=== PATIENT | male | born 1945 | race Caucasian/White ===

== ENCOUNTER 2017-11-16 15:20 | Emergency (ER) | payer MEDICARE, OTHER, SELFPAY ==
[2017-11-16 15:21] VITALS: BP 154/95; PULSE 59; RESP 12; TEMP 36.7; O2SAT 97; BMI 31.8
--- NOTE | 2017-11-16 15:30 | CT_ITS ---
STUDY: CT BRAIN WITHOUT CONTRAST REASON FOR EXAM: Male, 71 years old. Dizzy RADIATION DOSAGE (If Supplied By Facility): CTDIvol = ( 44.99 ) mGy, DLP = ( 796.11 ) mGycm TECHNIQUE: Transaxial CT imaging of the brain was performed without administration of intravenous contrast material. Individualized dose optimization techniques were used for this CT. COMPARISON: Previous study of November 11, 2014 FINDINGS: Normal soft tissue structures. Normal calvarium. There is mild cerebral atrophy with widening of the extra-axial spaces and ventricular dilatation. Normal white matter tracts of the cerebral hemispheres. Normal basal ganglia and thalami. Normal brainstem. Normal cerebellum. There is no intracranial hemorrhage. There are no findings of an acute ischemic infarction. There is mucosal thickening of the maxillary sinuses. CT/Brain/Head without Contrast IMPRESSION: Chronic involutional changes of the brain. Chronic maxillary sinusitis. Electronically Signed: Buster rGacia MD at 16:29 EST , Service support ,
--- NOTE | 2017-11-16 15:32 | ED.VISSUMM ---
- ER Visit Summary Date of Service: 11/16/17 Chief Complaint: Dizziness History of Present Illness: The patient is a 71 M who woke up with dizziness this morning. He describes as room spinning. He has a history of vertigo for years ago. He took to Antivert without any relief today. He has had a headache that radiates down into his neck. He does have a history of degenerative disc disease. He is currently being monitored by Dr. Chavez for a leukocytosis to rule out lymphoma. It is been stable and he is on no medications for this. Physical Examination: Vital signs reviewed. HEENT exam unremarkable, except for bilateral nystagmus. Moving his eyes either direction did not make his symptoms worse. Heart is regular rate and rhythm without murmurs. Lungs are clear to auscultation. Abdomen is soft and nontender. Extremities reveal no edema. Skin exam normal. Neurologic exam normal. Test Results: Laboratory studies unremarkable except for a white blood cell count of 13.1. CT scan of the head revealed chronic changes Emergency Department Course and Treatment: Patient was treated with oral Valium. He had no improvement with this was given IV Benadryl. He feels much better and was able to ambulate without any symptoms. I will send him home with Sudafed as well as Gregoria COUCH. He will continue meclizine at home. He will follow up with his primary care physician Treatment Plan: [] Disposition: Discharge Impression: Vertigo This note was generated with Dr [employer] dictation software. It may contain incorrect words, spelling, and punctuation that were not noted in review of the chart prior to signing ED Disposition - Plan for ED Patient: Chief Complaint: Dizziness Referrals: Ryan Desai MD [Primary Care Provider] -
[2017-11-16 15:43] LABS: Absolute Lymphocyte Count 10.23 X10^3/ul (0.83-4.51); Absolute Neutrophil Count 2.2 X10^3/uL (2.0-7.7); Basophil# 0.02 X10^3/uL; Basophil% 0.2 % (0-1); Differential Indicated SCAN CRITERIA MET; Eosinophil# 0.13 X10^3/uL; Hematocrit 43.5 % (40-54); Hemoglobin 14.4 g/dl (13.0-16.5); Lymphocyte # 10.23 X10^3/ul (4.0); Lymphocyte % 78.2 % (19-41); Mean Corp Hgb Conc 33.1 g/gl (32-36); Mean Corpuscular Hgb 30.4 pg (27.0-32.0); Mean Corpuscular Volume 91.8 fL (80-94); Mean Platelet Vol. 9.8 fl (6.2-12.0); Monocyte# 0.45 X10^3/uL; Monocyte% 3.4 % (0-10); Neutrophil # 2.23 X10^3/uL (2.7-7.7); POSITIVE COUNT NO; POSITIVE DIFFERENTIAL YES; POSITIVE MORPHOLOGY NO; Platelet Count 146 K/mm3 (150-450); RBC Distribution Width CV 12.7 % (11.6-14.6); Red Blood Count 4.74 M/mm3 (4.6-6.2); White Blood Count 13.1 K/mm3 (4.4-11.0)
[2017-11-16 15:52] LABS: Anion Gap 6 (5-15); BUN 18 mg/dL (7-18); BUN/Creat Ratio 26.8 RATIO (10-20); Calcium,Total 8.7 mg/dL (8.5-10.1); Chloride 110 mmol/L (98-107); Creatinine, Serum 0.67 mg/dL (0.70-1.30); EST Glomerular Filtration Rate 124 mL/min (>60); Est Glom Filt Rate - Afr Amer 150 mL/min (>60); Estimated Creatinine Clearance 70.97 ml/min; Glucose 88 mg/dL (74-106); Potassium 4.1 mmol/L (3.5-5.1); Sodium Level 143 mmol/L (136-145)
[2017-11-16] MEDS: diazePAM 5 MG Tablet PO (15:55)
[2017-11-16] MEDS: Ondansetron 4 MG/2 ML Vial IV (15:55)
[2017-11-16 15:58] VITALS: BP 138/85; PULSE 56; RESP 14; O2SAT 96
[2017-11-16 16:37] LABS: Anisocytosis RARE; Platelet Estimate ADEQUATE (ADEQ)
[2017-11-16 16:38] LABS: Macrocytosis RARE
[2017-11-16 16:41] VITALS: BP 126/81; PULSE 56; RESP 13; O2SAT 95
--- NOTE | 2017-11-16 17:27 | ED.RN ---
ATTEMPTED TO AMBULATE PT. PT SAT ON SIDE OF BED, AND DEVELOPED IMMEDIATE DIZZINESS. DID NOT TEST WALK AT THIS TIME.
[2017-11-16] MEDS: DiphenhydrAMINE 50 MG/ML Syringe 25 MG IV (17:29)
[2017-11-16 17:33] VITALS: BP 136/84; PULSE 60; RESP 16; O2SAT 99
[2017-11-16 18:06] VITALS: BP 124/76; PULSE 65; RESP 15; O2SAT 98
--- NOTE | 2017-11-16 18:26 | ED.DEP ---
ED Disposition - Plan for ED Patient: Disposition: Home or Assisted Living Chief Complaint: Dizziness Instructions: ED BPV Vertigo Prescriptions: Ondansetron [Zofran Odt] 4 mg PO Q8H PRN PRN #10 tab PRN Reason: Nausea Pseudoephedrine HCl [Sudafed] 30 mg PO TID #20 tab Referrals: Ryan Desai MD [Primary Care Provider] -
[2017-11-16 18:36] VITALS: BP 119/76; PULSE 61; RESP 16; O2SAT 96
[2017-11-17 13:25] LABS: Pathologist Review Reviewed
== END 2017-11-16 18:37 | disposition home or self-care (01) ==
PROVIDERS: Emergency Provider Emergency Medicine; Family Provider Family Medicine; PCP Family Medicine
DX: R42 Dizziness and giddiness (principal); R51 Headache; Z79.899 Other long term (current) drug therapy
CPT/HCPCS: 70450; 80048; 85025; 96374; 96375; 99285; A4216; J2405

== ENCOUNTER → 2019-08-07 11:48 | Outpatient (CLI) | payer MEDICARE, OTHER, SELFPAY ==
[2019-08-07 11:56] LABS: Bacteria 0 SEEN /hpf (None Seen); Mucous, Urine 0 SEEN /hpf (<or=2+); Squamous Epithelial Cells - UA 0 SEEN /hpf (0-5)
[2019-08-07 12:23] LABS: Absolute Lymphocyte Count 14.48 X10^3/uL (0.83-4.51); Basophil# 0.07 X10^3/uL; Basophil% 0.3 % (0-1); Eosinophil# 0.16 X10^3/uL; Eosinophils% 0.8 % (0-5); Hematocrit 45.7 % (40-54); Hemoglobin 14.9 g/dL (13.0-16.5); Lymphocyte # 14.48 X10^3/ul (4.0); Lymphocyte % 69.1 % (19-41); Mean Corp Hgb Conc 32.6 g/dL (32-36); Mean Corpuscular Volume 95.2 fL (80-94); Monocyte# 2.26 X10^3/uL; Monocyte% 10.8 % (0-10); NRBC Flagged by Analyzer 0.1 % (0-5); Neutrophil # 3.95 X10^3/uL (2.7-7.7); Neutrophil % 18.8 % (47-70); POSITIVE DIFFERENTIAL YES; POSITIVE MORPHOLOGY YES; Platelet Count 165 K/mm3 (150-450); RBC Distribution Width CV 12.2 % (11.6-14.6)
[2019-08-07 12:24] LABS: Differential Indicated SCAN CRITERIA MET
[2019-08-07 12:29] LABS: Color, Urine Yellow (Yellow); Glucose, Dipstick Normal (Normal); Ketone-Dipstick Negative (Negative); Leukocyte Esterase-Dipstick 500 /ul (Negative); Nitrite-Dipstick Negative (Negative); Occult Blood-Urine 250 /ul (Negative); Protein-Dipstick 30 mg/dl (Negative); Specific Gravity, Urine 1.005 (1.002-1.030); Urine Bilirubin Dipstick Negative (Negative); Urine Clarity Sl. Cloudy (Clear); Urine Urobilinogen Normal (Normal)
[2019-08-07 12:31] LABS: White Blood Cells 10-25 SEEN /hpf (0-5)
[2019-08-07 12:32] LABS: Red Blood Cells-Urine 25-50 SEEN /hpf (0-5)
[2019-08-07 12:45] LABS: ALB/GLOB Ratio 1.3 RATIO (0.9-2.4); AST(SGOT) 20 U/L (15-37); Alanine Aminotransfer ALT/SGPT 22 U/L (16-61); Albumin, Serum 3.9 g/dL (3.2-5.0); Alkaline Phosphatase 103 U/L (45-117); Anion Gap 4 (5-15); BUN 18 mg/dL (7-18); Calcium,Total 8.9 mg/dL (8.5-10.1); Chloride 109 mmol/L (98-107); Creatinine, Serum 0.82 mg/dL (0.70-1.30); EST Glomerular Filtration Rate 98 mL/min (>60); Est Glom Filt Rate - Afr Amer 119 mL/min (>60); Globulin 2.9 g/dL (2.2-4.2); Glucose 91 mg/dL (74-106); Potassium 4.4 mmol/L (3.5-5.1); Protein, Total 6.8 g/dL (6.4-8.2); Sodium Level 142 mmol/L (136-145)
[2019-08-07 12:46] LABS: Reactive Lymphocyte 2+
== END ==
PROVIDERS: Family Provider Family Medicine; PCP Family Medicine; Referring Provider Family Medicine; Visit Provider Family Medicine
DX: R31.0 Gross hematuria (principal)
CPT/HCPCS: 36415; 80053; 81001; 85025

== ENCOUNTER 2020-08-17 16:54 | Emergency (ER) | payer MEDICARE, OTHER, SELFPAY ==
[2020-08-17 16:55] VITALS: BP 149/88; PULSE 61; RESP 18; TEMP 36.6; O2SAT 98; BMI 29.5
--- NOTE | 2020-08-17 17:18 | ED.VIS.GEN ---
History of Present Illness Chief Complaint: Lower Extremity Injury Informant: Patient Narrative: 74-year-old male states that he has developed pain in the anterior aspect of the right knee. He states it is painful at rest and with movements. He has a history of bilateral knee replacements with Dr. Sierra in [place]. He has an appointment with them for this pain in September. He has a history of CLL and contacted Dr. Bray's office who asked him to come to emergency to get duplex ultrasound. Patient denies any swelling of the leg. He denies any redness or swelling of the knee. No chest pain shortness of breath. No known trauma. Past Medical History - Allergies and Home Meds Allergies/Adverse Reactions: Allergies No Known Allergies Allergy (Verified 08/17/20 16:57) Past Medical History: - - CLL Surgical History: - - Bilateral knee replacements Smoking Status: Never smoker Drugs: None Review of Systems General: Denies: Chills, Fever, Sweats Eyes: Denies: Visual changes - bilaterally, Diplopia ENT: Denies: Rhinorrhea, Sore throat Cardiovascular: Denies: Chest pain, Palpitations Respiratory: Denies: Dyspnea, Cough, Dyspnea on exertion Gastrointestinal: Denies: Abdominal pain, Nausea, Vomiting, Diarrhea, Melena, Hematochezia Genitourinary: Denies: Dysuria, Hematuria, Frequency Musculoskeletal: Reports: Extremity Pain. Denies: Back pain Skin: Denies: Rash, Wounds Neurological: Denies: Headache, Weakness, Numbness Physical Exam Vital Signs/Narrative: Vital Signs Temp Pulse Resp BP Pulse Ox 08/17/20 16:55 97.9 F 61 18 149/88 H 98 Inital Vital Signs reviewed: Yes General: Well nourished, Well developed, No Acute Distress Head: Normocephalic, Atraumatic Eyes: Perrl, EOMI ENT: Moist mucous membranes, No rhinorrhea Neck: Supple, Nontender Cardiovascular: Regular rate, Regular rhythm, No murmurs Respiratory: No distress, CTA bilaterally, Chest nontender Abdomen: Soft, Nontender, Nondistended, Normal bowel sounds Back: Nontender, Normal Inspection Extremities: Nontender, No edema, - - Specifically no warmth, redness, or swelling of the knee. Ligaments appear stable. Calf is nontender. Neurovascular intact. Normal skin color Skin: Normal color, No rash Neurological: Alert, Oriented x3, Cranial nerves II-XII grossly intact, Normal Strength, Normal Sensation Psychological: Normal affect, Normal Mood Diagnostic/Tx/Re-eval Clinical Impression(s) from Imaging Studies Venous Duplex 08/17/20 17:19 IMPRESSION: 1. No demonstrated deep venous thrombosis of the right lower extremity 2. Additional imaging of right anterior knee region where there is complaining of pain and swelling reveals subcutaneous edema and a small amount of layering subcutaneous fluid likely due to direct trauma or inflammation. Electronically Signed: Garett Liriano MD at 18:13 EST , Service support , Knee X-Ray 08/17/20 17:25 IMPRESSION: No acute or significant process Electronically Signed: Garett Liriano MD at 18:01 EST , Service support , - Medical Decision Making I think is most likely musculoskeletal and probably patellar in nature. My interpretation of the plain films of the knee show arthritic changes of the patella and some mild edema of the soft tissue. Orthopedic hardware appears intact. Patient will be discharged home. Instructions for anti-inflammatories and to keep his appointment with his orthopedic surgeon. ED Disposition - Plan for ED Patient: Disposition: Home or Assisted Living Diagnosis: Right knee pain Instructions: ED Knee Pain of Uncertain Cause Additional Instructions: Follow-up with Dr. Sierra as scheduled
--- NOTE | 2020-08-17 17:19 | US_ITS ---
STUDY: VENOUS DOPPLER ULTRASOUND - RIGHT LOWER EXTREMITY REASON FOR EXAM: Male, 74 years old. RT ANTERIOR KNEE PAIN AND SWELLING TECHNIQUE: Ultrasound evaluation of the deep vein system to include calderon-scale imaging and compression was performed. Calderon-scale imaging and Doppler sonographic evaluation, including duplex spectral analysis and qualitative color flow sonography, was performed. COMPARISON: None. FINDINGS: Common Femoral Vein: Normal compression, spontaneity and augmentation. Normal color Doppler. Common Femoral Vein/Greater Saphenous Junction: Normal compression, spontaneity and augmentation. Normal color Doppler. Deep Femoral Vein: Normal compression, spontaneity and augmentation. Normal color Doppler. Femoral Proximal: Normal compression, spontaneity and augmentation. Normal color Doppler. Femoral Middle: Normal compression, spontaneity and augmentation. Normal color Doppler. Femoral Distal: Normal compression, spontaneity and augmentation. Normal color Doppler. Popliteal Vein: Normal compression, spontaneity and augmentation. Normal color Doppler. Posterior Tibial Vein: Normal compression, spontaneity and augmentation. Normal color Doppler. Peroneal Vein: Normal compression, spontaneity and augmentation. Normal color Doppler. Imaging of the left common femoral vein reveals no abnormalities. Additional imaging of right anterior knee region where there is complaining of pain and swelling reveals subcutaneous edema and a small amount of layering subcutaneous fluid likely due to direct trauma or inflammation. US/Venous Duplex Imag/Limited/Uni IMPRESSION: 1. No demonstrated deep venous thrombosis of the right lower extremity 2. Additional imaging of right anterior knee region where there is complaining of pain and swelling reveals subcutaneous edema and a small amount of layering subcutaneous fluid likely due to direct trauma or inflammation. Electronically Signed: Garett Liriano MD at 18:13 EST , Service support ,
--- NOTE | 2020-08-17 17:25 | RAD_ITS ---
STUDY: X-RAY - RIGHT KNEE REASON FOR EXAM: Male, 74 years old. right knee pain, no injury TECHNIQUE: 4 view(s) of the knee. COMPARISON: None. FINDINGS: Unremarkable knee prosthetic components. No demonstrated hardware complications. Normal proximal tibiofibular articulation. There is no demonstrated fracture. No visualized joint effusion. The soft tissue structures are unremarkable. RAD/Knee 4 or More Views IMPRESSION: No acute or significant process Electronically Signed: Garett Liriano MD at 18:01 EST , Service support ,
[2020-08-17 18:55] VITALS: BP 154/97; PULSE 58; RESP 18; O2SAT 97
== END 2020-08-17 18:56 | disposition home or self-care (01) ==
PROVIDERS: Emergency Provider Emergency Medicine; PCP Family Medicine
DX: M25.561 Pain in right knee (principal); Z85.6 Personal history of leukemia; Z96.653 Presence of artificial knee joint, bilateral; M79.89 Other specified soft tissue disorders
CPT/HCPCS: 73564; 93971; 99282

== ENCOUNTER → 2022-02-15 | Outpatient (CLI) | payer MEDICARE, SELFPAY | END | disposition home or self-care (01) | LOC: LABSPEC 15:56 | PROVIDERS: PCP Family Medicine; Visit Provider Otolaryngology | DX: J32.9 Chronic sinusitis, unspecified (principal) | CPT/HCPCS: 87070; 87077; 87186; 87205 ==

== ENCOUNTER → 2022-03-01 | Outpatient (CLI) | payer MEDICARE, SELFPAY ==
--- NOTE | 2022-03-01 | MASS_PTH ---
PATIENT: DEDE CHAN LOC: [facility] U#:[id number] AGE/SX: 76/M ROOM: RE03/01/[address]: Dr. Laron Tovar MD : 1945 BED: DIS: 03/01/2022 SPEC #: [id number] RECD: 03/01/22 08:49 STATUS: JONATHON KEBEDE #: [id number] CURTIS: 03/01/22 00:[address]: Laron Tovar DEPT: SURGICAL PATHOLOGY RECD BY: Dionisio Bernardo ENTERED: 03/04/22 08:49 SP TYPE: Mass OTHR DR: Dr. Dede Desai MD Tissues: NASAL POLYP Procedures: Special Stain Group I Surgery Specimen Level IV GMS Stain (control) HEADER OPERATION: Not noted PRE-OP DIAGNOSIS: Left nasal mass TISSUE SUBMITTED: Left nasal mass MICROSCOPIC DIAGNOSIS Left nasal mass, biopsy: Fragments of respiratory mucosa with extensive ulceration, acute and chronic inflammation and granulation tissue reaction. Negative for malignancy. See comment. MARIA GUADALUPE:christiana 03/05/2022 COMMENT The specimen also show extensive area of hemorrhage. Special stain for fungi is negative for organisms; matched control is appropriate. If there is a residual lesion, re-biopsy is suggested if clinically indicated. Clinical correlation and appropriate follow up are necessary. Case has been reviewed in consultation with Dr. Campbell who concurs with the above diagnosis. IDC:AM MICROSCOPIC DESCRIPTION Slides are reviewed. GROSS DESCRIPTION Received in fixative is one container labeled with the patient's name and designated left nasal mass. The specimen consists of multiple pieces of brownish soft tissue that in aggregate measure 1.8 x 1.5 x 0.3 cm. The specimen is totally submitted in one cassette. / MARIA GUADALUPE:christiana 03/04/2022 TC:5 CPT: 17193, 13421
== END | disposition home or self-care (01) ==
LOC: LABSPEC 15:16
PROVIDERS: PCP Family Medicine; Referring Provider Otolaryngology; Visit Provider Otolaryngology
DX: C30.0 Malignant neoplasm of nasal cavity (principal)
CPT/HCPCS: 88304; 88305; 88312

== ENCOUNTER → 2022-03-08 | Outpatient (CLI) | payer MEDICARE, SELFPAY | END | disposition home or self-care (01) | LOC: LABSPEC 15:03 | PROVIDERS: PCP Family Medicine; Visit Provider Otolaryngology | DX: J32.9 Chronic sinusitis, unspecified (principal) | CPT/HCPCS: 87070; 87077; 87186; 87205 ==

== ENCOUNTER → 2022-03-20 | Outpatient (CLI) | payer MEDICARE, OTHER, SELFPAY ==
--- NOTE | 2022-03-20 07:57 | CT_ITS ---
STUDY: CT MAXILLOFACIAL SINUSES REASON FOR EXAM: Male, 76 years old. SINUSITIS. BALLOON PLASTY 2 WEEKS AGO RADIATION DOSAGE (If Supplied By Facility): CTDIvol = ( 33.06 ) mGy, DLP = ( 837.98 ) mGycm TECHNIQUE: The patient was scanned in a multi detector CT scanner. High resolution axial imaging was performed without the administration of intravenous contrast material. Sagittal and coronal images were reconstructed. Individualized dose optimization techniques were used for this CT. COMPARISON: None. FINDINGS: FRONTAL SINUSES: There is opacification of the left frontal sinus. Mucosal thickening of the right frontal sinus. ETHMOIDAL SINUSES: Partial opacification of the ethmoid sinuses. MAXILLARY SINUSES: There is complete opacification of the maxillary sinuses bilaterally worse on the right side. SPHENOIDAL SINUSES: Normal aeration, without mucosal inflammatory disease. The ostiomeatal complexes are obliterated bilaterally due to soft tissue proliferation. Normal bilateral middle turbinates. Normal bilateral inferior turbinates. Normal midline nasal septum. Soft tissue proliferation along the posterior aspect of the nasal airways more prominent on the right side. The visualized osseous structures are normal. The visualized bilateral orbital contents are normal. CT/Sinus/Facial Bone IMPRESSION: Opacification of the maxillary sinuses as well as the left frontal sinus and partial opacification of the ethmoid sinuses. Electronically Signed: Juan Rodas MD at 8:35 EDT ,
== END | disposition home or self-care (01) ==
LOC: CT 07:56
PROVIDERS: PCP Family Medicine; Referring Provider Otolaryngology; Visit Provider Otolaryngology
DX: J32.9 Chronic sinusitis, unspecified (principal); J33.0 Polyp of nasal cavity
CPT/HCPCS: 70486

== ENCOUNTER 2022-04-12 08:11 | Outpatient (CLI) | payer MEDICARE, OTHER, SELFPAY ==
--- NOTE | 2022-04-12 08:14 | EKG12_ITS ---
Test Reason : PRE OP Blood Pressure : / mmHG Vent. Rate : 069 BPM Atrial Rate : 069 BPM P-R Int : 176 ms QRS Dur : 088 ms QT Int : 386 ms P-R-T Axes : 062 070 057 degrees QTc Int : 413 ms Normal sinus rhythm Normal ECG Confirmed by TRACY ALVARADO, OVIDIO ([id number]), art editor MICHEAL TAFOYA ([id number]) on 04/15/2022 10:59:25 AM Referred By: Héctor Tovar Confirmed By:LETY MOLINA MD
[2022-04-12 09:24] LABS: Hematocrit 42.4 % (40-54); Mean Corpuscular Hgb 31.6 pg (27.0-32.0); Mean Corpuscular Volume 95.7 fL (80-94); POSITIVE COUNT YES; Platelet Count 151 K/mm3 (150-450); RBC Distribution Width CV 13.2 % (11.6-14.6); RBC Distribution Width SD 46.5 fl (35.1-43.9); Red Blood Count 4.43 M/mm3 (4.6-6.2); White Blood Count 37.8 K/mm3 (4.4-11.0)
[2022-04-12 09:46] LABS: Scan Indicated on CBC? Y/N YES- FLAGS NOTED
[2022-04-12 09:47] LABS: Anion Gap 3 (5-15); BUN 18 mg/dL (7-18); BUN/Creat Ratio 18.8 RATIO (10-20); Calcium,Total 9.3 mg/dL (8.5-10.1); Chloride 112 mmol/L (98-107); Creatinine, Serum 0.96 mg/dL (0.70-1.30); EST Glomerular Filtration Rate 82 mL/min (>60); Est Glom Filt Rate - Afr Amer 99 mL/min (>60); Glucose 97 mg/dL (74-106); Potassium 3.8 mmol/L (3.5-5.1); Sodium Level 143 mmol/L (136-145)
[2022-04-15 13:04] LABS: Pathologist Review Reviewed
== END 2022-04-12 23:59 | disposition home or self-care (01) ==
PROVIDERS: PCP Family Medicine; Referring Provider Otolaryngology; Visit Provider Otolaryngology
DX: Z01.810 Encounter for preprocedural cardiovascular examination (principal); Z01.812 Encounter for preprocedural laboratory examination
CPT/HCPCS: 36415; 80048; 85027; 93005

== ENCOUNTER → 2022-04-17 | Outpatient (CLI) | payer MEDICARE, OTHER, SELFPAY ==
--- NOTE | 2022-04-16 | IMM_PTH ---
PATIENT: DEDE CHAN LOC: [facility] U#:[id number] AGE/SX: 76/M ROOM: RE04/17/[address]: Dr. Laron Tovar MD : 1945 BED: DIS: 04/17/2022 SPEC #: [id number] RECD: 04/22/22 12:49 STATUS: JONATHON REQ #: [id number] CURTIS: 04/16/22 00:[address]: Laron Tovar DEPT: IMMUNOHISTOCHEMISTRY RECD BY: Krystal Marroquin ENTERED: 04/22/22 12:57 SP TYPE: IMMUNO OTHR DR: Dr. Dede Desai MD Tissues: A - Nasal cartilage, NOS B - Nasal cartilage, NOS Procedures: BCL-2 (add) BCL-6 (add) CD10 (add) CD138 (add) CD15 (add) CD20 (add) CD23 (add) CD30 (add) CD43 (add) CD45 (add) CD5 (add) CD79A (add) CYCLIN (add) KAPPA (add) KI-67 (add) LAMBDA (add) P53 (add) MUM1 (add) Pankeratin (add) CD3 (initial) PHYSICIAN & [place] [id number] SPECIMEN INFORMATION: Tissue Source: A ? Right sinus contents, B ? Left Right sinus contents Clinical Info: Chronic sinusitis, polyp of nasal cavity Specimen Number: [id number] A & B CPT code: 92119 x2, 17370 x28 METHODOLOGY: Deparaffinized sections of prefer/formalin-fixed tissue or PAP/DQ stained slides are incubated with monoclonal/polyclonal antibodies/oligonucleotide probes. Localization is made via biotin free immunoperoxidase method. Appropriate controls are performed and reacted as expected. Results on target cell population are indicated in the following table: RESULTS: ANTIBODY / CLONE RESULT Block A CD3 (PS1) negative CD5 (SP10) positive CD20 (L26) positive CD23 (1B12) negative CD30 (Lasha-H2) negative CD43 (L60) positive CD45 (RP2/18) positive CD79a (11E3) positive BCL-2 (bcl-2/100/D5) positive BCL-6 (GD521H/A8) negative Block B AE1-3 (AE1/AE3/PCK26) negative CD3 (PS1) negative CD5 (SP10) positive CD10 (56C6) negative CD15 (MMA) negative CD20 (L26) positive CD23 (1B12) positive CD30 (Lasha-H2) negative CD43 (L60) positive CD45 (RP2/18) positive CD79a (11E3) positive CD138 (B-A38) negative BCL-2 (bcl-2/100/D5) positive BCL-6 (WZ539C/A8) negative Cyclin D1/BCL-1 (SP4) negative MUM1 (MRQ-43) negative Stigler (polyclonal) negative Lambda (polyclonal) negative P53 (DO-7) negative Ki-67 (30-9) negative These tests were developed and their performance characteristics determined by [facility]. They may not have been cleared or approved by the U.S. Food and Drug Administration. The FDA has determined that such clearance or approval is not necessary. The above immunohistochemical/dualISH markers are ordered and reviewed by the Pathologist. INTERPRETATION: A. Right sinus contents: Consistent with involvement by SLL/CLL. B. Left Right sinus contents: Consistent with involvement by SLL/CLL. Case has been reviewed in consultation with Dr. Robin who concurs with the above diagnosis. IDC:MARIA GUADALUPE AM:christiana 04/23/2022
--- NOTE | 2022-04-16 | NASAL_PTH ---
PATIENT: DEDE CHAN LOC: [facility] U#:[id number] AGE/SX: 76/M ROOM: RE04/17/[address]: Dr. Laron Tovar MD : 1945 BED: DIS: 04/17/2022 SPEC #: [id number] RECD: 04/17/22 14:39 STATUS: JONATHON REJuan #: [id number] CURTIS: 04/16/22 00:[address]: Laron Tovar DEPT: SURGICAL PATHOLOGY RECD BY: Char Santizo ENTERED: 04/18/22 09:38 SP TYPE: NASAL SPEC OTHR DR: Dr. Dede Desai MD [facility] Tissues: A - Ethmoid sinus, NOS B - Ethmoid sinus, NOS Procedures: Decalcification bone/plaque Surgery Specimen Level IV HEADER OPERATION: Functional endoscopic sinus surgery PRE-OP DIAGNOSIS: Chronic sinusitis, polyp of nasal cavity TISSUE SUBMITTED: A ? Right sinus contents, B ? Left sinus contents MICROSCOPIC DIAGNOSIS A. Right sinus contents, curettings: Consistent with involvement by SLL/CLL Fragments of benign sinonasal polyp and respiratory mucosa. Consistent with chronic sinusitis. See Comment. B. Left sinus contents, curettings: Consistent with involvement by SLL/CLL Fragments of benign sinonasal polyp and respiratory mucosa. Consistent with chronic sinusitis. See Comment. AM:christiana 04/22/2022 COMMENT A&B. Immunohistochemistry ([id number]) supports the above diagnosis. 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 Clinical correlation is suggested. Case has been reviewed in consultation with Dr. Robin who concurs with the above diagnosis. IDC:SJ MICROSCOPIC DESCRIPTION Slides are reviewed. GROSS DESCRIPTION A - Received in fixative is one container labeled with the patient's name and designated right sinus contents. The specimen consists of multiple irregular fragments of valenzuela soft tissue mixed with fragments of bone that in aggregate measure 3 x 2.5 x 0.3 cm. A few polypoid pieces are also noted measuring 0.5 to 1.5 cm in greatest dimension. The entire specimen is submitted in one cassette after decalcification. B - Received in fixative is one container labeled with the patient's name and designated left sinus contents. The specimen consists of multiple irregular fragments of valenzuela soft tissue mixed with fragments of bone including turbinate that in aggregate measure 2.5 x 2.5 x 0.3 cm. The entire specimen is submitted in one cassette after decalcification. / SJ:rg 04/18/2022 TC:0 CPT: 20611 x2, 26978 x2
== END | disposition home or self-care (01) ==
LOC: LABSPEC 14:51
PROVIDERS: PCP Family Medicine; Referring Provider Otolaryngology; Visit Provider Otolaryngology
DX: J32.9 Chronic sinusitis, unspecified (principal); J33.9 Nasal polyp, unspecified
CPT/HCPCS: 88305; 88311; 88341; 88342

== ENCOUNTER → 2022-12-04 | Outpatient (CLI) | payer MEDICARE, OTHER, SELFPAY | END | disposition home or self-care (01) | LOC: LABSPEC 15:15 | PROVIDERS: PCP Family Medicine; Referring Provider Otolaryngology; Visit Provider Otolaryngology | DX: J32.9 Chronic sinusitis, unspecified (principal) | CPT/HCPCS: 87070; 87186; 87205 ==

== ENCOUNTER → 2023-12-31 | Outpatient (CLI) | payer MEDICARE, OTHER, SELFPAY ==
--- NOTE | 2023-12-31 07:12 | CT_ITS ---
STUDY: CT MAXILLOFACIAL SINUSES REASON FOR EXAM: Male, 78 years old. SINUSITIS, NASAL POLYP RADIATION DOSAGE (If Supplied By Facility): CTDIvol = ( 33.06 ) mGy, DLP = ( 846.25 ) mGycm TECHNIQUE: The patient was scanned in a multi detector CT scanner. High resolution axial imaging was performed without the administration of intravenous contrast material. Sagittal and coronal images were reconstructed. Individualized dose optimization techniques were used for this CT. COMPARISON: Comparison is made with prior study dated March 20, 2022. FINDINGS: Small benign appearing submental lymph nodes. FRONTAL SINUSES: Normal aeration, without mucosal inflammatory disease. ETHMOIDAL SINUSES: Opacification of the ethmoid sinuses with thinning of the bony septations. MAXILLARY SINUSES: There is opacification of the maxillary sinuses bilaterally. SPHENOIDAL SINUSES: Opacification of the sphenoid sinuses. Soft tissue proliferation in the ostiomeatal contrast bilaterally. Soft tissue density in the nasal fossa worse on the left side. Normal bilateral inferior turbinates. There is a right sided nasal septal deviation, but without a nasal septal spur. The visualized osseous structures are normal. The visualized bilateral orbital contents are normal. CT/Sinus/Facial Bone IMPRESSION: Pansinusitis. Findings suggestive of nasal polyposis worse in the left nasal fossa. Electronically Signed: Juan Rodas MD at 14:56 EDT ,
== END | disposition home or self-care (01) ==
LOC: CT 07:09
PROVIDERS: PCP Family Medicine; Referring Provider Otolaryngology; Visit Provider Otolaryngology
DX: J32.8 Other chronic sinusitis (principal); J33.0 Polyp of nasal cavity
CPT/HCPCS: 70486

== ENCOUNTER 2024-02-24 06:44 | Day surgery (SDC) | payer MEDICARE, OTHER, SELFPAY ==
--- NOTE | 2024-02-18 07:52 | EKG12_ITS ---
Test Reason : PREOP Blood Pressure : / mmHG Vent. Rate : 061 BPM Atrial Rate : 061 BPM P-R Int : 150 ms QRS Dur : 080 ms QT Int : 414 ms P-R-T Axes : 024 045 037 degrees QTc Int : 416 ms Normal sinus rhythm Normal ECG Confirmed by CORDELL ALVARADO, EVANS ([id number]), communications editor MICHEAL TAFOYA ([id number]) on 02/19/2024 6:06:33 AM Referred By: Kieran Tovar Confirmed By:EVANS LANDA MD
[2024-02-18 08:24] LABS: Hemoglobin 12.5 g/dL (13.0-16.5); Mean Corp Hgb Conc 31.3 g/dL (32-36); Mean Corpuscular Hgb 30.2 pg (27.0-32.0); Mean Corpuscular Volume 96.6 fL (80-94); Mean Platelet Vol. 9.8 fl (6.2-12.0); POSITIVE COUNT YES; Platelet Count 148 K/mm3 (150-450); RBC Distribution Width CV 13.2 % (11.6-14.6); RBC Distribution Width SD 46.5 fl (35.1-43.9); Red Blood Count 4.14 M/mm3 (4.6-6.2)
[2024-02-18 08:32] LABS: Scan Indicated on CBC? Y/N YES- FLAGS NOTED; White Blood Count 58.5 K/mm3 (4.4-11.0)
[2024-02-18 09:54] LABS: Anion Gap 5 (5-15); BUN 13 mg/dL (7-18); BUN/Creat Ratio 15.3 RATIO (10-20); Chloride 110 mmol/L (98-107); Creatinine, Serum 0.85 mg/dL (0.70-1.30); EST Glomerular Filtration Rate 93 mL/min (>60); Est Glom Filt Rate - Afr Amer 113 mL/min (>60); Glucose 89 mg/dL (74-106); Potassium 4.2 mmol/L (3.5-5.1); Sodium Level 141 mmol/L (136-145)
[2024-02-19 16:11] LABS: Pathologist Review Reviewed
--- NOTE | 2024-02-24 | ETH_PTH ---
PATIENT: DEDE CHAN LOC: [facility] – [place] U#:[id number] AGE/SX: 78/M ROOM: RE02/24/[address]: Dr. Laron Tovar MD : 1945 BED: DIS: 02/24/2024 SPEC #: [id number] RECD: 02/24/24 12:58 STATUS: JONATHON REJuan #: [id number] CURTIS: 02/24/24 00:[address]: Laron Tovar DEPT: SURGICAL PATHOLOGY RECD BY: Dionisio Bernardo ENTERED: 02/24/24 12:59 SP TYPE: ETH TISS OTHR DR: Dr. Dede Desai MD Tissues: A - Ethmoid sinus, NOS B - Ethmoid sinus, NOS Procedures: Decalcification bone/plaque Surgery Specimen Level IV HEADER OPERATION: Functional endoscopic sinus surgery, navigation PRE-OP DIAGNOSIS: Other chronic sinusitis, polyp of nasal cavity TISSUE SUBMITTED: A- Left nasal contents, B- Right nasal contents MICROSCOPIC DIAGNOSIS A. Left nasal contents, curettings: Consistent with involvement by SLL/CLL. Fragments of benign polypoid sinonasal respiratory mucosa with chronic inflammation. See comment. B. Right nasal contents, curettings: Consistent with involvement by SLL/CLL. Fragments of benign polypoid sinonasal respiratory mucosa with chronic inflammation. See comment. AM/mr 03/03/2024 COMMENT A&B. Immunohistochemistry ([id number]) supports the above diagnosis. Reference is make to patients right and left sinus contents curettings ([id number]) in which involvement by SLL/CLL was identified. Case has been reviewed in consultation with Dr. Robin who concurs with the above diagnosis. IDC:SJ MICROSCOPIC DESCRIPTION Slides are reviewed. GROSS DESCRIPTION A. Received in fixative is one container labeled with the patient's name and designated Left nasal contents. The specimen consists of multiple fragments of valenzuela soft tissue mixed with fragments of bone measuring in aggregate 3.0 x 2.5 x 0.3cm. The entire specimen is submitted in one cassette after decalcification. B. Received in fixative is one container labeled with the patient's name and designated Right nasal contents. The specimen consists of multiple fragments of pink congested soft tissue mixed with blood clot and minute fragments of bone measuring in aggregate 5.0 x 3.0 x 0.2cm. The entire specimen is submitted in two cassettes. MARIA GUADALUPE/ 02/24/2024 TC:0 CPT:71314v6,85662o9,45261u4
--- NOTE | 2024-02-24 | IMM_PTH ---
PATIENT: DDEE CHAN LOC: [facility] U#:[id number] AGE/SX: 78/M ROOM: RE02/24/[address]: Dr. Laron Tovar MD : 1945 BED: DIS: 02/24/2024 SPEC #: [id number] RECD: 02/27/24 11:22 STATUS: JONATHON REQ #: [id number] CURTIS: 02/24/24 00:[address]: Laron Tovar DEPT: IMMUNOHISTOCHEMISTRY RECD BY: Salinas Solis ENTERED: 02/27/24 11:24 SP TYPE: IMMUNO OTHR DR: Dr. Dede Desai MD Tissues: A - Ethmoid sinus, NOS B - Ethmoid sinus, NOS Procedures: BCL-2 (add) BCL-6 (add) CD10 (add) CD20 (add) CD23 (add) CD43 (add) CD45 (add) CD5 (add) CD79A (add) CYCLIN (add) KI-67 (add) CD3 (initial) PHYSICIAN & [address] [address] SPECIMEN INFORMATION: Tissue Source: A- Left sinus contents, B- Right sinus contents Clinical Info: Other chronic sinusitis, polyp of nasal cavity Specimen Number: [id number] A&B CPT code: 14873e1,75805e27 METHODOLOGY: Deparaffinized sections of prefer/formalin-fixed tissue or PAP/DQ stained slides are incubated with monoclonal/polyclonal antibodies/oligonucleotide probes. Localization is made via biotin free immunoperoxidase method. Appropriate controls are performed and reacted as expected. Results on target cell population are indicated in the following table: RESULTS: ANTIBODY / CLONE RESULT Block A1 CD3 (PS1) negative CD5 (SP10) negative CD20 (L26) positive CD43 (L60) negative CD79a (11E3) positive CD10 (56C6) negative CD23 (1B12) positive BCL-2 (bcl-2/100/D5) positive BCL-6 (KY933G/A8) negative Cyclin D1/BCL-1 (SP4) negative Ki-67 (30-9) positive, rare CD45 (RP2/18) positive Block B1 CD3 (PS1) negative CD5 (SP10) negative CD20 (L26) positive CD43 (L60) negative CD79a (11E3) positive CD10 (56C6) negative CD23 (1B12) positive BCL-2 (bcl-2/100/D5) positive BCL-6 (SI401F/A8) negative Cyclin D1/BCL-1 (SP4) negative Ki-67 (30-9) positive, rare CD45 (RP2/18) positive These tests were developed and their performance characteristics determined by [facility]. They may not have been cleared or approved by the U.S. Food and Drug Administration. The FDA has determined that such clearance or approval is not necessary. The above immunohistochemical/dualISH markers are ordered and reviewed by the Pathologist. INTERPRETATION: A. 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 B. 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 AM/mr 03/02/2024
[2024-02-24 07:06] VITALS: BP 136/83; PULSE 60; RESP 16; TEMP 36.6; O2SAT 96; BMI 28.5
[2024-02-24] MEDS: Lactated Ringers 1,000 ML 15 ML IV ×2 (07:09→09:22)
--- NOTE | 2024-02-24 07:29 | DCINST_ITS ---
Discharge Instructions Diet Discharge Diet: No restrictions Activity Discharge Activity: Return to Normal Activity Dressing / Incision Call your doctor if your incision/area has: Sudden Increased Bleeding Follow Up Care Please Follow Up With: Laron Tovar MD When: 1 week Test Results: Test results from this visit will be discussed in further detail at your follow- up appointment, if applicable. Discharge Plan Admission Attending Provider: Laron Tovar Primary Care Provider: Ryan Desai Instructions Print Language: Swedish Discharge Orders/Prescriptions Prescriptions: No Action nadolol 40 MG tablet 40 mg PO DAILY montelukast 10 MG tablet 10 mg PO QHS fluticasone propionate 50 mcg/actuation spray,suspension 2 spray intranasal DAILY Rx Instructions: administer into each nostril levocetirizine [Xyzal] 5 mg tablet 5 mg PO DAILY Referrals / Follow Up: Ryan Desai MD [Primary Care Provider] - Disposition Disposition (needs filled in before D/C Order can be placed): Home, Self Care
--- NOTE | 2024-02-24 07:29 | OP.PCM_ITS ---
Problems Associated Problem List Diagnoses (1) Chronic pansinusitis: (2) Sinusitis with nasal polyps: Report of Operation Date of Procedure: 02/24/24 Pre-Operative Diagnosis: 1. sinonasal polyposis 2. chronic pansinusitis Post-Operative Diagnosis: 1. sinonasal polyposis 2. chronic pansinusitis Surgery/Procedure Performed:: 1. endoscopic maxillary antrostomy with removal of contents, right and left 2. endoscopic total ethmoidecotmy, right and left 3. endoscopic sphenoidotomy with removal of contents, right and left 4. endoscopic frontal sinus exploration removal of contents, right and left 5. extensive removal sinonasal polyps 6. CT image guidance navigation Surgeon: Laron Tovar Type of Anesthesia: General Description of Procedure: On the day of the procedure, after appropriate informed consent was obtained, the patient was brought to the operating room and placed in a supine position on the operating room table. The patient was placed under general endotracheal anesthesia by the anesthesiologist. The endotracheal tube was secured.? image guidance navigation was set up on the face and accuracy was confirmed.? the nose was injected with lidocaine/epinephrine and decongested with oxymetazoline- soaked pledgets.? the zero degree endoscope was used to evaluate the nasal cavity.? the superior attachment of the right and left middle turbinate and uncinate processes were injected with lidocaine/epinephrine.? the left nasal cavity was evaluated.? the middle turbinate was medialized.? extensive polyps were removed from the middle meatus, sphenoethmoidal recess and frontal recess. a revision maxillary antrostomy and uncinectomy were performed with a shira elevator and a xavier cut.? the antrostomy was widened with a back-biter.? purulent material was evacuated.? a revision total ethmoidectomy was performed with a curette and an upgoing blakesley.? this was taken superiorly to the skull base and laterally to the lamina.? a stankewicz maneuver was performed and no laminar defect was noted.? the natural sphenoid os was revised and widened with the microdebrider and contents were evacuated.? fungus was removed from the sphenoethmoidal recess.? the frontal recess was explored and contents were evacuated.? hemostasis was achieved with suction cautery; talon was placed. the right nasal cavity was evaluated.? the middle turbinate was medialized.? extensive polyps were removed from the middle meatus, sphenoethmoidal recess and frontal recess. a revision maxillary antrostomy and uncinectomy were performed with a shira elevator and a xavier cut.? the antrostomy was widened with a back-biter.? purulent material was evacuated.? a revision total ethmoidectomy was performed with a curette and an upgoing blakesley.? this was taken superiorly to the skull base and laterally to the lamina.? a stankewicz maneuver was performed and no laminar defect was noted.? the natural sphenoid os was revised and widened with the microdebrider and contents were evacuated.? fungus was removed from the sphenoethmoidal recess.? the frontal recess was explored and contents were evacuated.? hemostasis was achieved with suction cautery; talon was placed. a nasogastric tube was inserted orally and contents were evacuated.? the table was rotated 90 degrees toward the anesthesiologist and? was subsequently extubated uneventfully.? he was transferred to the PACU in stable condition.
[2024-02-24] MEDS: Oxymetazoline 0.05% 1 SPRAY SPRAY.BTL 15 SPRAY ×2 (08:05→08:06)
[2024-02-24] MEDS: Clindamycin 900 MG/50 ML BAG 75 MG IV (08:21)
[2024-02-24] MEDS: Lidocaine 1% /Epi 1:100 (20ml) 20 ML Vial (09:00)
[2024-02-24 09:50] VITALS: BP 127/68; BP 136/83; PULSE 61; RESP 16; TEMP 36; O2SAT 96
[2024-02-24 09:55] VITALS: BP 121/73; BP 136/83; PULSE 60; RESP 18; O2SAT 94
[2024-02-24 10:00] VITALS: BP 121/76; BP 136/83; PULSE 59; RESP 16; O2SAT 98
[2024-02-24 10:04] VITALS: BP 116/74; BP 136/83; PULSE 60; RESP 16; TEMP 36.2; O2SAT 97
[2024-02-24 10:26] VITALS: BP 136/83
== END 2024-02-24 10:59 | disposition home or self-care (01) ==
LOC: SDC 06:45 → AC 06:46
PROVIDERS: PCP Family Medicine; Referring Provider Otolaryngology; Visit Provider Otolaryngology
PROC: (CPT 31267; principal; 2024-02-24 08:00)
DX: J32.4 Chronic pansinusitis (principal); J33.9 Nasal polyp, unspecified; J32.8 Other chronic sinusitis; I10 Essential (primary) hypertension; Z79.899 Other long term (current) drug therapy; Z87.891 Personal history of nicotine dependence
CPT/HCPCS: 31267; 31255; 30110; 00160; 36415; 80048; 85027; 88305; 88311; 88341; 88342; 93005; J7120; J2405

== ENCOUNTER → 2025-07-27 | Outpatient (CLI) | payer MEDICARE, OTHER, SELFPAY ==
--- NOTE | 2025-07-27 08:40 | EKG12_ITS ---
Test Reason : PREOP Blood Pressure : */* mmHG Vent. Rate : 62 BPM Atrial Rate : 62 BPM P-R Int : 182 ms QRS Dur : 94 ms QT Int : 412 ms P-R-T Axes : 69 64 56 degrees QTcB Int : 418 ms Normal sinus rhythm Normal ECG Confirmed by Calvin Orozco ([id number]), purchasing expeditor EDWINA OG ([id number]) on 07/27/2025 10:42:07 AM Referred By: Laron Tovar Confirmed By: Calivn Orozco
[2025-07-27 09:18] LABS: Hematocrit 27.8 % (40-54); Hemoglobin 8.9 g/dL (13.0-16.5); Mean Corp Hgb Conc 32.0 g/dL (32-36); Mean Corpuscular Volume 114.4 fL (80-94); Mean Platelet Vol. 9.6 fl (6.2-12.0); POSITIVE COUNT YES; POSITIVE MORPHOLOGY YES; Platelet Count 212 K/mm3 (150-450); RBC Distribution Width CV 17.0 % (11.6-14.6); RBC Distribution Width SD 71.8 fl (35.1-43.9); Red Blood Count 2.43 M/mm3 (4.6-6.2)
[2025-07-27 09:27] LABS: White Blood Count 59.1 K/mm3 (4.4-11.0)
[2025-07-27 09:38] LABS: Anion Gap 10 (5-15); BUN 23 mg/dL (4-19); BUN/Creat Ratio 26.6 RATIO (10-20); Calcium,Total 9.5 mg/dL (7.6-11.0); Carbon Dioxide 24.8 mmol/L (21.0-32.0); Chloride 107 mmol/L (98-108); Glucose 110 mg/dL (70-99); Potassium 4.4 mmol/L (3.3-5.1)
[2025-07-27 09:58] LABS: Scan Indicated on CBC? Y/N YES- FLAGS NOTED
== END | disposition home or self-care (01) ==
PROVIDERS: PCP Family Medicine; Referring Provider Otolaryngology; Visit Provider Otolaryngology
DX: Z01.812 Encounter for preprocedural laboratory examination (principal); Z01.810 Encounter for preprocedural cardiovascular examination
CPT/HCPCS: 36415; 80048; 85027; 93005

== ENCOUNTER → 2025-08-02 | Outpatient (CLI) | payer MEDICARE, OTHER, SELFPAY ==
--- OUTSIDE RECORDS SUMMARY | 2025-08-02 19:28 | XMS RPT_ITS | CCD ---
Author Organization [facility] CliniSyar Care Team Providers Care Feature Writer Name Role Phone SAURABH WAITE Unavailable Unavailable IMCA Unavailable Unavailable Dede Desai Unavailable Unavailable Dede Desai MD Primary Care Provider Dede Desai MD Primary Care Provider Dede Desai MD Primary Care Provider Jose Jiménez MD Unavailable Dede Desai MD Primary Care Provider DEDE DESAI Primary Care Unavailable JOSSE MARSHALL Attending Unavail able Tannhoyeison BUY BOAT OPERATOR.Oneil VOGELley Unavailable Kemal BUY BOAT OPERATOR.WEATHERIZATION TECHNICIAN Mir Unavailable Tannhof BUY BOAT OPERATOR.WEATHERIZATION TECHNICIAN Noelle Unavailable KEMAL, MIR Referring Unavailable DEDE DESAI Primary Care Unavailable BERTO SOMMERE Referring Unavailable DEDE DESAI Primary Care Unavailable DEDE DESAI Primary Care Unavailable BERTO SOMMERE Attending Unavailable DEDE DESAI Primary Care Unavailable JOSE JIMÉNEZ Attending Unavailable DEDE DESAI Primary Care Unavailable DEDE DESAI Primary Care Unavailable SPIKE MILLER Attending Unavailable GRUPO RUIZ Attending Unavailable GRUPO RUIZ Referring Unavailable EDDE DESAI Primary Care Unavailable DEDE DESAI Primary Care Unavailable NOELLE ZHU Attending Unavailabl e DEDE DESAI Primary Care Unavailable NOELLE ZHU Referring Unavailabl e DEDE DESAI Primary Care Unavailable SELF Referring Unavailable DEDE DESAI Primary Care Unavailable KEMAL, MIR Attending Unavailable KEMAL, MIR Referring Unavailable DEDE DESAI Primary Care Unavailable MIR SOMMER Referring Unavailable DEDE DESAI Primary Care Unavailable Spike Miller Primary Care Unavailable Laron Tovar Referring UnavailLaron Garvey Attending Unavaillidia camacho Allergies Allergy Classification Reported Allergen(s) Allergy Type Date of Onset Reaction(s) Facility (20 sources) Seasonal allergy; Translations: [SEASONAL ALLERGIES] Propensity to adverse reactions (disorder) 9 [facility] Repository Medications Current Medications Medication Drug Class(es) Dates Sig (Normalized) Sig (Original) amoxicillin 875 mg / clavulanate 125 mg oral tablet (5 sources) Penicillin-class Antibacterial Start: 11-04-2024 End: 11-14-2024 take 1 tablet by mouth twice daily amoxicillin-clav ulanate potassium (AUGMENTIN) 875-125 mg per tablet Indications: Bacterial sinusitis Take 1 tablet by mouth two times a day for 10 days. 20 tablet 11/04/2024 11/14/2024 Active Start: 08-03-2024 End: 08-13-2024 take 1 tablet by mouth twice daily amoxicillin-clavulanate potassium (AUGMENTIN) 875-125 mg per tablet Take 1 tablet by mouth two times a day for 10 days. 20 tablet 08/03/2024 08/13/2024 Active cholecalciferol 0.05 mg oral tablet (20 sources) Vitamin D take 1 tablet by mouth once daily cholecalciferol (VITAMIN D3) 50 mcg (2,000 unit) tablet Take 2,000 Units by mouth once daily. Active Comment on above: Take 2,000 Units by mouth once daily. doxycycline hyclate 100 mg oral tablet (9 sources) Tetracycline-cla ss Drug Start: 06-03-20 End: 06-13-20 take 1 tablet by mouth twice daily doxycycline (VIBRA-TABS) 100 mg tablet Indications: Bacterial sinusitis Take 1 tablet by mouth two times a day for 10 days. 20 tablet 06/03/2024 06/13/2024 Active Start: 01-29-2024 End: 02-08-2024 take 1 tablet by mouth twice daily doxycycline (VIBRA-TABS) 100 mg tablet Indications: Bacterial sinusitis Take 1 tablet by mouth two times a day for 10 days. 20 tablet 0 01/29/2024 02/08/2024 Active Start: 11-20-2023 End: 12-11-2023 take 1 tablet by mouth twice daily doxycycline (VIBRA-TABS) 100 mg tablet Indications: Bacterial sinusitis , Recurrent sinus infections Take 1 tablet by mouth two times a day for 21 days. 42 tablet 0 11/20/2023 12/11/2023 Active Start: 10-28-2023 End: 11-11-2023 take 1 tablet by mouth twice daily doxycycline (VIBRA-TABS) 100 mg tablet Indications: Bacterial sinusitis Take 1 tablet by mouth two times a day for 14 days. 28 tablet 0 10/28/2023 11/11/2023 Active Start: 08-11-2023 End: 08-25-2023 take 1 tablet by mouth twice daily doxycycline (VIBRA-TABS) 100 mg tablet Indications: Bacterial sinusitis Take 1 tablet by mouth two times a day for 14 days. 28 tablet 0 08/11/2023 08/25/2023 Active Start: 01-13-2023 End: 01-23-2023 take 1 tablet by mouth twice daily doxycycline (VIBRA-TABS) 100 mg tablet Indications: Acute recurrent sinusitis, unspecified location Take 1 tablet by mouth twice daily for 10 days. 20 tablet 0 01/13/2023 01/23/2023 Active Start: 11-04-2022 End: 11-14-2022 take 1 tablet by mouth twice daily doxycycline (VIBRA-TABS) 100 mg tablet Indications: Bacterial sinusitis Take 1 tablet by mouth twice daily for 10 days. 20 tablet 0 11/04/2022 11/14/2022 Active Start: 08-01-2022 End: 08-11-2022 take 1 tablet by mouth twice daily doxycycline (VIBRA-TABS) 100 mg tablet Indications: Bacterial sinusitis Take 1 tablet by mouth twice daily for 10 days. 20 tablet 0 08/01/2022 08/11/2022 Active Start: 02-05-2022 End: 02-15-2022 take 1 tablet by mouth twice daily doxycycline (VIBRA-TABS) 100 mg tablet Indications: Acute recurrent sinusitis, unspecified location Take 1 tablet by mouth twice daily for 10 days. 20 tablet 0 02/05/2022 02/15/2022 Active Comment on above: Take 1 tablet by richie th twice daily for 10 days. Take 1 tablet by richie two times a day for 14 days. Take 1 tablet by richie th two times a day for 21 days. 12 hr fexofenadine hydrochloride 60 mg / pseudoephedrine hydrochloride 120 mg extended release oral tablet (7 sources) alpha-Adrenergic Agonist, Histamine-1 Receptor Antagonist Start: 11-17-19 take 1 tablet by mouth once daily, then take 1 tablet by mouth every twelve hours Fexofenadine-Pseud oephedrine (Doris-D 12 Hour Tablet) 1 EACH tablet extended release 12 hr Active 1 TABLET PO DAILY November 16, 2017 1:00am fluticasone propionate 0.05 mg/actuat metered dose nasal spray (20 sources) Corticosteroid Start: 10-09-19 End: 11-20-19 24 take 2 spray(s) by mouth once daily fluticasone (FLONASE) 50 mcg/actuation nasal spray Indications: Acute recurrent sinusitis, unspecified location Use 2 Sprays in each nostril once daily. Rinse mouth after use. 4 Each 4 11/20/2023 Active Start: 08-13-2021 End: 02-05-2022 take 2 spray(s) by mouth once daily fluticasone (FLONASE) 50 mcg/actuation nasal spray Indications: Acute recurrent sinusitis, unspecified location Use 2 Sprays in each nostril once daily. Rinse mouth after use. 4 Each 4 02/05/2022 Active Comment on above: Use 2 Sprays in each nostril once daily. Rinse mouth after use. levocetirizine (20 sources) Histamine-1 Receptor Antagonist levocetirizine dihyd rochloride (XYZAL ORAL) Take by mouth. Active End: 04-09-2024 take 1 tablet by mouth once daily levocetirizine 5 mg tablet Take 5 mg by mouth once daily. 0 04/09/2024 Discontinued (Discontinued by Patient) Comment on above: Take 5 mg by mouth o nce daily. montelukast 10 mg oral tablet (20 sources) Leukotriene Receptor Antagonist Start: 8 End: take 1 tablet by mouth once daily at bedtime montelukast (SINGULAIR) 10 mg tablet Indications: Acute recurrent sinusitis, unspecified location Take 1 tablet by mouth daily at bedtime. 90 tablet 3 11/28/2024 11/23/2025 Active Comment on above: Take 1 tablet by richie th daily at bedtime. Take 1 tablet by richie th daily at bedtime for 14 days. nadolol 40 mg oral tablet (20 sources) beta-Adrenergic Owen Start: End: take 1 tablet by mouth once daily nadolol (CORGARD) 40 mg tablet Indications: Essential hypertension Take 1 tablet by mouth once daily. 90 tablet 3 11/28/2024 11/23/2025 Active Comment on above: Take 1 tablet by richie th once daily. Take 1 tablet by richie th once daily for 14 days. nirmatrelvir tablet 300 mg (150 mg x 2) and ritonavir tablet 100 mg in a dose pack (PAXLOVID) (3 sources) Start: End: nirmatrelvir tablet 300 mg (150 mg x 2) and ritonavir tablet 100 mg in a dose pack (PAXLOVID) Indications: COVID-19 virus infection Administer TWO pink nirmatrelvir 150 mg tablets and ONE white ritonavir 100 mg tablet for a total of three tablets twice daily. 30 tablet 08/04/2024 08/09/2024 Active Start: 07-20-2022 End: 07-25-2022 nirmatrelvir tablet 300 mg ( 150 mg x 2) and ritonavir tablet 100 mg in a dose pack (PAXLOVID) Indications: Suspected COVID-19 virus infection Administer TWO pink nirmatrelvir 150 mg tablets and ONE white ritonavir 100 mg tablet for a total of three tablets twice daily. 30 tablet 0 07/20/2022 07/25/2022 Active Comment on above: Administer TWO pink nirmatrelvir 150 mg tablets and ONE white ritonavir 100 mg tablet for a total of three tablets twice daily. ondansetron 4 mg disintegrating oral tablet (7 sources) Serotonin-3 Receptor Antagonist Start: 11-17-19 take 4 mg by mouth every eight hours as needed Ondansetron Active 4 MG PO EVERY 8 HOURS NEEDED November 16, 2017 1:00am predniSONE 10 mg oral tablet (3 sources) Start: 01-14-20 End: 01-26-20 predniSONE (DELTASONE) 10 mg tablet Indications: Acute recurrent sinusitis, unspecified location Take 6 tabs for 3 days, then 4 tabs for 3 days, then 2 tabs for 3 days then 1 tab for 3 days with food. 39 tablet 0 01/13/2023 01/25/2023 Active Start: 02-05-2022 End: 02-17-2022 predniSONE (DELTASONE) 10 mg tablet Indications: Acute recurrent sinusitis, unspecified location Take 6 tabs for 3 days, then 4 tabs for 3 days, then 2 tabs for 3 days then 1 tab for 3 days with food. 39 tablet 0 02/05/2022 02/17/2022 Active Start: 01-09-2022 End: 01-14-2022 take 2 tablets by mouth once daily predniSONE (DELTASONE) 20 mg tablet Take 2 tablets by mouth once daily for 5 days. 10 tablet 0 01/09/2022 01/14/2022 Active Comment on above: Take 2 tablets by mo ut once daily for 5 days. Take 6 tabs for 3 da ys, then 4 tabs for 3 days, then 2 tabs for 3 days then 1 tab for 3 days with food. propylene glycol 6 mg/ml ophthalmic solution (14 sources) End: propylene glycoL (SYSTANE BALANCE) 0.6 % drop Use 1 Drop in both eyes. Up to 4x a day per eye doctor. 07/23/2024 Discontinued pseudoephedrine hydrochloride 30 mg oral tablet (7 sources) alpha-Adrenerg ic Agonist Start: take 30 mg by mouth three times daily Pseudoephedrine Hcl Active 30 MG PO THREE TIMES A DAY November 16, 2017 1:00am 1000 ml sodium chloride 9 mg/ml injection (1 source) Start: End: inject 1 dose intravenously once 0.9 % sodium chloride (NACL 0.9%) infusion Indications: Gross hematuria Inject 150 mL/hr intravenously one time only for 1 dose. Administer at rate defined per CT contrast administration specifications. To be provided with radiology test. 1 Each 05/11/2024 05/11/2024 Active THERAPEUTIC MULTIVITAMIN TAB (20 sources) Start: take 1 tablet by mouth once daily THERAPEUTIC MULTIVITAMIN TAB Take 1 tablet by mouth once daily. 0 05/28/2006 Active Start: 05-28-2006 THERAPEUTIC MU LTIVITAMIN TAB Take one(1) tablet daily. 0 05/28/2006 Active Comment on above: Take one(1) tablet d aily. triamcinolone acetonide 0.055 mg/actuat metered dose nasal spray (7 sources) Corticosteroid Start: 11-16-2017 Triamcinolone Acetonide (Nasacort) 1 SPRAY aerosol,spray Active 1 SPRAY NS DAILY November 16, 2017 1:00am Completed/Discontinued Medications Medication Drug Class(es) Dates Sig (Normalized) Sig (Original) brompheniramine maleate 0.4 mg/ml / dextromethorphan hydrobromide 2 mg/ml / pseudoephedrine hydrochloride 6 mg/ml oral solution (2 sources) alpha-Adrenergic Agonist, Uncompetitive M-ygcudb-M-aspartat e Receptor Antagonist, Sigma-1 Agonist Start: 02-05-2022 take 10 mL by mouth four times daily as needed Brompheniramine-P seudoeph-DM (BROMFED DM) 2-30-10 mg/5 mL syrup Indications: Acute recurrent sinusitis, unspecified location Take 10 mL by mouth four times daily as needed. 118 mL 1 02/05/2022 Active Comment on above: Take 10 mL by mouth four times daily as needed. cefdinir 300 mg oral capsule (4 sources) Cephalosporin Antibacterial Start: 02-04-2022 End: 02-05-2022 take 1 capsule by mouth twice daily cefdinir (OMNICEF) 300 mg capsule Indications: Bacterial sinusitis , Recurrent sinusitis Take 1 capsule by mouth twice daily for 14 days. 28 capsule 0 02/04/2022 02/05/2022 Discontinued (Other) Start: 01-16-2022 End: 01-30-2022 take 1 capsule by mouth twice daily cefdinir (OMNICEF) 300 mg capsule Take 1 capsule by mouth twice daily for 14 days. 28 capsule 0 01/16/2022 01/30/2022 Active Comment on above: Take 1 capsule by [facility] twice daily for 14 days. iron carbonyl 25 mg oral tablet (20 sources) End: 04-09-2024 take 1 tablet by mouth once daily iron, carbonyl (PERFECT IRON) 25 mg iron tab Take 1 tablet by mouth once daily. 0 04/09/2024 Discontinued (Discontinued by Patient) Comment on above: Take 1 tablet by richie th once daily. iv contrast (will be provided with radiology test) (6 sources) Start: 05-11-2024 End: 06-14-2024 iv contrast (will be provided with radiology test) Indications: Gross hematuria CT Urogram WO/W Inject, intravenously, once for 1 dose.No IV access, insert saline lock prior to the beginning of sedation, infusion, injection of imaging exam. Discontinue saline lock post exam. If Pt. has a central line or IVAD, may access for administration according to line specific nursing protocol. Once exam is complete flush line and de-access according to line specific nursing protocol in the CT contrast administration guidelines link. 1 Each 05/11/2024 06/14/2024 Discontinued Start: 05-11-2024 iv contrast (w ill be provided with radiology test) Indications: Gross hematuria CT Urogram WO/W Inject, intravenously, once for 1 dose.No IV access, insert saline lock prior to the beginning of sedation, infusion, injection of imaging exam. Discontinue saline lock post exam. If Pt. has a central line or IVAD, may access for administration according to line specific nursing protocol. Once exam is complete flush line and de-access according to line specific nursing protocol in the CT contrast administration guidelines link. 1 Each 05/11/2024 Active lidocaine hydrochloride 0.02 mg/mg topical gel (2 sources) Antiarrhythmic, Amide Local Anesthetic Start: 06-14-2024 End: 06-14-2024 lidocaine urojet 2 % 6 mL topical gel (GLYDO) Start: 06-14-2024 End: 06-14-2024 6 mL, URETHRAL, ONCE (UP TO 30 DAYS AMB), 1 dose, On 06/14/24 at 1500 polymyxin b [id number] unt/ml / trimethoprim 1 mg/ml ophthalmic solution (20 sources) Dihydrofolate Reductase Inhibitor Antibacterial, Polymyxin-class Antibacterial Start: 01-09-2022 End: 04-09-2024 take 1 drop(s) into the eye(s) four times daily trimethoprim-polymyxin (POLYTRIM) 10,000 unit- 1 mg/mL ophthalmic solution Use 1 Drop in both eyes four times daily. 10 mL 0 01/09/2022 04/09/2024 Discontinued (Course of therapy completed) Comment on above: Use 1 Drop in both eyes four times daily . 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-2024 Chronic Diseases of white blood cells (20 sources) Monoclonal B-cell lymphocytosis; 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)] Onset: 12-05-2014 12-05-2014 Chronic Essential hypertension (20 sources) Essential hypertension; Translations: [Essential (primary) hypertension] Onset: 12-15-2017 12-15-2017 Chronic Fracture of upper limb (7 sources) Fracture of distal end of radius; Translations: [Unspecified fracture of the lower end of unspecified radius, initial encounter for closed fracture] 09-20-2013 Episodic Genitourinary symptoms and ill-defined conditions (8 sources) Gross hematuria; Translations: [Urine color abnormal] Onset: 08-04-2018 04-09-2024 Episodic Headache; including migraine (1 source) Sinus headache; Translations: [Sinus headache] 11-20-2023 Episodic Hyperplasia of prostate (4 sources) Weak urinary stream due to benign prostatic hypertrophy; Translations: [Benign prostatic hyperplasia with lower urinary tract symptoms] Onset: 06-14-2024 05-11-2024 Chronic Immunizations and screening for infectious disease (4 sources) Suspected disease caused by 2019-nCoV; Translations: [Suspected COVID-19 virus infection] Episodic Leukemias (20 sources) Chronic lymphoid leukemia, disease; Translations: [Chronic lymphocytic leukemia of B-cell type not having achieved remission] Onset: 05-26-2018 05-26-2018 Chronic Malaise and fatigue (1 source) Other fatigue; Translations: [Fatigue, unspecified type] Onset: 07-25-2025 Episodic Nonspecific chest pain (1 source) Other chest pain; Translations: [Sensation of chest pressure] Onset: 07-04-2025 Episodic Other connective tissue disease (20 sources) History of total knee arthroplasty; Translations: [Presence of artificial knee joint, bilateral] Onset: 12-15-2017 12-15-2017 Chronic Other connective tissue disease (3 sources) Pain in right foot; Translations: [Pain in right foot] 11-04-2024 Episodic Other connective tissue disease (2 sources) Pain in both feet; Translations: [Pain in right foot] 11-11-2024 Episodic Other lower respiratory disease (1 source) Shortness of breath; Translations: [SOB (shortness of breath)] Onset: 07-25-2025 Episodic Other lower respiratory disease (1 source) Other forms of dyspnea; Translations: [SALGADO (dyspnea on exertion)] Onset: 07-04-2025 Episodic Other male genital disorders (1 source) Disorder of prostate; Translations: [Disorder of prostate, unspecified] 06-14-2024 Episodic Other male genital disorders (1 source) Disorder of prostate, unspecified; Translations: [Disorder of prostate] Onset: 06-14-2024 Episodic Other non-epithelial cancer of skin (1 source) Squamous cell carcinoma of skin of face; Translations: [Squamous cell carcinoma of skin of unspecified parts of face] Episodic Other non-traumatic joint disorders (7 sources) Pain in right knee; Translations: [Right knee pain] 08-18-2020 Episodic Other screening for suspected conditions (not mental disorders or infectious disease) (5 sources) Patient encounter status; Translations: [Encounter for screening for other disorder] Onset: 07-04-2025 05-11-2024 Episodic Other upper respiratory disease (20 sources) Allergic rhinitis; Translations: [Allergic rhinitis, unspecified] Onset: 12-15-2017 12-15-2017 Chronic Other upper respiratory disease (1 source) Polyp of nasal cavity and/or nasal sinus; Translations: [Nasal polyp, unspecified] Episodic Other upper respiratory disease (1 source) Nasal polyp, unspecified; Translations: [Nasal polyps] Onset: 07-25-2025 Episodic Other upper respiratory infections (11 sources) Bacterial sinusitis; Translations: [Chronic sinusitis, unspecified] Chronic Other upper respiratory infections (7 sources) Recurrent acute sinusitis; Translations: [Acute recurrent sinusitis, unspecified] Onset: 07-25-2025 Episodic Phlebitis; thrombophlebitis and thromboembolism (1 source) Acute deep vein thrombosis of lower limb; Translations: [Acute embolism and thrombosis of unspecified deep veins of proximal lower extremity, bilateral] Episodic Residual codes; unclassified (20 sources) Obstructive sleep apnea syndrome; Translations: [Obstructive sleep apnea (adult) (pediatric)] Onset: 12-15-2017 12-15-2017 Chronic Screening and history of mental health and substance abuse codes (2 sources) Encounter for screening examination for other mental health and behavioral disorders; Translations: [Encounter for screening for depression] Onset: 07-25-2025 Episodic Spondylosis; intervertebral disc disorders; other back problems (20 sources) Cervical arthritis; Translations: [Spondylosis without myelopathy or radiculopathy, cervical region] Onset: 12-15-2017 Resolved: 12-15-2017 12-15-2017 Chronic Unclassified (1 source) Unknown / UNK(Unknown) Onset: 08-04-2018 Unclassified (1 source) OPENED IN ERROR 06-23-2024 Viral infection (2 sources) Severe acute respiratory syndrome; Translations: [SARS-associated coronavirus as the cause of diseases classified elsewhere] 08-03-2024 Episodic Past or Other Problems Problem Classification Problem Date Documented Da te Episodic/Chronic Conditions associated with dizziness or vertigo (20 sources) Dizziness; Translations: [Dizziness and giddiness] Onset: 12-04-2017 12-04-2017 Episodic Deficiency and other anemia (20 sources) Anemia; Translations: [Anemia, unspecified] Onset: 06-26-2022 06-26-2022 Episodic Deficiency and other anemia (1 source) Anemia, unspecified; Translations: [Anemia, unspecified type] Onset: 06-26-2022 Episodic Disorders of lipid metabolism (20 sources) Hyperlipidemia; Translations: [Hyperlipidemia, unspecified] Onset: 05-26-2015 Resolved: 12-15-2017 12-15-2017 Chronic Headache; including migraine (20 sources) Migraine variants; Translations: [Migraine with aura, not intractable, without status migrainosus] Onset: 02-14-2015 Resolved: 12-15-2017 12-15-2017 Chronic Joint disorders and dislocations; trauma-related (20 sources) Tear of medial meniscus of knee; Translations: [Tear of medial cartilage or meniscus of knee, current] Onset: 09-12-2004 Resolved: 12-15-2017 12-15-2017 Episodic Osteoarthritis (20 sources) Osteoarthritis; Translations: [Osteoarthrosis, unspecified whether generalized or localized] Onset: 05-04-2003 Resolved: 01-23-2005 01-23-2005 Chronic Other connective tissue disease (2 sources) Synovial cyst of knee; Translations: [Synovial cyst of popliteal space [Pryor], unspecified knee] Onset: 01-15-2008 Resolved: 12-15-2017 12-15-2017 Episodic Other connective tissue disease (20 sources) Synovial cyst of popliteal space [Pryor], unspecified knee; Translations: [Synovial cyst of popliteal space] Onset: 01-15-2008 Resolved: 12-15-2017 12-15-2017 Episodic Other connective tissue disease (1 source) Pain in right foot; Translations: [Foot pain, right] Onset: 11-04-2024 Episodic Other non-traumatic joint disorders (20 sources) Pain in lower limb; Translations: [Pain in unspecified knee] Onset: 01-23-2005 Resolved: 12-15-2017 02-06-2005 Episodic Other non-traumatic joint disorders (20 sources) Joint pain; Translations: [Pain in unspecified joint] Onset: 12-21-2014 Resolved: 12-15-2017 12-15-2017 Episodic Sprains and strains (20 sources) Injury of lower extremity; Translations: [Sprain and strain of unspecified site of knee and leg] Onset: 09-12-2004 Resolved: 12-15-2017 12-15-2017 Episodic Results Test Name Value Interpretation Reference Range Facility CBC-Complete Blood Cnt No Di ffon 07-28-2025 PATH REV Reviewed Normal [facility] Comment on above: Result Comment: ABSO LUTE LYMPHOCYTOSIS WITH MANY SMUDGE CELLS, 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 ADEQUATE PLATELETS. Namita Omer MD 07/28/2025 AMENDED REPORT 07/28/25 0850 PATH REV previously reported as: January Performed By: #### L 100.0500, L500.2500 #### [facility] [address] [place], [address] 12 Lead EKGon 07-27-2025 12 Lead EKG [facility] [address] [place] [address] 12 Lead EKG 07/27/25 0845 MR#: [id number] Acct: [id number] Name: DEDE CHOW Rep #: [id number] : 1945 79 From: Calvin Orozco MD Attending Dr: Dr. Laron Tovar MD Statu s: REG CLI Ordering Dr: Laron Tovar MD Date: 5 Location: [facility] Sex: M C Admitted: Test Reason : PREOP Blood Pressure : */* mmHG Vent. Rate : 62 BPM Atrial Rate : 62 BPM P-R Int : 182 ms QRS Dur : 94 ms QT Int : 412 ms P-R-T Axes : 69 64 56 degrees QTcB Int : 418 ms Normal sinus rhythm Normal ECG Confirmed by Calvin Orozco ([id number]), editor managing newspaper EDWINA OG ([id number]) on 07/27/2025 10:42:07 AM Referred By: Laron Tovar Confirmed By: Calvin Orozco 07/27/25 1042 Date Calvin Orozco MD CC: Dr. Laron Tovar MD; Dr. Spike Miller MD Signed Normal [facility] Basic Metabolic Profile (BMP )on 07-27-2025 BUN/CRE 26.6 RATIO High 10-20 [facility] Comment on above: Performed By: #### L 100.0500, L500.2500 #### [facility] [address] [place], [address] Calcium [Mass/Vol] 9.5 mg/dL Normal 7.6-11.0 [facility] Comment on above: Performed By: #### L 100.0500, L500.2500 #### [facility] [address] [place], [address] Chloride [Moles/Vol] 107 mmol/L Normal 98-108 [facility] Comment on above: Performed By: #### L 100.0500, L500.2500 #### [facility] [address] [place], [address] CO2 [Moles/Vol] 24.8 mmol/L Normal 21.0-32.0 [facility] Comment on above: Performed By: #### L 100.0500, L500.2500 #### [facility] [address] [place], [address] Creatinine [Mass/Vol] 0.88 mg/dL Normal 0.70-1.20 [facility] Comment on above: Performed By: #### L 100.0500, L500.2500 #### [facility] [address] [place], [address] GAP 10 Normal 5-15 [facility] Comment on above: Performed By: #### L 100.0500, L500.2500 #### [facility] [address] [place], [address] GFR/1.73 sq M.predicted among non-blacks MDRD (S/P/Bld) [Vol rate/Area] 88 mL/min/{1.73_m2} Normal >60 [facility] Comment on above: Result Comment: mL/m in/1.73m2 CKD-EPI Creatinine Equation (2020) Performed By: #### L 100.0500, L500.2500 #### [facility] [address] [place], [address] Glucose [Mass/Vol] 110 mg/dL High 70-99 [facility] Comment on above: Performed By: #### L 100.0500, L500.2500 #### [facility] [address] [place], [address] Potassium [Moles/Vol] 4.4 mmol/L Normal 3.3-5.1 [facility] Comment on above: Performed By: #### L 100.0500, L500.2500 #### [facility] [address] [place], [address] Sodium [Moles/Vol] 143 mmol/L Normal 133-145 [facility] Comment on above: Performed By: #### L 100.0500, L500.2500 #### [facility] [address] [place], [address] Urea nitrogen [Mass/Vol] 23 mg/dL High 4-19 [facility] Comment on above: Performed By: #### L 100.0500, L500.2500 #### [facility] [address] [place], [address] CBC W Auto Differential pane l (Bld)on 07-26-2025 Anisocytosis Ql (Bld) Present Normal [facility] Comment on above: Order Comment: Speci men Type: BLOOD SPECIMENOrdering Facility: [facility] Address: [address] [place] [address] Performed By: #### 5 7021-8 ####[facility]ANA PAULAWNCLIA [id number] [address] LABORATORYCLIA [id number] [place] [address] [place] Basophils (Bld) [#/Vol] 0.00 10*3/uL Normal <0.[address] [facility] Comment on above: Order Comment: Speci men Type: BLOOD SPECIMENOrdering Facility: [facility] Address: [address] [place] [address] Performed By: #### 5 7021-8 ####[facility] MILLTOWNCLIA [id number] [address] LABORATORYCLIA [id number] [place] [address] [place] Basophils/100 WBC (Bld) 0.0 % Normal [facility] Comment on above: Order Comment: Speci men Type: BLOOD SPECIMENOrdering Facility: [facility] Address: [address] [place] [address] Performed By: #### 5 7021-8 ####[facility] MILLTOWNCLIA [id number] [address] LABORATORYCLIA [id number] [place] [address] [facility] [place] Dacrocytes LM Ql (Bld) Few Normal Cl [facility] Comment on above: Order Comment: Speci men Type: BLOOD SPECIMENOrdering Facility: [facility] Address: [address] [place] [address] Performed By: #### 5 7021-8 ####[facility] MILLWNCLIA [id number] [address] LABORATORYCLIA [id number] [address] OF [facility] Differential cell count method Nom (Bld) Manual Normal [facility] Comment on above: Order Comment: Speci men Type: BLOOD SPECIMENOrdering Facility: [facility] Address: [address] [place] [address] Performed By: #### 5 7021-8 ####[facility] MILLTOWNCLIA [id number] [address] LABORATORYIA [id number] [place] [address] [place] Eosinophils (Bld) [#/Vol] 0.00 10*3/uL Normal <0.[address] [facility] Comment on above: Order Comment: Speci men Type: BLOOD SPECIMENOrdering Facility: [facility] Address: [address] [place] [address] Performed By: #### 5 7021-8 ####[facility] MILLTOWNCLIA [id number] [address] LABORATORYCLIA [id number] [place] [address] [place] Eosinophils/100 WBC (Bld) 0.0 % Normal [facility] Comment on above: Order Comment: Speci men Type: BLOOD SPECIMENOrdering Facility: [facility] Address: [address] [place] [address] Performed By: #### 5 7021-8 ####[facility] MILLTOWNCLIA [id number] [address] LABORATORYIA [id number] [place] [address] [place] Erythrocyte distribution width (RBC) [Ratio] 17.3 % High 11.5-15.[address] [facility] Comment on above: Order Comment: Speci men Type: BLOOD SPECIMENOrdering Facility: [facility] Address: [address] [place] [address] Performed By: #### 5 7021-8 ####[facility] MILLTOWNCLIA [id number] [address] LABORATORYCLIA [id number] [place] [address] [place] Hematocrit (Bld) [Volume fraction] 26.8 % Low 39.0-51.[address] [facility] Comment on above: Order Comment: Speci men Type: BLOOD SPECIMENOrdering Facility: [facility] Address: [address] [place] [address] Performed By: #### 5 7021-8 ####[facility] MILLTOWNCLIA [id number] [address] LABORATORYCLIA [id number] [place] [address] [place] Hemoglobin (Bld) [Mass/Vol] 8.4 g/dL Low 13.0-17.[address] [facility] Comment on above: Order Comment: Speci men Type: BLOOD SPECIMENOrdering Facility: [facility] Address: [address] [place] [address] Performed By: #### 5 7021-8 ####[facility] ERWNCLIA [id number] [address] LABORATORYCLIA [id number] [place] [address] [place] Lymphocytes (Bld) [#/Vol] 54.83 10*3/uL High 1.00-4.[address] [facility] Comment on above: Order Comment: Speci men Type: BLOOD SPECIMENOrdering Facility: [facility] Address: [address] [place] [address] Performed By: #### 5 7021-8 ####[facility] HOS[facility]ITALA [id number] [address] LABORATORYCLIA [id number] [place] [address] [place] Lymphocytes/100 WBC (Bld) 88.0 % Normal [facility] Comment on above: Order Comment: Speci men Type: BLOOD SPECIMENOrdering Facility: [facility] Address: [address] [place] [address] Performed By: #### 5 7021-8 ####[facility] MED[facility] CENTERLIA [id number] [address] LABORATORYCLIA [id number] [place] [address] [place] MCH (RBC) [Entitic mass] 36.5 pg High 26.0-34.[address] [facility] Comment on above: Order Comment: Speci men Type: BLOOD SPECIMENOrdering Facility: [facility] Address: [address] [place] [address] Performed By: #### 5 7021-8 ####[facility] MILLTOWNCLIA [id number] [address] LABORATORYCLIA [id number] [address] MCHC (RBC) [Mass/Vol] 31.3 g/dL Normal 30.5-36.0 [facility] Comment on above: Order Comment: Speci men Type: BLOOD SPECIMENOrdering Facility: [facility] Address: [address] [place] [address] Performed By: #### 5 7021-8 ####[facility]ENTERNCA [id number] [address] LABORATORYCLIA [id number] [address] MCV (RBC) [Entitic vol] 116.5 fL High 80.0-100.0 C [facility] Comment on above: Order Comment: Speci men Type: BLOOD SPECIMENOrdering Facility: [facility] Address: [address] [place] [address] Performed By: #### 5 7021-8 ####[facility] CENTERNCLIA [id number] [address] LABORATORYCLIA [id number] [place] [address] [place] Monocytes (Bld) [#/Vol] 0.62 10*3/uL Normal <0.[address] [facility] Comment on above: Order Comment: Speci men Type: BLOOD SPECIMENOrdering Facility: [facility] Address: [address] [place] [address] Performed By: #### 5 7021-8 ####[facility] ERWNCLIA [id number] [address] LABORATORYCLIA [id number] [place] [address] [place] Monocytes/100 WBC (Bld) 1.0 % Normal [facility] Comment on above: Order Comment: Speci men Type: BLOOD SPECIMENOrdering Facility: [facility] Address: [address] [place] [address] Performed By: #### 5 7021-8 ####[facility] ERWNCLIA [id number] [address] LABORATORYCLIA [id number] [place] [address] [place] Neutrophils (Bld) [#/Vol] 6.85 10*3/uL Normal 1.45-7.[address] [facility] Comment on above: Order Comment: Speci men Type: BLOOD SPECIMENOrdering Facility: [facility] Address: [address] [place] [address] Performed By: #### 5 7021-8 ####[facility] MED[facility] CENTERLIA [id number] [address] LABORATORYCLIA [id number] [place] [address] [place] [facility] Neutrophils/100 WBC (Bld) 11.0 % Normal [facility] Comment on above: Order Comment: Speci men Type: BLOOD SPECIMENOrdering Facility: [facility] Address: [address] [place] [address] Performed By: #### 5 7021-8 ####[facility]ENTERNCLIA [id number] [address] LABORATORYCLIA [id number] [place] [address] [place] Nucleated RBC (Bld) [#/Vol] 10*3/uL Normal <0.[address] [facility] Comment on above: Order Comment: Speci men Type: BLOOD SPECIMENOrdering Facility: [facility] Address: [address] [place] [address] Performed By: #### 5 7021-8 ####[facility] MILLANA PAULAWNCLIA [id number] [address] LABORATORYCLIA [id number] [place] [address] [place] Nucleated RBC/100 WBC (Bld) [Ratio] 0.0 /100 WBC Normal [facility] Comment on above: Order Comment: Speci men Type: BLOOD SPECIMENOrdering Facility: [facility] Address: [address] [place] [address] Performed By: #### 5 7021-8 ####[facility] CENTERJENNIFERLIA [id number] [address] LABORATORYCLIA [id number] [place] [address] [place] Ovalocytes LM Ql (Bld) Few Normal Cl [facility] Comment on above: Order Comment: Speci men Type: BLOOD SPECIMENOrdering Facility: [facility] Address: [address] [place] [address] Performed By: #### 5 7021-8 ####[facility] CENTERJENNIFERLIA [id number] [address] LABORATORYCLIA [id number] [place] [address] [place] Platelet mean volume (Bld) [Entitic vol] 9.7 fL Normal 9.0-12.[address] [facility] Comment on above: Order Comment: Speci men Type: BLOOD SPECIMENOrdering Facility: [facility] Address: [address] [place] [address] Performed By: #### 5 7021-8 ####[facility] ERWNCLIA [id number] [address] LABORATORYCLIA [id number] [place] [address] [place] Platelets (Bld) [#/Vol] 230 10*3/uL Normal 150-[address] [facility] Comment on above: Order Comment: Speci men Type: BLOOD SPECIMENOrdering Facility: [facility] Address: [address] [place] [address] Result Comment: No c lot detected. Performed By: #### 5 7021-8 ####[facility] MILLTOWNCLIA [id number] [address] LABORATORYCLIA [id number] [place] [address] [place] Platelets Estimate (Bld) [#/Vol] Adequate Normal [facility] Comment on above: Order Comment: Speci men Type: BLOOD SPECIMENOrdering Facility: [facility] Address: [address] [place] [address] Performed By: #### 5 7021-8 ####[facility] ERWNCLIA [id number] [address] LABORATORYCLIA [id number] [place] [address] [place] Polychromasia LM Ql (Bld) Slight Normal [facility] Comment on above: Order Comment: Speci men Type: BLOOD SPECIMENOrdering Facility: [facility] Address: [address] [place] [address] Performed By: #### 5 7021-8 ####[facility] MILLWNCLIA [id number] [address] LABORATORYCLIA [id number] [place] [address] [place] RBC (Bld) [#/Vol] 2.30 10*6/uL Low 4.20-6.00 [facility] Comment on above: Order Comment: Speci men Type: BLOOD SPECIMENOrdering Facility: [facility] Address: [address] [place] [address] Performed By: #### 5 7021-8 ####[facility] NANCLIFlavio [id number] [address] LABORATORYCLIA [id number] [address] RED CELL MORPH Reviewed: see result s of individual morphologies Normal [facility] Comment on above: Order Comment: Speci men Type: BLOOD SPECIMENOrdering Facility: [facility] Address: [address] [place] [address] Performed By: #### 5 7021-8 ####[facility] CENTERNCLIA [id number] [address] LABORATORYCLIA [id number] [place] [address] [place] [facility] WBC (Bld) [#/Vol] 62.31 10*3/uL High 3.70-11.[address] [facility] Comment on above: Order Comment: Speci men Type: BLOOD SPECIMENOrdering Facility: [facility] Address: [address] [place] [address] Performed By: #### 5 7021-8 ####[facility] CENTERNCLIA [id number] [address] LABORATORYCLIA [id number] [address] [place] CNOVSPon 07-26-2025 CNOVSP Visit (SP) Office (HEMAWS) DEDE CHOW ([id number]) 1945 M Date Time Provider Department 07/26/25 10:00 AM JOSE JIMÉNEZ During your visit today, we recorded the following information about you: Temperature Pulse Blood pressure Weight 96.8 degrees 65/minute 120/64 88.9 kg Height 1.753 m Jose Jiménez MD 07/26/2025 10:49 AM Signed Anne HISTORY OF PRESENT ILLNESS: Dede Chow is a 77 year old male history CLL dx in 2014. Here for follow up, doing well, c/o fatigue. Labs reviewed, we note significant worsening of anemia without much change in CLL parameters. Work up shows no deficiency or evidence of hemolysis or bleeding. MCV is increased. CLINICAL IMPRESSION: CLL slight increase in WBC Worsened anemia with macrocytic indices. ?dysplastic process. RECOMMENDATION/PLAN: 1. Bone marrow biopsy and aspirate, see back after this is done. 2. He has nasal polypectomy planned, will forward labs to his ENT Dr Tovar, might need a transfusion prior to procedure until we can figure out what the anemia is due to. Written and verbal health teaching given to patient, patient verbalizes understanding and agrees with treatment plan. PAST MEDICAL HISTORY Diagnosis Date 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 06/14/2024 CLL (chronic lymphocytic leukemia) (HCC) 05/26/2018 Degeneration of intervertebral disc, site unspecified Environmental allergies Essential hypertension 12/15/2017 Obstructive sleep apnea Osteoarthritis hands/ back/ neck PAST SURGICAL HISTORY Procedure Laterality Date ARTHROSCOPY KNEE DIAGNOSTIC W/WO SYNOVIAL BX SPX 1991 Arthroscopy, knee ARTHRP KNE CONDYLEANDPLATU MEDIALANDLAT COMPARTMENTS 04/14/2008 Knee replacement, total viv knees per dr raymundo COLONOSCOPY FLX DX W/COLLJ SPEC WHEN PFRMD 04-05-13 PAST SURGICAL HISTORY OF right thumb joint TONSILLECTOMY PRIMARY/SECONDARY Tonsillectomy XCAPSL CTRC RMVL INSJ IO LENS PROSTH W/O ECP 05/2009 , 06/2009 Cataract Removal, right and left FAMILY HISTORY Problem Relation Age of Onset Arthritis Sister Arthritis Brother Social History Tobacco Use Smoking status: Former Types: Pipe Smokeless tobacco: Never Tobacco comments: Quit smoking pipe in early . Vaping Use Vaping status: Never Used Substance Use Topics Alcohol use: Yes Alcohol/week: 3.0 standard drinks of alcohol Types: 3 Glasses of wine per week Comment: occ Drug use: Never ALLERGIES: ALLERGIES Allergen Reactions Seasonal Allergies CURRENT OUTPATIENT MEDICATIONS: DUPIXENT PEN 300 mg/2 mL pen injection Inject 300 mg subcutaneously every [address] Tovar fluticasone (FLONASE) 50 mcg/actuation nasal spray Use 2 sprays in each nostril once daily. Rinse mouth after use. montelukast (SINGULAIR) 10 mg tablet Take 1 tablet by mouth daily at bedtime. nadolol (CORGARD) 40 mg tablet Take 1 tablet by mouth once daily. levocetirizine dihydrochloride (XYZAL ORAL) Take by mouth. (Patient taking differently: Take 1 tablet by mouth once daily.) cholecalciferol (VITAMIN D3) 50 mcg (2,000 unit) tablet Take 2,000 Units by mouth once daily. THERAPEUTIC MULTIVITAMIN TAB Take 1 tablet by mouth once daily. amoxicillin-clavulana te potassium (AUGMENTIN) 875-125 mg per tablet Take 1 tablet by mouth every 12 hours. (Patient not taking: Reported on 07/25/2025) REVIEW OF SYSTEMS: GENERAL: No fever, night sweats, weight loss or malaise. All other reviewed and negative other than HPI. PHYSICAL EXAMINATION: VITAL SIGNS: BP 120/64 Pulse 65 Temp (Src) 96.8 (Temporal) Ht 5' 9 (1.75m) Wt 196 lb (88.9kg) SpO2 98% BMI 28.93 kg/(m2). GENERAL APPEARANCE: Well appearing, in no acute distress, alert and oriented x3, well-hydrated, well nourished. No adenopathy or splenomegaly I spent a total of 30 minutes on the date of the service which included preparing to see the patient, [id number] patient care, completing clinical documentation, obtaining and/or reviewing separately obtained history, performing a medically appropriate examination, counseling and educating the patient/family/caregi alyson, ordering medications, tests, or procedures, independently interpreting results (not separately reported), and communicating results to the patient/family/caregi alyson. Electronically Signed: Jose Jiménez MD June 26, 2023 8:50 AM Allergies As of Date: 07/26/2025 Noted Allergy Reaction SEASONAL ALLERGIES 04/07/2009 Date Reviewed: 07/26/2025 Reviewed by: Rosa Bustillo Ma, MA - Fully Assessed Reason for Visit: Established Patient [175] Primary Visit Diagnosis:CLL (chronic lymphocytic leukemia) ([facility]) [C91.10] Other Visit Diagnosis:Anemia, unspecified type [D64.9] Follow-up and Disposition History for Encounter Date Provider Department Center 07/26/2025 [id number] JIMÉNEZ [place] [facility] (more content not included)... Normal [facility] CNPNon 07-26-2025 CNPN Telephone (ANDREA) DEDE CHOW ([id number]) 1945 M Date Time Provider Department 07/26/25 JOSE JIMÉNEZ During your visit today, we recorded the following information about you: Ian Donis 07/26/2025 12:09 PM Signed AVS 07/26 Bone marrow biopsy first available with [facility]. Back to to see me 1 week after biopsy Ian Salguero 07/26/2025 1:36 PM Signed Spoke w pt and this is scheduled as directed. Ian Donis Allergies As of Date: 07/26/2025 Noted Allergy Reaction SEASONAL ALLERGIES 04/07/2009 Date Reviewed: 07/26/2025 Reviewed by: Rosa Bustillo Ma, MA - Fully Assessed Prescriptions as of 07/26/2025 - DUPIXENT PEN 300 mg/2 mL pen injection Inject 300 mg subcutaneously every [address] Tovar - fluticasone (FLONASE) 50 mcg/actuation nasal spray Use 2 sprays in each nostril once daily. Rinse mouth after use. - amoxicillin-clavulana te potassium (AUGMENTIN) 875-125 mg per tablet Take 1 tablet by mouth every 12 hours. - montelukast (SINGULAIR) 10 mg tablet Take 1 tablet by mouth daily at bedtime. - nadolol (CORGARD) 40 mg tablet Take 1 tablet by mouth once daily. - levocetirizine dihydrochloride (XYZAL ORAL) Take by mouth. - cholecalciferol (VITAMIN D3) 50 mcg (2,000 unit) tablet Take 2,000 Units by mouth once daily. - THERAPEUTIC MULTIVITAMIN TAB Take 1 tablet by mouth once daily. 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 Arthralgia [M25.50] 12/21/2014 12/15/2017 Migraine equivalent syndrome [G43.109] 02/14/2015 12/15/2017 HLD (hyperlipidemia) [E78.5] 05/26/2015 12/15/2017 Dizziness [R42] 12/04/2017 S/P TKR (total knee replacement), bilateral [Z9*12/15/2017 Cervical spine arthritis (HCC) [M47.812] 12/15/2017 Essential hypertension [I10] 12/15/2017 Allergic rhinitis [J30.9] 12/15/2017 RAJESH (obstructive sleep apnea) [G47.33] 12/15/2017 CLL (chronic lymphocytic leukemia) ([facility]) [C91.1*05/26/2018 Anemia [D64.9] 06/26/2022 Encounter Status:Closed by IAN DONIS on 07/26/25 [facility] CNOVon 07-25-2025 CNOV Office Visit (FAMPWS ) DEDE CHOW ([id number]) 1945 M Date Time Provider Department 07/25/25 12:40 PM [facility] During your visit today, we recorded the following information about you: Pulse Respiration Blood pressure Weight 62/minute 16/minute 126/70 88 kg Height 1.727 m Mir Sommer APRN.CNP 07/25/2025 1:32 PM Signed Dede Chow is a 79 year old male here for a Medicare Wellness visit. Medicare Health Risk Assessment General Health Fair Exercise: Minutes/Day 0 min Exercise: Days/Week 0 days Alcohol: Daily Use Monthly or less Alcohol: Drinks/Day 1 or 2 Alcohol: 6 or more drinks Never Feel off balance Yes Concerns: Teeth/Dentures No Concerns: Sexual function No Troubled by feelings None of the above Frequency: Eating healthy diet Nearly every day ADLs requiring help None of the above Safety precautions in home/vehicle Yes Smoke, vape, chews tobacco No Difficulty hearing No Difficulty seeing No Current Providers Specialists: I have reviewed specialist-related care of the patient in the medical record. Current care team: Patient Care Team: Dede Desai MD as PCP - General (Family Medicine) Jose Jiménez MD (Hematology/Oncology) Mir Sommer APRN.CNP as Cardiovascular Sonographer (Family Medicine) Outside specialists seen: Dr. Tovar-ENT, [place] [facility] Lindquist, [facility], [facility] Medical/Family history review Reviewed and updated problem list, medical/surgical/fami ly/social history, medications, and allergies. Opioid use review Prescribed: No opioid use on file in the last 90 days Patient-reported: No opioid use on file in the last 90 days Depression screening PHQ-2 Score: 0 Based on score and interview, patient is: Not at risk for depression Screening tool discussed with patient, and I recommend: No further intervention at this time Anxiety screening MICHELLE-2 Score: 0 MICHELLE-7 Score: 1 Based on score and interview, patient is: Not at risk for anxiety Screening tool discussed with patient, and I recommend: No further intervention at this time Cognitive screening Mini Cog Score: 4 Cognitive screening reviewed and No further action needed (score 3-5). Functional Observation Was the patient's Timed Up AND Go test unsteady or >= 12 seconds? No Advance Directives Surrogate decision maker and/or advance care plan documented Measurements BP 126/70 Pulse 62 Resp 16 Ht 172.7 cm (5' 8) Wt 88 kg (194 lb) BMI 29.50 kg/m? Vision Screening: Follows with optometry/ophthalmolo gy Assessment/Plan Medicare annual wellness visit, initial (Z00.00) - Counseled on healthy diet and regular exercise - Fall avoidance information provided - Personalized prevention plan provided - Discussed need for and benefit of weight loss. BMI 29.50 kg/(m2) Additional Concerns The following concerns were also discussed with the patient: Dede Chow is a 79-year-old male with CLL and chronic nasal polyposis presenting for follow-up of anemia and persistent nasal congestion. Dede reports persistent nasal congestion, headaches, and mouth breathing due to nasal polyps, which have significantly impaired his sleep. He often sleeps upright in a chair to alleviate symptoms. He was previously treated with Dupixent as an alternative to surgery, but it has not been effective in controlling his symptoms. He is scheduled for polypectomy at the surgery center on the , which will be his third such procedure. His ENT plans to continue Dupixent postoperatively in hopes of preventing polyp recurrence. He also reports exertional fatigue, particularly when climbing stairs. He is uncertain whether this is due to anemia or his chronic nasal obstruction and poor sleep. He has a history of CLL and has been followed for chronic borderline anemia with hemoglobin levels in the 11-12 g/dL range for several years. Over the past 6 months, his hemoglobin dropped to 8.4 g/dL, with a corresponding decrease in RBC count from 3.5-4.0 to 2.2. He reports a recent infection with a change in discharge, which resolved with antibiotics, but his congestion and headaches persisted. He is currently followed by Dr. Jiménez for hematology. He is also seeking to establish care with a new PCP, Dr. Fox, after his previous PCP, Dr. Mancia, left the practice. PHYSICAL EXAM BP 126/70 Pulse 62 Resp 16 Ht 172.7 cm (5' 8) Wt 88 kg (194 lb) BMI 29.50 kg/m? GENERAL: well appearing, alert, in no acute distress CARDIOVASCULAR: regular rate and rhythm. No murmur, rubs or gallops. PULMONARY: clear to auscultation, no wheezing, rhonchi, or crackles ABDOMEN: soft, non-tender, non-distended, no masses or organomegaly EXTREMITY: no lower extremity edema. No skin discoloration. Latest Ref Rng 07/04/2025 07/05/2025 07/07/2025 WBC 3.70 - 11.00 k/uL 53. (more content not included)... Normal [facility] CNPRocio 07-07-2025 [facility] ([employer]) DEDE CHOW ([id number]) 1945 M Date Time Provider Department 07/07/25 MIR SOMMER [facility] During your visit today, we recorded the following information about you: Mir Sommer APRN.CNP 07/07/2025 2:12 PM Signed Please let the patient know that I have heard back from oncology. They are recommending some additional labs. I have placed the order. Can we see if we can get the labs added onto the patient's most recent labs? If not, then patient will need to return. SHERLEY Barron Kathryn, MA 07/07/2025 2:34 PM Signed Unable to add these labs on. Pt notified of below. Will try to come in tomorrow and get completed. Tricia Chaudhary MA Allergies As of Date: 07/07/2025 Noted Allergy Reaction SEASONAL ALLERGIES 04/07/2009 Date Reviewed: 07/04/2025 Reviewed by: Cooper Metzger LPN - Fully Assessed Reason for Visit: Orders [681] Primary Visit Diagnosis:Anemia, unspecified type [D64.9] Order(s):HAPTOGLOBIN [SQHAPTO] Order #: [id number] FUTURE RETICULOCYTE COUNT [SQRETIC] Order #: [id number] FUTURE HEPATIC FUNCTION PNL [SQHFP] Order #: [id number] FUTURE ZONIA DIRECT [SQDAGT] Order #: [id number] FUTURE Prescriptions as of 07/07/2025 - amoxicillin-clavulana te potassium (AUGMENTIN) 875-125 mg per tablet Take 1 tablet by mouth every 12 hours. - montelukast (SINGULAIR) 10 mg tablet Take 1 tablet by mouth daily at bedtime. - nadolol (CORGARD) 40 mg tablet Take 1 tablet by mouth once daily. - levocetirizine dihydrochloride (XYZAL ORAL) Take by mouth. - fluticasone (FLONASE) 50 mcg/actuation nasal spray Use 2 Sprays in each nostril once daily. Rinse mouth after use. - cholecalciferol (VITAMIN D3) 50 mcg (2,000 unit) tablet Take 2,000 Units by mouth once daily. - THERAPEUTIC MULTIVITAMIN TAB Take 1 tablet by mouth once daily. 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 ZONIA DIRECTon 07-07-2025 DAGT, POLYSPECIFIC AHG Negative Normal [facility] Comment on above: Order Comment: Speci men Type: BLOOD SPECIMENOrdering Facility: [facility] Address: [address] [place] [address] Performed By: #### D AGT ####[facility] LABCLIA [id number] [place] [address] [place] Haptoglob SerPl-mCncon 07-07 Haptoglobin [Mass/Vol] 70 mg/dL Normal 31-238 [facility] Comment on above: Order Comment: Speci men Type: BLOOD SPECIMENOrdering Facility: [facility] Address: [address] [place] [address] Performed By: #### 4 542-7, 45551-9 ####[facility] LABCLIA [id number] [place] [address] [place] Hepatic function 2000 panelo n 07-07-2025 Albumin [Mass/Vol] 4.4 g/dL Normal 3.9-4.9 [facility] Comment on above: Order Comment: Speci men Type: BLOOD SPECIMENOrdering Facility: [facility] Address: [address] [place] [address] Performed By: #### 4 542-7, 34413-9 ####[facility] LABCLIA [id number] [place] [address] [place] ALP [Catalytic activity/Vol] 111 U/L Normal 38-[address] [facility] Comment on above: Order Comment: Speci men Type: BLOOD SPECIMENOrdering Facility: [facility] Address: [address] [place] [address] Performed By: #### 4 542-7, 87775-0 ####[facility] LABCLIA [id number] [place] [address] [place] ALT [Catalytic activity/Vol] 15 U/L Normal 10-[address] [facility] Comment on above: Order Comment: Speci men Type: BLOOD SPECIMENOrdering Facility: [facility] Address: [address] [place] [address] Performed By: #### 4 542-7, 41431-6 ####[facility] LABCLIA [id number] [place] [address] [place] AST [Catalytic activity/Vol] 23 U/L Normal 14-[address] [facility] Comment on above: Order Comment: Speci men Type: BLOOD SPECIMENOrdering Facility: [facility] Address: [address] [place] [address] Performed By: #### 4 542-7, ####[facility] LABCLIA [id number] [place] [address] [place] Bilirubin [Mass/Vol] 0.4 mg/dL Normal 0.2-1.[address] [facility] Comment on above: Order Comment: Speci men Type: BLOOD SPECIMENOrdering Facility: [facility] Address: [address] [place] [address] Performed By: #### 4 542-7, 35697-3 ####[facility] LABCLIA [id number] [place] [address] [place] Bilirubin.conjugated [Mass/Vol] 0.1 mg/dL Normal <0.[address] [facility] Comment on above: Order Comment: Speci men Type: BLOOD SPECIMENOrdering Facility: [facility] Address: [address] [place] [address] Performed By: #### 4 542-7, 21522-5 ####[facility] LABCLIA [id number] [place] [address] [place] Protein [Mass/Vol] 6.1 g/dL Low 6.3-8.0 [facility] Comment on above: Order Comment: Speci men Type: BLOOD SPECIMENOrdering Facility: [facility] Address: [address] [place] [address] Performed By: #### 4 542-7, 69796-0 ####[facility] LABIA [id number] [place] [address] [place] Retics #on 07-07-2025 Reticulocytes (Bld) [#/Vol] 0.71444 10*3/uL Normal 0.018-0.[address] [facility] Comment on above: Order Comment: Speci men Type: BLOOD SPECIMENOrdering Facility: [facility] Address: [address] [place] [address] Performed By: #### 1 4196-0 ####[facility] LABIA [id number] [place] [address] [place] Reticulocytes (Bld) [#/Vol]o n 07-07-2025 Reticulocytes/100 RBC (Bld) 0.8 % Normal 0.4-2.[address] [facility] Comment on above: Order Comment: Speci men Type: BLOOD SPECIMENOrdering Facility: [facility] Address: [address] [place] [address] Performed By: #### 1 4196-0 ####[facility] LABCLIA [id number] [place] [address] [place] Folate SerPl-mCncon 07-05-20 25 Folate [Mass/Vol] ng/mL Normal >4.7 [facility] Comment on above: Order Comment: Speci men Type: BLOOD SPECIMENOrdering Facility: [facility] Address: [address] [place] [address] Result Comment: A re sult of > 20 ng/mL is not necessarily indicative of a pathologic or treatable condition: it reflects a limitation of the test methodology. Assay reference range: 4.8 to 24.2 ng/mL. Suitable for detection of folate deficiency. Reference: Folate III (Folate III) [package insert V 1.0 Estonian]. [employer] [facility], [place], [place]: July 2015. Performed By: #### 2 132-9, 2284-8 ####[facility] LABCLIA [id number] [place] [address] [place] Vit B12 [facility] 025 Cobalamin (Vitamin B12) [Mass/Vol] 1621 pg/mL High 232-[address] [facility] Comment on above: Order Comment: Speci men Type: BLOOD SPECIMENOrdering Facility: [facility] Address: [address] [place] [address] Performed By: #### 2 132-9, 2284-8 ####[facility] LABCLIA [id number] [place] [address] [place] CBC W Auto Differential pane l (Bld)on 07-04-2025 Basophils (Bld) [#/Vol] 0.00 10*3/uL Normal <0.[address] [facility] Comment on above: Order Comment: Speci men Type: BLOOD SPECIMENOrdering Facility: [facility] Address: [address] [place] [address] Performed By: #### 5 7021-8 ####[facility] LABCLIA [id number] [place] [address] [place] Basophils/100 WBC (Bld) 0.0 % Normal [facility] Comment on above: Order Comment: Speci men Type: BLOOD SPECIMENOrdering Facility: [facility] Address: [address] [place] [address] Performed By: #### 5 7021-8 ####[facility] LABCLIA [id number] [place] Differential cell count method Nom (Bld) Manual Normal [facility] Comment on above: Order Comment: Speci men Type: BLOOD SPECIMENOrdering Facility: [facility] Address: [address] [place] [address] Performed By: #### 5 7021-8 ####[facility] LABCLIA [id number] [place] [address] [place] Eosinophils (Bld) [#/Vol] 0.54 10*3/uL High <0.[address] [facility] Comment on above: Order Comment: Speci men Type: BLOOD SPECIMENOrdering Facility: [facility] Address: [address] [place] [address] Performed By: #### 5 7021-8 ####[facility] LABCLIA [id number] [address] [place] Eosinophils/100 WBC (Bld) 1.0 % Normal [facility] Comment on above: Order Comment: Speci men Type: BLOOD SPECIMENOrdering Facility: [facility] Address: [address] [place] [address] Performed By: #### 5 7021-8 ####[facility] LABCLIA [id number] [place] [address] [place] Erythrocyte distribution width (RBC) [Ratio] 16.2 % High 11.5-15.[address] [facility] Comment on above: Order Comment: Speci men Type: BLOOD SPECIMENOrdering Facility: [facility] Address: [address] [place] [address] Performed By: #### 5 7021-8 ####[facility] LABCLIA [id number] [address] [place] Hematocrit (Bld) [Volume fraction] 25.4 % Low 39.0-51.[address] [facility] Comment on above: Order Comment: Speci men Type: BLOOD SPECIMENOrdering Facility: [facility] Address: [address] [place] [address] Performed By: #### 5 7021-8 ####[facility] LABCLIA [id number] [place] [address] [place] Hemoglobin (Bld) [Mass/Vol] 8.4 g/dL Low 13.0-17.[address] [facility] Comment on above: Order Comment: Speci men Type: BLOOD SPECIMENOrdering Facility: [facility] Address: [address] [place] [address] Performed By: #### 5 7021-8 ####[facility] LABCLIA [id number] [place] [address] [place] Lymphocytes (Bld) [#/Vol] 51.82 10*3/uL High 1.00-4.[address] [facility] Comment on above: Order Comment: Speci men Type: BLOOD SPECIMENOrdering Facility: [facility] Address: [address] [place] [address] Performed By: #### 5 7021-8 ####[facility] LABCLIA [id number] [place] [address] [place] Lymphocytes/100 WBC (Bld) 96.0 % Normal [facility] Comment on above: Order Comment: Speci men Type: BLOOD SPECIMENOrdering Facility: [facility] Address: [address] [place] [address] Performed By: #### 5 7021-8 ####[facility] LABCLIA [id number] [place] [address] [place] MCH (RBC) [Entitic mass] 37.7 pg High 26.0-34.[address] [facility] Comment on above: Order Comment: Speci men Type: BLOOD SPECIMENOrdering Facility: [facility] Address: [address] [place] [address] Performed By: #### 5 7021-8 ####[facility] LABCLIA [id number] [place] [address] [place] MCHC (RBC) [Mass/Vol] 33.1 g/dL Normal 30.5-36.0 [facility] Comment on above: Order Comment: Speci men Type: BLOOD SPECIMENOrdering Facility: [facility] Address: [address] [place] [address] Performed By: #### 5 7021-8 ####[facility] LABCLIA [id number] [place] [address] [place] MCV (RBC) [Entitic vol] 113.9 fL High 80.0-100.0 [facility] Comment on above: Order Comment: Speci men Type: BLOOD SPECIMENOrdering Facility: [facility] Address: [address] [place] [address] Performed By: #### 5 7021-8 ####[facility] LABCLIA [id number] [place] [address] [place] Monocytes (Bld) [#/Vol] 1.08 10*3/uL High <0.[address] [facility] Comment on above: Order Comment: Speci men Type: BLOOD SPECIMENOrdering Facility: [facility] Address: [address] [place] [address] Performed By: #### 5 7021-8 ####[facility] LABCLIA [id number] [place] [address] [place] Monocytes/100 WBC (Bld) 2.0 % Normal [facility] Comment on above: Order Comment: Speci men Type: BLOOD SPECIMENOrdering Facility: [facility] Address: [address] [place] [address] Performed By: #### 5 7021-8 ####[facility] LABCLIA [id number] [place] [address] [place] Neutrophils (Bld) [#/Vol] 0.54 10*3/uL Low 1.45-7.[address] [facility] Comment on above: Order Comment: Speci men Type: BLOOD SPECIMENOrdering Facility: [facility] Address: [address] [place] [address] Performed By: #### 5 7021-8 ####[facility] LABCLIA [id number] [address] [place] Neutrophils/100 WBC (Bld) 1.0 % Normal [facility] Comment on above: Order Comment: Speci men Type: BLOOD SPECIMENOrdering Facility: [facility] Address: [address] [place] [address] Performed By: #### 5 7021-8 ####[facility] LABCLIA [id number] [place] [address] [place] Nucleated RBC (Bld) [#/Vol] 10*3/uL Normal <0.[address] [facility] Comment on above: Order Comment: Speci men Type: BLOOD SPECIMENOrdering Facility: [facility] Address: [address] [place] [address] Performed By: #### 5 7021-8 ####[facility] LABCLIA [id number] [place] [address] [place] Nucleated RBC/100 WBC (Bld) [Ratio] 0.0 /100 WBC Normal [facility] Comment on above: Order Comment: Speci men Type: BLOOD SPECIMENOrdering Facility: [facility] Address: [address] [place] [address] Performed By: #### 5 7021-8 ####[facility] LABCLIA [id number] [place] [address] [place] Ovalocytes LM Ql (Bld) Few Normal Cl [facility] Comment on above: Order Comment: Speci men Type: BLOOD SPECIMENOrdering Facility: [facility] Address: [address] [place] [address] Performed By: #### 5 7021-8 ####[facility] LABCLIA [id number] [place] [address] [place] Platelet mean volume (Bld) [Entitic vol] 10.2 fL Normal 9.0-12.[address] [facility] Comment on above: Order Comment: Speci men Type: BLOOD SPECIMENOrdering Facility: [facility] Address: [address] [place] [address] Performed By: #### 5 7021-8 ####[facility] LABCLIA [id number] [place] [address] [place] Platelets (Bld) [#/Vol] 209 10*3/uL Normal 150-[address] [facility] Comment on above: Order Comment: Speci men Type: BLOOD SPECIMENOrdering Facility: [facility] Address: [address] [place] [address] Performed By: #### 5 7021-8 ####[facility] LABCLIA [id number] [place] [address] [place] Platelets Estimate (Bld) [#/Vol] Adequate Normal [facility] Comment on above: Order Comment: Speci men Type: BLOOD SPECIMENOrdering Facility: [facility] Address: [address] [place] [address] Performed By: #### 5 7021-8 ####[facility] LABCLIA [id number] [place] [address] [place] Polychromasia LM Ql (Bld) Slight Normal [facility] Comment on above: Order Comment: Speci men Type: BLOOD SPECIMENOrdering Facility: [facility] Address: [address] [place] [address] Performed By: #### 5 7021-8 ####[facility] LABCLIA [id number] [place] [address] [place] RBC (Bld) [#/Vol] 2.23 10*6/uL Low 4.20-6.00 [facility] Comment on above: Order Comment: Speci men Type: BLOOD SPECIMENOrdering Facility: [facility] Address: [address] [place] [address] Performed By: #### 5 7021-8 ####[facility] LABCLIA [id number] [place] [address] [place] RED CELL MORPH Reviewed: see result s of individual morphologies Normal [facility] Comment on above: Order Comment: Speci men Type: BLOOD SPECIMENOrdering Facility: [facility] Address: [address] [place] [address] Performed By: #### 5 7021-8 ####[facility] LABCLIA [id number] [place] [id number] [place] WBC (Bld) [#/Vol] 53.98 10*3/uL High 3.70-11.[address] [facility] Comment on above: Order Comment: Speci men Type: BLOOD SPECIMENOrdering Facility: [facility] Address: [address] [place] [address] Result Comment: Resu lts checked and verified.No clot detected. Performed By: #### 5 7021-8 ####[facility] LABCLIA [id number] [place] [id number] [place] CNOVon 07-04-2025 CNOV Office Visit (FAMWS ) CHOWDEDE MEANS Jhon ([id number]) 1945 M Date Time Provider Department 07/04/25 11:40 AM [facility] your visit today, we recorded the following information about you: Temperature Pulse Respiration Blood pressure 97.4 degrees 60/minute 18/minute 118/71 Weight 88 kg Mir Sommer APRN.CNP 07/04/2025 12:05 PM Signed Chief Complaint Patient presents with: Shortness of Breath: With exertion x 2 weeks. Possible sinus infection x 5 days HPI Dede Jhon Chow is a 79 year old male who presents here today for above reason. Dede is a 79-year-old male with a history of CLL, presenting with sudden onset dyspnea on exertion and fatigue. Dede reports a sudden onset of dyspnea on exertion and fatigue that began within the last two weeks. Previously able to walk 2 miles daily without difficulty, he now experiences significant shortness of breath when climbing stairs or carrying a laundry basket. He notes that walking down a hallway causes fatigue but not dyspnea. The symptoms appeared abruptly, contrasting with his usual gradual changes, and have significantly impacted his daily activities, making it difficult for him to get out of bed. He denies any specific events triggering the onset. He also reports a recent sinus infection starting five days ago, characterized by a feeling of fullness behind the eyes and a sore throat due to postnasal drip. He denies cough or chest discomfort, although he occasionally feels a sensation of weight on his chest at night. He denies any urinary symptoms but mentions ongoing hematuria, for which he has a follow-up appointment early next year. He has a scheduled appointment with his oncologist next month and initially attributed his symptoms to his CLL but became concerned due to the sudden and severe onset. He denies a history of smoking, asthma, or COPD, having quit pipe smoking in the early 1980s. Past medical history, appointments, medications, allergies reviewed. EXAM: BP 118/71 (BP Site: Right Arm, BP Position: Sitting, BP Cuff Size: Regular Adult) Pulse 60 Temp 36.3 ?C (97.4 ?F) Resp 18 Wt 88 kg (194 lb) BMI 28.65 kg/m? General Appearance: Well appearing, alert, in no acute distress, well-hydrated, well nourished.. Head: Normocephalic, no masses, lesions, tenderness or abnormalities. Eyes: Anicteric sclera. Pupils are equally round and reactive to light. Extraocular movements are intact. . Ears: External ears normal, canals clear. Nose/Sinuses: Positive findings: mucosa erythematous and swollen; mild to moderate tenderness of the maxillary sinus bilaterally Oropharynx: Lips, mucosa, and tongue normal, teeth and gums normal, oropharynx has very mild erythema in the posterior aspect Neck: Supple, no adenopathy; thyroid symmetric, normal size Lungs: Lungs clear to auscultation. No wheezing, rhonchi, rales.. Heart: RRR without murmur, gallop, or rubs. No ectopy. Assessment and Plan 1. SOB (shortness of breath) (R06.02) 2. SALGADO (dyspnea on exertion) (R06.09) 3. Fatigue, unspecified type (R53.83) 4. Sensation of chest pressure (R07.89) 5. Abnormal electrocardiogram (R94.31) 6. Sinus bradycardia (R00.1) Acute onset dyspnea on exertion, fatigue, and intermittent chest pressure with a normal EKG except for sinus bradycardia (ventricular rate 52 bpm). Lungs clear on exam. Differential includes cardiac, hematologic, and less likely pulmonary etiologies. - Ordered lab work, chest X-ray, and nuclear medicine stress test. - Advised patient to go to the emergency room if he develops shortness of breath that does not resolve or any chest discomfort or chest pressure that does not resolve. - Follow-up in about a month to review results. 7. CLL (chronic lymphocytic leukemia) (HCC) (C91.10) Patient has a history of CLL with follow-up scheduled with hematology next month. - Ordered lab work to assess for possible hematologic causes of symptoms. 8. Acute recurrent sinusitis, unspecified location (J01.91) Acute sinus infection with significant postnasal drainage and sore throat. - Start Augmentin. Mir Sommer APRN.LELA This note was partly generated using [employer] voice recognition dictation and may contain some misspelled or inaccurate words missed on review. Recording using [employer] software for draft documentation of the visit was discussed with the patient/authorized signs sales representative; all questions welcomed and answered. Patient/authorized signs sales representative agreed to proceed Mir Sommer APRN.CNP 07/04/2025 12:01 PM Signed We discussed your recent shortness of breath and fatigue: - You reported a sudden onset of shortness of breath with exertion, such as climbing stairs, and significant fatigue over the past few weeks. You also mentioned a sinus infection that started about five days ago. - I listened to your lungs, (more content not included)... Normal [facility] Comprehensive metabolic 2000 panelon 07-04-2025 Albumin [Mass/Vol] 4.4 g/dL Normal 3.9-4.9 [facility] Comment on above: Order Comment: Speci men Type: BLOOD SPECIMENOrdering Facility: [facility] Address: [address] [place] [address] Performed By: #### 5 0190-8, 35438-0, 2276-4, 3016-3 ####[facility] LABCLIA [id number] [place] [address] [place] ALP [Catalytic activity/Vol] 108 U/L Normal 38-[address] [facility] Comment on above: Order Comment: Speci men Type: BLOOD SPECIMENOrdering Facility: [facility] Address: [address] [place] [address] Performed By: #### 5 0190-8, 03354-8, 6-4, 3016-3 ####[facility] LABCLIA [id number] [place] [address] [place] ALT [Catalytic activity/Vol] 14 U/L Normal 10-[address] [facility] Comment on above: Order Comment: Speci men Type: BLOOD SPECIMENOrdering Facility: [facility] Address: [address] [place] [address] Performed By: #### 5 0190-8, 19390-2, 6-4, 6-3 ####[facility] LABCLIA [id number] [place] [address] [place] Anion gap [Moles/Vol] 10 mmol/L Normal 8-15 [facility] Comment on above: Order Comment: Speci men Type: BLOOD SPECIMENOrdering Facility: [facility] Address: [address] [place] [address] Performed By: #### 5 0190-8, 84275-8, 2275-4, 6-3 ####[facility] LABCLIA [id number] [place] [address] [place] AST [Catalytic activity/Vol] 23 U/L Normal 14-[address] [facility] Comment on above: Order Comment: Speci men Type: BLOOD SPECIMENOrdering Facility: [facility] Address: [address] [place] [address] Performed By: #### 5 0190-8, 19479-0, 6-4, 3016-3 ####[facility] LABCLIA [id number] [place] [id number] [place] Bilirubin [Mass/Vol] 0.5 mg/dL Normal 0.2-1.[address] [facility] Comment on above: Order Comment: Speci men Type: BLOOD SPECIMENOrdering Facility: [facility] Address: [address] [place] [address] Performed By: #### 5 0190-8, 43425-1, 6-4, 3016-3 ####[facility] LABCLIA [id number] [place] [address] [place] Calcium [Mass/Vol] 9.5 mg/dL Normal 8.5-10.2 [facility] Comment on above: Order Comment: Speci men Type: BLOOD SPECIMENOrdering Facility: [facility] Address: [address] [place] [address] Performed By: #### 5 0190-8, 33788-3, 6-4, 6-3 ####[facility] LABCLIA [id number] [place] [address] [place] Chloride [Moles/Vol] 106 mmol/L Normal 98-[address] [facility] Comment on above: Order Comment: Speci men Type: BLOOD SPECIMENOrdering Facility: [facility] Address: [address] [place] [address] Performed By: #### 5 0190-8, 11684-9, 6-4, 6-3 ####[facility] LABCLIA [id number] [place] [address] [place] CO2 [Moles/Vol] 25 mmol/L Normal 22-[address] [facility] Comment on above: Order Comment: Speci men Type: BLOOD SPECIMENOrdering Facility: [facility] Address: [address] [place], [place] [address] Performed By: #### 5 0190-8, 21432-5, 6-4, 3016-3 ####[facility] LABCLIA [id number] [place] [id number] [place] Creatinine [Mass/Vol] 0.98 mg/dL Normal 0.73-1.22 [facility] Comment on above: Order Comment: Speci men Type: BLOOD SPECIMENOrdering Facility: [facility] Address: [address] [place] [address] Performed By: #### 5 0190-8, 15039-0, 2276-4, 3016-3 ####[facility] LABCLIA [id number] [place] [address] [place] eGFRcr SerPlBld CKD-EPI 2020 79 mL/min/1.73m??? Normal >=[address] [facility] Comment on above: Order Comment: Wild whitney Type: BLOOD SPECIMENOrdering Facility: [facility] Address: [address] [place] [address] Result Comment: Nichole mated Glomerular Filtration Rate (eGFR) is calculated using the 2020 CKD-EPI creatinine equation. This equation utilizes serum creatinine, sex, and age as parameters. The creatinine assay has traceable calibration to isotope dilution-mass spectrometry. Refer to KDIGO guidelines for clinical interpretation. In patients with unstable renal function, e.g. those with acute kidney injury, the eGFR may not accurately reflect actual GFR. Performed By: #### 5 0190-8, 98880-5, 2276-4, 3016-3 ####[facility] LABCLIA [id number] [place] [address] [place] Glucose [Mass/Vol] 81 mg/dL Normal 74-99 [facility] Comment on above: Order Comment: Wild whitney Type: BLOOD SPECIMENOrdering Facility: [facility] Address: [address] [place] [address] Result Comment: The [place] Diabetes Association (ADA) provides guidance for cutoff values for fasting glucose and random glucose. The ADA defines fasting as no caloric intake for at least 8 hours. Fasting plasma glucose results between 100 to 125 mg/dL indicate increased risk for diabetes (prediabetes). Fasting plasma glucose results greater than or equal to 126 mg/dL meet the criteria for diagnosis of diabetes. In the absence of unequivocal hyperglycemia, results should be confirmed by repeat testing. In a patient with classic symptoms of hyperglycemia or hyperglycemic crisis, random plasma glucose results greater than or equal to 200 mg/dL meet the criteria for diagnosis of diabetes. Reference: Standards of Medical Care in Diabetes 2016, [place] [employer]. Diabetes Care. 2016.39(Suppl 1). Performed By: #### 5 0190-8, 28079-1, 2276-4, 3016-3 ####[facility] LABCLIA [id number] [place] [address] [place] Potassium [Moles/Vol] 4.8 mmol/L Normal 3.7-5.1 [facility] Comment on above: Order Comment: Speci men Type: BLOOD SPECIMENOrdering Facility: [facility] Address: [address] [place] [address] Performed By: #### 5 0190-8, 43045-6, 2276-4, 3016-3 ####[facility] LABCLIA [id number] [place] [address] [place] Protein [Mass/Vol] 6.2 g/dL Low 6.3-8.0 [facility] Comment on above: Order Comment: Speci men Type: BLOOD SPECIMENOrdering Facility: [facility] Address: [address] [place] [address] Performed By: #### 5 0190-8, 33250-9, 6-4, 3016-3 ####[facility] LABCLIA [id number] [place] [address] [place] Sodium [Moles/Vol] 141 mmol/L Normal 136-144 [facility] Comment on above: Order Comment: Speci men Type: BLOOD SPECIMENOrdering Facility: [facility] Address: [address] [place] [address] Performed By: #### 5 0190-8, 65147-2, 2276-4, 3016-3 ####[facility] LABCLIA [id number] [place] [address] [place] Urea nitrogen [Mass/Vol] 19 mg/dL Normal 9-[address] [facility] Comment on above: Order Comment: Speci men Type: BLOOD SPECIMENOrdering Facility: [facility] Address: [address] [place] [address] Performed By: #### 5 0190-8, 28822-0, 2276-4, 3016-3 ####[facility] LABCLIA [id number] [place] [id number] [place] [id number] 07-04-2025 ECG01 Ventricular Rate : 5 2 BPM Atrial Rate : 52 BPM P-R Interval : 150 ms QRS Duration : 86 ms Q-T Interval : 438 ms QTC Calculation(Bazett) : 407 ms Calculated P [place] : 44 degrees Calculated R [place] : 50 degrees Calculated T [place] : 32 degrees SINUS BRADYCARDIA OTHERWISE NORMAL ECG Confirmed by MD ARENAS QARAB ([id number]) on 07/08/2025 11:27:09 AM NAME : DEDE CHOW PID : [id number] : 1945 Gender : Male Race : ORD : Procedure Date : Jul 04 2025 11:56:04 Edit Date : Jul 08 2025 11:27:16 Diagnosis: SINUS BRADYCARDIA OTHERWISE NORMAL ECG Confirmed by MD ARENAS QARAB ([id number]) on 07/08/2025 11:27:09 AM Test Reason : Location : 136 : CAR Overread By : MD ARENAS QARAB Edited By : MD ARENAS QARAB Referred By : MIR SOMMER Acquired by : Shakira Pierre [facility] Ferritin SerPl-mCncon 2024 Ferritin [Mass/Vol] 220.0 ng/mL Normal 30.3-565.[address] [facility] Comment on above: Order Comment: Speci men Type: BLOOD SPECIMENOrdering Facility: [facility] Address: [address] [place] [address] Performed By: #### 5 0190-8, 22843-5, 6-4, 6-3 ####[facility] LABIA [id number] [place] [id number] [place] Iron and Iron binding capaci ty panelon 07-04-2025 Iron [Mass/Vol] 221 ug/dL High 41-[address] [facility] Comment on above: Order Comment: Speci men Type: BLOOD SPECIMENOrdering Facility: [facility] Address: [address] [place] [address] Performed By: #### 5 0190-8, 26847-0, 2276-4, 3016-3 ####[facility] LABCLIA [id number] [place] [id number] [place] Iron binding capacity [Mass/Vol] 277 ug/dL Normal 232-[address] [facility] Comment on above: Order Comment: Speci men Type: BLOOD SPECIMENOrdering Facility: [facility] Address: [address] [place] [address] Performed By: #### 5 0190-8, 00293-6, 2276-4, 3016-3 ####[facility] LABCLIA [id number] [place] [id number] [place] Iron/TIBC [Molar ratio] 79.8 % High 15.0-57.0 C [facility] Comment on above: Order Comment: Speci men Type: BLOOD SPECIMENOrdering Facility: [facility] Address: [address] [place] [address] Performed By: #### 5 0190-8, 75471-1, 2276-4, 3016-3 ####[facility] LABCLIA [id number] [place] [id number] [place] TSH SerPl-aCncon 07-04-2025 TSH Qn 3.150 m[IU]/L Normal 0.270-4.[address] [facility] Comment on above: Order Comment: Speci men Type: BLOOD SPECIMENOrdering Facility: [facility] Address: [address] [place] [address] Performed By: #### 5 0190-8, 92766-2, 2276-4, 3016-3 ####[facility] LABCLIA [id number] [place] [id number] [place] XR CHEST 2V FRONTAL/LATon XR CHEST 2V FRONTAL/LAT * * *Final Repor t* * * DATE OF EXAM: Jul 04 2025 12:26PM WOX [id number] - XR CHEST 2V FRONTAL/LAT / PROCEDURE REASON: SOB (shortness of breath) * * * * Physician Interpretation * * * * EXAMINATION: CHEST RADIOGRAPH (2 VIEW FRONTAL and LATERAL) CLINICAL HISTORY: SOB (shortness of breath) MQ: XC2_6 EXAM DATE/TIME: 07/04/2025 12:26 PM COMPARISON: No relevant prior studies available. RESULT: Lines, tubes, and devices: None. Lungs and pleura: There appears be a 1 cm calcified nodule overlying the right lower lung. No consolidation. No lung mass. No pleural effusion. No pneumothorax. Cardiomediastinal silhouette: Normal cardiomediastinal silhouette. Bones and soft tissues: Unremarkable. IMPRESSION: No acute radiographic abnormality. Boat Designer: PSCB Transcribe Date/Time: Jul 04 2025 12:34P Dictated by : MOISES SUBRAMANIAN MD This examination was interpreted and the report reviewed and electronically signed by: MOISES SUBRAMANIAN MD on Jul 04 2025 12:35PM EST [id number] Normal [facility] EDDE CHOW ([id number]) 1945 M Date Time Provider Department 03/25/25 [place] During your visit today, we recorded the following information about you: Ina Mark LPN 03/25/2025 5:00 PM Signed Called patient. Verified name and date of . Patient states he called into schedule annual appointment- not due until September 2025. Denies any blood in urine or problems. Rescheduled appointment. Ina Mark LPN Allergies As of Date: 03/25/2025 Noted Allergy Reaction SEASONAL ALLERGIES 04/07/2009 Date Reviewed: 11/04/2024 Reviewed by: Marissa Cheney LPN - Fully Assessed Reason for Visit: Appointment [186] Prescriptions as of 03/25/2025 - montelukast (SINGULAIR) 10 mg tablet Take 1 tablet by mouth daily at bedtime. - nadolol (CORGARD) 40 mg tablet Take 1 tablet by mouth once daily. - levocetirizine dihydrochloride (XYZAL ORAL) Take by mouth. - fluticasone (FLONASE) 50 mcg/actuation nasal spray Use 2 Sprays in each nostril once daily. Rinse mouth after use. - cholecalciferol (VITAMIN D3) 50 mcg (2,000 unit) tablet Take 2,000 Units by mouth once daily. - THERAPEUTIC MULTIVITAMIN TAB Take 1 tablet by mouth once daily. 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 CBC W Auto Differential pane l (Bld)on 01-19-2025 Basophils (Bld) [#/Vol] 0.00 10*3/uL Normal <0.[address] [facility] Comment on above: Order Comment: Speci men Type: BLOOD SPECIMENOrdering Facility: [facility] Address: [address] [place] [address] Performed By: #### 5 7021-8 ####[facility]ITALTOWNCLIA [id number] [address] LABORATORYCLIA [id number] [address] Basophils/100 WBC (Bld) 0.0 % Normal [facility] Comment on above: Order Comment: Speci men Type: BLOOD SPECIMENOrdering Facility: [facility] Address: [address] [place] [address] Performed By: #### 5 7021-8 ####[facility] ERWMSLIA [id number] [address] LABORATORYCLIA [id number] [address] Dacrocytes LM Ql (Bld) Few Normal Cl [facility] Comment on above: Order Comment: Speci men Type: BLOOD SPECIMENOrdering Facility: [facility] Address: [address] [place] [address] Performed By: #### 5 7021-8 ####[facility] CENTERLIA [id number] [address] LABORATORYCLIA [id number] [address] Differential cell count method Nom (Bld) Manual Normal [facility] Comment on above: Order Comment: Speci men Type: BLOOD SPECIMENOrdering Facility: [facility] Address: [address] [place] [address] Performed By: #### 5 7021-8 ####[facility] MILLTOWNCLIA [id number] [address] LABORATORYCLIA [id number] [place] [address] [place] Eosinophils (Bld) [#/Vol] 0.00 10*3/uL Normal <0.[address] [facility] Comment on above: Order Comment: Speci men Type: BLOOD SPECIMENOrdering Facility: [facility] Address: [address] [place] [address] Performed By: #### 5 7021-8 ####[facility]ENTERJENNIFERLIA [id number] [address] LABORATORYCLIA [id number] [place] [address] [place] Eosinophils/100 WBC (Bld) 0.0 % Normal [facility] Comment on above: Order Comment: Speci men Type: BLOOD SPECIMENOrdering Facility: [facility] Address: [address] [place] [address] Performed By: #### 5 7021-8 ####[facility] ERWNCLIA [id number] [address] LABORATORYCLIA [id number] [place] [address] [place] Erythrocyte distribution width (RBC) [Ratio] 13.4 % Normal 11.5-15.[address] [facility] Comment on above: Order Comment: Speci men Type: BLOOD SPECIMENOrdering Facility: [facility] Address: [address] [place] [address] Performed By: #### 5 7021-8 ####[facility] ERWNCLIA [id number] [place] [address] LABORATORYCLIA [id number] [place] [address] [place] Hematocrit (Bld) [Volume fraction] 36.7 % Low 39.0-51.[address] [facility] Comment on above: Order Comment: Speci men Type: BLOOD SPECIMENOrdering Facility: [facility] Address: [address] [place] [address] Performed By: #### 5 7021-8 ####[facility] ERWNCLIA [id number] [address] LABORATORYCLIA [id number] [place] [address] [place] Hemoglobin (Bld) [Mass/Vol] 11.9 g/dL Low 13.0-17.[address] [facility] Comment on above: Order Comment: Speci men Type: BLOOD SPECIMENOrdering Facility: [facility] Address: [address] [place] [address] Performed By: #### 5 7021-8 ####[facility] ERWNCLIA [id number] [address] LABORATORYCLIA [id number] [place] [address] [place] Lymphocytes (Bld) [#/Vol] 43.33 10*3/uL High 1.00-4.[address] [facility] Comment on above: Order Comment: Speci men Type: BLOOD SPECIMENOrdering Facility: [facility] Address: [address] [place] [address] Performed By: #### 5 7021-8 ####[facility]ENTERNCLIA [id number] [address] LABORATORYCLIA [id number] [place] [address] [place] Lymphocytes/100 WBC (Bld) 97.0 % Normal [facility] Comment on above: Order Comment: Speci men Type: BLOOD SPECIMENOrdering Facility: [facility] Address: [address] [place] [address] Performed By: #### 5 7021-8 ####[facility] EWELINAWNCLIA [id number] [address] LABORATORYCLIA [id number] [address] MCH (RBC) [Entitic mass] 32.6 pg Normal 26.0-34.[address] [facility] Comment on above: Order Comment: Speci men Type: BLOOD SPECIMENOrdering Facility: [facility] Address: [address] [place] [address] Performed By: #### 5 7021-8 ####[facility] CENTERNCA [id number] [address] LABORATORYCLIA [id number] [address] [place] MCHC (RBC) [Mass/Vol] 32.4 g/dL Normal 30.5-36.0 [facility] Comment on above: Order Comment: Speci men Type: BLOOD SPECIMENOrdering Facility: [facility] Address: [address] [place] [address] Performed By: #### 5 7021-8 ####[facility] CENTERNCA [id number] [address] LABORATORYCLIA [id number] [address] STATES [facility] MCV (RBC) [Entitic vol] 100.5 fL High 80.0-100.0 C [facility] Comment on above: Order Comment: Speci men Type: BLOOD SPECIMENOrdering Facility: [facility] Address: [address] [place] [address] Performed By: #### 5 7021-8 ####[facility] MILLTOWNCLIA [id number] [address] LABORATORYCLIA [id number] [place] [address] [place] Monocytes (Bld) [#/Vol] 0.00 10*3/uL Normal <0.[address] [facility] Comment on above: Order Comment: Speci men Type: BLOOD SPECIMENOrdering Facility: [facility] Address: [address] [place] [address] Performed By: #### 5 7021-8 ####[facility] ERWNCLIA [id number] [address] LABORATORYCLIA [id number] [place] [address] [place] Monocytes/100 WBC (Bld) 0.0 % Normal [facility] Comment on above: Order Comment: Speci men Type: BLOOD SPECIMENOrdering Facility: [facility] Address: [address] [place] [address] Performed By: #### 5 7021-8 ####[facility] ERWNCLIA [id number] [address] LABORATORYCLIA [id number] [place] [address] [place] Neutrophils (Bld) [#/Vol] 1.34 10*3/uL Low 1.45-7.[address] [facility] Comment on above: Order Comment: Speci men Type: BLOOD SPECIMENOrdering Facility: [facility] Address: [address] [place] [address] Performed By: #### 5 7021-8 ####[facility] MILLTOWNCLIA [id number] [address] LABORATORYCLIA [id number] [address] [place] Neutrophils/100 WBC (Bld) 3.0 % Normal [facility] Comment on above: Order Comment: Speci men Type: BLOOD SPECIMENOrdering Facility: [facility] Address: [address] [place] [address] Performed By: #### 5 7021-8 ####[facility] MILLTOWNCLIA [id number] [address] LABORATORYCLIA [id number] [place] [address] [place] Nucleated RBC (Bld) [#/Vol] 10*3/uL Normal <0.[address] [facility] Comment on above: Order Comment: Speci men Type: BLOOD SPECIMENOrdering Facility: [facility] Address: [address] [place] [address] Performed By: #### 5 7021-8 ####[facility] HOS[facility]ITALA [id number] [address] LABORATORYCLIA [id number] [address] [place] Nucleated RBC/100 WBC (Bld) [Ratio] 0.0 /100 WBC Normal [facility] Comment on above: Order Comment: Speci men Type: BLOOD SPECIMENOrdering Facility: [facility] Address: [address] [place] [address] Performed By: #### 5 7021-8 ####[facility]ENTER[facility] [id number] [address] LABORATORYCLIA [id number] [place] [address] [place] Ovalocytes LM Ql (Bld) Few Normal [facility] Comment on above: Order Comment: Speci men Type: BLOOD SPECIMENOrdering Facility: [facility] Address: [address] [place] [address] Performed By: #### 5 7021-8 ####[facility] MILLTOWNCLIA [id number] [address] LABORATORYCLIA [id number] [place] [address] [place] Platelet mean volume (Bld) [Entitic vol] 9.6 fL Normal 9.0-12.[address] [facility] Comment on above: Order Comment: Speci men Type: BLOOD SPECIMENOrdering Facility: [facility] Address: [address] [place] [address] Performed By: #### 5 7021-8 ####[facility]ENTERLIA [id number] [address] LABORATORYCLIA [id number] [place] [address] [place] Platelets (Bld) [#/Vol] 171 10*3/uL Normal 150-[address] [facility] Comment on above: Order Comment: Speci men Type: BLOOD SPECIMENOrdering Facility: [facility] Address: [address] [place] [address] Result Comment: No c lot detected. Performed By: #### 5 7021-8 ####[facility] [id number] [address] LABORATORYCLIA [id number] [place] [address] [place] Platelets Estimate (Bld) [#/Vol] Adequate Normal [facility] Comment on above: Order Comment: Speci men Type: BLOOD SPECIMENOrdering Facility: [facility] Address: [address] [place] [address] Performed By: #### 5 7021-8 ####[facility] MILLTOWNCLIA [id number] [address] LABORATORYCLIA [id number] [place] [address] [place] RBC (Bld) [#/Vol] 3.65 10*6/uL Low 4.20-6.00 [facility] Comment on above: Order Comment: Speci men Type: BLOOD SPECIMENOrdering Facility: [facility] Address: [address] [place] [address] Performed By: #### 5 7021-8 ####[facility]CLIA [id number] [address] LABORATORYIA [id number] [address] [place] Reviewed: see result s of individual morphologies Normal [facility] Comment on above: Order Comment: Speci men Type: BLOOD SPECIMENOrdering Facility: [facility] Address: [address] [place] [address] Performed By: #### 5 7021-8 ####[facility]ENTERLIA [id number] [address] LABORATORYCLIA [id number] [place] [address] [place] WBC (Bld) [#/Vol] 44.67 10*3/uL High 3.70-11.[address] [facility] Comment on above: Order Comment: Speci men Type: BLOOD SPECIMENOrdering Facility: [facility] Address: [address] [place] [address] Performed By: #### 5 7021-8 ####[facility]CLIA [id number] [address] LABORATORYCLIA [id number] [address] OF [facility] CNOVon 11-04-2024 [facility] D[facility]E CHOW ([id number]) 1945 M Date Time Provider Department 11/04/24 1:40 PM NOELLE ZHU During your visit today, we recorded the following information about you: Pulse Respiration Blood pressure Weight 61/minute 16/minute 118/70 88 kg Noelle Zhu APRN.WEATHERIZATION TECHNICIAN 11/04/2024 4:49 PM Signed This is a 78 year old male who presents today with: Patient presents with: Acute Visit: Rt foot pain HISTORY OF PRESENT ILLNESS: Dede Chow is a 78 year old male. Patient presents with: Acute Visit: Rt foot pain Here in the office for right foot pain. Started about 11 days ago. No injury to the area. Pain is intermittent dull pain but sharp with certain activities, causing a limp. Stopped walking for exercise due to pain. Trying to rest the joint. Applied Voltaran which is helpful. Taking aleve. Applying ice. Sinus congestion that started 6 days ago. Seems to vary from runny nose to congestion. Using Flonase, xyzal, and singulair. No fever or chills. No cough. Mild sneezing. Follows with ENT. PAST MEDICAL HISTORY: PAST MEDICAL HISTORY Diagnosis Date 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 06/14/2024 CLL (chronic lymphocytic leukemia) ([facility]) 05/26/2018 Degeneration of intervertebral disc, site unspecified Environmental allergies Essential hypertension 12/15/2017 Obstructive sleep apnea Osteoarthritis hands/ back/ neck PAST SURGICAL HISTORY Procedure Laterality Date ARTHROSCOPY KNEE DIAGNOSTIC W/WO SYNOVIAL BX SPX 1991 Arthroscopy, knee ARTHRP KNE CONDYLEANDPLATU MEDIALANDLAT COMPARTMENTS 04/14/2008 Knee replacement, total viv knees per dr raymundo COLONOSCOPY FLX DX W/COLLJ SPEC WHEN PFRMD 04-05-13 PAST SURGICAL HISTORY OF right thumb joint TONSILLECTOMY PRIMARY/SECONDARY Tonsillectomy XCAPSL CTRC RMVL INSJ IO LENS PROSTH W/O ECP 05/2009 , 06/2009 Cataract Removal, right and left ALLERGIES Seasonal Allergies MEDICATIONS Current Outpatient Medications Medication Sig levocetirizine dihydrochloride (XYZAL ORAL) Take by mouth. fluticasone (FLONASE) 50 mcg/actuation nasal spray Use 2 Sprays in each nostril once daily. Rinse mouth after use. nadolol (CORGARD) 40 mg tablet Take 1 tablet by mouth once daily. montelukast (SINGULAIR) 10 mg tablet Take 1 tablet by mouth daily at bedtime. cholecalciferol (VITAMIN D3) 50 mcg (2,000 unit) tablet Take 2,000 Units by mouth once daily. THERAPEUTIC MULTIVITAMIN TAB Take 1 tablet by mouth once daily. No current facility-administered medications for this visit. FAMILY HISTORY Problem Relation Age of Onset Arthritis Sister Arthritis Brother Social History Tobacco Use Smoking status: Former Types: Pipe Smokeless tobacco: Never Tobacco comments: Quit smoking pipe in early . Vaping Use Vaping status: Never Used Substance Use Topics Alcohol use: Yes Alcohol/week: 3.0 standard drinks of alcohol Types: 3 Glasses of wine per week Comment: occ Drug use: Never REVIEW OF SYSTEMS GENERAL: No weight loss, malaise or fevers/chills HEENT: + Sinus Congestion NECK: Negative for lumps, goiter, pain and significant neck swelling RESPIRATORY: Negative for cough, hemoptysis, wheezing, dyspnea or shortness of breath CARDIOVASCULAR: Negative for chest pain, leg swelling, orthopnea, or palpitations GI: No nausea, vomiting, or diarrhea/constipation . No hematochezia/melena. No heartburn or reflux symptoms. : No history of dysuria, frequency or incontinence MUSCULOSKELETAL: + Right Foot Pain SKIN: Negative for lesions, rash, and itching ENDOCRINE: Negative for cold or heat intolerance, polyuria, polydipsia and goiter NEURO: No history of headaches, syncope, paralysis, seizures or tremors MOOD: Negative for depression, anxiety, or suicidal ideation. EXAM: BP 118/70 Pulse 61 Resp 16 Wt 88 kg (194 lb 0.1 oz) SpO2 96% BMI 28.65 kg/m? PHYSICAL EXAM: General Appearance: Well appearing, alert, in no acute distress, well-hydrated, well nourished. Skin: Skin color, texture, turgor normal, no suspicious rashes or lesions. Head: Normocephalic, no masses, lesions, tenderness or abnormalities. Eyes: Anicteric sclera. Extraocular movements are intact. Ears: External ears normal, canals clear. TMs pearly ortiz Nose/Sinuses: Positive findings: mucosa erythematous and swollen, purulent rhinorrhea. Oropharynx: Lips, mucosa, and tongue normal, teeth and gums normal, oropharynx normal. Neck: Supple, no adenopathy; thyroid symmetric, normal size, no bruits. Lungs: Lungs clear to auscultation. No wheezing, rhonchi, rales. Heart: RRR without murmur, gallop, or rubs. No ectopy. Extremities: No deformities, edema, skin discoloration, clubbing or cyanosis. Good capillary refill. Musculoskeletal: Full ROM of right foot, tenderness on the top of the foot with palpation. No edema, (more content not included)... Normal [facility] XR FOOT 3V AP/LAT/OBL RTon 0 11-04-2024 XR FOOT 3V AP/LAT/OBL RT * * *Final Report* * * DATE OF EXAM: Nov 04 2024 2:13PM WOX [id number] - XR FOOT 3V AP/LAT/OBL RT / PROCEDURE REASON: Foot pain, right * * * * Physician Interpretation * * * * 3 VIEWS OF THE RIGHT FOOT TECHNIQUE: AP, lateral and oblique views. CLINICAL INDICATION: Right foot pain. COMPARISON:02/25/2011 . RESULT: No radiographic evidence of acute fracture or dislocation. No concerning destructive/erosive osseous pathology. Bones of the midfoot are well aligned. Mild arthritis/degenerativ e changes of the first MTP joint and interphalangeal joints. - IMPRESSION: No radiographic evidence of acute osseous pathology. Boat Designer: PSCB Transcribe Date/Time: Nov 09 2024 5:53A Dictated by : JUAN PABLO AZAR MD This examination was interpreted and the report reviewed and electronically signed by: JUAN PABLO AZAR MD on Nov 09 2024 5:54AM EST [id number] Normal [facility] CNOVon 09-21-2024 CNOV Office Visit ([facility] ) DEDE CHOW ([id number]) 1945 M Date Time Provider Department 09/21/24 11:30 AM GRUPO RUIZ During your visit today, we recorded the following information about you: Pulse Respiration Blood pressure Weight 64/minute 16/minute 117/73 88.3 kg Grupo Ruiz PA-C 09/21/2024 7:32 PM Signed [facility] EST PATIENT CLINIC NOTE SERVICE DATE: September 21, 2024 NAME: Dede Chow CHIEF COMPLAINT: Follow up after hematuria work-up HISTORY OF PRESENT ILLNESS: Dede Chow is a 78 year old male an established patient following up for Follow up after hematuria work-up The patient reports found to have bilobar bph on cystoscopy and no longer having hematuria His most recent PSA was 0.65, and discussed PSA remains low and given age of 78 he would rather not keep following with PSA LUTS: None currenlty LABS: PSA (ng/mL) Date Value 06/16/2024 0.65 07/14/2018 0.76 PSA Screening (ng/mL) Date Value 11/28/2015 0.98 08/13/2013 0.82 Testosterone (ng/dL) Date Value 07/14/2018 390 Hematocrit (%) Date Value 07/27/2024 38.6 06/16/2024 37.7 04/09/2024 40.9 05/22/2021 43.5 08/17/2020 42.9 05/29/2020 44.2 PSA (ng/mL) Date Value 06/16/2024 0.65 07/14/2018 0.76 PSA Screening (ng/mL) Date Value 11/28/2015 0.98 08/13/2013 0.82 Creatinine Date Value Ref Range Status 05/25/2024 0.93 0.73 - 1.22 mg/dL Final 04/09/2024 0.86 0.73 - 1.22 mg/dL Final 06/19/2023 0.94 0.73 - 1.22 mg/dL Final MEDICATIONS: levocetirizine dihydrochloride (XYZAL ORAL) Take by mouth. fluticasone (FLONASE) 50 mcg/actuation nasal spray Use 2 Sprays in each nostril once daily. Rinse mouth after use. nadolol (CORGARD) 40 mg tablet Take 1 tablet by mouth once daily. montelukast (SINGULAIR) 10 mg tablet Take 1 tablet by mouth daily at bedtime. cholecalciferol (VITAMIN D3) 50 mcg (2,000 unit) tablet Take 2,000 Units by mouth once daily. THERAPEUTIC MULTIVITAMIN TAB Take 1 tablet by mouth once daily. PAST MEDICAL HISTORY: PAST MEDICAL HISTORY Diagnosis Date 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 06/14/2024 CLL (chronic lymphocytic leukemia) ([facility]) 05/26/2018 Degeneration of intervertebral disc, site unspecified Environmental allergies Essential hypertension 12/15/2017 Obstructive sleep apnea Osteoarthritis hands/ back/ neck REVIEW OF SYSTEMS: GENERAL: No fever, chills, weight loss, or fatigue. PHYSICAL EXAMINATION: Blood pressure 117/73, pulse 64, resp. rate 16, weight 88.3 kg (194 lb 9.6 oz). GENERAL: WNL nutrition, no deformities, healthy appearing PROBLEM LIST REVIEW: Yes LABS: Not able to give a urine sample today ASSESSMENT/PLAN: 1. 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 - ICD9: 600.01, 788.62, ICD10: N40.1, R39.12 (primary diagnosis) 2. Screening for genitourinary condition - ICD9: V81.6, ICD10: Z13.89 Chronic stable, well controlled > 1 year Appt w/ RICHARD Garrett MT, PA-C for annual follow-up RICHARD Aguilar MT, PA-C Mooney, Brandon, PA-C 09/21/2024 11:52 AM Signed > 1 year Appt wRICHARD Nails MT, PA-C for annual follow-up for BPH. Referring Provider: GRUPO RUIZ [[id number]] Allergies As of Date: 09/21/2024 Noted Allergy Reaction SEASONAL ALLERGIES 04/07/2009 Date Reviewed: 09/21/2024 Reviewed by: Halle Anglin MA - Fully Assessed Reason for Visit: Follow Up [171] Primary Visit Diagnosis: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 [N40.1, R39.12] Other Visit Diagnosis:Screening for genitourinary condition [Z13.89] Prescriptions as of 09/21/2024 - levocetirizine dihydrochloride (XYZAL ORAL) Take by mouth. - fluticasone (FLONASE) 50 mcg/actuation nasal spray Use 2 Sprays in each nostril once daily. Rinse mouth after use. - nadolol (CORGARD) 40 mg tablet Take 1 tablet by mouth once daily. - montelukast (SINGULAIR) 10 mg tablet Take 1 tablet by mouth daily at bedtime. - cholecalciferol (VITAMIN D3) 50 mcg (2,000 unit) tablet Take 2,000 Units by mouth once daily. - THERAPEUTIC MULTIVITAMIN TAB Take 1 tablet by mouth once daily. 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 Normal [facility] Sebastien 08-04-2024 NICOLE Telephone (FAMPWS) DEDE CHOW ([id number]) 1945 M Date Time Provider Department 08/04/24 SPIKE MILLER During your visit today, we recorded the following information about you: Spike Miller MD 08/04/2024 9:49 AM Signed Let patient know his COVID test is positive. I have sent in script for Paxlovid to [facility]. Advise him to self quarantine for 5 days. If on day 6 his symptoms have been improving and no fevers without the use of any fever reducing meds for the prior 24 hrs he can come out of quarantine but should wear a mask around others for 5 more days., Patricia Finch RN 08/04/2024 10:02 AM Signed Pt called and is notified of providers results and instructions. Pt voices understanding. Pt was asking if he should still take the Augmentin since he thinks he has a sinus infection. Then he wanted to know if he should still take his Corgard since his BP in office was 92/60. Pt denies feeling dizzy, blurred vision, shallow breath. He does not have a BP cuff at home to take on his own. He states mentally he feels ADD like he will start doing something then wander and his appetite is off. Please call and advise. [place] Jeffrey A, MD 08/04/2024 12:10 PM Signed Advise patient to complete the Augmentin and continue his coreg as long as he is not feeling overtly dizzy or like he may pass out. He should be pushing fluids to help stay well hydrated and keep his BP up. He should also consider getting a BP cuff for home. Aimee ePna MA 08/04/2024 12:30 PM Signed Patient notified and voiced understanding. Aimee Pena MA Allergies As of Date: 08/04/2024 Noted Allergy Reaction SEASONAL ALLERGIES 04/07/2009 Date Reviewed: 08/03/2024 Reviewed by: Spike Miller MD - Fully Assessed Reason for Visit: Results [95] Prescriptions as of 08/04/2024 - nirmatrelvir tablet 300 mg (150 mg x 2) and ritonavir tablet 100 mg in a dose pack (PAXLOVID) Administer TWO pink nirmatrelvir 150 mg tablets and ONE white ritonavir 100 mg tablet for a total of three tablets twice daily. - amoxicillin-clavulana te potassium (AUGMENTIN) 875-125 mg per tablet Take 1 tablet by mouth two times a day for 10 days. - fluticasone (FLONASE) 50 mcg/actuation nasal spray Use 2 Sprays in each nostril once daily. Rinse mouth after use. - nadolol (CORGARD) 40 mg tablet Take 1 tablet by mouth once daily. - montelukast (SINGULAIR) 10 mg tablet Take 1 tablet by mouth daily at bedtime. - cholecalciferol (VITAMIN D3) 50 mcg (2,000 unit) tablet Take 2,000 Units by mouth once daily. - THERAPEUTIC MULTIVITAMIN TAB Take 1 tablet by mouth once daily. 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] 12/05/2014 Arthralgia [M25.50] 12/21/2014 12/15/2017 Migraine equivalent syndrome [G43.109] 02/14/2015 12/15/2017 HLD (hyperlipidemia) [E78.5] 05/26/2015 12/15/2017 Dizziness [R42] 12/04/2017 S/P TKR (total knee replacement), bilateral [Z9*12/15/2017 Cervical spine arthritis (HCC) [M47.812] 12/15/2017 Essential hypertension [I10] 12/15/2017 Allergic rhinitis [J30.9] 12/15/2017 RAJESH (obstructive sleep apnea) [G47.33] 12/15/2017 CLL (chronic lymphocytic leukemia) ([facility]) [C91.1*05/26/2018 Anemia [D64.9] 06/26/2022 Encounter Status:Closed by AIMEE PENA on 08/04/24 [facility] CNOVon 08-03-2024 CNOV Office Visit ([facility] ) DEDE CHOW ([id number]) 1945 M Date Time Provider Department 08/03/24 2:20 PM [facility] During your visit today, we recorded the following information about you: Temperature Pulse Respiration Blood pressure 97.4 degrees 60/minute 18/minute 92/60 Weight 87.5 kg Spike Miller MD 08/04/2024 9:46 AM Signed Chief Complaint Patient presents with: Sinus Infection HPI Dede Chow is a 78 year old male who presents here today for sinus infection; sore throat (from drainage) loss of appetite (because of drainage) and headache; sinus pressure in face. Symptoms started around 07/23/2024 like a cold and seemed to go away. In the past few days developed yellow nasal discharge and headaches. Has maxillary pressure. No Fever; No N/V/D . No cough. No shortness of breath, wheezing or body aches Slightly lightheaded at times. Patient does have allergies this time of year due to the leaves. Takes Allergy shots weekly. Past medical history, appointments, medications, allergies reviewed. Previous Medical History PAST MEDICAL HISTORY Diagnosis Date - CLL (chronic lymphocytic leukemia) ([facility]) 05/26/2018 - Degeneration of intervertebral disc, site unspecified - Environmental allergies - Essential hypertension 12/15/2017 - Obstructive sleep apnea - Osteoarthritis hands/ back/ neck Previous Surgical History PAST SURGICAL HISTORY Procedure Laterality Date - ARTHROSCOPY KNEE DIAGNOSTIC W/WO SYNOVIAL BX SPX 1991 Arthroscopy, knee - ARTHRP KNE CONDYLEANDPLATU MEDIALANDLAT COMPARTMENTS 04/14/2008 Knee replacement, total viv knees per dr raymundo - COLONOSCOPY FLX DX W/COLLJ SPEC WHEN PFRMD 04-05-13 - PAST SURGICAL HISTORY OF right thumb joint - TONSILLECTOMY PRIMARY/SECONDARY Tonsillectomy - XCAPSL CTRC RMVL INSJ IO LENS PROSTH W/O ECP 05/2009 , 06/2009 Cataract Removal, right and left Family History FAMILY HISTORY Problem Relation Age of Onset - Arthritis Sister - Arthritis Brother Patient Allergies ALLERGIES Allergen Reactions - Seasonal Allergies Current Medications Current Outpatient Medications on File Prior to Visit Medication Sig - fluticasone (FLONASE) 50 mcg/actuation nasal spray Use 2 Sprays in each nostril once daily. Rinse mouth after use. - nadolol (CORGARD) 40 mg tablet Take 1 tablet by mouth once daily. - montelukast (SINGULAIR) 10 mg tablet Take 1 tablet by mouth daily at bedtime. - cholecalciferol (VITAMIN D3) 50 mcg (2,000 unit) tablet Take 2,000 Units by mouth once daily. - THERAPEUTIC MULTIVITAMIN TAB Take 1 tablet by mouth once daily. No current facility-administered medications on file prior to visit. Social History Social History Tobacco Use - Smoking status: Former Types: Pipe - Smokeless tobacco: Never - Tobacco comments: Quit smoking pipe in early . Vaping Use - Vaping status: Never Used Substance Use Topics - Alcohol use: Yes Alcohol/week: 3.0 standard drinks of alcohol Types: 3 Glasses of wine per week Comment: occ - Drug use: Never Review of Symptoms REVIEW OF SYSTEMS See HPI EXAM: BP 92/60 Pulse 60 Temp 36.3 ?C (97.4 ?F) Resp 18 Wt 87.5 kg (193 lb) SpO2 95% BMI 28.50 kg/m? General Appearance: Well appearing, alert, in no acute distress, well-hydrated, well nourished.. Eyes: Anicteric sclera. Pupils are equally round. Extraocular movements are intact. . Ears: External ears, TM's normal, canals clear. Nose/Sinuses: Nares normal, septum midline, mucosa normal, no drainage. Some maxillary sinus tenderness. Oropharynx: Lips, mucosa, and tongue normal, teeth and gums normal, oropharynx normal. Slightly dry mucous membranes. Neck: Supple, no adenopathy; thyroid symmetric, normal size, no bruits. Lungs: Lungs clear to auscultation. No wheezing, rhonchi, rales.. Heart: RRR without murmur, gallop, or rubs. No ectopy. Abdomen: Normal abdominal exam, Abdomen soft, non-tender. Bowel sounds normal. No masses, organomegaly. Health Maintenance List Covid-19 Vaccine( season) due on 09/17/2024 Annual PCP Team Chronic Disease Visit due on 07/23/2025 Depression Screening due on 07/23/2025 Anxiety Screening due on 07/23/2025 BP Controlled (<130/80) due on 07/27/2025 DTaP,Tdap,Td Vaccine(2 - Td or Tdap) due on 03/24/2027 Diabetes Screening due on 04/09/2027 Influenza Vaccine Completed Advance Directive Discussion Completed RSV Vaccine Completed Hepatitis C Screening Completed Shingrix Vaccine Completed Pneumococcal Vaccine: 65+ Completed HPV Vaccine Aged Out Colorectal Cancer Screening Discontinued Data reviewed A/P ASSESSMENT/PLAN: 1. Suspected COVID-19 virus infection - ICD9: V01.79, ICD10: Z20.822 (primary diagnosis) Check - COVID AND INFLUENZA A/B AND RSV PCR, ROUTINE 2. Bacterial sinusitis - ICD9: 473.9, 041.9, ICD10: J32.9, (more content not included)... Normal [facility] COVID AND INFLUENZA A/B AND RSV PCR, ROUTINEon 08-03-2024 SARS-CoV-2 (COVID-19) RNA MARTINEZ+probe Ql (Unsp spec) SARS-COV-2 (AGENT OF COVID-19) RNA: Detected INFLUENZA A RNA: Not detected INFLUENZA B RNA: Not detected RESPIRATORY SYNCYTIAL VIRUS (RSV) RNA: Not detected Abnormal [facility] Comment on above: Performed By: #### C VFLRS ####[facility] LABCLIA [id number] [place] [address] [place] COVID & INFLUENZA A/B & RSV PCR, ROUTINEOrdered By: Arielle Art on 08-03-2024 FLUAV RNA MARTINEZ+probe Ql (Unsp spec) Not detected Not Detected [facility] FLUBV RNA MARTINEZ+probe Ql (Unsp spec) Not detected Not Detected [facility] Interpretation and review of laboratory results Abnormal [facility] RSV A RNA MARTINEZ+probe Ql (Unsp spec) Not detected Not Detected [facility] SARS-CoV-2 (COVID-19) RNA MARTINEZ+probe Ql (Unsp spec) Detected Abnormal See comment [facility] Reference Range (the expected result in uninfected individuals): Not detected [facility] CBC W Auto Differential pane l (Bld)on 07-27-2024 Basophils (Bld) [#/Vol] 0.00 10*3/uL [facility] Basophils/100 WBC (Bld) 0.0 % C [facility] Differential cell count method Nom (Bld) Manual [facility] Eosinophils (Bld) [#/Vol] 0.35 10*3/uL [facility] Eosinophils/100 WBC (Bld) 1.0 % [facility] Erythrocyte distribution width (RBC) [Ratio] 13.5 % 11.5 - 15.0 % [facility] Hematocrit (Bld) [Volume fraction] 38.6 % Low 39.0 - 51.0 % [facility] Hemoglobin (Bld) [Mass/Vol] 12.3 g/dL Low 13.0 - 17.0 g/dL [facility] Interpretation and review of laboratory results Abnormal [facility] Lymphocytes (Bld) [#/Vol] 31.63 10*3/uL High [facility] Lymphocytes/100 WBC (Bld) 90.0 % [facility] MCH (RBC) [Entitic mass] 31.0 pg 26.0 - 34.0 pg [facility] MCHC (RBC) [Mass/Vol] 31.9 g/dL 30.5 - 36.0 g/dL [facility] MCV (RBC) [Entitic vol] 97.2 fL 80.0 - 100.0 fL [facility] Monocytes (Bld) [#/Vol] 1.05 10*3/uL High [facility] Monocytes/100 WBC (Bld) 3.0 % C [facility] Neutrophils (Bld) [#/Vol] 2.11 10*3/uL [facility] Neutrophils/100 WBC (Bld) 6.0 % [facility] Comment on above: Differential done wi th albumin Nucleated RBC (Bld) [#/Vol] NINF [facility] Nucleated RBC/100 WBC (Bld) [Ratio] 0.0 % /100 WBC [facility] Ovalocytes LM Ql (Bld) Few [facility] Platelet mean volume (Bld) [Entitic vol] 9.6 fL 9.0 - 12.7 fL [facility] Platelets (Bld) [#/Vol] 125 10*3/uL Low [facility] Comment on above: No clot detected. Platelets Estimate (Bld) [#/Vol] Decreased [facility] RBC (Bld) [#/Vol] 3.97 10*6/uL Low 4.20 - 6.0 0 m/uL [facility] Red Cell Morph Reviewed: see result s of individual morphologies [facility] WBC (Bld) [#/Vol] 35.14 10*3/uL High [facility] This is an appended report. These results have been appended to a previously verified report. [facility] FERRITINon 07-27-2024 Ferritin [Mass/Vol] 107.0 ng/mL 30.3 - 5 65.7 ng/mL [facility] Ferritin [Mass/Vol]on 2023 Interpretation and review of laboratory results Normal [facility] Iron and Iron binding capaci ty panelon 07-27-2024 Interpretation and review of laboratory results Normal [facility] Iron [Mass/Vol] 117 ug/dL 41 - 186 ug/dL [facility] Iron binding capacity [Mass/Vol] 286 ug/dL 232 - 386 ug/dL [facility] Iron/TIBC [Molar ratio] 40.9 % 15.0 - 57.0 % [facility] CNOVon 06-14-2024 CNOV Office Visit (AKURFL ) DEDE CHOW ([id number]) 1945 [place] Date Time Provider Department 06/14/24 1:15 PM JOSSE MARSHALL During your visit today, we recorded the following information about you: Pulse Blood pressure Height 61/minute 132/77 1.778 m Brandyn Estrada MA 06/14/2024 1:22 PM Signed Per Diem Registered Nurse present: CINDY Robledo Dennis Franklin, MD 06/14/2024 1:55 PM Signed ESTABLISHED PATIENT VISIT HPI Dede Chow is a 78 year old male who presents with BPH and gross hematuria Cysto TRUS today 48 cc Current sxs: TIMES IN THE PAST MONTH YOU HAD A FEELING OF NOT EMPTYING BLADDER? 2 TIMES IN PAST MONTH NEED TO URINATE AGAIN WITHIN 2 HRS OF LAST EMPTY? 1 TIMES IN PAST MONTH YOU HAVE STOPPED AND STARTED URINE FLOW? 0 TIMES IN THE PAST MONTH YOU FOUND IT DIFFICULT TO POSTPONE URINATING? 3 TIMES IN THE PAST MONTH YOU HAVE HAD A WEAK URINARY STREAM? 3 TIMES IN PAST MONTH YOU HAVE HAD TO PUSH OR STRAIN TO URINATE? 1 TIMES IN PAST MONTH YOU GET UP TO URINATE FROM SLEEP UNTIL AWAKE? 3 HOW WOULD YOU FEEL IF YOU HAD TO LIVE WITH YOUR URINARY CONDITION IT IS NOW? 2 - Mostly Satisfied WHAT IT THE TOTAL AUA SCORE? 15 06/14/24 Cysto TRUS 05/24/24: CT Urogram No hydronephrosis or renal calculi. No enhancing renal or bladder mass. 04/21/24 cytology negative 08/04/18 Cysto (Luis, hematuria ) Gross hematuria after lawn work CT Urogram negative except for 4 mm nonobstructing renal stone Urine cytology negative Cystoscopy today negative BPH, minimal LUTS F/U with PCP for annual UA RTC PRN Creatinine Date Value Ref Range Status 05/25/2024 0.93 0.73 - 1.22 mg/dL Final PSA (ng/mL) Date Value 07/14/2018 0.76 PSA Screening (ng/mL) Date Value 11/28/2015 0.98 08/13/2013 0.82 Color (no units) Date Value 08/20/2019 Yellow Clarity (no units) Date Value 08/20/2019 Clear Glucose, Urine (mg/dL) Date Value 08/20/2019 Negative Bilirubin, Urine (no units) Date Value 08/20/2019 Negative Ketones, Urine (no units) Date Value 08/20/2019 Negative Specific [place], Ur (no units) Date Value 08/20/2019 1.010 Hemoglobin/Blood,Ur ( ) Date Value 08/20/2019 Negative pH, Urine (no units) Date Value 08/20/2019 6.0 Protein, Urine (mg/dL) Date Value 08/20/2019 Negative Urobilinogen (no units) Date Value 08/20/2019 Normal Nitrites (no units) Date Value 08/20/2019 Negative Leukest (no units) Date Value 08/20/2019 Negative 24HR Urine Studies: No results for input(s): LUPH, LUCAL, LUCIT, LUOXA, LUURIC, LUVOL, LSCAO, LSCAP, LSURIC, LUCL, MANPREET, CLAUDIO, LUUREA, LUAM, LUMAG, LUPHOS, LUPCR, LUCREA, LUCRKBW, LUCAKBW, LUCACREA, LUCREACL, LWK, LUSUL in the last [id number] hours. REVIEW OF SYSTEMS Review of Systems Review of system, history including past medical history, surgical history, family history and social history reviewed and confirmed by me. HISTORIES PAST MEDICAL HISTORY Diagnosis Date CLL (chronic lymphocytic leukemia) (HCC) 05/26/2018 Degeneration of intervertebral disc, site unspecified Environmental allergies Essential hypertension 12/15/2017 Obstructive sleep apnea Osteoarthritis hands/ back/ neck PAST SURGICAL HISTORY Procedure Laterality Date ARTHROSCOPY KNEE DIAGNOSTIC W/WO SYNOVIAL BX SPX 1991 Arthroscopy, knee ARTHRP KNE CONDYLEANDPLATU MEDIALANDLAT COMPARTMENTS 04/14/2008 Knee replacement, total viv knees per dr raymundo COLONOSCOPY FLX DX W/COLLJ SPEC WHEN PFRMD 04-05-13 PAST SURGICAL HISTORY OF right thumb joint TONSILLECTOMY PRIMARY/SECONDARY Tonsillectomy XCAPSL CTRC RMVL INSJ IO LENS PROSTH W/O ECP 05/2009 , 06/2009 Cataract Removal, right and left FAMILY HISTORY Problem Relation Age of Onset Arthritis Sister Arthritis Brother SOCIAL HISTORY Social History Tobacco Use Smoking status: Former Types: Pipe Smokeless tobacco: Never Tobacco comments: Quit smoking pipe in early . Vaping Use Vaping status: Never Used Substance Use Topics Alcohol use: Yes Alcohol/week: 3.0 standard drinks of alcohol Types: 3 Glasses of wine per week Drug use: Never MEDICATIONS: propylene glycoL (SYSTANE BALANCE) 0.6 % drop Use 1 Drop in both eyes. Up to 4x a day per eye doctor. fluticasone (FLONASE) 50 mcg/actuation nasal spray Use 2 Sprays in each nostril once daily. Rinse mouth after use. nadolol (CORGARD) 40 mg tablet Take 1 tablet by mouth once daily. montelukast (SINGULAIR) 10 mg tablet Take 1 tablet by mouth daily at bedtime. cholecalciferol (VITAMIN D3) 50 mcg (2,000 unit) tablet Take 2,000 Units by mouth once daily. THERAPEUTIC MULTIVITAMIN TAB Take one(1) tablet daily. PHYSICAL EXAMINATION General appearance: Well appearing, alert, in no acute distress, and well-hydrated, well nourished MALE EXAM: Rectal Exam: Prostate: size (40 (more content not included)... Normal [facility] 05-12-2024 [facility] Telephone (AKURFL) DEDE CHOW ([id number]) 1945 M Date Time Provider Department 05/12/24 GRUPO RUIZ During your visit today, we recorded the following information about you: Edilberto Patricia Fontaine 05/12/2024 9:54 AM Signed Left pt vm re: needs scheduled for cysto after his CT 05/21 with any provider. Ref by Jennifer Ruiz. Genaro Diane 05/25/2024 9:56 AM Signed Scheduled w/ darian Allergies As of Date: 05/12/2024 Noted Allergy Reaction SEASONAL ALLERGIES 04/07/2009 Date Reviewed: 05/11/2024 Reviewed by: Ina Mark LPN - Fully Assessed Reason for Visit: Appointment [[id number]] Prescriptions as of 05/25/2024 - iv contrast (will be provided with radiology test) CT Urogram WO/W Inject, intravenously, once for 1 dose.No IV access, insert saline lock prior to the beginning of sedation, infusion, injection of imaging exam. Discontinue saline lock post exam. If Pt. has a central line or IVAD, may access for administration according to line specific nursing protocol. Once exam is complete flush line and de-access according to line specific nursing protocol in the CT contrast administration guidelines link. - propylene glycoL (SYSTANE BALANCE) 0.6 % drop Use 1 Drop in both eyes. Up to 4x a day per eye doctor. - fluticasone (FLONASE) 50 mcg/actuation nasal spray Use 2 Sprays in each nostril once daily. Rinse mouth after use. - nadolol (CORGARD) 40 mg tablet Take 1 tablet by mouth once daily. - montelukast (SINGULAIR) 10 mg tablet Take 1 tablet by mouth daily at bedtime. - cholecalciferol (VITAMIN D3) 50 mcg (2,000 unit) tablet Take 2,000 Units by mouth once daily. - THERAPEUTIC MULTIVITAMIN TAB Take one(1) tablet daily. 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 Arthralgia [M25.50] 12/21/2014 12/15/2017 Migraine equivalent syndrome [G43.109] 02/14/2015 12/15/2017 HLD (hyperlipidemia) [E78.5] 05/26/2015 12/15/2017 Dizziness [R42] 12/04/2017 S/P TKR (total knee replacement), bilateral [Z9*12/15/2017 Cervical spine arthritis (HCC) [M47.812] 12/15/2017 Essential hypertension [I10] 12/15/2017 Allergic rhinitis [J30.9] 12/15/2017 RAJESH (obstructive sleep apnea) [G47.33] 12/15/2017 CLL (chronic lymphocytic leukemia) (HCC) [C91.1*05/26/2018 Anemia [D64.9] 06/26/2022 Encounter Status:Closed by PATRICIA FARR on 05/12/24 Normal [facility] UA DIP, URINE (POC)on 2023 BILIRUBIN UA (POCT) Negative Negative [facility] CLARITY UA (POCT) Slightly Cloudy [facility] COLOR UA (POCT) Dark yellow [facility] d [facility] GLUCOSE UA (POCT) Negative Negative mg/dL [facility] Hemoglobin Ql (U) Large Abnormal Negative [facility] Interpretation and review of laboratory results Abnormal [facility] KETONE UA (POCT) Negative Negative mg/dL [facility] LEUKOCYTES UA (POCT) Negative Negative [facility] NITRITE UA (POCT) Negative Negative [facility] PH UA (POCT) 5.5 4.5 - 8.0 [facility] Protein Ql (U) Negative Negative mg/dL [facility] SPECIFIC GRAVITY UA (POCT) 1.010 1.005 - 1.030 [facility] UROBILINOGEN UA (POCT) 0.2 Cierra l E.U./dL [facility] Location:[facility], [address] [place] [address], [place], [place], [id number] [place] [address] POINT OF CARE [facility] RETIC COUNTon 06-26-2023 Reticulocytes (Bld) [#/Vol] 0.24363 10*3/uL 0.018 - 0.100 M/uL [facility] Reticulocytes (Bld) [#/Vol]o n 06-26-2023 Reticulocytes/100 RBC (Bld) 1.4 % 0.4 - 2.0 % [facility] No Panel InformationOrdered By: Dr. Tovar on 12-07-2022 Nasopharyngeal Culture Serratia marcescens [facility] Nasopharyngeal Culture Serratia fonticola [facility] Nasopharyngeal Culture Pseudomonas aeruginosa [facility] Gram stain for investigation of transfusion reactionOrdered By: Dr. Tovar on 12-05-2022 Microscopic observation Gram stain Nom (Unsp spec) [facility] Basophil percentageon 2021 Chloride [Moles/Vol] 112 mmol/L 98-107 [facility] Work Phone: Glucose [Mass/Vol] 97 mg/dL 74-106 [facility] Work Phone: Potassium [Moles/Vol] 3.8 mmol/L 3.5-5.1 [facility] Work Phone: Sodium [Moles/Vol] 143 mmol/L 136-145 [facility] Work Phone: WBC (Bld) [#/Vol] 37.8 10*3/uL 4.4-11.0 [facility] Work Phone: Blood erythrocytes count (nu mber/volume)on 04-12-2022 RBC (Bld) [#/Vol] 4.43 10*6/uL 4.6-6.2 [facility] Work Phone: Blood hemoglobin measurement (mass/volume)on 04-12-2022 Hemoglobin (Bld) [Mass/Vol] 14.0 g/dL 13.0-16.5 [facility] Work Phone: Blood manual differential co mment interpretation (narrative result)on 04-12-2022 Manual differential comment Diogo (Bld) [Interp] See comment [facility] Work Phone: Comment on above: LYMPHOCYTOSIS SMUDGE CELLS Blood platelet mean volumeon 04-12-2022 Platelet mean volume (Bld) [Entitic vol] 10.0 fL 6.2-12.0 [facility] Work Phone: Determination of erythrocyte mean corpuscular volume (MCV)on 04-12-2022 MCV (RBC) [Entitic vol] 95.7 fL 80-94 [facility] Work Phone: Hematocrit Auto (Bld) [Volum e fraction]on 04-12-2022 Hematocrit (Bld) [Volume fraction] 42.4 % 40-54 [facility] Work Phone: Laboratory - Chemistry and C hemistry - challengeon 04-12-2022 CO2 [Moles/Vol] 28.0 mmol/L 21.0-32.0 [facility] Work Phone: Urea nitrogen/Creatinine [Mass ratio] 18.8 mg/mg 10-20 [facility] Work Phone: Laboratory - Hematology and Cell countson 04-12-2022 Erythrocyte distribution width (RBC) [Entitic vol] 46.5 fL 35.1-43.9 [facility] Work Phone: Erythrocyte distribution width (RBC) [Ratio] 13.2 % 11.6-14.6 [facility] Work Phone: MCH (RBC) [Entitic mass] 31.6 pg 27.0-32.0 [facility] Work Phone: MCHC Auto (RBC) [Mass/Vol]on 04-12-2022 MCHC (RBC) [Mass/Vol] 33.0 g/dL 32-36 [facility] Work Phone: No Panel Informationon 04-12 Estimated GFR (MDRD) Amer 99 mL/min >60 [facility] Work Phone: Comment on above: GFR Calc Estimated GFR (MDRD) Non-Af Amer 82 mL/min >60 [facility] Work Phone: Comment on above: Non- GFR Calc Platelets bldon 04-12-2022 Platelets (Bld) [#/Vol] 151 10*3/uL 150-450 [facility] Work Phone: Review by pathologiston 03-16 Pathologist review Diogo (Unsp spec) [Interp] Natalia jeffrey [facility] Work Phone: Pathologist review Diogo (Unsp spec) [Interp] Reviewed [facility] Work Phone: Comment on above: Previous reported re sult: Natalia jeffrey Edited by: RGOOD on 04/15/22:1304Absolute lymphocytosis suggestive of low grade lympho-proliferative disorder.Macrocytosis.Clinical correlation is necessary. Frankie Robin M.D. 04/15/22 AMENDED REPORT 04/15/22 1304 PATH REV previously reported as: Natalia jeffrey Serum or plasma calcium bobby urement (mass/volume)on 04-12-2022 Calcium [Mass/Vol] 9.3 mg/dL 8.5-10.1 [facility] Work Phone: Serum or plasma creatinine m easurement (mass/volume)on 04-12-2022 Creatinine [Mass/Vol] 0.96 mg/dL 0.70-1.30 [facility] Work Phone: Comment on above: The validity of the calculated GFR & GFRAA in patients over 70 years has not been determined. Clinical correlation is essential. Serum or plasma urea nitroge n measurement (mass/volume)on 04-12-2022 Urea nitrogen [Mass/Vol] 18 mg/dL 7-18 [facility] Work Phone: Thin prep Papanicolaou smear with manual screeningon 04-12-2022 Thin prep Papanicolaou smear with manual screening 3 5-15 [facility] Work Phone: Gram stain for investigation of transfusion reactionon 02-15-2022 Microscopic observation Gram stain Nom (Unsp spec) [facility] Work Phone: No Panel Informationon 02-15 Nasopharyngeal Culture Serratia odorifera [facility] Work Phone: Nasopharyngeal Culture Haemophilus influenzae [facility] Work Phone: PROGRESSon 09-21-2020 PROGRESS HNO ID: [id number] Author: Rachel JosephCtWILI Mcqueen Service: ? Author Type: Clinical Animal Care Assistant Type: Progress Notes Filed: 09/21/2020 2:06 PM Note Text: Radiology Service Progress Note PATIENT NAME: Dede Chow DATE OF SERVICE: September 21, 2020 TIME: 2:06 PM PATIENT IDENTITY VERIFICATION COMPLETED USING TWO (2) IDENTIFIERS: Name and Date of confirmed by patient verbally. FALL SCREENING: Has the patient had 2 falls in the last year or 1 fall with injury or currently using an Ambulatory Assistive Device (Walker, Cane, Wheelchair, Crutches, etc.)? No PATIENT GENDER DATA: Male PATIENT RELEVANT IMPLANT DATA REVIEWED: Not Applicable RADIOLOGY DEPARTMENT: General X-ray: Exam(s) Completed: Lower Extremity X-Ray(s): Knee, AP / Lat / Merchant Right and Wt. Bearing: PERIPHERAL IV DATA: Not applicable SIGNED BY: WILI CALDERON September 21, 2020 2:06 PM [facility] XR KNEE 3V AP/LAT/MERCHANT R Ton 09-21-2020 XR KNEE 3V AP/LAT/MERCHANT RT * * *Final Report* * * DATE OF EXAM: Sep 21 2020 2:05PM VIC 5209 - XR KNEE 3V AP/LAT/MERCHANT RT / PROCEDURE REASON: M25.561-Acute pain of right knee * * * * Physician Interpretation * * * * PROCEDURE: Right knee INDICATION: Acute pain of right knee .CHECK UP TKR TECHNIQUE: XR KNEE 3V AP/LAT/MERCHANT RT COMPARISON: 08/17/2020 FINDINGS: The total knee arthroplasty remains in satisfactory position without evidence for loosening. No fracture or joint effusion. Left TKA is noted. IMPRESSION: Stable TKA Boat Designer: PAOLO Transcribe Date/Time: Sep 21 2020 2:11P Dictated by : BECKY MACHADO MD This examination was interpreted and the report reviewed and electronically signed by: BECKY MACHADO MD on Sep 21 2020 2:12PM EST [id number] N [facility] Gram stain for investigation of transfusion reaction Microscopic observation Gram stain Nom (Unsp spec) [facility] Work Phone: No Panel Information Nasopharyngeal Culture Serratia odorifera [facility] Work Phone: Nasopharyngeal Culture Haemophilus influenzae [facility] Work Phone: Nasopharyngeal Culture Serratia marcescens [facility] Work Phone: Vital Signs Date Time Vital Sign Value Performing Clinician Faci lity 11-04-2024 13:35-0500 Body mass index (BMI) [Ratio] 28.65 kg/m2 Noelle Tannhof BUY BOAT OPERATOR.WEATHERIZATION TECHNICIAN Work Phone: [facility] 11-04-2024 13:35-0500 Body weight 88 kg Noelle Tannhof BUY BOAT OPERATOR.WEATHERIZATION TECHNICIAN Work Phone: [facility] 11-04-2024 13:35-0500 Diastolic blood pressure 70 mm[Hg] Noelle Tannhof BUY BOAT OPERATOR.WEATHERIZATION TECHNICIAN Work Phone: [facility] 11-04-2024 13:35-0500 Heart rate 61 /min Noelle Tannhof BUY BOAT OPERATOR.WEATHERIZATION TECHNICIAN Work Phone: [facility] 11-04-2024 13:35-0500 Respiratory rate 16 /min Noelle Tannhof BUY BOAT OPERATOR.WEATHERIZATION TECHNICIAN Work Phone: [facility] 11-04-2024 13:35-0500 SaO2% (BldA) [Mass fraction] 96 % Noelle Tannhof BUY BOAT OPERATOR.WEATHERIZATION TECHNICIAN Work Phone: [facility] 11-04-2024 13:35-0500 Systolic blood pressure 118 mm[Hg] Noelle Tannhof BUY BOAT OPERATOR.WEATHERIZATION TECHNICIAN Work Phone: [facility] 09-21-2024 11:24-0500 Body mass index (BMI) [Ratio] 28.74 kg/m2 Grupo Ruiz PA-C Work Phone: [facility] 09-21-2024 11:24-0500 Body weight 88.27 kg Grupo Ruiz PA-C Work Phone: [facility] 09-21-2024 11:24-0500 Diastolic blood pressure 73 mm[Hg] Grupo Ruiz PA-C Work Phone: [facility] 09-21-2024 11:24-0500 Heart rate 64 /min Grupo Ruiz PA-C Work Phone: [facility] 09-21-2024 11:24-0500 Respiratory rate 16 /min Grupo Ruiz PA-C Work Phone: [facility] 09-21-2024 11:24-0500 Systolic blood pressure 117 mm[Hg] Grupo Ruiz PA-C Work Phone: [facility] 08-03-2024 14:16-0500 Body mass index (BMI) [Ratio] 28.5 kg/m2 Spike Miller MD Work Phone: [facility] 08-03-2024 14:16-0500 Body temperature 97.39 [degF] Spike Miller MD Work Phone: [facility] 08-03-2024 14:16-0500 Body weight 87.54 kg Spike Miller MD Work Phone: [facility] 08-03-2024 14:16-0500 Diastolic blood pressure 60 mm[Hg] Spike Miller MD Work Phone: [facility] 08-03-2024 14:16-0500 Heart rate 60 /min Spike Miller MD Work Phone: [facility] 08-03-2024 14:16-0500 Respiratory rate 18 /min Spike Miller MD Work Phone: [facility] 08-03-2024 14:16-0500 SaO2% (BldA) [Mass fraction] 95 % Spike Miller MD Work Phone: [facility] 08-03-2024 14:16-0500 Systolic blood pressure 92 mm[Hg] Spike Miller MD Work Phone: [facility] 07-27-2024 08:48-0500 Body mass index (BMI) [Ratio] 28.87 kg/m2 Goldie Arguello Work Phone: [facility] 07-27-2024 08:48-0500 Body temperature 96.8 [degF] Goldie Arguello Work Phone: [facility] 07-27-2024 08:48-0500 Body weight 88.68 kg Goldie Arguello Work Phone: [facility] 07-27-2024 08:48-0500 Diastolic blood pressure 62 mm[Hg] Goldie Arguello Work Phone: [facility] 07-27-2024 08:48-0500 Heart rate 65 /min Goldie Arguello Work Phone: [facility] 07-27-2024 08:48-0500 SaO2% (BldA) [Mass fraction] 98 % Goldie Arguello Work Phone: [facility] 07-27-2024 08:48-0500 Systolic blood pressure 108 mm[Hg] Goldie Arguello Work Phone: [facility] 07-23-2024 09:16-0500 Body mass index (BMI) [Ratio] 28.75 kg/m2 Dede Desai MD Work Phone: [facility] 07-23-2024 09:16-0500 Body temperature 97.3 [degF] Dede Desai MD Work Phone: [facility] 07-23-2024 09:16-0500 Body weight 88.3 kg Dede Desai MD Work Phone: [facility] 07-23-2024 09:16-0500 Diastolic blood pressure 70 mm[Hg] Dede Desai MD Work Phone: [facility] 07-23-2024 09:16-0500 Heart rate 60 /min Dede Desai MD Work Phone: [facility] 07-23-2024 09:16-0500 Respiratory rate 18 /min Dede Desai MD Work Phone: [facility] 07-23-2024 09:16-0500 Systolic blood pressure 122 mm[Hg] Dede Desai MD Work Phone: [facility] 06-23-2024 09:00-0400 Body height 175.3 cm Goldiethai Arguello Work Phone: [facility] 06-23-2024 09:00-0400 Body mass index (BMI) [Ratio] 29.24 kg/m2 Goldie Arguello Work Phone: [facility] 06-23-2024 09:00-0400 Body temperature 97.59 [degF] Goldie Arguello Work Phone: [facility] 06-23-2024 09:00-0400 Body weight 89.81 kg Goldie Arguello Work Phone: [facility] 06-23-2024 09:00-0400 Diastolic blood pressure 75 mm[Hg] Goldie Arguello Work Phone: [facility] 06-23-2024 09:00-0400 Heart rate 59 /min Goldie Arguello Work Phone: [facility] 06-23-2024 09:00-0400 SaO2% (BldA) [Mass fraction] 96 % Goldie Arguello Work Phone: [facility] 06-23-2024 09:00-0400 Systolic blood pressure 119 mm[Hg] Goldie Arguello Work Phone: [facility] 06-14-2024 13:19-0400 Body height 177.8 cm Josse Marshall MD Work Phone: [facility] 06-14-2024 13:19-0400 Diastolic blood pressure 77 mm[Hg] Josse Marshall MD Work Phone: [facility] 06-14-2024 13:19-0400 Heart rate 61 /min Josse Marshall MD Work Phone: [facility] 06-14-2024 13:19-0400 SaO2% (BldA) [Mass fraction] 95 % Josse Marshall MD Work Phone: [facility] 06-14-2024 13:19-0400 Systolic blood pressure 132 mm[Hg] Josse Marshall MD Work Phone: [facility] 05-11-2024 09:44-0400 Body height 177.8 cm Grupo Ruiz PA-C Work Phone: [facility] 05-11-2024 09:44-0400 Body mass index (BMI) [Ratio] 28.84 kg/m2 Grupo Ruiz PA-C Work Phone: [facility] 05-11-2024 09:44-0400 Body temperature 97.3 [degF] Grupo Ruiz PA-C Work Phone: [facility] 05-11-2024 09:44-0400 Body weight 91.17 kg Grupo Ruiz PA-C Work Phone: [facility] 05-11-2024 09:44-0400 Diastolic blood pressure 80 mm[Hg] Grupo Ruiz PA-C Work Phone: [facility] 05-11-2024 09:44-0400 Heart rate 72 /min Grupo Ruiz PA-C Work Phone: [facility] 05-11-2024 09:44-0400 Respiratory rate 16 /min Grupo Ruiz PA-C Work Phone: [facility] 05-11-2024 09:44-0400 SaO2% (BldA) [Mass fraction] 97 % Grupo Ruiz PA-C Work Phone: [facility] 05-11-2024 09:44-0400 Systolic blood pressure 134 mm[Hg] Grupo Ruiz PA-C Work Phone: [facility] 04-09-2024 15:53-0400 Body mass index (BMI) [Ratio] 29.62 kg/m2 Aviva Suppan BUY BOAT OPERATOR.WEATHERIZATION TECHNICIAN Work Phone: [facility] 04-09-2024 15:53-0400 Body temperature 96.69 [degF] Aviva Suppan BUY BOAT OPERATOR.WEATHERIZATION TECHNICIAN Work Phone: [facility] 04-09-2024 15:53-0400 Body weight 90.72 kg Aviva Suppan BUY BOAT OPERATOR.WEATHERIZATION TECHNICIAN Work Phone: [facility] 04-09-2024 15:53-0400 Diastolic blood pressure 70 mm[Hg] Aviva Suppan BUY BOAT OPERATOR.WEATHERIZATION TECHNICIAN Work Phone: [facility] 04-09-2024 15:53-0400 Heart rate 65 /min Aviva Suppan BUY BOAT OPERATOR.WEATHERIZATION TECHNICIAN Work Phone: [facility] 04-09-2024 15:53-0400 SaO2% (BldA) [Mass fraction] 96 % Aviva Cochran BUY BOAT OPERATOR.WEATHERIZATION TECHNICIAN Work Phone: [facility] 04-09-2024 15:53-0400 Systolic blood pressure 120 mm[Hg] Aviva Cochran BUY BOAT OPERATOR.WEATHERIZATION TECHNICIAN Work Phone: [facility] 01-29-2024 13:32-0400 Body mass index (BMI) [Ratio] 29.98 kg/m2 Noelle Zhu BUY BOAT OPERATOR.WEATHERIZATION TECHNICIAN Work Phone: [facility] 01-29-2024 13:32-0400 Body weight 91.81 kg Noelle Zhu BUY BOAT OPERATOR.WEATHERIZATION TECHNICIAN Work Phone: [facility] 01-29-2024 13:32-0400 Diastolic blood pressure 83 mm[Hg] Noelle Zhu BUY BOAT OPERATOR.WEATHERIZATION TECHNICIAN Work Phone: [facility] 01-29-2024 13:32-0400 Heart rate 65 /min Noelle Zhu BUY BOAT OPERATOR.WEATHERIZATION TECHNICIAN Work Phone: [facility] 01-29-2024 13:32-0400 SaO2% (BldA) [Mass fraction] 98 % Noelle Zhu BUY BOAT OPERATOR.WEATHERIZATION TECHNICIAN Work Phone: [facility] 01-29-2024 13:32-0400 Systolic blood pressure 126 mm[Hg] Noelle Zhu BUY BOAT OPERATOR.WEATHERIZATION TECHNICIAN Work Phone: [facility] 11-20-2023 10:22-0500 Body weight 91.08 kg Dede Desai MD Work Phone: [facility] 11-20-2023 10:22-0500 Diastolic blood pressure 78 mm[Hg] Dede Desai MD Work Phone: [facility] 11-20-2023 10:22-0500 Heart rate 68 /min Dede Desai MD Work Phone: [facility] 11-20-2023 10:22-0500 Respiratory rate 18 /min Dede Desai MD Work Phone: [facility] 11-20-2023 10:22-0500 Systolic blood pressure 116 mm[Hg] Dede Desai MD Work Phone: [facility] 06-26-2023 08:33-0400 Body height 175 cm Jose Jiménez MD Work Phone: [facility] 06-26-2023 08:33-0400 Body temperature 96.69 [degF] Jose Jiménez MD Work Phone: [facility] 06-26-2023 08:33-0400 Body weight 92.31 kg Jose Jiménez MD Work Phone: [facility] 06-26-2023 08:33-0400 Diastolic blood pressure 73 mm[Hg] Jose Jiménez MD Work Phone: [facility] 06-26-2023 08:33-0400 Heart rate 63 /min Jose Jiménez MD Work Phone: [facility] 06-26-2023 08:33-0400 SaO2% (BldA) [Mass fraction] 95 % Jose Jiménez MD Work Phone: [facility] 06-26-2023 08:33-0400 Systolic blood pressure 120 mm[Hg] Jose Jiménez MD Work Phone: [facility] 10-09-2022 16:12-0500 Body weight 92.99 kg Noelle Zhu BUY BOAT OPERATOR.WEATHERIZATION TECHNICIAN Work Phone: [facility] 10-09-2022 16:12-0500 Diastolic blood pressure 70 mm[Hg] Noelle Tannhof BUY BOAT OPERATOR.WEATHERIZATION TECHNICIAN Work Phone: [facility] 10-09-2022 16:12-0500 Heart rate 64 /min Noelle Tannhof BUY BOAT OPERATOR.WEATHERIZATION TECHNICIAN Work Phone: [facility] 10-09-2022 16:12-0500 Respiratory rate 16 /min Noelle Tannhof BUY BOAT OPERATOR.WEATHERIZATION TECHNICIAN Work Phone: [facility] 10-09-2022 16:12-0500 SaO2% (BldA) [Mass fraction] 97 % Noelle Tannhof BUY BOAT OPERATOR.WEATHERIZATION TECHNICIAN Work Phone: [facility] 10-09-2022 16:12-0500 Systolic blood pressure 132 mm[Hg] Noelle Tannhof BUY BOAT OPERATOR.WEATHERIZATION TECHNICIAN Work Phone: [facility] 08-01-2022 12:53-0500 Body weight 91.63 kg Noelle Tannhof BUY BOAT OPERATOR.WEATHERIZATION TECHNICIAN Work Phone: [facility] 08-01-2022 12:53-0500 Diastolic blood pressure 88 mm[Hg] Noelle Tannhof BUY BOAT OPERATOR.WEATHERIZATION TECHNICIAN Work Phone: [facility] 08-01-2022 12:53-0500 Heart rate 64 /min Noelle Tannhof BUY BOAT OPERATOR.WEATHERIZATION TECHNICIAN Work Phone: [facility] 08-01-2022 12:53-0500 Respiratory rate 16 /min Noelle Tannhof BUY BOAT OPERATOR.WEATHERIZATION TECHNICIAN Work Phone: [facility] 08-01-2022 12:53-0500 SaO2% (BldA) [Mass fraction] 96 % Noelle Tannhof BUY BOAT OPERATOR.WEATHERIZATION TECHNICIAN Work Phone: [facility] 08-01-2022 12:53-0500 Systolic blood pressure 140 mm[Hg] Noelle Tannhof BUY BOAT OPERATOR.WEATHERIZATION TECHNICIAN Work Phone: [facility] 07-20-2022 14:01-0400 Body temperature 98.01 [degF] Rola Athy PA-C Work Phone: [facility] 07-20-2022 14:01-0400 Body weight 92.53 kg Rola Athy PA-C Work Phone: [facility] 07-20-2022 14:01-0400 Diastolic blood pressure 78 mm[Hg] Rola Athy PA-C Work Phone: [facility] 07-20-2022 14:01-0400 Heart rate 65 /min Rola Athy PA-C Work Phone: [facility] 07-20-2022 14:01-0400 Respiratory rate 16 /min Rola Athy PA-C Work Phone: [facility] 07-20-2022 14:01-0400 SaO2% (BldA) [Mass fraction] 97 % Rola Athy PA-C Work Phone: [facility] 07-20-2022 14:01-0400 Systolic blood pressure 130 mm[Hg] Rola Athy PA-C Work Phone: [facility] 02-05-2022 09:01-0400 Diastolic blood pressure 84 mm[Hg] Bonnie Haagen BUY BOAT OPERATOR.WEATHERIZATION TECHNICIAN Work Phone: [facility] 02-05-2022 09:01-0400 Heart rate 80 /min Bonnie Haagen BUY BOAT OPERATOR.WEATHERIZATION TECHNICIAN Work Phone: [facility] 02-05-2022 09:01-0400 Respiratory rate 18 /min Bonnie Haagen BUY BOAT OPERATOR.WEATHERIZATION TECHNICIAN Work Phone: [facility] 02-05-2022 09:01-0400 SaO2% (BldA) [Mass fraction] 94 % Bonnie Haagen BUY BOAT OPERATOR.WEATHERIZATION TECHNICIAN Work Phone: [facility] 02-05-2022 09:01-0400 Systolic blood pressure 152 mm[Hg] Bonnie Haagen BUY BOAT OPERATOR.WEATHERIZATION TECHNICIAN Work Phone: [facility] Encounters Encounter Date Encounter Type Care Provider Facility Start: 07-27-2025 Encounter for preprocedural cardiovascular examination Laron Tovar [facility] Start: 07-27-2025 ambulatory Spike Miller Facility :[facility] Start: 07-26-2025 End: 07-26-2025 ambulatory DEDE Ady [facility] Facility:[facility] Start: 07-25-2025 End: 07-25-2025 ambulatory ROBERTSDALE Ady [facility] Facility:[facility] Start: 07-25-2025 Patient encounter procedure MIR SOMMER [facility] Start: 07-07-2025 End: 07-07-2025 ambulatory MIR SOMMER Facility:[facility] Start: 07-05-2025 End: 07-05-2025 ambulatory MIR SOMMER Facility:[facility] Start: 07-04-2025 End: 07-04-2025 ambulatory MIR SOMMER Facility:[facility] Start: 03-25-2025 End: 03-25-2025 Telephone encounter Grupo Ruiz PA-C Work Phone: Urology Comment on above: Appointment Start: 01-19-2025 End: 01-24-2025 ambulatory Dede Desai MD Work Phone: [facility] [place] Comment on above: Advanced directive d iscussion Implications of test results Start: 11-28-2024 End: 11-28-2024 ambulatory Noelle Zhu APRN.CNP Work Phone: [facility] [place] Comment on above: medications Start: 11-11-2024 End: 11-11-2024 Follow-up encounter Noelle Zhu APRN.CNP Work Phone: [facility] [place] Comment on above: Foot pain, bilateral (Primary Dx) Start: 11-04-2024 End: 11-04-2024 Subsequent hospital visit by physician Xr [facility] [place] Work Phone: Radiology Comment on above: Foot pain, right [M7 9.671] Start: 11-04-2024 End: 11-04-2024 ambulatory DEDE DESAI Facility:[facility] Start: 11-04-2024 End: 11-04-2024 Office outpatient visit 25 minutes Noelle Zhu APRN.WEATHERIZATION TECHNICIAN Work Phone: [facility] [place] Comment on above: Bacterial sinusitis (Primary Dx); Foot pain, right Start: 11-02-2024 End: 11-03-2024 ambulatory Dede Desai MD Work Phone: [facility] [place] Comment on above: foot pain Start: 09-21-2024 End: 09-21-2024 ambulatory GRUPO RUIZ Facility:[facility] Start: 09-21-2024 End: 09-21-2024 Patient encounter procedure Grupo Ruiz PA-C Work Phone: Urology Comment on above: Benign prostatic hyp erplasia with weak urinary stream (Primary Dx); Screening for genitourinary condition Start: 08-04-2024 End: 08-04-2024 Telephone encounter Spike Miller MD Work Phone: [facility] Comment on above: Results Start: 08-03-2024 End: 08-03-2024 ambulatory DEDE DESAI Facility:[facility] Start: 08-03-2024 End: 08-03-2024 Patient encounter procedure Spike Miller MD Work Phone: [facility] Comment on above: Suspected COVID-19 v irus infection (Primary Dx); Bacterial sinusitis; Sars-associated coronavirus as the cause of diseases classified elsewhere; COVID-19 virus infection Start: 08-02-2024 End: 08-03-2024 ambulatory Noelle Zhu APRN.CNP Work Phone: [facility] Comment on above: sinus infection Start: 07-27-2024 End: 07-27-2024 ambulatory Goldie Arguello Work Phone: Hematology/Oncology Comment on above: CLL (chronic lymphoc ytic leukemia) (HCC) (Primary Dx); Anemia, unspecified type Start: 07-27-2024 End: 07-27-2024 Patient encounter procedure Goldie Arguello Work Phone: Hematology/Oncology Start: 07-23-2024 End: 07-23-2024 Patient encounter procedure Dede Desai MD Work Phone: [facility] Comment on above: Essential hypertensi on (Primary Dx); Screening for depression; Encounter for screening examination for other mental health and behavioral disorders; RAJESH (obstructive sleep apnea); Monoclonal B-cell lymphocytosis; CLL (chronic lymphocytic leukemia) (HCC); Anemia, unspecified type; Need for influenza vaccination; Need for vaccination Start: 06-23-2024 End: 07-12-2024 Telephone encounter Karmen MAURICE Hematology/Oncology Comment on above: Social Work Services Patient Update Start: 06-23-2024 End: 06-23-2024 ambulatory Goldie Arguello Work Phone: Hematology/Oncology Comment on above: OPENED IN ERROR (Marcela janell Dx) Start: 06-23-2024 End: 06-23-2024 Patient encounter procedure Goldie Arguello Work Phone: Hematology/Oncology Start: 06-14-2024 End: 06-14-2024 Patient encounter procedure Josse Marshall MD Work Phone: [facility] Comment on above: Gross hematuria (Marcela janell Dx); 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; Disorder of prostate Start: 06-14-2024 End: 06-14-2024 ambulatory DEDE DESAI Facility:[facility] Start: 06-03-2024 End: 06-03-2024 Telemedicine consultation with patient Niya Jones WEATHERIZATION TECHNICIAN Work Phone: [facility] [place] Start: 06-03-2024 End: 06-03-2024 ambulatory Noelle Zhu APRN.WEATHERIZATION TECHNICIAN Work Phone: [facility] [place] Comment on above: sinus infection Bacterial sinusitis (Primary Dx) Start: 05-21-2024 End: 05-21-2024 Subsequent hospital visit by physician Wili [facility] (I-Stat) Work Phone: Cat Scan Comment on above: Gross hematuria [R31 .0] Start: 05-12-2024 End: 05-12-2024 Telephone encounter Grupo Ruiz PA-C Work Phone: [facility] Comment on above: Appointment Start: 05-11-2024 End: 05-11-2024 Patient encounter procedure Grupo Ruiz PA-C Work Phone: Urology Comment on above: Gross hematuria (Marcela janell Dx); Screening for genitourinary condition; 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 Start: 04-12-2024 ambulatory Dede ryan MD Work Phone: [facility] [place] Comment on above: test results Start: 04-09-2024 End: 04-09-2024 Office outpatient visit 15 minutes Aviva Cochran APRN.WEATHERIZATION TECHNICIAN Work Phone: [facility] [place] Comment on above: Abnormal urine color (Primary Dx); Hypothermia following anesthesia, sequela; 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[facility]) Start: 04-09-2024 Telephone encounter Aviva Cochran ROBEL.WEATHERIZATION TECHNICIAN Work Phone: [facility] [place] Comment on above: Patient Update Start: 01-29-2024 ambulatory Dede ryan MD Work Phone: [facility] [place] Comment on above: sinus infection Start: 01-29-2024 End: 01-29-2024 Patient encounter procedure Noelle Zhu BUY BOAT OPERATOR.WEATHERIZATION TECHNICIAN Work Phone: [facility] [place] Comment on above: Bacterial sinusitis (Primary Dx) Start: 12-31-2023 End: 12-31-2023 ambulatory [facility] Work Phone: Start: 12-31-2023 End: 12-31-2023 Patient encounter procedure [facility]-Cat Scan, [facility] Work Phone: Start: 11-20-2023 End: 11-20-2023 Patient encounter procedure Dede Desai MD Work Phone: [facility] Comment on above: Bacterial sinusitis (Primary Dx); Recurrent sinus infections; Sinus headache Start: 11-19-2023 ambulatory Dede ryan MD Work Phone: [facility] [place] Comment on above: sinus problems Start: 10-28-2023 End: 10-28-2023 ambulatory Dede Desai MD Work Phone: [facility] [place] Comment on above: Bacterial sinusitis; CLL (chronic lymphocytic leukemia) ([facility]) Start: 10-28-2023 End: 10-28-2023 Telemedicine consultation with patient Dede Desai MD Work Phone: [facility] [place] Start: 08-11-2023 End: 08-11-2023 ambulatory Dede Desai MD Work Phone: [facility] [place] Comment on above: Bacterial sinusitis (Primary Dx) Start: 08-11-2023 End: 08-11-2023 Telemedicine consultation with patient Dede Desai MD Work Phone: [facility] [place] Start: 08-10-2023 ambulatory Dede ryan MD Work Phone: [facility] [place] Comment on above: another sinus infect ion Start: 06-26-2023 End: 06-26-2023 ambulatory Jose Jiménez MD Work Phone: Hematology/Oncology Comment on above: Anemia, unspecified type (Primary Dx) Start: 06-26-2023 End: 06-26-2023 Patient encounter procedure Joes Jiménez MD Work Phone: [place] [facility] Start: 01-13-2023 End: 01-13-2023 ambulatory Mir Sommer APRN.WEATHERIZATION TECHNICIAN Work Phone: [facility] [place] Comment on above: Acute recurrent sinu sitis, unspecified location; Acute deep vein thrombosis (DVT) of proximal vein of both lower extremities (HCC); Platelets decreased ([facility]) Start: 01-13-2023 End: 01-13-2023 Telemedicine consultation with patient Mir Sommer APRN.WEATHERIZATION TECHNICIAN Work Phone: [facility] [place] Start: 01-12-2023 ambulatory Dede ryan MD Work Phone: [facility] Comment on above: sinus infection Start: 01-10-2023 ambulatory Noelle Zhu APRN.WEATHERIZATION TECHNICIAN Work Phone: [facility] [place] Comment on above: problems with Expres s Scripts Start: 12-04-2022 End: 12-04-2022 Patient encounter procedure [facility]-Laboratory, Specimen Start: 12-04-2022 End: 12-04-2022 ambulatory Dede Desai MD Work Phone: [facility] Comment on above: 2 questions Start: 11-04-2022 End: 11-04-2022 Telemedicine consultation with patient Dede Desai MD Work Phone: [facility] [place] Start: 11-04-2022 End: 11-04-2022 ambulatory Noelle Zhu APRN.WEATHERIZATION TECHNICIAN Work Phone: [facility] Comment on above: sinus infection Bacterial sinusitis (Primary Dx) Start: 10-09-2022 End: 10-09-2022 Get Medical Advice Dede Desai MD Work Phone: [facility] Comment on above: appointment and refi lls Essential hypertensi on (Primary Dx); Acute recurrent sinusitis, unspecified location; CLL (chronic lymphocytic leukemia) (HCC); Squamous cell carcinoma, face Start: 10-08-2022 Refill Mir HERMOSILLO RN.WEATHERIZATION TECHNICIAN Work Phone: [facility] Comment on above: Refill Request Start: 08-01-2022 End: 08-01-2022 Patient encounter procedure Noelle Zhu APRN.WEATHERIZATION TECHNICIAN Work Phone: [facility] Comment on above: Bacterial sinusitis (Primary Dx) Start: 07-26-2022 ambulatory Dede ryan MD Work Phone: [facility] Comment on above: more sinua problems Start: 07-20-2022 End: 07-20-2022 Patient encounter procedure Rola Craig PA-C Work Phone: [place] [facility] Comment on above: Suspected COVID-19 v irus infection (Primary Dx) Start: 04-17-2022 End: 04-17-2022 Patient encounter procedure [facility]Labor[facility], Specimen Start: 04-12-2022 Chart abstracting Dede yap MD Work Phone: [facility] Comment on above: External Labs Start: 04-12-2022 End: 04-12-2022 Patient encounter procedure [facility]-Pulmonary Services/Neurology Start: 03-20-2022 End: 03-20-2022 Patient encounter procedure [facility]-Cat Scan, [facility] Start: 03-08-2022 End: 03-08-2022 Patient encounter procedure [facility]Laboratory, Specimen Start: 03-01-2022 End: 03-01-2022 Patient encounter procedure [facility], Specimen Start: 02-15-2022 End: 02-15-2022 Patient encounter procedure [facility]Labor[facility], Specimen Start: 02-05-2022 ambulatory Noah Powell MD Work Phone: Virtual Medicine Comment on above: Virtualist Numbness Start: 02-05-2022 End: 02-05-2022 Office outpatient visit 25 minutes Bonnie Gibbs BUY BOAT OPERATOR.WEATHERIZATION TECHNICIAN Work Phone: [facility] [place] Comment on above: Acute recurrent sinu sitis, unspecified location Start: 01-16-2022 ambulatory Dede ryan MD Work Phone: [facility] [place] Comment on above: sinusitis Start: 01-11-2022 Telephone encounter Dede mcekon MD Work Phone: [facility] [place] Comment on above: Prior Authorization approval for fluticasone Start: 08-04-2018 End: 08-04-2018 Patient encounter procedure SAURABH WAITE Facility:[facility] Procedures Date Procedure Procedure Detail Performing Clinician Start: 08-03-2024 COVID & INFLUENZA A/ B & RSV PCR, ROUTINE Spike Miller MD Work Phone: Start: 07-23-2024 [employer] COVI D-19 VACCINE AGE 12+ YR (COMIRNATY) Dede Desai MD Work Phone: Start: 07-23-2024 Adult depression scr eening assessment Dede Desai MD Work Phone: Start: 04-09-2024 Urnls dip stick/tabl et rgnt auto w/o microscopy Aviva Cochran BUY BOAT OPERATOR.WEATHERIZATION TECHNICIAN Work Phone: Start: 12-31-2023 CT of face Start: 03-20-2022 CT of face Start: 02-15-2022 Investigation of transfusion reaction Start: 02-15-2022 Nasopharyngeal Culture Start: 05-28-2021 Adult depression scr eening assessment Dede Desai MD Work Phone: Start: 04-05-2013 Colonoscopy Dede yap MD Work Phone: Investigation of transfusion reaction Investigation of transfusion reaction Nasopharyngeal Culture Nasopharyngeal Culture Plan of Treatment Date Care Activity Detail Author Start: 04-09-2027 Diabetes Screening Diabetes Screenin g [facility] Start: 03-24-2027 Urine microalbumin profile [facility] Start: 06-19-2026 Diabetes Screening Diabetes Screenin amber [facility] Start: 11-04-2025 Annual PCP Team Clinical Services Manager kassy Disease Visit Annual PCP Team Chronic Disease Visit [facility] Start: 11-04-2025 BP Controlled (<130/80) BP Con trolled (<130/80) [facility] Start: 09-21-2025 BP Controlled (<130/80) BP Con trolled (<130/80) [facility] Start: 09-20-2025 End: 09-20-2025 Patient encounter procedure 09/20/2025 8:00 AM EST Office Visit Urology [address] [place], [place] [id number] Grupo Ruiz PA-C [address] [place] [address] hematuria f/u Urology Comment on above: hematuria f/u Start: 08-03-2025 Annual PCP Team Clinical Services Manager kassy Disease Visit Annual PCP Team Chronic Disease Visit [facility] Start: 08-03-2025 BP Controlled (<130/80) BP Con trolled (<130/80) [facility] Start: 07-27-2025 BP Controlled (<130/80) BP Con trolled (<130/80) [facility] Start: 07-26-2025 End: 07-26-2025 ambulatory [place] [facility] Laboratory Comment on above: LABS* 1YR OV Start: 07-25-2025 End: 07-25-2025 Patient encounter procedure [facility] [place] Comment on above: medicare wellness Start: 07-23-2025 Annual PCP Team Clinical Services Manager kassy Disease Visit Annual PCP Team Chronic Disease Visit [facility] Start: 07-23-2025 Anxiety Screening Anxiety Screening [facility] Start: 07-23-2025 BP Controlled (<130/80) BP Con trolled (<130/80) [facility] Start: 07-23-2025 Depression Screening Depression Scre ening [facility] Start: 06-23-2025 BP Controlled (<130/80) BP Con trolled (<130/80) [facility] Start: 06-20-2025 DIABETES SCREEN DIABETES SCREEN [facility] Start: 06-03-2025 Annual PCP Team Clinical Services Manager kassy Disease Visit Annual PCP Team Chronic Disease Visit [facility] Start: 05-16-2025 Influenza vaccination Influenza Vacc ine (#1) [facility] Start: 04-09-2025 BP Controlled (<130/80) BP Con trolled (<130/80) [facility] Start: 01-28-2025 Annual PCP Team Clinical Services Manager kassy Disease Visit Annual PCP Team Chronic Disease Visit [facility] Start: 01-20-2025 Covid-19 Vaccine (8 - Pfizer risk ) Covid-19 Vaccine (8 - Pfizer risk ) [facility] Start: 01-19-2025 End: 01-19-2025 ambulatory 01/19/2025 8:00 AM EDT Results Only [place] [facility] Laboratory [address] [place] [address] CBC+DIFF* [place] [facility] Comment on above: CBC+DIFF* Start: 11-19-2024 Annual PCP Team Clinical Services Manager kassy Disease Visit Annual PCP Team Chronic Disease Visit [facility] Start: 11-19-2024 BP Controlled (<130/80) BP Con trolled (<130/80) [facility] Start: 11-04-2024 End: 11-04-2024 Patient encounter procedure 11/04/2024 1:40 PM EST Office Visit Family Lisbet [place] [address] [place] [address] Noelle Zhu, BUY BOAT OPERATOR.WEATHERIZATION TECHNICIAN [address] [place] [address] Rt foot pain x 11 days [facility] Comment on above: Rt foot pain x 11 da ys Start: 10-28-2024 Annual PCP Team Clinical Services Manager kassy Disease Visit Annual PCP Team Chronic Disease Visit [facility] Start: 09-17-2024 Covid-19 Vaccine ( season) Covid-19 Vaccine () [facility] Start: 09-15-2024 Advance Directive Discussion Advance Directive Discussion [facility] Start: 08-11-2024 Annual PCP Team Clinical Services Manager kassy Disease Visit Annual PCP Team Chronic Disease Visit [facility] Start: 08-10-2024 End: 08-10-2024 Patient encounter procedure 08/10/2024 2:00 PM EST Office Visit Urology [address] [place] [address] Grupo Ruiz PA-C [address] [place] [address] 3 mo follow up Urology Comment on above: 3 mo follow up Start: 07-23-2024 End: 07-23-2024 Patient encounter procedure 07/23/2024 9:20 AM EST Office Visit [facility] [place] [address] [place] [address] Dede Desai MD [address] [place] [address] 6 month routine f/u [facility] [place] Comment on above: 6 month routine f/u Start: 06-26-2024 BP Controlled (<130/80) BP Con trolled (<130/80) [facility] Start: 06-23-2024 End: 06-23-2024 ambulatory 06/23/2024 8:40 AM EDT Visit (SP) Office Hematology/Oncology [address] [place] [address] [place] [address] [place] [address] 1 YR OV/LABS 06/16* Hematology/Oncology Comment on above: 1 YR OV/LABS 06/16* Start: 06-16-2024 End: 06-16-2024 ambulatory 06/16/2024 9:00 AM EDT Results Only [facility] [address] [place] [address] LABS* [facility] Comment on above: LABS* Start: 06-14-2024 End: 06-14-2025 Prostate specific Ag [Mass/volume] in Serum or Plasma PROSTATE-SPECIFIC ANTIGEN DIAGNOSTIC Lab Routine Disorder of prostate Expected: 06/14/2024, Expires: 06/14/2025 [facility] Work Phone: Comment on above: Expected: 06/14/2024 , Expires: 06/14/2025 Start: 06-14-2024 End: 06-14-2024 Patient encounter procedure 06/14/2024 1:15 PM EDT Office Visit [facility] [address] [place] [address] Josse Marshall MD [address] [place] [address] cysto per will [facility] Comment on above: cysto mindi ruiz Start: 06-11-2024 Annual PCP Team Clinical Services Manager kassy Disease Visit Annual PCP Team Chronic Disease Visit [facility] Start: 05-25-2024 Cystourethroscopy CYSTO.PANEND O Procedures Routine Gross hematuria Expected: 05/25/2024 (Approximate) [facility] Comment on above: Expected: 05/25/2024 (Approximate) Start: 05-22-2024 DIABETES SCREEN DIABETES SCREEN [facility] Start: 05-21-2024 End: 05-21-2024 Patient encounter procedure 05/21/2024 8:40 AM EDT Appointment Cat Scan [address] [facility] [place], [place] [id number] gross Hematuria Cat Scan Comment on above: gross Hematuria Start: 05-18-2024 End: 08-17-2024 CREATININE BLD CREATININE BLD Lab Routine Gross hematuria Expected: 05/18/2024 (Approximate), Expires: 08/17/2024 [facility] Comment on above: Expected: 05/18/2024 (Approximate), Expires: 08/17/2024 Start: 05-16-2024 Covid-19 Vaccine ( season) Covid-19 Vaccine () [facility] Start: 05-16-2024 Covid-19 Vaccine () Covid-19 Vaccine () [facility] Start: 05-16-2024 Influenza vaccination Influenza Vacc ine (#1) [facility] Start: 05-11-2024 End: 05-11-2024 Patient encounter procedure 05/11/2024 10:00 AM EDT Office Visit Urology [address] [place] [address] Grupo Ruiz PA-C [address] [place] [address] Microscopic hematuria [R31.29] Urology Comment on above: Microscopic hematuri a [R31.29] Start: 04-09-2024 End: 07-09-2024 CBC W Auto Differential panel - Blood [facility] Work Phone: Comment on above: Expected: 04/09/2024 , Expires: 07/09/2024 Start: 04-09-2024 End: 07-09-2024 Comprehensive metabolic 2000 panel - Serum or Plasma [facility] Comment on above: Expected: 04/09/2024 , Expires: 07/09/2024 Start: 04-09-2024 End: 07-09-2024 Lactate dehydrogenase [Enzymatic activity/volume] in Serum or Plasma [facility] Comment on above: Expected: 04/09/2024 , Expires: 07/09/2024 Start: 04-09-2024 End: 07-09-2024 Magnesium [Mass/volume] in Serum or Plasma [facility] Comment on above: Expected: 04/09/2024 , Expires: 07/09/2024 Start: 04-09-2024 End: 07-09-2024 Thyrotropin [Units/volume] in Serum or Plasma [facility] Comment on above: Expected: 04/09/2024 , Expires: 07/09/2024 Start: 01-14-2024 ANNUAL PCP TEAM BUSINESS MGR KASSY DISEASE VISIT ANNUAL PCP TEAM CHRONIC DISEASE VISIT [facility] Start: 11-04-2023 ANNUAL PCP TEAM BUSINESS MGR KASSY DISEASE VISIT ANNUAL PCP TEAM CHRONIC DISEASE VISIT [facility] Start: 10-09-2023 ANNUAL PCP TEAM BUSINESS MGR KASSY DISEASE VISIT ANNUAL PCP TEAM CHRONIC DISEASE VISIT [facility] Start: 09-15-2023 Advance Directive Discussion Advance Directive Discussion [facility] Start: 09-15-2023 Behavioral Health Screening Be havioral Health Screening [facility] Start: 09-15-2023 Depression Assessment Depression Ass essment [facility] Start: 09-05-2023 Covid-19 Vaccine () Covid-19 Vaccine () [facility] Start: 08-01-2023 ANNUAL PCP TEAM BUSINESS MGR KASSY DISEASE VISIT ANNUAL PCP TEAM CHRONIC DISEASE VISIT [facility] Start: 06-26-2023 End: 06-26-2024 Cobalamin (Vitamin B12) [Mass/volume] in Serum or Plasma [facility] Work Phone: Comment on above: Expected: 06/26/2023 , Expires: 06/26/2024 Start: 06-26-2023 End: 06-26-2024 Ferritin [Mass/volume] in Serum or Plasma [facility] Work Phone: Comment on above: Expected: 06/26/2023 , Expires: 06/26/2024 Start: 06-26-2023 End: 08-26-2023 Folate [Mass/volume] in Serum or Plasma [facility] Work Phone: Comment on above: Expected: 06/26/2023 , Expires: 08/26/2023 Start: 06-26-2023 End: 08-26-2023 Haptoglobin [Mass/volume] in Serum or Plasma [facility] Work Phone: Comment on above: Expected: 06/26/2023 , Expires: 08/26/2023 Start: 06-26-2023 End: 06-26-2024 Iron and Iron binding capacity panel - Serum or Plasma [facility] Work Phone: Comment on above: Expected: 06/26/2023 (Approximate), Expires: 06/26/2024 Start: 05-16-2023 Covid-19 Vaccine () Covid-19 Vaccine () [facility] Start: 04-05-2023 Colonoscopy COLONOSCOPY [facility] Start: 04-05-2023 COLORECTAL CANCER SCREENING CO LORECTAL CANCER SCREENING [facility] Start: 02-05-2023 ANNUAL PCP TEAM BUSINESS MGR KASSY DISEASE VISIT ANNUAL PCP TEAM CHRONIC DISEASE VISIT [facility] Start: 01-09-2023 BP CONTROLLED (<130/80) BP CON TROLLED (<130/80) [facility] Start: 12-09-2022 LIPID SCREEN LIPID SCREEN [facility] Start: 12-05-2022 End: 02-04-2023 Lipid 1996 panel - Serum or Plasma LIPID PANEL BASIC Lab Routine Essential hypertension Expected: 12/05/2022, Expires: 02/04/2023 [facility] Work Phone: Comment on above: Expected: 12/05/2022 , Expires: 02/04/2023 Start: 09-15-2022 ADVANCE DIRECTIVE DISCUSSION ADVANCE DIRECTIVE DISCUSSION [facility] Start: 09-15-2022 [facility]PRESSION [facility]MENT [facility] Start: 08-13-2022 ANNUAL PCP TEAM BUSINESS MGR KASSY DISEASE VISIT ANNUAL PCP TEAM CHRONIC DISEASE VISIT [facility] Start: 07-20-2022 End: 08-03-2022 Influenza virus A and B RNA and SARS-CoV-2 (COVID-19) N gene panel - Respiratory specimen by MARTINEZ with probe detection COVID WITH FLUA+B, ROUTINE Microbiology Routine Suspected COVID-19 virus infection Expected: 07/20/2022, Expires: 08/03/2022 [facility] Work Phone: Comment on above: Expected: 07/20/2022 , Expires: 08/03/2022 Start: 05-28-2022 Adult depression scr eening assessment DEPRESSION SCREENING [facility] Start: 05-16-2022 Influenza vaccination INFLUENZA (#1) [facility] Start: 04-18-2022 COVID-19 VACCINE (5 - Booster for Pfizer series) COVID-19 VACCINE (5 - Booster for Pfizer series) [facility] Start: 09-15-2021 ADVANCE DIRECTIVE DISCUSSION ADVANCE DIRECTIVE DISCUSSION [facility] Start: 09-15-2021 DEPRESSION ASSESSMENT DEPRESSION ASS ESSMENT [facility] Start: 03-25-2018 PNEUMOCOCCAL: 65+ (3 - PPSV23 or PCV20) PNEUMOCOCCAL: 65+ (3 - PPSV23 or PCV20) [facility] Start: 05-16-2016 Medicare Annual Well ness Visit Medicare Annual Wellness Visit [facility] Start: 2006 RSV Vaccine (1 - 1-d ose 60+ series) RSV Vaccine (1 - 1-dose 60+ series) [facility] Start: 12-02-1991 COLOGUARD (FIT-DNA) COLOGUARD (FIT-D NA) [facility] Start: 12-02-[address] COLONOGRAPHY [facility] Start: 12-02-1991 FECAL OCCULT BLOOD FECAL OCCULT BLOO D [facility] Start: 12-02-1991 SIGMOIDOSCOPY SIGMOIDOSCOPY [facility] Start: 1964 Anxiety Screening Anxiety Screening [facility] Start: 1964 BP CONTROLLED (<130/80) BP CON TROLLED (<130/80) [facility] Start: 1964 Depression Screening Depression Scre ening [facility] Bacteria identified in Urine by Culture URINE CULTURE Microbiology Routine Abnormal urine color 04/09/2024 4:38 PM EDT [facility] Bacteria identified in Urine by Culture URINE CULTURE Microbiology Routine Gross hematuria Ordered: 05/11/2024 [facility] Comment on above: Ordered: 05/11/2024 End: 06-11-2025 CT Kidney WO and W contrast IV CT UROGRAM WO/W IVCON Radiology Routine Gross hematuria 1 Occurrences starting 05/11/2024 until 06/11/2025 [facility] Comment on above: 1 Occurrences starti ng 05/11/2024 until 06/11/2025 CT Kidney WO and W c ontrast IV CT UROGRAM WO/W IVCON Radiology Routine Gross hematuria 05/21/2024 9:36 AM EDT [facility] Work Phone: CYTOLOGY NON-DIMENSION STONE QUARRY SUPERVISOR CYTOLOGY NON-GY N Lab Routine Gross hematuria Ordered: 05/11/2024 [facility] Comment on above: Ordered: 05/11/2024 POST VOID RESIDUAL POST VOID RES IDUAL Procedures Routine Gross hematuria Screening for genitourinary condition 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 Ordered: 05/11/2024 [facility] Work Phone: Comment on above: Ordered: 05/11/2024 US CYSTO/TRUS (POC) GUKI USE ONLY US CYSTO/TRUS (POC) GUKI USE ONLY Imaging Diagnostic Routine Gross hematuria Ordered: 06/14/2024 [facility] Comment on above: Ordered: 06/14/2024 End: 12-04-2025 XR Foot - right AP and Lateral and oblique XR FOOT GENERAL 3V AP/LAT/OBL RIGHT Radiology Routine Foot pain, right 1 Occurrences starting 11/04/2024 until 12/04/2025 [facility] Work Phone: Comment on above: 1 Occurrences starti ng 11/04/2024 until 12/04/2025 XR Foot - right AP a nd Lateral and oblique XR FOOT GENERAL 3V AP/LAT/OBL RIGHT Radiology Routine Foot pain, right 11/04/2024 2:13 PM EST [facility] Immunizations Immunization Date Immunization Notes Care Provider Ced dunn 07-23-2024 COVID-19 vaccine, ag e 12+ yr (PFIZER-BIONTECH COMIRNATY) Dede Desai MD Work Phone: [facility] 07-23-2024 influenza, high dose seasonal, preservative-free Dede Desai MD Work Phone: [facility] 07-23-2024 influenza virus vacc ine, unspecified formulation Grupo Ruiz PA-C Work Phone: [facility] 09-05-2023 respiratory syncytia l virus (RSV) vaccine, bivalent (ABRYSVO) Dede Desai MD Work Phone: [facility] 07-11-2023 COVID-19 vaccine, ag e 12+ yr, 2022- season (PFIZER-BIONTECH) Dede Desai MD Work Phone: [facility] 05-30-2023 influenza (aIIV4) vaccine, age 65+ yr, quadrivalent, PF (FLUAD QUAD) Dede Desai MD Work Phone: [facility] 05-30-2023 influenza virus vacc ine, unspecified formulation Aviva Cochran BUY BOAT OPERATOR.WEATHERIZATION TECHNICIAN Work Phone: [facility] 06-18-2022 COVID-19 booster vaccine, age 12+ yr, bivalent (PFIZER-BIONTECH) Rola Craig PA-C Work Phone: [facility] 06-06-2022 influenza (aIIV4) vaccine, age 65+ yr, quadrivalent, PF (FLUAD QUAD) Dede Desai MD Work Phone: [facility] 06-06-2022 influenza, high dose seasonal, preservative-free Rola Craig PA-C Work Phone: [facility] 12-17-2021 COVID-19 vaccine, ag e 12+ yr (PFIZER-BIONTECH - LEE TOP) Dede Desai MD Work Phone: [facility] 07-03-2021 COVID-19 vaccine, ag e 12+ yr (PFIZER-BIONTECH - PURPLE TOP) Dede Desai MD Work Phone: [facility] 06-26-2021 influenza, high dose seasonal, preservative-free Dede Desai MD Work Phone: [facility] 01-19-2021 zoster vaccine recombinant Dede Desai MD Work Phone: [facility] Work Phone: 06-06-2020 influenza, high dose seasonal, preservative-free Dede Desai MD Work Phone: [facility] 06-06-2020 influenza, injectabl e, quadrivalent, preservative free Dede Desai MD Work Phone: [facility] Work Phone: 06-06-2020 zoster vaccine recombinant Dede Desai MD Work Phone: [facility] 05-31-2019 influenza, high dose seasonal, preservative-free Dede Desai MD Work Phone: [facility] 06-19-2017 influenza, seasonal, injectable Dede Desai MD Work Phone: [facility] 03-24-2017 tetanus toxoid, redu shane diphtheria toxoid, and acellular pertussis vaccine, adsorbed Dede Desai MD Work Phone: [facility] Work Phone: 05-27-2016 influenza, high dose seasonal, preservative-free Dede Desai MD Work Phone: [facility] Work Phone: 12-15-2014 pneumococcal conjuga te vaccine, 13 valent Dede Desai MD Work Phone: [facility] 06-30-2013 influenza virus vacc ine, unspecified formulation Dede Desai MD Work Phone: [facility] 03-25-2013 pneumococcal polysaccharide vaccine, 23 valent Dede Desai MD Work Phone: [facility] 12-16-2007 poliovirus vaccine, inactivated Dede Desai MD Work Phone: [facility] Work Phone: 11-27-2007 hepatitis A vaccine, pediatric/adolescent dosage, 2 dose schedule Dede Desai MD Work Phone: [facility] Work Phone: 03-24-2007 tetanus and diphther ia toxoids, adsorbed, preservative free, for adult use (2 Lf of tetanus toxoid and 2 Lf of diphtheria toxoid) Dede Desai MD Work Phone: [facility] Work Phone: Payers Date Payer Category Payer Self-pay [id number] 2021 Miscellaneous or Other HOSPITAL/ MEDICAL GENERIC [id number] 2021 Unknown HOSPITAL/MEDICAL GENERIC MEDICAL GENERIC [id number] 2021-Present [phone] [address] [place] [address] Indemnity [id number] 2021 Unknown HOSPITAL/MEDICAL GENERIC MEDICAL GENERIC [id number] 2021-Present [phone] [address] [place] [address] Indemnity [id number] 2021 Private Health Insurance [id number] 2016 Medicare MEDICARE MEDICAR E A AND B [id number] 2016-Present [phone] [address] [address] [place] [address] Medicare [id number] 2016 Medicare [id number] 2016 Medicare [id number] 1945 Unknown [id number] Medicare [id number] Private Health Insurance [id number] Unknown [id number] Social History Date Type Detail Facility Start: 05-27-2016 End: 06-03-2023 Tobacco smoking status NHIS Ex-smoker [facility] History of tobacco use Pipe Smoker [facility] Start: 01-09-2022 End: 11-04-2024 Alcohol intake Current drinker of alcohol (finding) [facility] Start: 08-07-2021 End: 10-09-2022 History SDOH Alcohol Frequency 4 [facility] Start: 08-07-2021 End: 01-25-2023 History SDOH Alcohol Std Drinks 1 [facility] Start: 08-07-2021 End: 10-09-2022 History SDOH Social Connections Phone 5 [facility] Start: 08-07-2021 End: 10-09-2022 History SDOH Social Connections Get Together 2 [facility] Start: 08-07-2021 End: 10-09-2022 History SDOH Social Connections Meetings 3 [facility] Start: 08-07-2021 End: 10-09-2022 History SDOH Physical Activity DPW 7 [facility] Start: 08-07-2021 End: 10-09-2022 History SDOH Physical Activity MPS 6 [facility] Start: 08-07-2019 Education 20 [facility] Start: 05-27-2016 End: 08-01-2022 Tobacco Comment Quit smoking pipe in early . [facility] Start: 1945 Sex Assigned At Male [facility] Start: 12-30-2021 End: 08-01-2022 Exposure to SARS-CoV-2 (event) Not sure [facility] Work Phone: Start: 08-17-2020 Tobacco smoking status INIS Unknown if ever smoked [facility] Start: 08-17-2020 None [facility] History of tobacco use Current smoker [facility] Start: 05-27-2016 End: 06-03-2023 Tobacco use and exposure Smokeless tobacco non-user [facility] Start: 10-09-2022 End: 06-26-2023 History of Social function [facility] Start: 10-09-2022 End: 06-26-2023 Social connection and isolation panel [facility] Do you belong to any clubs or organizations such as sabianism groups, unions, fraternal or athletic groups, or school groups? Yes [facility] Are you now , , , , never or living with a partner? [facility] How often to you hav e a drink containing alcohol? 2-3 time sa week [facility] How many standard dr inks containing alcohol do you have on a typical day? 1 or 2 [facility] How often do you hav e 6 or more drinks on 1 occasion? Never [facility] How hard is it for y ou to pay for the very basics like food, housing, medical care, and heating Not very hard [facility] Adult Depression Screening Assessment 0 [facility] Do you feel stress - tense, restless, nervous, or anxious, or unable to sleep at night because your mind is troubled all the time - these days [OSQ] Only a little [facility] (I/We) worried anna er (my/our) food would run out before (I/we) got money to buy more. Never true [facility] In the past 12 month s, was there a time when you were not able to pay the mortgage or rent on time? No [facility] Start: 05-18-2019 Gender identity Identifies as male gender (finding) [facility] Start: 05-18-2019 Sexual orientation Heterosexual (finding) [facility] Do you feel stress - tense, restless, nervous, or anxious, or unable to sleep at night because your mind is troubled all the time - these days [OSQ] Not at all [facility] Start: 06-23-2024 Alcohol Comment occ [facility] Are you now , , , , never or living with a partner? [facility] Do you feel stress - tense, restless, nervous, or anxious, or unable to sleep at night because your mind is troubled all the time - these days [OSQ] To some extent [facility] Functional Status Date Assessment Result Facility 02-14-2015 Are you deaf, or do you have serious difficulty hearing No 02/14/2015 2:44 PM Urmila Sidhu RN No [facility] 02-14-2015 Are you blind, or do you have serious difficulty seeing, even when wearing glasses No 02/14/2015 2:44 PM Urmila Sidhu, CHELSY No [facility] 02-14-2015 Do you have serious difficulty walking or climbing stairs No 02/14/2015 2:44 PM Urmila Sidhu RN No [facility] 02-14-2015 Do you have difficul ty dressing or bathing No 02/14/2015 2:44 PM Urmila Sidhu, RN No [facility] 02-14-2015 Because of a physica l, mental, or emotional condition, do you have difficulty doing errands alone such as visiting a physician's office or shopping No 02/14/2015 2:44 PM Urmila Sidhu, RN No [facility] Mental Status Date Assessment Result Facility 02-14-2015 Because of a physica l, mental, or emotional condition, do you have serious difficulty concentrating, remembering, or making decisions No 02/14/2015 2:44 PM EDT Urmila Escalera RN No [facility] Clinical Notes 05-26-2015 to 07-26-2025 Telephone Encounter - Ina Mark LPN - 03/25/2025 4:47 PM EDTTelephone Encounter - Ina Mark LPN - 03/25/2025 4:47 PM EDTTelephone Encounter - Tricia Chaudhary MA - 11/28/2024 2:56 PM EDT Note Date & Type Note Facility 07-26-2025 Note HNO ID: [id number] Author: JOSE JIMÉNEZ MD Service: ? Author Type: Physician Type: Progress Notes Filed: 07/26/2025 10:49 Note Text: Anne HISTORY OF PRESENT ILLNESS: Dede Chow is a 77 year old male history CLL dx in 2014. Here for follow up, doing well, c/o fatigue. Labs reviewed, we note significant worsening of anemia without much change in CLL parameters. Work up shows no deficiency or evidence of hemolysis or bleeding. MCV is increased. CLINICAL IMPRESSION: CLL slight increase in WBC Worsened anemia with macrocytic indices. ?dysplastic process. RECOMMENDATION/PLAN: 1. Bone marrow biopsy and aspirate, see back after this is done. 2. He has nasal polypectomy planned, will forward labs to his ENT Dr Tovar, might need a transfusion prior to procedure until we can figure out what the anemia is due to. Written and verbal health teaching given to patient, patient verbalizes understanding and agrees with treatment plan. PAST MEDICAL HISTORY Diagnosis Date 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 06/14/2024 CLL (chronic lymphocytic leukemia) (HCC) 05/26/2018 Degeneration of intervertebral disc, site unspecified Environmental allergies Essential hypertension 12/15/2017 Obstructive sleep apnea Osteoarthritis hands/ back/ neck PAST SURGICAL HISTORY Procedure Laterality Date ARTHROSCOPY KNEE DIAGNOSTIC W/WO SYNOVIAL BX SPX 1991 Arthroscopy, knee ARTHRP KNE CONDYLEANDPLATU MEDIALANDLAT COMPARTMENTS 04/14/2008 Knee replacement, total viv knees per dr raymundo COLONOSCOPY FLX DX W/COLLJ SPEC WHEN PFRMD 04-05-13 PAST SURGICAL HISTORY OF right thumb joint TONSILLECTOMY PRIMARY/SECONDARY Tonsillectomy XCAPSL CTRC RMVL INSJ IO LENS PROSTH W/O ECP 05/2009 , 06/2009 Cataract Removal, right and left FAMILY HISTORY Problem Relation Age of Onset Arthritis Sister Arthritis Brother Social History Tobacco Use Smoking status: Former Types: Pipe Smokeless tobacco: Never Tobacco comments: Quit smoking pipe in early . Vaping Use Vaping status: Never Used Substance Use Topics Alcohol use: Yes Alcohol/week: 3.0 standard drinks of alcohol Types: 3 Glasses of wine per week Comment: occ Drug use: Never ALLERGIES: ALLERGIES Allergen Reactions Seasonal Allergies CURRENT OUTPATIENT MEDICATIONS: DUPIXENT PEN 300 mg/2 mL pen injection Inject 300 mg subcutaneously every [address] Tovar fluticasone (FLONASE) 50 mcg/actuation nasal spray Use 2 sprays in each nostril once daily. Rinse mouth after use. montelukast (SINGULAIR) 10 mg tablet Take 1 tablet by mouth daily at bedtime. nadolol (CORGARD) 40 mg tablet Take 1 tablet by mouth once daily. levocetirizine dihydrochloride (XYZAL ORAL) Take by mouth. (Patient taking differently: Take 1 tablet by mouth once daily.) cholecalciferol (VITAMIN D3) 50 mcg (2,000 unit) tablet Take 2,000 Units by mouth once daily. THERAPEUTIC MULTIVITAMIN TAB Take 1 tablet by mouth once daily. amoxicillin-clavulanate potassium (AUGMENTIN) 875-125 mg per tablet Take 1 tablet by mouth every 12 hours. (Patient not taking: Reported on 07/25/2025) REVIEW OF SYSTEMS: GENERAL: No fever, night sweats, weight loss or malaise. All other reviewed and negative other than HPI. PHYSICAL EXAMINATION: VITAL SIGNS: BP 120/64 Pulse 65 Temp (Src) 96.8 (Temporal) Ht 5' 9 (1.75m) Wt 196 lb (88.9kg) SpO2 98% BMI 28.93 kg/(m2). GENERAL APPEARANCE: Well appearing, in no acute distress, alert and oriented x3, well-hydrated, well nourished. No adenopathy or splenomegaly I spent a total of 30 minutes on the date of the service which included preparing to see the patient, [id number] patient care, completing clinical documentation, obtaining and/or reviewing separately obtained history, performing a medically appropriate examination, counseling and educating the patient/family/caregiver, ordering medications, tests, or procedures, independently interpreting results (not separately reported), and communicating results to the patient/family/caregiver. Electronically Signed: Jose Jiménez MD June 26, 2023 8:[address] [facility] 07-25-2025 Note HNO ID: [id number] Author: MIR SOMMER APRN.LELA Service: ? Author Type: Nurse Practitioner Type: Progress Notes Filed: 07/25/2025 13:32 Note Text: Dede Chow is a 79 year old male here for a Medicare Wellness visit. Medicare Health Risk Assessment General Health Fair Exercise: Minutes/Day 0 min Exercise: Days/Week 0 days Alcohol: Daily Use Monthly or less Alcohol: Drinks/Day 1 or 2 Alcohol: 6 or more drinks Never Feel off balance Yes Concerns: Teeth/Dentures No Concerns: Sexual function No Troubled by feelings None of the above Frequency: Eating healthy diet Nearly every day ADLs requiring help None of the above Safety precautions in home/vehicle Yes Smoke, vape, chews tobacco No Difficulty hearing No Difficulty seeing No Current Providers Specialists: I have reviewed specialist-related care of the patient in the medical record. Current care team: Patient Care Team: Dede Desai MD as PCP - General (Family Medicine) Jose Jiménez MD (Hematology/Oncology) Mir Sommer APRN.LELA as Cardiovascular Sonographer (Family Medicine) Outside specialists seen: Dr. Tovar-ENT, [facility] Dr. Lindquist, [facility], [facility] Medical/Family history review Reviewed and updated problem list, medical/surgical/family/social history, medications, and allergies. Opioid use review Prescribed: No opioid use on file in the last 90 days Patient-reported: No opioid use on file in the last 90 days Depression screening PHQ-2 Score: 0 Based on score and interview, patient is: Not at risk for depression Screening tool discussed with patient, and I recommend: No further intervention at this time Anxiety screening MICHELLE-2 Score: 0 MICHELLE-7 Score: 1 Based on score and interview, patient is: Not at risk for anxiety Screening tool discussed with patient, and I recommend: No further intervention at this time Cognitive screening Mini Cog Score: 4 Cognitive screening reviewed and No further action needed (score 3-5). Functional Observation Was the patient's Timed Up AND Go test unsteady or >= 12 seconds? No Advance Directives Surrogate decision maker and/or advance care plan documented Measurements BP 126/70 Pulse 62 Resp 16 Ht 172.7 cm (5' 8) Wt 88 kg (194 lb) BMI 29.50 kg/m? Vision Screening: Follows with optometry/ophthalmology Assessment/Plan Medicare annual wellness visit, initial (Z00.00) - Counseled on healthy diet and regular exercise - Fall avoidance information provided - Personalized prevention plan provided - Discussed need for and benefit of weight loss. BMI 29.50 kg/(m2) Additional Concerns The following concerns were also discussed with the patient: Dede Chow is a 79-year-old male with CLL and chronic nasal polyposis presenting for follow-up of anemia and persistent nasal congestion. Dede reports persistent nasal congestion, headaches, and mouth breathing due to nasal polyps, which have significantly impaired his sleep. He often sleeps upright in a chair to alleviate symptoms. He was previously treated with Dupixent as an alternative to surgery, but it has not been effective in controlling his symptoms. He is scheduled for polypectomy at the surgery center on the , which will be his third such procedure. His ENT plans to continue Dupixent postoperatively in hopes of preventing polyp recurrence. He also reports exertional fatigue, particularly when climbing stairs. He is uncertain whether this is due to anemia or his chronic nasal obstruction and poor sleep. He has a history of CLL and has been followed for chronic borderline anemia with hemoglobin levels in the 11-12 g/dL range for several years. Over the past 6 months, his hemoglobin dropped to 8.4 g/dL, with a corresponding decrease in RBC count from 3.5-4.0 to 2.2. He reports a recent infection with a change in discharge, which resolved with antibiotics, but his congestion and headaches persisted. He is currently followed by Dr. Jiménez for hematology. He is also seeking to establish care with a new PCP, Dr. Fox, after his previous PCP, Dr. Mancia, left the practice. PHYSICAL EXAM BP 126/70 Pulse 62 Resp 16 Ht 172.7 cm (5' 8) Wt 88 kg (194 lb) BMI 29.50 kg/m? GENERAL: well appearing, alert, in no acute distress CARDIOVASCULAR: regular rate and rhythm. No murmur, rubs or gallops. PULMONARY: clear to auscultation, no wheezing, rhonchi, or crackles ABDOMEN: soft, non-tender, non-distended, no masses or organomegaly EXTREMITY: no lower extremity edema. No skin discoloration. Latest Ref Rng 07/04/2025 07/05/2025 07/07/2025 WBC 3.70 - 11.00 k/uL 53.98 (H) RBC 4.20 - 6.00 m/uL 2.23 (L) Hemoglobin 13.0 - 17.0 g/dL 8.4 (L) Hematocrit 39.0 - 51.0 % 25.4 (L) MCV 80.0 - 100.0 fL 113.9 (H) MCH 26.0 - 34.0 pg 37.7 (H) MCHC 30.5 - 36.0 g/dL 33.1 RDW-CV 11.5 - 15.0 % 16.2 (H) Platelet Count 150 - 400 k/uL 209 MPV (more content not included)... [facility] 07-04-2025 Note HNO ID: [id number] Author: SEBASTIEN SHANNON RT(R) Service: ? Author Type: Animal Care Assistant Type: Progress Notes Filed: 07/04/2025 12:25 Note Text: Radiology Service Progress Note PATIENT NAME: Dede Chow DATE OF SERVICE: July 04, 2025 TIME: 12:16 PM PATIENT IDENTITY VERIFICATION COMPLETED USING TWO (2) IDENTIFIERS: Name and Date of confirmed by patient verbally. FALL SCREENING: Has the patient had 2 falls in the last year or 1 fall with injury or currently using an Ambulatory Assistive Device (Walker, Cane, Wheelchair, Crutches, etc.)? No PATIENT GENDER DATA: Assigned male at PATIENT RELEVANT IMPLANT DATA REVIEWED: Yes PATIENT PRESENTS WITH AN IMPLANTABLE OR ATTACHED STOCK REPAIRER: No RADIOLOGY DEPARTMENT: General X-ray: Exam(s) Completed: Chest X-Ray PERIPHERAL IV DATA: Not applicable SIGNED BY: RT Oscar(R) July 04, 2025 12:[address] [facility] 07-04-2025 Note HNO ID: [id number] Author: MIR SOMMER APRN.WEATHERIZATION TECHNICIAN Service: ? Author Type: Nurse Practitioner Type: Progress Notes Filed: 07/04/2025 12:05 Note Text: Chief Complaint Patient presents with: Shortness of Breath: With exertion x 2 weeks. Possible sinus infection x 5 days HPI Dede Chow is a 79 year old male who presents here today for above reason. Dede is a 79-year-old male with a history of CLL, presenting with sudden onset dyspnea on exertion and fatigue. Dede reports a sudden onset of dyspnea on exertion and fatigue that began within the last two weeks. Previously able to walk 2 miles daily without difficulty, he now experiences significant shortness of breath when climbing stairs or carrying a laundry basket. He notes that walking down a hallway causes fatigue but not dyspnea. The symptoms appeared abruptly, contrasting with his usual gradual changes, and have significantly impacted his daily activities, making it difficult for him to get out of bed. He denies any specific events triggering the onset. He also reports a recent sinus infection starting five days ago, characterized by a feeling of fullness behind the eyes and a sore throat due to postnasal drip. He denies cough or chest discomfort, although he occasionally feels a sensation of weight on his chest at night. He denies any urinary symptoms but mentions ongoing hematuria, for which he has a follow-up appointment early next year. He has a scheduled appointment with his oncologist next month and initially attributed his symptoms to his CLL but became concerned due to the sudden and severe onset. He denies a history of smoking, asthma, or COPD, having quit pipe smoking in the early 1980s. Past medical history, appointments, medications, allergies reviewed. EXAM: BP 118/71 (BP Site: Right Arm, BP Position: Sitting, BP Cuff Size: Regular Adult) Pulse 60 Temp 36.3 ?C (97.4 ?F) Resp 18 Wt 88 kg (194 lb) BMI 28.65 kg/m? General Appearance: Well appearing, alert, in no acute distress, well-hydrated, well nourished.. Head: Normocephalic, no masses, lesions, tenderness or abnormalities. Eyes: Anicteric sclera. Pupils are equally round and reactive to light. Extraocular movements are intact. . Ears: External ears normal, canals clear. Nose/Sinuses: Positive findings: mucosa erythematous and swollen; mild to moderate tenderness of the maxillary sinus bilaterally Oropharynx: Lips, mucosa, and tongue normal, teeth and gums normal, oropharynx has very mild erythema in the posterior aspect Neck: Supple, no adenopathy; thyroid symmetric, normal size Lungs: Lungs clear to auscultation. No wheezing, rhonchi, rales.. Heart: RRR without murmur, gallop, or rubs. No ectopy. Assessment and Plan 1. SOB (shortness of breath) (R06.02) 2. SALGADO (dyspnea on exertion) (R06.09) 3. Fatigue, unspecified type (R53.83) 4. Sensation of chest pressure (R07.89) 5. Abnormal electrocardiogram (R94.31) 6. Sinus bradycardia (R00.1) Acute onset dyspnea on exertion, fatigue, and intermittent chest pressure with a normal EKG except for sinus bradycardia (ventricular rate 52 bpm). Lungs clear on exam. Differential includes cardiac, hematologic, and less likely pulmonary etiologies. - Ordered lab work, chest X-ray, and nuclear medicine stress test. - Advised patient to go to the emergency room if he develops shortness of breath that does not resolve or any chest discomfort or chest pressure that does not resolve. - Follow-up in about a month to review results. 7. CLL (chronic lymphocytic leukemia) (HCC) (C91.10) Patient has a history of CLL with follow-up scheduled with hematology next month. - Ordered lab work to assess for possible hematologic causes of symptoms. 8. Acute recurrent sinusitis, unspecified location (J01.91) Acute sinus infection with significant postnasal drainage and sore throat. - Start Augmentin. Mir Sommer APRN.WEATHERIZATION TECHNICIAN This note was partly generated using [employer] voice recognition dictation and may contain some misspelled or inaccurate words missed on review. Recording using [employer] software for draft documentation of the visit was discussed with the patient/authorized signs sales representative; all questions welcomed and answered. Patient/authorized signs sales representative agreed to proceed [facility] 03-25-2025 Telephone encounter Note Called patient. Verified name and date of . Patient states he called into schedule annual appointment- not due until September 2025. Denies any blood in urine or problems. Rescheduled appointment. Ina Mark LPN [facility] 03-25-2025 Miscellaneous Notes Called patient. Verified name and date of . Patient states he called into schedule annual appointment- not due until September 2025. Denies any blood in urine or problems. Rescheduled appointment. Ina Mark LPN documented in this encounter [facility] 11-28-2024 Telephone encounter Note The following approved medication requests have been transmitted electronically. Requested Prescriptions Signed Prescriptions Disp Refills montelukast (SINGULAIR) 10 mg tablet 90 tablet 3 Sig: Take 1 tablet by mouth daily at bedtime. nadolol (CORGARD) 40 mg tablet 90 tablet 3 Sig: Take 1 tablet by mouth once daily. Noelle Zhu APRN.CNP [facility] 11-28-2024 Miscellaneous Notes The following approved medication requests have been transmitted electronically. Requested Prescriptions Signed Prescriptions Disp Refills montelukast (SINGULAIR) 10 mg tablet 90 tablet 3 Sig: Take 1 tablet by mouth daily at bedtime. nadolol (CORGARD) 40 mg tablet 90 tablet 3 Sig: Take 1 tablet by mouth once daily. Noelle Zhu APRN.CNP Prescription Refill Information The patient has been identified by name and date of : Yes Caregiver verified no other encounters exist for this prescription request: Yes Caregiver confirmed with patient/requestor that no other refills are due, in the near future, with this provider at this time: No The last office visit in the department: 11/04/24 Does the patient have a future office visit with this provider/department: Yes Requested Prescriptions Pending Prescriptions Disp Refills montelukast (SINGULAIR) 10 mg tablet 90 tablet 3 Sig: Take 1 tablet by mouth daily at bedtime. nadolol (CORGARD) 40 mg tablet 90 tablet 3 Sig: Take 1 tablet by mouth once daily. Tricia Chaudhary MA November 28, 2024 2:57 PM documented in this encounter [facility] 11-28-2024 Telephone encounter Note Prescription Refill Information The patient has been identified by name and date of : Yes Caregiver verified no other encounters exist for this prescription request: Yes Caregiver confirmed with patient/requestor that no other refills are due, in the near future, with this provider at this time: No The last office visit in the department: 11/04/24 Does the patient have a future office visit with this provider/department: Yes Requested Prescriptions Pending Prescriptions Disp Refills montelukast (SINGULAIR) 10 mg tablet 90 tablet 3 Sig: Take 1 tablet by mouth daily at bedtime. nadolol (CORGARD) 40 mg tablet 90 tablet 3 Sig: Take 1 tablet by mouth once daily. Tricia Chaudhary MA November 28, 2024 2:57 PM [facility] 11-11-2024 Telephone encounter Note Consult has been placed, thank you Noelle Zhu APRN.WEATHERIZATION TECHNICIAN [facility] 11-11-2024 Miscellaneous Notes Consult has been placed, thank you Noelle Zhu APRN.WEATHERIZATION TECHNICIAN Patient returned call and went over results, notes from Noelle Zhu CORPORATE DEVELOPMENT INTERN with understanding. Patient is having pain in his other foot now asking for the referral. Pending consult, needs diagnosis. TC to pt. LM to call office, ask for triage nurse to get results. Marissa Cheney LPN Can you please call the patient and let him know that I reviewed his x-ray results. X-ray of the foot showed no fracture. There is mild arthritis noted in the first MTP which is the big toe. If pain is not improving I would recommend consult with podiatry. Please let me know what he prefers. Thank you. Noelle Zhu APRN.LELA documented in this encounter [facility] 11-11-2024 Telephone encounter Note Patient returned call and went over results, notes from Noelle Zhu CORPORATE DEVELOPMENT INTERN with understanding. Patient is having pain in his other foot now asking for the referral. Pending consult, needs diagnosis. [facility] 11-11-2024 Telephone encounter Note TC to pt. LM to call office, ask for triage nurse to get results. Marissa Cheney LPN [facility] 11-11-2024 Telephone encounter Note Can you please call the patient and let him know that I reviewed his x-ray results. X-ray of the foot showed no fracture. There is mild arthritis noted in the first MTP which is the big toe. If pain is not improving I would recommend consult with podiatry. Please let me know what he prefers. Thank you. Noelle Zhu APRN.LELA [place] [id number] History of Present illness Narrative Radiology Service Progress Note PATIENT NAME: Dede Chow DATE OF SERVICE: November 04, 2024 TIME: 2:01 PM PATIENT IDENTITY VERIFICATION COMPLETED USING TWO (2) IDENTIFIERS: Name and Date of confirmed by patient verbally. FALL SCREENING: Has the patient had 2 falls in the last year or 1 fall with injury or currently using an Ambulatory Assistive Device (Walker, Cane, Wheelchair, Crutches, etc.)? No PATIENT GENDER DATA: Assigned male at PATIENT RELEVANT IMPLANT DATA REVIEWED: Not Applicable PATIENT PRESENTS WITH AN IMPLANTABLE OR ATTACHED STOCK REPAIRER: No RADIOLOGY DEPARTMENT: General X-ray: Exam(s) Completed: Lower Extremity X-Ray(s): Foot, Right and Wt. Bearing PERIPHERAL IV DATA: Not applicable SIGNED BY: RT Mamadou(R) November 04, 2024 2:01 PM documented in this encounter [facility] 11-04-2024 Note HNO ID: [id number] Author: NIKA SANTIAGO RT(R) Service: Radiology Author Type: Technologist Type: Progress Notes Filed: 11/04/2024 14:13 Note Text: Radiology Service Progress Note PATIENT NAME: Dede Chow DATE OF SERVICE: November 04, 2024 TIME: 2:01 PM PATIENT IDENTITY VERIFICATION COMPLETED USING TWO (2) IDENTIFIERS: Name and Date of confirmed by patient verbally. FALL SCREENING: Has the patient had 2 falls in the last year or 1 fall with injury or currently using an Ambulatory Assistive Device (Walker, Cane, Wheelchair, Crutches, etc.)? No PATIENT GENDER DATA: Assigned male at PATIENT RELEVANT IMPLANT DATA REVIEWED: Not Applicable PATIENT PRESENTS WITH AN IMPLANTABLE OR ATTACHED STOCK REPAIRER: No RADIOLOGY DEPARTMENT: General X-ray: Exam(s) Completed: Lower Extremity X-Ray(s): Foot, Right and Wt. Bearing PERIPHERAL IV DATA: Not applicable SIGNED BY: JELLY Cedillo) November 04, 2024 2:[address] [facility] 11-04-2024 Instructions Noelle Zhu APRN.LELA - 11/04/2024 1:49 PM EST Start Augmentin, take with food. Continue supportive care at home Get xray completed today May continue to elevate and apply ice as needed. Follow up pending test results or sooner as needed. documented in this encounter [facility] 11-04-2024 History of Present illness Narrative This is a 78 year old male who presents today with: Patient presents with: Acute Visit: Rt foot pain HISTORY OF PRESENT ILLNESS: Dede Chow is a 78 year old male. Patient presents with: Acute Visit: Rt foot pain Here in the office for right foot pain. Started about 11 days ago. No injury to the area. Pain is intermittent dull pain but sharp with certain activities, causing a limp. Stopped walking for exercise due to pain. Trying to rest the joint. Applied Voltaran which is helpful. Taking aleve. Applying ice. Sinus congestion that started 6 days ago. Seems to vary from runny nose to congestion. Using Flonase, xyzal, and singulair. No fever or chills. No cough. Mild sneezing. Follows with ENT. PAST MEDICAL HISTORY: PAST MEDICAL HISTORY Diagnosis Date 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 06/14/2024 CLL (chronic lymphocytic leukemia) (HCC) 05/26/2018 Degeneration of intervertebral disc, site unspecified Environmental allergies Essential hypertension 12/15/2017 Obstructive sleep apnea Osteoarthritis hands/ back/ neck PAST SURGICAL HISTORY Procedure Laterality Date ARTHROSCOPY KNEE DIAGNOSTIC W/WO SYNOVIAL BX SPX 1991 Arthroscopy, knee ARTHRP KNE CONDYLE&PLATU MEDIAL&LAT COMPARTMENTS 04/14/2008 Knee replacement, total viv knees per dr raymundo COLONOSCOPY FLX DX W/COLLJ SPEC WHEN PFRMD 04-05-13 PAST SURGICAL HISTORY OF right thumb joint TONSILLECTOMY PRIMARY/SECONDARY <AGE 13 Tonsillectomy XCAPSL CTRC RMVL INSJ IO LENS PROSTH W/O ECP 05/2009 , 06/2009 Cataract Removal, right and left ALLERGIES Seasonal Allergies MEDICATIONS Current Outpatient Medications Medication Sig levocetirizine dihydrochloride (XYZAL ORAL) Take by mouth. fluticasone (FLONASE) 50 mcg/actuation nasal spray Use 2 Sprays in each nostril once daily. Rinse mouth after use. nadolol (CORGARD) 40 mg tablet Take 1 tablet by mouth once daily. montelukast (SINGULAIR) 10 mg tablet Take 1 tablet by mouth daily at bedtime. cholecalciferol (VITAMIN D3) 50 mcg (2,000 unit) tablet Take 2,000 Units by mouth once daily. THERAPEUTIC MULTIVITAMIN TAB Take 1 tablet by mouth once daily. No current facility-administered medications for this visit. FAMILY HISTORY Problem Relation Age of Onset Arthritis Sister Arthritis Brother Social History Tobacco Use Smoking status: Former Types: Pipe Smokeless tobacco: Never Tobacco comments: Quit smoking pipe in early . Vaping Use Vaping status: Never Used Substance Use Topics Alcohol use: Yes Alcohol/week: 3.0 standard drinks of alcohol Types: 3 Glasses of wine per week Comment: occ Drug use: Never REVIEW OF SYSTEMS GENERAL: No weight loss, malaise or fevers/chills HEENT: + Sinus Congestion NECK: Negative for lumps, goiter, pain and significant neck swelling RESPIRATORY: Negative for cough, hemoptysis, wheezing, dyspnea or shortness of breath CARDIOVASCULAR: Negative for chest pain, leg swelling, orthopnea, or palpitations GI: No nausea, vomiting, or diarrhea/constipation. No hematochezia/melena. No heartburn or reflux symptoms. : No history of dysuria, frequency or incontinence MUSCULOSKELETAL: + Right Foot Pain SKIN: Negative for lesions, rash, and itching ENDOCRINE: Negative for cold or heat intolerance, polyuria, polydipsia and goiter NEURO: No history of headaches, syncope, paralysis, seizures or tremors MOOD: Negative for depression, anxiety, or suicidal ideation. EXAM: BP 118/70 Pulse 61 Resp 16 Wt 88 kg (194 lb 0.1 oz) SpO2 96% BMI 28.65 kg/m PHYSICAL EXAM: General Appearance: Well appearing, alert, in no acute distress, well-hydrated, well nourished. Skin: Skin color, texture, turgor normal, no suspicious rashes or lesions. Head: Normocephalic, no masses, lesions, tenderness or abnormalities. Eyes: Anicteric sclera. Extraocular movements are intact. Ears: External ears normal, canals clear. TMs pearly ortiz Nose/Sinuses: Positive findings: mucosa erythematous and swollen, purulent rhinorrhea. Oropharynx: Lips, mucosa, and tongue normal, teeth and gums normal, oropharynx normal. Neck: Supple, no adenopathy; thyroid symmetric, normal size, no bruits. Lungs: Lungs clear to auscultation. No wheezing, rhonchi, rales. Heart: RRR without murmur, gallop, or rubs. No ectopy. Extremities: No deformities, edema, skin discoloration, clubbing or cyanosis. Good capillary refill. Musculoskeletal: Full ROM of right foot, tenderness on the top of the foot with palpation. No edema, warm to touch however toes are cool. No erythema. Good muscle strength. Peripheral Pulses: Normal, Capillary refill <2secs, strong peripheral pulses, Pulses palpable. Neurologic: Gait normal. Sensation grossly intact. ASSESSMENT/PLAN: 1. Bacterial sinusitis - ICD9: 473.9, 041.9, ICD10: J32.9, B96.89 (primary diagnosis) - Will begin treatment with Augmentin 875 mg PO BID for 10 days - Supportive care with plenty of fluids, rest, and analgesia prn. - AMOXICILLIN 875 MG-POTASSIUM CLAVULANATE 125 MG TABLET 2. Foot pain, right - ICD9: 729.5, ICD10: M79.671 - Get xray for further evaluation - Continue supportive care at home - RICE Therapy. - XR FOOT GENERAL 3V AP/LAT/OBL RIGHT Follow-up pending test results or sooner as needed. Discussed treatment plan and patient voices understanding. Patient's questions answered appropriately. Medications and potential side effects were discussed and patient voices understanding. Noelle Zhu APRN.WEATHERIZATION TECHNICIAN This note was partially generated using [employer] recognition system. Note was reviewed for accuracy. There may be minor misspellings or grammar miscues with [employer] voice recognition. documented in this encounter [facility] 11-04-2024 Note HNO ID: [id number] Author: NOELLE ZHU APRN.LELA Service: ? Author Type: Nurse Practitioner Type: Progress Notes Filed: 11/04/2024 16:49 Note Text: This is a 78 year old male who presents today with: Patient presents with: Acute Visit: Rt foot pain HISTORY OF PRESENT ILLNESS: Dede Chow is a 78 year old male. Patient presents with: Acute Visit: Rt foot pain Here in the office for right foot pain. Started about 11 days ago. No injury to the area. Pain is intermittent dull pain but sharp with certain activities, causing a limp. Stopped walking for exercise due to pain. Trying to rest the joint. Applied Voltaran which is helpful. Taking aleve. Applying ice. Sinus congestion that started 6 days ago. Seems to vary from runny nose to congestion. Using Flonase, xyzal, and singulair. No fever or chills. No cough. Mild sneezing. Follows with ENT. PAST MEDICAL HISTORY: PAST MEDICAL HISTORY Diagnosis Date 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 06/14/2024 CLL (chronic lymphocytic leukemia) (HCC) 05/26/2018 Degeneration of intervertebral disc, site unspecified Environmental allergies Essential hypertension 12/15/2017 Obstructive sleep apnea Osteoarthritis hands/ back/ neck PAST SURGICAL HISTORY Procedure Laterality Date ARTHROSCOPY KNEE DIAGNOSTIC W/WO SYNOVIAL BX SPX 1991 Arthroscopy, knee ARTHRP KNE CONDYLEANDPLATU MEDIALANDLAT COMPARTMENTS 04/14/2008 Knee replacement, total viv knees per dr raymundo COLONOSCOPY FLX DX W/COLLJ SPEC WHEN PFRMD 04-05-13 PAST SURGICAL HISTORY OF right thumb joint TONSILLECTOMY PRIMARY/SECONDARY Tonsillectomy XCAPSL CTRC RMVL INSJ IO LENS PROSTH W/O ECP 05/2009 , 06/2009 Cataract Removal, right and left ALLERGIES Seasonal Allergies MEDICATIONS Current Outpatient Medications Medication Sig levocetirizine dihydrochloride (XYZAL ORAL) Take by mouth. fluticasone (FLONASE) 50 mcg/actuation nasal spray Use 2 Sprays in each nostril once daily. Rinse mouth after use. nadolol (CORGARD) 40 mg tablet Take 1 tablet by mouth once daily. montelukast (SINGULAIR) 10 mg tablet Take 1 tablet by mouth daily at bedtime. cholecalciferol (VITAMIN D3) 50 mcg (2,000 unit) tablet Take 2,000 Units by mouth once daily. THERAPEUTIC MULTIVITAMIN TAB Take 1 tablet by mouth once daily. No current facility-administered medications for this visit. FAMILY HISTORY Problem Relation Age of Onset Arthritis Sister Arthritis Brother Social History Tobacco Use Smoking status: Former Types: Pipe Smokeless tobacco: Never Tobacco comments: Quit smoking pipe in early . Vaping Use Vaping status: Never Used Substance Use Topics Alcohol use: Yes Alcohol/week: 3.0 standard drinks of alcohol Types: 3 Glasses of wine per week Comment: occ Drug use: Never REVIEW OF SYSTEMS GENERAL: No weight loss, malaise or fevers/chills HEENT: + Sinus Congestion NECK: Negative for lumps, goiter, pain and significant neck swelling RESPIRATORY: Negative for cough, hemoptysis, wheezing, dyspnea or shortness of breath CARDIOVASCULAR: Negative for chest pain, leg swelling, orthopnea, or palpitations GI: No nausea, vomiting, or diarrhea/constipation. No hematochezia/melena. No heartburn or reflux symptoms. : No history of dysuria, frequency or incontinence MUSCULOSKELETAL: + Right Foot Pain SKIN: Negative for lesions, rash, and itching ENDOCRINE: Negative for cold or heat intolerance, polyuria, polydipsia and goiter NEURO: No history of headaches, syncope, paralysis, seizures or tremors MOOD: Negative for depression, anxiety, or suicidal ideation. EXAM: BP 118/70 Pulse 61 Resp 16 Wt 88 kg (194 lb 0.1 oz) SpO2 96% BMI 28.65 kg/m? PHYSICAL EXAM: General Appearance: Well appearing, alert, in no acute distress, well-hydrated, well nourished. Skin: Skin color, texture, turgor normal, no suspicious rashes or lesions. Head: Normocephalic, no masses, lesions, tenderness or abnormalities. Eyes: Anicteric sclera. Extraocular movements are intact. Ears: External ears normal, canals clear. TMs pearly ortiz Nose/Sinuses: Positive findings: mucosa erythematous and swollen, purulent rhinorrhea. Oropharynx: Lips, mucosa, and tongue normal, teeth and gums normal, oropharynx normal. Neck: Supple, no adenopathy; thyroid symmetric, normal size, no bruits. Lungs: Lungs clear to auscultation. No wheezing, rhonchi, rales. Heart: RRR without murmur, gallop, or rubs. No ectopy. Extremities: No deformities, edema, skin discoloration, clubbing or cyanosis. Good capillary refill. Musculoskeletal: Full ROM of right foot, tenderness on the top of the foot with palpation. No edema, warm to touch however toes are cool. No erythema. Good muscle strength. Peripheral Pulses: Normal, Capillary refill <2secs, strong peripheral pulses, Pulses palpable. Neurologic: Gait normal. Sensation grossly intact. ASSESSMENT/PLAN: 1. Bacteria (more content not included)... [facility] 11-03-2024 Telephone encounter Note Patient called and scheduled Teresita Brown MA [facility] 11-03-2024 Miscellaneous Notes Patient called and scheduled Teresita Brown MA documented in this encounter [facility] 09-21-2024 Instructions Grupo Ruiz PA-C - 09/21/2024 11:52 AM EST > 1 year Appt w/ B. RICHARD Ruiz, OSCAR ENGLISH for annual follow-up for BPH. documented in this encounter [facility] 09-21-2024 Note HNO ID: [id number] Author: GRUPO RUIZ PA-C Service: ? Author Type: Physician Shell Trim Operator Type: Progress Notes Filed: 09/21/2024 19:32 Note Text: [facility] EST PATIENT CLINIC NOTE SERVICE DATE: September 21, 2024 NAME: Dede Chow CHIEF COMPLAINT: Follow up after hematuria work-up HISTORY OF PRESENT ILLNESS: Dede Chow is a 78 year old male an established patient following up for Follow up after hematuria work-up The patient reports found to have bilobar bph on cystoscopy and no longer having hematuria His most recent PSA was 0.65, and discussed PSA remains low and given age of 78 he would rather not keep following with PSA LUTS: None currenlty LABS: PSA (ng/mL) Date Value 06/16/2024 0.65 07/14/2018 0.76 PSA Screening (ng/mL) Date Value 11/28/2015 0.98 08/13/2013 0.82 Testosterone (ng/dL) Date Value 07/14/2018 390 Hematocrit (%) Date Value 07/27/2024 38.6 06/16/2024 37.7 04/09/2024 40.9 05/22/2021 43.5 08/17/2020 42.9 05/29/2020 44.2 PSA (ng/mL) Date Value 06/16/2024 0.65 07/14/2018 0.76 PSA Screening (ng/mL) Date Value 11/28/2015 0.98 08/13/2013 0.82 Creatinine Date Value Ref Range Status 05/25/2024 0.93 0.73 - 1.22 mg/dL Final 04/09/2024 0.86 0.73 - 1.22 mg/dL Final 06/19/2023 0.94 0.73 - 1.22 mg/dL Final MEDICATIONS: levocetirizine dihydrochloride (XYZAL ORAL) Take by mouth. fluticasone (FLONASE) 50 mcg/actuation nasal spray Use 2 Sprays in each nostril once daily. Rinse mouth after use. nadolol (CORGARD) 40 mg tablet Take 1 tablet by mouth once daily. montelukast (SINGULAIR) 10 mg tablet Take 1 tablet by mouth daily at bedtime. cholecalciferol (VITAMIN D3) 50 mcg (2,000 unit) tablet Take 2,000 Units by mouth once daily. THERAPEUTIC MULTIVITAMIN TAB Take 1 tablet by mouth once daily. PAST MEDICAL HISTORY: PAST MEDICAL HISTORY Diagnosis Date 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 06/14/2024 CLL (chronic lymphocytic leukemia) (HCC) 05/26/2018 Degeneration of intervertebral disc, site unspecified Environmental allergies Essential hypertension 12/15/2017 Obstructive sleep apnea Osteoarthritis hands/ back/ neck REVIEW OF SYSTEMS: GENERAL: No fever, chills, weight loss, or fatigue. PHYSICAL EXAMINATION: Blood pressure 117/73, pulse 64, resp. rate 16, weight 88.3 kg (194 lb 9.6 oz). GENERAL: WNL nutrition, no deformities, healthy appearing PROBLEM LIST REVIEW: Yes LABS: Not able to give a urine sample today ASSESSMENT/PLAN: 1. 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 - ICD9: 600.01, 788.62, ICD10: N40.1, R39.12 (primary diagnosis) 2. Screening for genitourinary condition - ICD9: V81.6, ICD10: Z13.89 Chronic stable, well controlled > 1 year Appt RICHARD Foy, TAMEKA, OSCAR for annual follow-up RICHARD Aguilar, TAMEKA, OSCAR [facility] 09-21-2024 History of Present illness Narrative Images from the original note were not included. [facility] EST PATIENT CLINIC NOTE SERVICE DATE: September 21, 2024 NAME: Dede Chow CHIEF COMPLAINT: Follow up after hematuria work-up HISTORY OF PRESENT ILLNESS: Dede Chow is a 78 year old male an established patient following up for Follow up after hematuria work-up The patient reports found to have bilobar bph on cystoscopy and no longer having hematuria His most recent PSA was 0.65, and discussed PSA remains low and given age of 78 he would rather not keep following with PSA LUTS: None currenlty LABS: PSA (ng/mL) Date Value 06/16/2024 0.65 07/14/2018 0.76 PSA Screening (ng/mL) Date Value 11/28/2015 0.98 08/13/2013 0.82 Testosterone (ng/dL) Date Value 07/14/2018 390 Hematocrit (%) Date Value 07/27/2024 38.6 06/16/2024 37.7 04/09/2024 40.9 05/22/2021 43.5 08/17/2020 42.9 05/29/2020 44.2 PSA (ng/mL) Date Value 06/16/2024 0.65 07/14/2018 0.76 PSA Screening (ng/mL) Date Value 11/28/2015 0.98 08/13/2013 0.82 Creatinine Date Value Ref Range Status 05/25/2024 0.93 0.73 - 1.22 mg/dL Final 04/09/2024 0.86 0.73 - 1.22 mg/dL Final 06/19/2023 0.94 0.73 - 1.22 mg/dL Final MEDICATIONS: levocetirizine dihydrochloride (XYZAL ORAL) Take by mouth. fluticasone (FLONASE) 50 mcg/actuation nasal spray Use 2 Sprays in each nostril once daily. Rinse mouth after use. nadolol (CORGARD) 40 mg tablet Take 1 tablet by mouth once daily. montelukast (SINGULAIR) 10 mg tablet Take 1 tablet by mouth daily at bedtime. cholecalciferol (VITAMIN D3) 50 mcg (2,000 unit) tablet Take 2,000 Units by mouth once daily. THERAPEUTIC MULTIVITAMIN TAB Take 1 tablet by mouth once daily. PAST MEDICAL HISTORY: PAST MEDICAL HISTORY Diagnosis Date 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 06/14/2024 CLL (chronic lymphocytic leukemia) ([facility]) 05/26/2018 Degeneration of intervertebral disc, site unspecified Environmental allergies Essential hypertension 12/15/2017 Obstructive sleep apnea Osteoarthritis hands/ back/ neck REVIEW OF SYSTEMS: GENERAL: No fever, chills, weight loss, or fatigue. PHYSICAL EXAMINATION: Blood pressure 117/73, pulse 64, resp. rate 16, weight 88.3 kg (194 lb 9.6 oz). GENERAL: WNL nutrition, no deformities, healthy appearing PROBLEM LIST REVIEW: Yes LABS: Not able to give a urine sample today ASSESSMENT/PLAN: 1. 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 - ICD9: 600.01, 788.62, ICD10: N40.1, R39.12 (primary diagnosis) 2. Screening for genitourinary condition - ICD9: V81.6, ICD10: Z13.89 Chronic stable, well controlled > 1 year Appt w/ BRICHARD Nieto MT, PA-C for annual follow-up RICHARD Aguilar MT, PA-C documented in this encounter [facility] 08-04-2024 Telephone encounter Note Patient notified and voiced understanding. Aimee Pena MA [facility] 08-04-2024 Miscellaneous Notes Patient notified and voiced understanding. Aimee Pena MA Advise patient to complete the Augmentin and continue his coreg as long as he is not feeling overtly dizzy or like he may pass out. He should be pushing fluids to help stay well hydrated and keep his BP up. He should also consider getting a BP cuff for home. Pt called and is notified of providers results and instructions. Pt voices understanding. Pt was asking if he should still take the Augmentin since he thinks he has a sinus infection. Then he wanted to know if he should still take his Corgard since his BP in office was 92/60. Pt denies feeling dizzy, blurred vision, shallow breath. He does not have a BP cuff at home to take on his own. He states mentally he feels ADD like he will start doing something then wander and his appetite is off. Please call and advise. Patricia Finch RN Let patient know his COVID test is positive. I have sent in script for Paxlovid to [facility]. Advise him to self quarantine for 5 days. If on day 6 his symptoms have been improving and no fevers without the use of any fever reducing meds for the prior 24 hrs he can come out of quarantine but should wear a mask around others for 5 more days., documented in this encounter [facility] 08-04-2024 Telephone encounter Note Advise patient to complete the Augmentin and continue his coreg as long as he is not feeling overtly dizzy or like he may pass out. He should be pushing fluids to help stay well hydrated and keep his BP up. He should also consider getting a BP cuff for home. [facility] 08-04-2024 Telephone encounter Note Pt called and is notified of providers results and instructions. Pt voices understanding. Pt was asking if he should still take the Augmentin since he thinks he has a sinus infection. Then he wanted to know if he should still take his Corgard since his BP in office was 92/60. Pt denies feeling dizzy, blurred vision, shallow breath. He does not have a BP cuff at home to take on his own. He states mentally he feels ADD like he will start doing something then wander and his appetite is off. Please call and advise. Patricia Finch RN [facility] 08-04-2024 Instructions Spike Miller MD - 08/04/2024 9:45 AM EST Images from the original note were not included. FACT SHEET FOR PATIENTS, PARENTS, AND CAREGIVERS EMERGENCY USE AUTHORIZATION (EUA) OF PAXLOVID FOR CORONAVIRUS DISEASE 2019 (COVID-19) You are being given this Fact Sheet because your healthcare provider believes it is necessary to provide you with PAXLOVID for the treatment of hglf-mx-vbgvqutq coronavirus disease (COVID-19) caused by the SARS-CoV-2 virus. This Fact Sheet contains information to help you understand the risks and benefits of taking the PAXLOVID you may receive. This Fact Sheet also contains information about how to take PAXLOVID and how to report side effects or problems with the appearance or packaging of PAXLOVID. The U.S. Food and Drug Administration (FDA) has issued an Emergency Use Authorization (EUA) to make PAXLOVID available for the treatment of ywzs-nl-qmtkagpk COVID-19 in adults and children 12 years of age and older weighing at least 88 pounds (40 kg) who are at high risk for progression to severe COVID-19, including hospitalization or (for more details about an EUA please see What is an Emergency Use Authorization? at the end of this document). Read this Fact Sheet for information about PAXLOVID. Talk to your healthcare provider about your options or if you have any questions. It is your choice to take PAXLOVID. What is COVID-19? COVID-19 is caused by a virus called a coronavirus. You can get COVID-19 through close contact with another person who has the virus. COVID-19 illnesses have ranged from very otrx-ij-oeqwbg, including illness resulting in . While information so far suggests that most COVID-19 illness is mild, serious illness can happen and may cause some of your other medical conditions to become worse. Older people and people of all ages with severe, long lasting (chronic) medical conditions like heart disease, lung disease, and diabetes, for example seem to be at higher risk of being hospitalized for COVID-19. What is PAXLOVID? PAXLOVID is a medicine that is available under EUA for the treatment of jkgj-go-kdrewsmc COVID-19 in adults and children 12 years of age and older weighing at least 88 pounds (40 kg) who are at high risk for progression to severe COVID-19, including hospitalization or . Although PAXLOVID is FDA-approved for the treatment of COVID-19 in certain adults (see section What other treatment choices are there?), PAXLOVID use in children remains investigational because it is still being studied. There is limited information about the safety and effectiveness of using PAXLOVID to treat children with ipex-zb-qndoztgk COVID-19. What is the most important information I should know about PAXLOVID? PAXLOVID can interact with other medicines causing severe or life-threatening side effects or . It is important to know the medicines that should not be taken with PAXLOVID. Do not take PAXLOVID if: you are taking any of the following medicines: o alfuzosin o amiodarone o apalutamide o carbamazepine o colchicine o dihydroergotamine o dronedarone o eletriptan o eplerenone o ergotamine o finerenone o flecainide o flibanserin o ivabradine o lomitapide o lovastatin o lumacaftor/ivacaftor o lurasidone o methylergonovine o midazolam (oral) o naloxegol o phenobarbital o phenytoin o pimozide o primidone o propafenone o quinidine o ranolazine o rifampin o rifapentine o Sutter s Wort (hypericum perforatum) o sildenafil (Revatio ) for pulmonary arterial hypertension o silodosin o simvastatin o tolvaptan o triazolam o ubrogepant o voclosporin These are not the only medicines that may cause serious or life-threatening side effects if taken with PAXLOVID. PAXLOVID may increase or decrease the levels of multiple other medicines. It is very important to tell your healthcare provider about all of the medicines you are taking because additional laboratory tests or changes in the dose of your other medicines may be necessary during treatment with PAXLOVID. Your healthcare provider may also tell you about specific symptoms to watch out for that may indicate that you need to stop or decrease the dose of some of your other medicines. you are allergic to nirmatrelvir, ritonavir, or any of the ingredients in PAXLOVID. See the end of this leaflet for a complete list of ingredients in PAXLOVID. See What are the important possible side effects of PAXLOVID? for signs and symptoms of allergic reactions. What should I tell my healthcare provider before I take PAXLOVID? Tell your healthcare provider if you: have kidney problems. You may need a different dose of PAXLOVID. have liver problems, including hepatitis. have Human Immunodeficiency Virus 1 (HIV-1) infection. PAXLOVID may lead to some HIV-1 medicines not working as well in the future. are or plan to become . It is not known if PAXLOVID can harm your unborn baby. Tell your healthcare provider right away if you are or if you become . are or plan to breastfeed. It is not known if PAXLOVID can pass into your breast milk. Talk to your healthcare provider about the best way to feed your baby during treatment with PAXLOVID. Some medicines may interact with PAXLOVID and may cause serious side effects. Tell your healthcare provider about all the medicines you take, including prescription and ehan-niu-disacfj medicines, vitamins, and herbal supplements. Your healthcare provider can tell you if it is safe to take PAXLOVID with other medicines. You can ask your healthcare provider or pharmacist for a list of medicines that interact with PAXLOVID. Do not start taking a new medicine without telling your healthcare provider. Tell your healthcare provider if you are taking combined control (hormonal contraceptive). PAXLOVID may affect how your hormonal contraceptives work. Females who are able to become should use another effective alternative form of contraception or an additional barrier method of contraception during treatment with PAXLOVID. Talk to your healthcare provider if you have any questions about contraceptive methods that might be right for you. How do I take PAXLOVID? Take PAXLOVID exactly as your healthcare provider tells you to take it. PAXLOVID consists of 2 medicines: nirmatrelvir tablets and ritonavir tablets. The 2 medicines are taken together 2 times each day for 5 days. Nirmatrelvir is an oval, pink tablet. Ritonavir is a white or off-white tablet. PAXLOVID is available in 2 Dose Packs (see Figures A and B below). Your healthcare provider will prescribe the PAXLOVID Dose Pack that is right for you. If you have kidney disease, your healthcare provider may prescribe a lower dose (see Figure B). Talk to your healthcare provider to make sure you receive the correct Dose Pack. Do not remove your PAXLOVID tablets from the blister card before you are ready to take your dose. Take your first dose of PAXLOVID in the morning or evening, depending on when you orange picking supervisor your prescription, or as your healthcare provider tells you to. Swallow the tablets whole. Do not chew, break, or crush the tablets. Take PAXLOVID with or without food. Do not stop taking PAXLOVID without talking to your healthcare provider, even if you feel better. If you miss a dose of PAXLOVID within 8 hours of the time it is usually taken, take it as soon as you remember. If you miss a dose by more than 8 hours, skip the missed dose and take the next dose at your regular time. Do not take 2 doses of PAXLOVID at the same time. If you take too much PAXLOVID, call your healthcare provider or go to the nearest hospital emergency room right away. If you are taking a ritonavir- or cobicistat-containing medicine to treat hepatitis C or HIV-1 infection, you should continue to take your medicine as prescribed by your healthcare provider. Talk to your healthcare provider if you do not feel better or if you feel worse after 5 days. What are the important possible side effects of PAXLOVID? PAXLOVID may cause serious side effects, including: Allergic reactions, including severe allergic reactions (anaphylaxis) have happened during treatment with PAXLOVID. Stop taking PAXLOVID and get medical help right away if you get any of the following symptoms of an allergic reaction: o skin rash, hives, blisters or peeling skin o painful sores or ulcers in the mouth, nose, throat or genital area o swelling of the mouth, lips, tongue or face o trouble swallowing or breathing o throat tightness o hoarseness Liver Problems. Tell your healthcare provider right away if you get any of the following signs and symptoms of liver problems during treatment with PAXLOVID: o loss of appetite o yellowing of your skin and the white of eyes o dark-colored urine o pale colored stools o itchy skin o stomach-area (abdominal) pain The most common side effects of PAXLOVID include: altered sense of taste and diarrhea. Other possible side effects include: headache vomiting abdominal pain nausea high blood pressure feeling generally unwell These are not all the possible side effects of PAXLOVID. For more information, ask your healthcare provider or pharmacist. What other treatment choices are there? PAXLOVID is FDA-approved for the treatment of fcbs-ej-pgkmwvev COVID-19 in certain adults; however, there are not sufficient quantities of the approved presentations (i.e., dose packs) of PAXLOVID at this time. This EUA continues to authorize the emergency use of PAXLOVID for the approved patient population to ensure continued access in order to meet the public health need. VEKLURY (remdesivir) is FDA-approved for the treatment of vhda-ri-trppuhow COVID-19 in certain adults and children. Talk with your healthcare provider to see if VEKLURY is appropriate for you. For information on the emergency use of other medicines that are authorized by FDA to treat people with COVID-19, please go to https://www.fda.gov/emergency-pre jwxnazhys-mys-nhevbnyf/[facility]-legal- kshstlhibj-msj-xrxwlv-framework/e phvjpwwr-knv-ctyzsltfamzry. Your healthcare provider may talk with you about clinical trials for which you may be eligible. It is your choice to be treated or not to be treated with PAXLOVID. Should you decide not to receive it or for your child not to receive it, it will not change your standard medical care. What if I am or ? There is limited experience treating women or mothers with PAXLOVID. For a mother and unborn baby, the benefit of taking PAXLOVID may be greater than the risk from the treatment. If you are , discuss your options and specific situation with your healthcare provider. If you are , discuss your options and specific situation with your healthcare provider. How do I report side effects or problems with the appearance or packaging of PAXLOVID? Contact your healthcare provider if you have any side effects that bother you or do not go away. Report side effects or problems with the appearance or packaging of PAXLOVID (see Figures A and B above for examples of PAXLOVID Dose Packs) to FDA [employer] at www.fda.gov/medwatch or call 1-634-HZD-4365 or you can report side effects to [employer]. at the contact information provided below. How should I store PAXLOVID? Store PAXLOVID tablets at room temperature, between 68?F to 77?F (20?C to 25?C). Keep PAXLOVID and all medicines out of the reach of children. What if I have questions about the expiration date for my PAXLOVID? The FDA has extended the expiration date (shelf-life) for some lots of PAXLOVID. To find the extended expiration date, enter the lot number found on the side of carton or bottom of blister pack at this website: [email or web address] or talk with your healthcare provider. Information on the authorized shelf-life extensions for PAXLOVID may also be found at https://www.fda.gov/emergency-pre pcepgchil-grl-tagkrofw/[facility]-legal- sgspzkpsck-enu-fwldau-framework/e rfgiiamog-xrugcv-jsbhnrrmr. How can I learn more about COVID-19? Ask your healthcare provider. Visit https://www.cdc.gov/COVID19. Contact your local or state public health department. What is an Emergency Use Authorization (EUA)? The [place] FDA has made PAXLOVID available under an emergency access mechanism called an Emergency Use Authorization (EUA). The EUA is supported by a Manager Continuous Improvement of Health and Human Services (HHS) declaration that circumstances exist to justify the emergency use of drugs and biological products during the COVID-19 pandemic. In issuing an EUA, the FDA has determined, among other things, that based on the total amount of scientific evidence available including data from adequate and well-controlled clinical trials, if available, it is reasonable to believe that the product may be effective for diagnosing, treating, or preventing COVID-19, or a serious or life-threatening disease or condition caused by COVID-19; that the known and potential benefits of the product, when used to diagnose, treat, or prevent such disease or condition, outweigh the known and potential risks of such product; and that there are no adequate, approved, and available alternatives. All of these criteria must be met to allow for the product to be available under an EUA. The EUA for PAXLOVID is in effect for the duration of the COVID-19 declaration justifying emergency use of this product, unless the relevant EUA declaration is terminated or the EUA revoked (after which the products may no longer be used under the EUA). What are the ingredients in PAXLOVID? Active ingredient: nirmatrelvir and ritonavir Nirmatrelvir inactive ingredients: colloidal silicon dioxide, croscarmellose sodium, lactose monohydrate, microcrystalline cellulose, and sodium stearyl fumarate. Film-coating contains: hydroxy propyl methylcellulose, iron oxide red, polyethylene glycol, and titanium dioxide. Ritonavir inactive ingredients: anhydrous dibasic calcium phosphate, colloidal silicon dioxide, copovidone, sodium stearyl fumarate, and sorbitan monolaurate. The film coating may contain: colloidal anhydrous silica, colloidal silicon dioxide, hydroxypropyl cellulose, hypromellose, polyethylene glycol, polysorbate 80, talc, and titanium dioxide. Additional Information For general questions, visit the website or call the telephone number provided below. Website: [email or web address] Telephone number: (1-877-c19-pack) Distributed by [employer] [place] [address] [id number] Revised: 01/2023 documented in this encounter [facility] 08-04-2024 Telephone encounter Note Let patient know his COVID test is positive. I have sent in script for Paxlovid to [facility]. Advise him to self quarantine for 5 days. If on day 6 his symptoms have been improving and no fevers without the use of any fever reducing meds for the prior 24 hrs he can come out of quarantine but should wear a mask around others for 5 more days., [facility] 08-03-2024 Note HNO ID: [id number] Author: SPIKE MILLER MD Service: ? Author Type: Physician Type: Progress Notes Filed: 08/04/2024 09:46 Note Text: Chief Complaint Patient presents with: Sinus Infection HPI Dede Chow is a 78 year old male who presents here today for sinus infection; sore throat (from drainage) loss of appetite (because of drainage) and headache; sinus pressure in face. Symptoms started around 07/23/2024 like a cold and seemed to go away. In the past few days developed yellow nasal discharge and headaches. Has maxillary pressure. No Fever; No N/V/D . No cough. No shortness of breath, wheezing or body aches Slightly lightheaded at times. Patient does have allergies this time of year due to the leaves. Takes Allergy shots weekly. Past medical history, appointments, medications, allergies reviewed. Previous Medical History PAST MEDICAL HISTORY Diagnosis Date - CLL (chronic lymphocytic leukemia) (HCC) 05/26/2018 - Degeneration of intervertebral disc, site unspecified - Environmental allergies - Essential hypertension 12/15/2017 - Obstructive sleep apnea - Osteoarthritis hands/ back/ neck Previous Surgical History PAST SURGICAL HISTORY Procedure Laterality Date - ARTHROSCOPY KNEE DIAGNOSTIC W/WO SYNOVIAL BX SPX 1991 Arthroscopy, knee - ARTHRP KNE CONDYLEANDPLATU MEDIALANDLAT COMPARTMENTS 04/14/2008 Knee replacement, total viv knees per dr raymundo - COLONOSCOPY FLX DX W/COLLJ SPEC WHEN PFRMD 04-05-13 - PAST SURGICAL HISTORY OF right thumb joint - TONSILLECTOMY PRIMARY/SECONDARY Tonsillectomy - XCAPSL CTRC RMVL INSJ IO LENS PROSTH W/O ECP 05/2009 , 06/2009 Cataract Removal, right and left Family History FAMILY HISTORY Problem Relation Age of Onset - Arthritis Sister - Arthritis Brother Patient Allergies ALLERGIES Allergen Reactions - Seasonal Allergies Current Medications Current Outpatient Medications on File Prior to Visit Medication Sig - fluticasone (FLONASE) 50 mcg/actuation nasal spray Use 2 Sprays in each nostril once daily. Rinse mouth after use. - nadolol (CORGARD) 40 mg tablet Take 1 tablet by mouth once daily. - montelukast (SINGULAIR) 10 mg tablet Take 1 tablet by mouth daily at bedtime. - cholecalciferol (VITAMIN D3) 50 mcg (2,000 unit) tablet Take 2,000 Units by mouth once daily. - THERAPEUTIC MULTIVITAMIN TAB Take 1 tablet by mouth once daily. No current facility-administered medications on file prior to visit. Social History Social History Tobacco Use - Smoking status: Former Types: Pipe - Smokeless tobacco: Never - Tobacco comments: Quit smoking pipe in early . Vaping Use - Vaping status: Never Used Substance Use Topics - Alcohol use: Yes Alcohol/week: 3.0 standard drinks of alcohol Types: 3 Glasses of wine per week Comment: occ - Drug use: Never Review of Symptoms REVIEW OF SYSTEMS See HPI EXAM: BP 92/60 Pulse 60 Temp 36.3 ?C (97.4 ?F) Resp 18 Wt 87.5 kg (193 lb) SpO2 95% BMI 28.50 kg/m? General Appearance: Well appearing, alert, in no acute distress, well-hydrated, well nourished.. Eyes: Anicteric sclera. Pupils are equally round. Extraocular movements are intact. . Ears: External ears, TM's normal, canals clear. Nose/Sinuses: Nares normal, septum midline, mucosa normal, no drainage. Some maxillary sinus tenderness. Oropharynx: Lips, mucosa, and tongue normal, teeth and gums normal, oropharynx normal. Slightly dry mucous membranes. Neck: Supple, no adenopathy; thyroid symmetric, normal size, no bruits. Lungs: Lungs clear to auscultation. No wheezing, rhonchi, rales.. Heart: RRR without murmur, gallop, or rubs. No ectopy. Abdomen: Normal abdominal exam, Abdomen soft, non-tender. Bowel sounds normal. No masses, organomegaly. Health Maintenance List Covid-19 Vaccine() due on 09/17/2024 Annual PCP Team Chronic Disease Visit due on 07/23/2025 Depression Screening due on 07/23/2025 Anxiety Screening due on 07/23/2025 BP Controlled (<130/80) due on 07/27/2025 DTaP,Tdap,Td Vaccine(2 - Td or Tdap) due on 03/24/2027 Diabetes Screening due on 04/09/2027 Influenza Vaccine Completed Advance Directive Discussion Completed RSV Vaccine Completed Hepatitis C Screening Completed Shingrix Vaccine Completed Pneumococcal Vaccine: 65+ Completed HPV Vaccine Aged Out Colorectal Cancer Screening Discontinued Data reviewed A/P ASSESSMENT/PLAN: 1. Suspected COVID-19 virus infection - ICD9: V01.79, ICD10: Z20.822 (primary diagnosis) Check - COVID AND INFLUENZA A/B AND RSV PCR, ROUTINE 2. Bacterial sinusitis - ICD9: 473.9, 041.9, ICD10: J32.9, B96.89 - Will begin treatment with Augmentin 875 mg PO BID for 10 days - COVID AND INFLUENZA A/B AND RSV PCR, ROUTINE 3. 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 [facility] 08-03-2024 History of Present illness Narrative Chief Complaint Patient presents with: Sinus Infection HPI Ddee Chow is a 78 year old male who presents here today for sinus infection; sore throat (from drainage) loss of appetite (because of drainage) and headache; sinus pressure in face. Symptoms started around 07/23/2024 like a cold and seemed to go away. In the past few days developed yellow nasal discharge and headaches. Has maxillary pressure. No Fever; No N/V/D . No cough. No shortness of breath, wheezing or body aches Slightly lightheaded at times. Patient does have allergies this time of year due to the leaves. Takes Allergy shots weekly. Past medical history, appointments, medications, allergies reviewed. Previous Medical History PAST MEDICAL HISTORY Diagnosis Date CLL (chronic lymphocytic leukemia) ([facility]) 05/26/2018 Degeneration of intervertebral disc, site unspecified Environmental allergies Essential hypertension 12/15/2017 Obstructive sleep apnea Osteoarthritis hands/ back/ neck Previous Surgical History PAST SURGICAL HISTORY Procedure Laterality Date ARTHROSCOPY KNEE DIAGNOSTIC W/WO SYNOVIAL BX SPX 1991 Arthroscopy, knee ARTHRP KNE CONDYLE&PLATU MEDIAL&LAT COMPARTMENTS 04/14/2008 Knee replacement, total viv knees per dr raymundo COLONOSCOPY FLX DX W/COLLJ SPEC WHEN PFRMD 04-05-13 PAST SURGICAL HISTORY OF right thumb joint TONSILLECTOMY PRIMARY/SECONDARY <AGE 13 Tonsillectomy XCAPSL CTRC RMVL INSJ IO LENS PROSTH W/O ECP 05/2009 , 06/2009 Cataract Removal, right and left Family History FAMILY HISTORY Problem Relation Age of Onset Arthritis Sister Arthritis Brother Patient Allergies ALLERGIES Allergen Reactions Seasonal Allergies Current Medications Current Outpatient Medications on File Prior to Visit Medication Sig fluticasone (FLONASE) 50 mcg/actuation nasal spray Use 2 Sprays in each nostril once daily. Rinse mouth after use. nadolol (CORGARD) 40 mg tablet Take 1 tablet by mouth once daily. montelukast (SINGULAIR) 10 mg tablet Take 1 tablet by mouth daily at bedtime. cholecalciferol (VITAMIN D3) 50 mcg (2,000 unit) tablet Take 2,000 Units by mouth once daily. THERAPEUTIC MULTIVITAMIN TAB Take 1 tablet by mouth once daily. No current facility-administered medications on file prior to visit. Social History Social History Tobacco Use Smoking status: Former Types: Pipe Smokeless tobacco: Never Tobacco comments: Quit smoking pipe in early . Vaping Use Vaping status: Never Used Substance Use Topics Alcohol use: Yes Alcohol/week: 3.0 standard drinks of alcohol Types: 3 Glasses of wine per week Comment: occ Drug use: Never Review of Symptoms REVIEW OF SYSTEMS See HPI EXAM: BP 92/60 Pulse 60 Temp 36.3 C (97.4 F) Resp 18 Wt 87.5 kg (193 lb) SpO2 95% BMI 28.50 kg/m General Appearance: Well appearing, alert, in no acute distress, well-hydrated, well nourished.. Eyes: Anicteric sclera. Pupils are equally round. Extraocular movements are intact. . Ears: External ears, TM's normal, canals clear. Nose/Sinuses: Nares normal, septum midline, mucosa normal, no drainage. Some maxillary sinus tenderness. Oropharynx: Lips, mucosa, and tongue normal, teeth and gums normal, oropharynx normal. Slightly dry mucous membranes. Neck: Supple, no adenopathy; thyroid symmetric, normal size, no bruits. Lungs: Lungs clear to auscultation. No wheezing, rhonchi, rales.. Heart: RRR without murmur, gallop, or rubs. No ectopy. Abdomen: Normal abdominal exam, Abdomen soft, non-tender. Bowel sounds normal. No masses, organomegaly. Health Maintenance List Covid-19 Vaccine() due on 09/17/2024 Annual PCP Team Chronic Disease Visit due on 07/23/2025 Depression Screening due on 07/23/2025 Anxiety Screening due on 07/23/2025 BP Controlled (<130/80) due on 07/27/2025 DTaP,Tdap,Td Vaccine(2 - Td or Tdap) due on 03/24/2027 Diabetes Screening due on 04/09/2027 Influenza Vaccine Completed Advance Directive Discussion Completed RSV Vaccine Completed Hepatitis C Screening Completed Shingrix Vaccine Completed Pneumococcal Vaccine: 65+ Completed HPV Vaccine Aged Out Colorectal Cancer Screening Discontinued Data reviewed A/P ASSESSMENT/PLAN: 1. Suspected COVID-19 virus infection - ICD9: V01.79, ICD10: Z20.822 (primary diagnosis) Check - COVID & INFLUENZA A/B & RSV PCR, ROUTINE 2. Bacterial sinusitis - ICD9: 473.9, 041.9, ICD10: J32.9, B96.89 - Will begin treatment with Augmentin 875 mg PO BID for 10 days - COVID & INFLUENZA A/B & RSV PCR, ROUTINE 3. Sars-associated coronavirus as the cause of diseases classified elsewhere - ICD9: 079.82, ICD10: B97.21 Check - COVID & INFLUENZA A/B & RSV PCR, ROUTINE - patient has been on paxlovid in the past and would be willing to take again if positive. COVID test did come back Positive and script for paxlovid was sent. Requested Prescriptions Signed Prescriptions Disp Refills amoxicillin-clavulanate potassium (AUGMENTIN) 875-125 mg per tablet 20 tablet 0 Sig: Take 1 tablet by mouth two times a day for 10 days. F/u prn or if not improving. Spike Miller MD Nirmatrelvir/Ritonavir (Paxlovid) Considerations Paxlovid is FDA-approved for treatment of mild to moderate COVID-19 in adults who are at high risk for progression to severe COVID-19. Consider use of Paxlovid in the following examples of high risk patients (list is not all inclusive): Age over 65 years Cardiovascular and cerebrovascular disease Chronic disease state (kidney, liver, lung) Diabetes (type 1 or type 2) Immunocompromised state (cancer, solid organ or blood stem cell transplant, HIV) Obesity Paxlovid warnings include serious drug interactions (co-administration with drugs highly dependent on CYP3A for clearance), hypersensitivity reactions, hepatotoxicity, and risk of HIV-1 resistance development. Spike Miller MD August 04, 2024 9:45 AM documented in this encounter [facility] 08-03-2024 Telephone encounter Note Patient was scheduled same day visit Teresita Brown MA [facility] 08-03-2024 Miscellaneous Notes Patient was scheduled same day visit Teresita Brown MA documented in this encounter [facility] 07-27-2024 History of Present illness Narrative Dede Ferreira Claudine 1945 07/27/2024 Primary Oncologist: Dr. Jiménez HISTORY OF PRESENT ILLNESS: Dede Chow is a 77 year old male history CLL dx in 2015. Here for follow up, doing well, c/o fatigue. Labs reviewed, we note mild anemia stable from last year. Hes been taking iron supp Interval Hx: Pt presents today for follow up and lab review. We reviewed labs and indications to treat today. Denies recent illness. No fevers, chills or NS. Denies new aches or pains. No SOB, CP, or palpitations. No BOSS, dizziness, or changes in vision. No changes in bowel or bladder habits. No rash or skin changes. Denies bruising. Hematuria, following with urology. Appetite and energy level has been off since the recent passing of his . Managing this recent transition. CLINICAL IMPRESSION: CLL slight increase in WBC - no b symptoms, reviewed these with him today as well as indications to treat. Labs reviewed today from 06/18, overall stable Mild anemia RECOMMENDATION/PLAN: 1. Recheck cbc, and iron studies today - has been iron def in the past 2. CBC in 6 months 3. OV with labs in 1 year. PAST MEDICAL HISTORY Diagnosis Date CLL (chronic lymphocytic leukemia) (HCC) 05/26/2018 Degeneration of intervertebral disc, site unspecified Environmental allergies Essential hypertension 12/15/2017 Obstructive sleep apnea Osteoarthritis hands/ back/ neck PAST SURGICAL HISTORY Procedure Laterality Date ARTHROSCOPY KNEE DIAGNOSTIC W/WO SYNOVIAL BX SPX 1991 Arthroscopy, knee ARTHRP KNE CONDYLE&PLATU MEDIAL&LAT COMPARTMENTS 04/14/2008 Knee replacement, total viv knees per dr raymundo COLONOSCOPY FLX DX W/COLLJ SPEC WHEN PFRMD 04-05-13 PAST SURGICAL HISTORY OF right thumb joint TONSILLECTOMY PRIMARY/SECONDARY <AGE 13 Tonsillectomy XCAPSL CTRC RMVL INSJ IO LENS PROSTH W/O ECP 05/2009 , 06/2009 Cataract Removal, right and left FAMILY HISTORY Problem Relation Age of Onset Arthritis Sister Arthritis Brother Social History Tobacco Use Smoking status: Former Types: Pipe Smokeless tobacco: Never Tobacco comments: Quit smoking pipe in early . Vaping Use Vaping status: Never Used Substance Use Topics Alcohol use: Yes Alcohol/week: 3.0 standard drinks of alcohol Types: 3 Glasses of wine per week Comment: occ Drug use: Never ALLERGIES: ALLERGIES Allergen Reactions Seasonal Allergies CURRENT OUTPATIENT MEDICATIONS: fluticasone (FLONASE) 50 mcg/actuation nasal spray Use 2 Sprays in each nostril once daily. Rinse mouth after use. nadolol (CORGARD) 40 mg tablet Take 1 tablet by mouth once daily. montelukast (SINGULAIR) 10 mg tablet Take 1 tablet by mouth daily at bedtime. cholecalciferol (VITAMIN D3) 50 mcg (2,000 unit) tablet Take 2,000 Units by mouth once daily. THERAPEUTIC MULTIVITAMIN TAB Take 1 tablet by mouth once daily. REVIEW OF SYSTEMS: GENERAL: No fever, night sweats, weight loss or malaise. All other reviewed and negative other than HPI. All systems reviewed on 07/27/2024 with pertinent positives and negatives as outlined in the interval history. PHYSICAL EXAMINATION: VITAL SIGNS: BP 108/62 Pulse 65 Temp (Src) 96.8 (Temporal) Wt 195 lb 8 oz (88.7kg) SpO2 98% GENERAL APPEARANCE: Well appearing, in no acute distress, alert and oriented x3, well-hydrated, well nourished. No adenopathy or splenomegaly I have performed the physical exam today (07/27/2024) and have edited the note to correlate with current findings. Goldie Arguello APRN.WEATHERIZATION TECHNICIAN I spent a total of 30 minutes on the date of the service which included preparing to see the patient, [id number] patient care, completing clinical documentation, and performing a medically appropriate examination. Portions of this note including HPI, ROS, impression/plan may have been copied forward as to provide important historical information essential in contributing to medical decision making. Documentation has been reviewed and edited as necessary to support clinical decision making for today's visit and to reflect my own independent evaluation of this patient. documented in this encounter [facility] 07-23-2024 History of Present illness Narrative Chief Complaint Patient presents with: 6 Month Exam Immunizations: Flu vaccination HPI Dede Chow is a 78 year old male who presents here today for 6 month follow up. recently, shortly after being in Hospice. He is doing well with this. He did go to [facility] a few weeks ago to celebrate his mother's 100th birthday. She is in a memory care unit. Woke up with cold sx this morning, unsure if it is due to having been working with the [employer]. No fevers. No bowel, gi, or urinary issues. Saw Urology for hematuria. Anemia: monitored with labs. No longer taking any iron supplements. Follows with Hem/Onc for Chronic Lymphocytic Leukemia, in remission. Sinusitis: recurring; uses Singulair 10 mg daily and Flonase. Getting allergy shots from ENT weekly. Has to make himself walk now as he doesn't have the forced walks as he no longer has a dog. HTN: Taking nadolol 40 mg daily. Not currently checking blood pressure at home. Denies chest pain, palpitations, dizziness, and/or edema. Follows with [facility]. Has had squamous cell carcinoma. Past medical history, appointments, medications, allergies reviewed. Previous Medical History PAST MEDICAL HISTORY Diagnosis Date CLL (chronic lymphocytic leukemia) (HCC) 05/26/2018 Degeneration of intervertebral disc, site unspecified Environmental allergies Essential hypertension 12/15/2017 Obstructive sleep apnea Osteoarthritis hands/ back/ neck Previous Surgical History PAST SURGICAL HISTORY Procedure Laterality Date ARTHROSCOPY KNEE DIAGNOSTIC W/WO SYNOVIAL BX SPX 1991 Arthroscopy, knee ARTHRP KNE CONDYLE&PLATU MEDIAL&LAT COMPARTMENTS 04/14/2008 Knee replacement, total viv knees per dr raymundo COLONOSCOPY FLX DX W/COLLJ SPEC WHEN PFRMD 04-05-13 PAST SURGICAL HISTORY OF right thumb joint TONSILLECTOMY PRIMARY/SECONDARY <AGE 13 Tonsillectomy XCAPSL CTRC RMVL INSJ IO LENS PROSTH W/O ECP 05/2009 , 06/2009 Cataract Removal, right and left Family History FAMILY HISTORY Problem Relation Age of Onset Arthritis Sister Arthritis Brother Patient Allergies ALLERGIES Allergen Reactions Seasonal Allergies Current Medications Current Outpatient Medications on File Prior to Visit Medication Sig propylene glycoL (SYSTANE BALANCE) 0.6 % drop Use 1 Drop in both eyes. Up to 4x a day per eye doctor. (Patient not taking: Reported on 06/23/2024) fluticasone (FLONASE) 50 mcg/actuation nasal spray Use 2 Sprays in each nostril once daily. Rinse mouth after use. nadolol (CORGARD) 40 mg tablet Take 1 tablet by mouth once daily. montelukast (SINGULAIR) 10 mg tablet Take 1 tablet by mouth daily at bedtime. cholecalciferol (VITAMIN D3) 50 mcg (2,000 unit) tablet Take 2,000 Units by mouth once daily. THERAPEUTIC MULTIVITAMIN TAB Take 1 tablet by mouth once daily. No current facility-administered medications on file prior to visit. Social History Social History Tobacco Use Smoking status: Former Types: Pipe Smokeless tobacco: Never Tobacco comments: Quit smoking pipe in early . Vaping Use Vaping status: Never Used Substance Use Topics Alcohol use: Yes Alcohol/week: 3.0 standard drinks of alcohol Types: 3 Glasses of wine per week Comment: occ Drug use: Never EXAM: BP 122/70 Pulse 60 Temp 36.3 C (97.3 F) (Tympanic) Resp 18 Wt 88.3 kg (194 lb 10.7 oz) BMI 28.75 kg/m General Appearance: Well appearing, alert, in no acute distress, well-hydrated, well nourished.. Lungs: Lungs clear to auscultation. No wheezing, rhonchi, rales.. Heart: RRR without murmur, gallop, or rubs. No ectopy. Health Maintenance List Depression Screening Never done Anxiety Screening Never done Influenza Vaccine(1) due on 05/16/2024 Covid-19 Vaccine(2023- season) due on 05/16/2024 BP Controlled (<130/80) due on 06/23/2025 Annual PCP Team Chronic Disease Visit due on 07/23/2025 DTaP,Tdap,Td Vaccine(2 - Td or Tdap) due on 03/24/2027 Diabetes Screening due on 04/09/2027 Advance Directive Discussion Completed RSV Vaccine Completed Hepatitis C Screening Completed Shingrix Vaccine Completed Pneumococcal Vaccine: 65+ Completed HPV Vaccine Aged Out Colorectal Cancer Screening Discontinued Data reviewed None ASSESSMENT/PLAN: 1. Essential hypertension - ICD9: 401.9, ICD10: I10 (primary diagnosis) - Controlled - Continue current medications - Recommend home blood pressure monitoring, to bring results to next visit - Encouraged sodium restriction, DASH or Mediterranean diet - Recommend regular aerobic exercise - Discussed need for and benefit of weight loss. BMI 28.75 kg/(m^2) 2. Screening for depression - ICD9: V79.0, ICD10: Z13.31 - DEPRESSION SCREENING 3. Encounter for screening examination for other mental health and behavioral disorders - ICD9: V79.8, ICD10: Z13.39 - ANXIETY SCREENING 4. RAJESH (obstructive sleep apnea) - ICD9: 327.23, ICD10: G47.33 Controlled Not using any CPAP/BiPAP machines 5. 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 CLL (chronic lymphocytic leukemia) (HCC) - ICD9: 204.10, ICD10: C91.10 Continue with Hem/Onc 7. Anemia, unspecified type - ICD9: 285.9, ICD10: D64.9 Continue to monitor 8. Need for influenza vaccination - ICD9: V04.81, ICD10: Z23 Flu vaccine given in office today 9. Need for vaccination - ICD9: V05.9, ICD10: Z23 - INFLUENZA VACCINE, PRSV FREE, AGE 65+ YR, HIGH DOSE, TRIVALENT (FLUZONE HIGH-DOSE) - [employer] COVID-19 VACCINE AGE 12+ YR (COMIRNATY) Follow up in 1 year or sooner if needed. I agree with the Chief Complaint, ROS, and Past Histories independently gathered by the clinical client support manager and the remaining scribed note accurately describes my personal service to the patient. Medical Decision Making: Problems: Moderate: 2+ stable chronic illnesses Risk: Moderate: Drug management Medical Decision Making Level: 4 - Moderate Dede Desai MD The documentation for this note was completed by Tricia Chaudhary MA acting as scribe for Dede Desai MD. July 23, 2024 9:11 AM. Tricia Chaudhary MA documented in this encounter [facility] 06-23-2024 Telephone encounter Note Patient called to explain that he had to leave office visit today due to a family emergency. Spouse is on hospice and he was needed at home. He states he will call back to reschedule when able. He states his schedule is very unpredictable at this time. [facility] Work Phone: 06-23-2024 Miscellaneous Notes Patient called to explain that he had to leave office visit today due to a family emergency. Spouse is on hospice and he was needed at home. He states he will call back to reschedule when able. He states his schedule is very unpredictable at this time. documented in this encounter [facility] 06-23-2024 Telephone encounter Note Pt noted on 1st time treatment report with an NCCN score of 9. Per chart review pt was here for OV then needed to leave quickly d/t family emergency. SW to allow pt time with family this date and will follow up with him tomorrow. To be assessed next date d/t pt's family emergency JOSAFAT [place] [facility] 06-23-2024 Miscellaneous Notes Pt noted on 1st time treatment report with an NCCN score of 9. Per chart review pt was here for OV then needed to leave quickly d/t family emergency. SW to allow pt time with family this date and will follow up with him tomorrow. To be assessed next date d/t pt's family emergency KULWINDER Lucas documented in this encounter [facility] 06-23-2024 History of Present illness Narrative Pt with family emergency. Left without being seen. Will reschedule documented in this encounter [facility] 06-14-2024 Note Addended by: BRANDYN ESTRADA on: 06/14/2024 02:53 PM Modules accepted: Orders [facility] 06-14-2024 Miscellaneous Notes Addended by: BRANDYN ESTRADA on: 06/14/2024 02:53 PM Modules accepted: Orders documented in this encounter [facility] 06-14-2024 Note HNO ID: [id number] Author: JOSSE MARSHALL MD Service: ? Author Type: Physician Type: Procedures Filed: 06/14/2024 13:55 Note Text: CYSTOSCOPY and TRUS PROCEDURE NOTE: Dede Chow is a 78 year old male who presents with hematuria gross and BPH for cystoscopy. Pt ID verified with patient: Yes Procedure verified with patient: Yes Procedure confirmed with physician and client support manager: Yes UNIVERSAL PROTOCOL / SAFETY CHECKLIST Procedure to be Performed: cysto TRUS flow rate Sign In: A Moment of CARE was completed. Personnel directly involved with the procedure wore the appropriate PPE (Personal Protective Equipment). Patient/Surrogate Stated/Verified: PATIENT VERIFIED(optional for EMERGENT procedures): Patient name, Date of , Relevant allergies, and The intended procedure Time Out Communication: Intended patient and procedure match the source documents. Consent documented and matches the intended procedure. Sign Out: SIGN OUT (optional for EMERGENT procedures): No specimen collected. Josse Marshall MD Urinalysis Done and Reviewed: Yes The benefits, risks, alternatives of the cystoscopy procedure and personnel were discussed with the patient. The verbal consent was obtained and the patient agrees to proceed. Procedure: The patient was placed on the procedure table in the supine position and prepped and draped in the usual sterile fashion. 2% Lidocaine Jelly was placed per urethra as an anesthetic in the standard fashion. Once adequate local anesthesia was achieved, the cystoscope was carefully placed into the urethra under direct visual guidance. The scope was negotiated through the pendulous urethra to the level of the bulbar urethra with no evidence of stricture. The verumontanum came into view and the scope was negotiated through the prostatic urethra which showed evidence of bi lobar occlusive disease. The bladder was entered and careful delgado endoscopy was carried out. The posterior, superior and lateral williamson and dome of the bladder were all well visualized and the scope wasretroflexed upon itself. The findings were consistent with no evidence of bladder mucosal pathology. At the conclusion of the procedure, the cystoscope was removed atraumatically. The patient tolerated the procedure without complications. TRUS PROCEDURE without Biopsy Transrectal Ultrasonography was the performed with patient in lateral decubitus position. ADRIANNA: 3+ US performed: Bladder NO definite lesions ; Post Void Residual : minimal Prostate Volume: 48cc No abnormal lesions ; evidence of bi lobar occlusive disease Post Procedure Pain Assessment: 0 Patient was given standard post-procedure instructions. ASSESSMENT/PLAN: 1. Gross hematuria - ICD9: 599.71, ICD10: R31.0 (primary diagnosis) 2. 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 - ICD9: 600.01, 788.62, ICD10: N40.1, R39.12 3. Disorder of prostate - ICD9: 602.9, ICD10: N42.9 - PROSTATE-SPECIFIC ANTIGEN DIAGNOSTIC Josse Marshall M.D. [facility] 06-14-2024 Procedure note Procedure(s): CYSTOURETHROSCOPY; US, TRANSRECTAL Pre-Procedure Diagnose(s): Hypertrophy of prostate with urinary obstruction; Gross hematuria Post-Procedure Diagnose(s): Hypertrophy of prostate with urinary obstruction; Gross hematuria CYSTOSCOPY and TRUS PROCEDURE NOTE: Dede Chow is a 78 year old male who presents with hematuria gross and BPH for cystoscopy. Pt ID verified with patient: Yes Procedure verified with patient: Yes Procedure confirmed with physician and client support manager: Yes UNIVERSAL PROTOCOL / SAFETY CHECKLIST Procedure to be Performed: cysto TRUS flow rate Sign In: A Moment of CARE was completed. Personnel directly involved with the procedure wore the appropriate PPE (Personal Protective Equipment). Patient/Surrogate Stated/Verified: PATIENT VERIFIED(optional for EMERGENT procedures): Patient name, Date of , Relevant allergies, and The intended procedure Time Out Communication: Intended patient and procedure match the source documents. Consent documented and matches the intended procedure. Sign Out: SIGN OUT (optional for EMERGENT procedures): No specimen collected. Josse Marshall MD Urinalysis Done and Reviewed: Yes The benefits, risks, alternatives of the cystoscopy procedure and personnel were discussed with the patient. The verbal consent was obtained and the patient agrees to proceed. Procedure: The patient was placed on the procedure table in the supine position and prepped and draped in the usual sterile fashion. 2% Lidocaine Jelly was placed per urethra as an anesthetic in the standard fashion. Once adequate local anesthesia was achieved, the cystoscope was carefully placed into the urethra under direct visual guidance. The scope was negotiated through the pendulous urethra to the level of the bulbar urethra with no evidence of stricture. The verumontanum came into view and the scope was negotiated through the prostatic urethra which showed evidence of bi lobar occlusive disease. The bladder was entered and careful delgado endoscopy was carried out. The posterior, superior and lateral williamson and dome of the bladder were all well visualized and the scope was retroflexed upon itself. The findings were consistent with no evidence of bladder mucosal pathology. At the conclusion of the procedure, the cystoscope was removed atraumatically. The patient tolerated the procedure without complications. TRUS PROCEDURE without Biopsy Transrectal Ultrasonography was the performed with patient in lateral decubitus position. ADRIANNA: 3+ US performed: Bladder NO definite lesions ; Post Void Residual : minimal Prostate Volume: 48cc No abnormal lesions ; evidence of bi lobar occlusive disease Post Procedure Pain Assessment: 0 Patient was given standard post-procedure instructions. ASSESSMENT/PLAN: 1. Gross hematuria - ICD9: 599.71, ICD10: R31.0 (primary diagnosis) 2. 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 - ICD9: 600.01, 788.62, ICD10: N40.1, R39.12 3. Disorder of prostate - ICD9: 602.9, ICD10: N42.9 - PROSTATE-SPECIFIC ANTIGEN DIAGNOSTIC Josse Marshall M.D. [facility] 06-14-2024 Procedure note Procedure(s): CYSTOURETHROSCOPY; US, TRANSRECTAL Pre-Procedure Diagnose(s): Hypertrophy of prostate with urinary obstruction; Gross hematuria Post-Procedure Diagnose(s): Hypertrophy of prostate with urinary obstruction; Gross hematuria CYSTOSCOPY and TRUS PROCEDURE NOTE: Dede Chow is a 78 year old male who presents with hematuria gross and BPH for cystoscopy. Pt ID verified with patient: Yes Procedure verified with patient: Yes Procedure confirmed with physician and client support manager: Yes UNIVERSAL PROTOCOL / SAFETY CHECKLIST Procedure to be Performed: cysto TRUS flow rate Sign In: A Moment of CARE was completed. Personnel directly involved with the procedure wore the appropriate PPE (Personal Protective Equipment). Patient/Surrogate Stated/Verified: PATIENT VERIFIED(optional for EMERGENT procedures): Patient name, Date of , Relevant allergies, and The intended procedure Time Out Communication: Intended patient and procedure match the source documents. Consent documented and matches the intended procedure. Sign Out: SIGN OUT (optional for EMERGENT procedures): No specimen collected. Josse Marshall MD Urinalysis Done and Reviewed: Yes The benefits, risks, alternatives of the cystoscopy procedure and personnel were discussed with the patient. The verbal consent was obtained and the patient agrees to proceed. Procedure: The patient was placed on the procedure table in the supine position and prepped and draped in the usual sterile fashion. 2% Lidocaine Jelly was placed per urethra as an anesthetic in the standard fashion. Once adequate local anesthesia was achieved, the cystoscope was carefully placed into the urethra under direct visual guidance. The scope was negotiated through the pendulous urethra to the level of the bulbar urethra with no evidence of stricture. The verumontanum came into view and the scope was negotiated through the prostatic urethra which showed evidence of bi lobar occlusive disease. The bladder was entered and careful delgado endoscopy was carried out. The posterior, superior and lateral williamson and dome of the bladder were all well visualized and the scope was retroflexed upon itself. The findings were consistent with no evidence of bladder mucosal pathology. At the conclusion of the procedure, the cystoscope was removed atraumatically. The patient tolerated the procedure without complications. TRUS PROCEDURE without Biopsy Transrectal Ultrasonography was the performed with patient in lateral decubitus position. ADRIANNA: 3+ US performed: Bladder NO definite lesions ; Post Void Residual : minimal Prostate Volume: 48cc No abnormal lesions ; evidence of bi lobar occlusive disease Post Procedure Pain Assessment: 0 Patient was given standard post-procedure instructions. ASSESSMENT/PLAN: 1. Gross hematuria - ICD9: 599.71, ICD10: R31.0 (primary diagnosis) 2. 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 - ICD9: 600.01, 788.62, ICD10: N40.1, R39.12 3. Disorder of prostate - ICD9: 602.9, ICD10: N42.9 - PROSTATE-SPECIFIC ANTIGEN DIAGNOSTIC Josse Marshall M.D. documented in this encounter [facility] 06-14-2024 Instructions Josse Marshall MD - 06/14/2024 1:48 PM EDT So far, workup showing no signs of cancer Possibly prostate related bleeding Could consider adding medication finasteride , which can shrink the prostate , but does have potential for sexual side effects Prostate volume was 48.75 cc documented in this encounter [facility] 06-14-2024 History of Present illness Narrative ESTABLISHED PATIENT VISIT HPI Dede Chow is a 78 year old male who presents with BPH and gross hematuria Cysto TRUS today 48 cc Current sxs: TIMES IN THE PAST MONTH YOU HAD A FEELING OF NOT EMPTYING BLADDER? 2 TIMES IN PAST MONTH NEED TO URINATE AGAIN WITHIN 2 HRS OF LAST EMPTY? 1 TIMES IN PAST MONTH YOU HAVE STOPPED AND STARTED URINE FLOW? 0 TIMES IN THE PAST MONTH YOU FOUND IT DIFFICULT TO POSTPONE URINATING? 3 TIMES IN THE PAST MONTH YOU HAVE HAD A WEAK URINARY STREAM? 3 TIMES IN PAST MONTH YOU HAVE HAD TO PUSH OR STRAIN TO URINATE? 1 TIMES IN PAST MONTH YOU GET UP TO URINATE FROM SLEEP UNTIL AWAKE? 3 HOW WOULD YOU FEEL IF YOU HAD TO LIVE WITH YOUR URINARY CONDITION IT IS NOW? 2 - Mostly Satisfied WHAT IT THE TOTAL AUA SCORE? 15 06/14/24 Cysto TRUS 05/24/24: CT Urogram No hydronephrosis or renal calculi. No enhancing renal or bladder mass. 04/21/24 cytology negative 08/04/18 Cysto (Luis, hematuria ) Gross hematuria after lawn work CT Urogram negative except for 4 mm nonobstructing renal stone Urine cytology negative Cystoscopy today negative BPH, minimal LUTS F/U with PCP for annual UA RTC PRN Creatinine Date Value Ref Range Status 05/25/2024 0.93 0.73 - 1.22 mg/dL Final PSA (ng/mL) Date Value 07/14/2018 0.76 PSA Screening (ng/mL) Date Value 11/28/2015 0.98 08/13/2013 0.82 Color (no units) Date Value 08/20/2019 Yellow Clarity (no units) Date Value 08/20/2019 Clear Glucose, Urine (mg/dL) Date Value 08/20/2019 Negative Bilirubin, Urine (no units) Date Value 08/20/2019 Negative Ketones, Urine (no units) Date Value 08/20/2019 Negative Specific [place], Ur (no units) Date Value 08/20/2019 1.010 Hemoglobin/Blood,Ur ( ) Date Value 08/20/2019 Negative pH, Urine (no units) Date Value 08/20/2019 6.0 Protein, Urine (mg/dL) Date Value 08/20/2019 Negative Urobilinogen (no units) Date Value 08/20/2019 Normal Nitrites (no units) Date Value 08/20/2019 Negative Leukest (no units) Date Value 08/20/2019 Negative 24HR Urine Studies: No results for input(s): LUPH, LUCAL, LUCIT, LUOXA, LUURIC, LUVOL, LSCAO, LSCAP, LSURIC, LUCL, MANPREET, CLAUDIO, LUUREA, LUAM, LUMAG, LUPHOS, LUPCR, LUCREA, LUCRKBW, LUCAKBW, LUCACREA, LUCREACL, LWK, LUSUL in the last [id number] hours. REVIEW OF SYSTEMS Review of Systems Review of system, history including past medical history, surgical history, family history and social history reviewed and confirmed by me. HISTORIES PAST MEDICAL HISTORY Diagnosis Date CLL (chronic lymphocytic leukemia) (HCC) 05/26/2018 Degeneration of intervertebral disc, site unspecified Environmental allergies Essential hypertension 12/15/2017 Obstructive sleep apnea Osteoarthritis hands/ back/ neck PAST SURGICAL HISTORY Procedure Laterality Date ARTHROSCOPY KNEE DIAGNOSTIC W/WO SYNOVIAL BX SPX 1991 Arthroscopy, knee ARTHRP KNE CONDYLE&PLATU MEDIAL&LAT COMPARTMENTS 04/14/2008 Knee replacement, total viv knees per dr raymundo COLONOSCOPY FLX DX W/COLLJ SPEC WHEN PFRMD 04-05-13 PAST SURGICAL HISTORY OF right thumb joint TONSILLECTOMY PRIMARY/SECONDARY <AGE 13 Tonsillectomy XCAPSL CTRC RMVL INSJ IO LENS PROSTH W/O ECP 05/2009 , 06/2009 Cataract Removal, right and left FAMILY HISTORY Problem Relation Age of Onset Arthritis Sister Arthritis Brother SOCIAL HISTORY Social History Tobacco Use Smoking status: Former Types: Pipe Smokeless tobacco: Never Tobacco comments: Quit smoking pipe in early . Vaping Use Vaping status: Never Used Substance Use Topics Alcohol use: Yes Alcohol/week: 3.0 standard drinks of alcohol Types: 3 Glasses of wine per week Drug use: Never MEDICATIONS: propylene glycoL (SYSTANE BALANCE) 0.6 % drop Use 1 Drop in both eyes. Up to 4x a day per eye doctor. fluticasone (FLONASE) 50 mcg/actuation nasal spray Use 2 Sprays in each nostril once daily. Rinse mouth after use. nadolol (CORGARD) 40 mg tablet Take 1 tablet by mouth once daily. montelukast (SINGULAIR) 10 mg tablet Take 1 tablet by mouth daily at bedtime. cholecalciferol (VITAMIN D3) 50 mcg (2,000 unit) tablet Take 2,000 Units by mouth once daily. THERAPEUTIC MULTIVITAMIN TAB Take one(1) tablet daily. PHYSICAL EXAMINATION General appearance: Well appearing, alert, in no acute distress, and well-hydrated, well nourished MALE EXAM: Rectal Exam: Prostate: size (40 grams), symmetrical, nontender, w/o nodules. Sphincter tone normal, no mass. Anus and perineum wnl. Cytology negative ASSESSMENT/PLAN: 1. Gross hematuria - ICD9: 599.71, ICD10: R31.0 (primary diagnosis) 2. 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 - ICD9: 600.01, 788.62, ICD10: N40.1, R39.12 Negative hematuria workup Prostate 48 g is currently in hospice Consider finasteride in the future Cytology negative Overall his BPH symptoms are tolerable Can contact me in future if changes or recurrence PSA next week Josse Marshall Medical Decision Making: Medical Decision Making Level: 1 - N/A documented in this encounter [facility] 06-14-2024 Note HNO ID: [id number] Author: JOSSE MARSHALL MD Service: ? Author Type: Physician Type: Progress Notes Filed: 06/14/2024 13:55 Note Text: ESTABLISHED PATIENT VISIT HPI Dede Chow is a 78 year old male who presents with BPH and gross hematuria Cysto TRUS today 48 cc Current sxs: TIMES IN THE PAST MONTH YOU HAD A FEELING OF NOT EMPTYING BLADDER? 2 TIMES IN PAST MONTH NEED TO URINATE AGAIN WITHIN 2 HRS OF LAST EMPTY? 1 TIMES IN PAST MONTH YOU HAVE STOPPED AND STARTED URINE FLOW? 0 TIMES IN THE PAST MONTH YOU FOUND IT DIFFICULT TO POSTPONE URINATING? 3 TIMES IN THE PAST MONTH YOU HAVE HAD A WEAK URINARY STREAM? 3 TIMES IN PAST MONTH YOU HAVE HAD TO PUSH OR STRAIN TO URINATE? 1 TIMES IN PAST MONTH YOU GET UP TO URINATE FROM SLEEP UNTIL AWAKE? 3 HOW WOULD YOU FEEL IF YOU HAD TO LIVE WITH YOUR URINARY CONDITION IT IS NOW? 2 - Mostly Satisfied WHAT IT THE TOTAL AUA SCORE? 15 06/14/24 Cysto TRUS 05/24/24: CT Urogram No hydronephrosis or renal calculi. No enhancing renal or bladder mass. 04/21/24 cytology negative 08/04/18 Cysto (Luis, hematuria ) Gross hematuria after lawn work CT Urogram negative except for 4 mm nonobstructing renal stone Urine cytology negative Cystoscopy today negative BPH, minimal LUTS F/U with PCP for annual UA RTC PRN Creatinine Date Value Ref Range Status 05/25/2024 0.93 0.73 - 1.22 mg/dL Final PSA (ng/mL) Date Value 07/14/2018 0.76 PSA Screening (ng/mL) Date Value 11/28/2015 0.98 08/13/2013 0.82 Color (no units) Date Value 08/20/2019 Yellow Clarity (no units) Date Value 08/20/2019 Clear Glucose, Urine (mg/dL) Date Value 08/20/2019 Negative Bilirubin, Urine (no units) Date Value 08/20/2019 Negative Ketones, Urine (no units) Date Value 08/20/2019 Negative Specific [place], Ur (no units) Date Value 08/20/2019 1.010 Hemoglobin/Blood,Ur ( ) Date Value 08/20/2019 Negative pH, Urine (no units) Date Value 08/20/2019 6.0 Protein, Urine (mg/dL) Date Value 08/20/2019 Negative Urobilinogen (no units) Date Value 08/20/2019 Normal Nitrites (no units) Date Value 08/20/2019 Negative Leukest (no units) Date Value 08/20/2019 Negative 24HR Urine Studies: No results for input(s): LUPH, LUCAL, LUCIT, LUOXA, LUURIC, LUVOL, LSCAO, LSCAP, LSURIC, LUCL, MANPREET, CLAUDIO, LUUREA, LUAM, LUMAG, LUPHOS, LUPCR, LUCREA, LUCRKBW, LUCAKBW, LUCACREA, LUCREACL, LWK, LUSUL in the last 09887 hours. REVIEW OF SYSTEMS Review of Systems Review of system, history including past medical history, surgical history, family history and social history reviewed and confirmed by me. HISTORIES PAST MEDICAL HISTORY Diagnosis Date CLL (chronic lymphocytic leukemia) (HCC) 05/26/2018 Degeneration of intervertebral disc, site unspecified Environmental allergies Essential hypertension 12/15/2017 Obstructive sleep apnea Osteoarthritis hands/ back/ neck PAST SURGICAL HISTORY Procedure Laterality Date ARTHROSCOPY KNEE DIAGNOSTIC W/WO SYNOVIAL BX SPX 1991 Arthroscopy, knee ARTHRP KNE CONDYLEANDPLATU MEDIALANDLAT COMPARTMENTS 04/14/2008 Knee replacement, total viv knees per dr raymundo COLONOSCOPY FLX DX W/COLLJ SPEC WHEN PFRMD 04-05-13 PAST SURGICAL HISTORY OF right thumb joint TONSILLECTOMY PRIMARY/SECONDARY Tonsillectomy XCAPSL CTRC RMVL INSJ IO LENS PROSTH W/O ECP 05/2009 , 06/2009 Cataract Removal, right and left FAMILY HISTORY Problem Relation Age of Onset Arthritis Sister Arthritis Brother SOCIAL HISTORY Social History Tobacco Use Smoking status: Former Types: Pipe Smokeless tobacco: Never Tobacco comments: Quit smoking pipe in early . Vaping Use Vaping status: Never Used Substance Use Topics Alcohol use: Yes Alcohol/week: 3.0 standard drinks of alcohol Types: 3 Glasses of wine per week Drug use: Never MEDICATIONS: propylene glycoL (SYSTANE BALANCE) 0.6 % drop Use 1 Drop in both eyes. Up to 4x a day per eye doctor. fluticasone (FLONASE) 50 mcg/actuation nasal spray Use 2 Sprays in each nostril once daily. Rinse mouth after use. nadolol (CORGARD) 40 mg tablet Take 1 tablet by mouth once daily. montelukast (SINGULAIR) 10 mg tablet Take 1 tablet by mouth daily at bedtime. cholecalciferol (VITAMIN D3) 50 mcg (2,000 unit) tablet Take 2,000 Units by mouth once daily. THERAPEUTIC MULTIVITAMIN TAB Take one(1) tablet daily. PHYSICAL EXAMINATION General appearance: Well appearing, alert, in no acute distress, and well-hydrated, well nourished MALE EXAM: Rectal Exam: Prostate: size (40 grams), symmetrical, nontender, w/o nodules. Sphincter tone normal, no mass. Anus and perineum wnl. Cytology negative ASSESSMENT/PLAN: 1. Gross hematuria - ICD9: 599.71, ICD10: R31.0 (primary diagnosis) 2. 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 - ICD9: 600.01, 788.62, ICD10: N40.1, R39.12 Negative hematuria workup (more content not included)... [facility] 06-14-2024 Nurse Note Per Diem Registered Nurse present: Brandyn Estrada MA [facility] 06-14-2024 Nurse Note Per Diem Registered Nurse present: Brandyn Estrada MA documented in this encounter [facility] 06-03-2024 History of Present illness Narrative VIRTUAL VISIT PROGRESS NOTE This is a virtual visit using [email or web address] Video Visit. It required patient-provider interaction for the medical decision making as documented below. I have communicated my name and active licensure. The patient's identity and physical location were verified at the time of this visit. Either the patient or their legal signs sales representative has been informed of the risks and benefits of -- and alternatives to -- treatment through a remote evaluation and consents to proceed with the evaluation remotely. Dede Chow is a 78 year old male seen for recurrent sinusitis. Currently experiencing sinus congestion, headache, increased sinus drainage. Recurrent sinusitis, last CT done in 12/2023. Denies cough, fever. Symptoms started 4 days ago and has progressively gotten worse. HISTORY REVIEWED (electronic chart updated): PAST MEDICAL HISTORY Diagnosis Date CLL (chronic lymphocytic leukemia) (HCC) 05/26/2018 Degeneration of intervertebral disc, site unspecified Environmental allergies Essential hypertension 12/15/2017 Obstructive sleep apnea Osteoarthritis hands/ back/ neck PAST SURGICAL HISTORY Procedure Laterality Date ARTHROSCOPY KNEE DIAGNOSTIC W/WO SYNOVIAL BX SPX 1991 Arthroscopy, knee ARTHRP KNE CONDYLE&PLATU MEDIAL&LAT COMPARTMENTS 04/14/2008 Knee replacement, total viv knees per dr raymundo COLONOSCOPY FLX DX W/COLLJ SPEC WHEN PFRMD 04-05-13 PAST SURGICAL HISTORY OF right thumb joint TONSILLECTOMY PRIMARY/SECONDARY <AGE 13 Tonsillectomy XCAPSL CTRC RMVL INSJ IO LENS PROSTH W/O ECP 05/2009 , 06/2009 Cataract Removal, right and left FAMILY HISTORY Problem Relation Age of Onset Arthritis Sister Arthritis Brother Social History Tobacco Use Smoking status: Former Types: Pipe Smokeless tobacco: Never Tobacco comments: Quit smoking pipe in early . Vaping Use Vaping status: Never Used Substance Use Topics Alcohol use: Yes Alcohol/week: 3.0 standard drinks of alcohol Types: 3 Glasses of wine per week Drug use: Never Current Outpatient Medications Medication Sig iv contrast (will be provided with radiology test) CT Urogram WO/W Inject, intravenously, once for 1 dose.No IV access, insert saline lock prior to the beginning of sedation, infusion, injection of imaging exam. Discontinue saline lock post exam. If Pt. has a central line or IVAD, may access for administration according to line specific nursing protocol. Once exam is complete flush line and de-access according to line specific nursing protocol in the CT contrast administration guidelines link. propylene glycoL (SYSTANE BALANCE) 0.6 % drop Use 1 Drop in both eyes. Up to 4x a day per eye doctor. fluticasone (FLONASE) 50 mcg/actuation nasal spray Use 2 Sprays in each nostril once daily. Rinse mouth after use. nadolol (CORGARD) 40 mg tablet Take 1 tablet by mouth once daily. montelukast (SINGULAIR) 10 mg tablet Take 1 tablet by mouth daily at bedtime. cholecalciferol (VITAMIN D3) 50 mcg (2,000 unit) tablet Take 2,000 Units by mouth once daily. THERAPEUTIC MULTIVITAMIN TAB Take one(1) tablet daily. No current facility-administered medications for this visit. ALLERGIES Allergen Reactions Seasonal Allergies REVIEW OF SYSTEMS: SEE HPI PHYSICAL EXAMINATION: VIDEO EXAM: (if completed, performed via video enabled technology) GENERAL: alert and appropriate, in no distress, well-hydrated, well nourished, and happy, smiling, interactive HEAD: normocephalic, no abnormality or lesion noted EYES: no injection and visual acuity is grossly normal NOSE: rhinorrhea noted ASSESSMENT/PLAN: 1. Bacterial sinusitis - ICD9: 473.9, 041.9, ICD10: J32.9, B96.89 - Will begin treatment with Doxycycline - DOXYCYCLINE HYCLATE 100 MG TABLET I spent a total of 11 minutes on the date of the service which included preparing to see the patient, [id number] patient care, completing clinical documentation, obtaining and/or reviewing separately obtained history, performing a medically appropriate examination, counseling and educating the patient/family/caregiver, ordering medications, tests, or procedures, communicating results to the patient/family/caregiver, and care coordination (not separately reported) Niya Jones APRN.LELA documented in this encounter [facility] 06-03-2024 Telephone encounter Note Pt confirmed appt. Lena Thomas MA [facility] 06-03-2024 Miscellaneous Notes Pt confirmed appt. Lena Thomas MA Offered same day VV with DK at 4:00 pm, okay per her. Scheduled appt asked pt to confir this. Lena Thomas MA documented in this encounter [facility] 06-03-2024 Telephone encounter Note Offered same day VV with DK at 4:00 pm, okay per her. Scheduled appt asked pt to confir this. Lena Thomas MA [facility] 05-21-2024 History of Present illness Narrative Radiology Service Progress Note DATE OF SERVICE: May 21, 2024 TIME: 4:02 PM PATIENT IDENTITY VERIFICATION COMPLETED USING TWO (2) STANDARD IDENTIFIERS: Name and Date of confirmed by patient verbally. FALL SCREENING: Has the patient had 2 falls in the last year or 1 fall with injury or currently using an Ambulatory Assistive Device (Walker, Cane, Wheelchair, Crutches, etc.)? No PATIENT GENDER DATA: Male PATIENT RELEVANT IMPLANT DATA REVIEWED: Yes PATIENT PRESENTS WITH AN IMPLANTABLE OR ATTACHED STOCK REPAIRER: No ALLERGIES: Reviewed and unchanged CONTRAST ALLERGY: NO. EXAM: CT -CONTRAST INDUCED NEPHROPATHY RISK FACTORS: Patient age > 60 years CREATININE: Creatinine Date Value Ref Range Status 04/09/2024 0.86 0.73 - 1.22 mg/dL Final 06/19/2023 0.94 0.73 - 1.22 mg/dL Final 06/20/2022 0.85 0.73 - 1.22 mg/dL Final Estimated Glomerular Filtration Rate Date Value Ref Range Status 04/09/2024 89 >=60 mL/min/1.73m Final Comment: Estimated Glomerular Filtration Rate (eGFR) is calculated using the 2020 CKD-EPI creatinine equation. This equation utilizes serum creatinine, sex, and age as parameters. The creatinine assay has traceable calibration to isotope dilution-mass spectrometry. Refer to KDIGO guidelines for clinical interpretation. In patients with unstable renal function, e.g. those with acute kidney injury, the eGFR may not accurately reflect actual GFR. eGFR- Date Value Ref Range Status 05/22/2021 >60 Final P.O.C.T. RESULTS: POC done: Yes, See Lab Tab May 21, 2024 TREATMENT: N/A PERIPHERAL IV DATA: Ambulatory: A peripheral IV was started in the Left antecubital site with a Angio cath: 22 gauge. RADIOLOGY DEPARTMENT: CT; Exam(s) Completed: Urogram SIGNATURE: RT Fermin(R) PATIENT NAME: Dede Chow DATE: May 21, 2024 TIME: 4:02 PM documented in this encounter [facility] 05-12-2024 Telephone encounter Note Left pt vm re: needs scheduled for cysto after his CT 05/21 with any provider. Ref by Jennifer Ruiz. Julissa [facility] 05-12-2024 Miscellaneous Notes Left pt vm re: needs scheduled for cysto after his CT 05/21 with any provider. Ref by Jennifer Ruiz. Julissa documented in this encounter [facility] 05-11-2024 History of Present illness Narrative Images from the original note were not included. [facility] EST PATIENT CLINIC NOTE SERVICE DATE: May 11, 2024 NAME: Dede Chow CHIEF COMPLAINT: Hematuria HISTORY OF PRESENT ILLNESS: Dede Chow is a 78 year old male an established patient following up for hematuria The patient reports few episodes with rust colored urine , he has had a hx of hematuria in 2018 and full work-up was negative from urologic tumors And some small non-obstructing kidney stones, new imaging and urine testing sent if stones are seen again or UTI will let patient know Ne hematuria work up planned LUTS: UTI: No GROSS HEMATURIA: yes UA DIPSTICK POSITIVE ONLY: no LABS: PSA (ng/mL) Date Value 07/14/2018 0.76 PSA Screening (ng/mL) Date Value 11/28/2015 0.98 08/13/2013 0.82 Testosterone (ng/dL) Date Value 07/14/2018 390 Hematocrit (%) Date Value 04/09/2024 40.9 06/19/2023 38.5 06/20/2022 38.8 05/22/2021 43.5 08/17/2020 42.9 05/29/2020 44.2 PSA (ng/mL) Date Value 07/14/2018 0.76 PSA Screening (ng/mL) Date Value 11/28/2015 0.98 08/13/2013 0.82 Creatinine Date Value Ref Range Status 04/09/2024 0.86 0.73 - 1.22 mg/dL Final 06/19/2023 0.94 0.73 - 1.22 mg/dL Final 06/20/2022 0.85 0.73 - 1.22 mg/dL Final MEDICATIONS: propylene glycoL (SYSTANE BALANCE) 0.6 % drop Use 1 Drop in both eyes. Up to 4x a day per eye doctor. fluticasone (FLONASE) 50 mcg/actuation nasal spray Use 2 Sprays in each nostril once daily. Rinse mouth after use. nadolol (CORGARD) 40 mg tablet Take 1 tablet by mouth once daily. montelukast (SINGULAIR) 10 mg tablet Take 1 tablet by mouth daily at bedtime. cholecalciferol (VITAMIN D3) 50 mcg (2,000 unit) tablet Take 2,000 Units by mouth once daily. THERAPEUTIC MULTIVITAMIN TAB Take one(1) tablet daily. PAST MEDICAL HISTORY: PAST MEDICAL HISTORY 05/26/2018: CLL (chronic lymphocytic leukemia) (HCC) No date: Degeneration of intervertebral disc, site unspecified No date: Environmental allergies 12/15/2017: Essential hypertension No date: Obstructive sleep apnea No date: Osteoarthritis Comment: hands/ back/ neck REVIEW OF SYSTEMS: GENERAL: No fever, chills, weight loss, or fatigue. PHYSICAL EXAMINATION: Blood pressure 134/80, pulse 72, temperature 36.3 C (97.3 F), temperature source Temporal, resp. rate 16, height 177.8 cm (5' 10), weight 91.2 kg (201 lb), SpO2 97%. GENERAL: WNL nutrition, no deformities, healthy appearing PROBLEM LIST REVIEW: Yes LABS: Results for orders placed or performed in visit on 04/09/24 COMPLETE BLOOD COUNT AND DIFFERENTIAL Result Value Ref Range WBC 48.52 (H) 3.70 - 11.00 k/uL RBC 4.23 4.20 - 6.00 m/uL Hemoglobin 13.0 13.0 - 17.0 g/dL Hematocrit 40.9 39.0 - 51.0 % MCV 96.7 80.0 - 100.0 fL MCH 30.7 26.0 - 34.0 pg MCHC 31.8 30.5 - 36.0 g/dL RDW-CV 13.1 11.5 - 15.0 % Platelet Count 152 150 - 400 k/uL MPV 10.3 9.0 - 12.7 fL NRBC 0.0 /100 WBC Absolute nRBC <0.01 <0.01 k/uL Neutrophils % 6.0 % Abs Neut (Segs + Bands) 2.91 1.45 - 7.50 k/uL Lymphocytes % 92.0 % Abs Lymph (Normal + Reactive) 44.64 (H) 1.00 - 4.00 k/uL Monocytes % 1.0 % Abs Murray 0.49 <0.87 k/uL Eosin% 1.0 % Abs Eosin 0.49 (H) <0.46 k/uL Basophils % 0.0 % Abs Baso 0.00 <0.11 k/uL Platelet Estimate Adequate Red Cell Morph Reviewed: unremarkable Diff Type Manual COMPREHENSIVE METABOLIC PANEL Result Value Ref Range Protein, Total 6.1 (L) 6.3 - 8.0 g/dL Albumin 4.4 3.9 - 4.9 g/dL Calcium, Total 9.5 8.5 - 10.2 mg/dL Bilirubin, Total 0.3 0.2 - 1.3 mg/dL Alkaline Phosphatase 121 (H) 38 - 113 U/L AST 23 14 - 40 U/L ALT 11 10 - 54 U/L Glucose 84 74 - 99 mg/dL BUN 18 9 - 24 mg/dL Creatinine 0.86 0.73 - 1.22 mg/dL Sodium 141 136 - 144 mmol/L Potassium 4.8 3.7 - 5.1 mmol/L Chloride 105 98 - 107 mmol/L CO2 26 22 - 30 mmol/L Anion Gap 10 8 - 15 mmol/L Estimated Glomerular Filtration Rate 89 >=60 mL/min/1.73m LACTATE DEHYDROGENASE Result Value Ref Range LD 215 135 - 225 U/L MAGNESIUM Result Value Ref Range Magnesium 2.1 1.7 - 2.3 mg/dL THYROID STIMULATING HORMONE Result Value Ref Range TSH 2.330 0.270 - 4.200 mIU/L Urine Culture: Pending Urine Cytology: Pending PROCEDURES: PVR: 1 ml IMAGING: CT Urogram - Pending ASSESSMENT/PLAN: 1. Gross hematuria - ICD9: 599.71, ICD10: R31.0 (primary diagnosis) - POST VOID RESIDUAL 2. Screening for genitourinary condition - ICD9: V81.6, ICD10: Z13.89 - POST VOID RESIDUAL CT Urogram to be scheduled at [facility] Cystoscopy to scheduled at [facility] - Urology they will contact patient # [phone] Urine Culture - Pending Urine Cytology- - Pending Chronic stable, progressing, worsening well controlled Acute - New Problem , worsening, New Diagnosis of unknown prognosis Medication - Renewed, Stopped, Trial > 3 mo Follow-up with RICHARD Garrett MT, PA-C after hemturia RICHARD Aguilar MT, PA-C Verified name and date of . CC Post Void Residual HPI: Jaydon diaz is here now for an appointment with Giuliana Parra APRN, DNP Procedure: Explained procedure to patient and verbalizes understanding. Performed a PVR. Patient unable to urinate, states he went to bathroom at home. Results of scan: 1 mL The patient tolerated the procedure well. Plan: Appointment with Fidel. documented in this encounter [facility] 05-11-2024 Instructions Grupo Ruiz PA-C - 05/11/2024 10:[address] Urogram to be scheduled at [facility] Cystoscopy to scheduled at [facility] - Urology they will contact patient # [phone] Urine Culture - Pending Urine Cytology- - Pending Thank you, Will documented in this encounter [facility] 04-16-2024 Telephone encounter Note Pt scheduled with Urology on 05/11/24. Lena Thomas MA [facility] 04-16-2024 Miscellaneous Notes Pt scheduled with Urology on 05/11/24. Lena Thomas MA Pt notified of message below from Provider. Made pt aware Urology consult has been placed. Pt made aware chart has been routed to Scheduling to contact him to help assist him in setting up an appt. Also made pt aware he can contact office and speak with Customer Advocacy Manager to setup his appt, to make process go quicker as sometimes it can take a few days for Scheduling to reach out to pt's. Lena Thomas MA He had a negative full workup for hematuria in 2018, but since it is 6 years later I would suggest another Urology consult to see if they think the workup should be repeated. Dede Desai MD See [employer] message. Tricia Chaudhary MA documented in this encounter [facility] 04-16-2024 Telephone encounter Note Pt notified of message below from Provider. Made pt aware Urology consult has been placed. Pt made aware chart has been routed to Scheduling to contact him to help assist him in setting up an appt. Also made pt aware he can contact office and speak with Customer Advocacy Manager to setup his appt, to make process go quicker as sometimes it can take a few days for Scheduling to reach out to pt's. Lena Thomas MA [facility] 04-15-2024 Telephone encounter Note He had a negative full workup for hematuria in 2018, but since it is 6 years later I would suggest another Urology consult to see if they think the workup should be repeated. Dede Desai MD [facility] 04-12-2024 Telephone encounter Note See mychart sandra. Tricia Chaudhary MA [facility] 04-09-2024 Instructions Aviva Cochran APRN.LELA - 04/09/2024 4:23 PM EDT 1) Sending urine in for culture 2) Check labs 3) See Dr. Desai in 6 months or sooner for routine care documented in this encounter [facility] 04-09-2024 History of Present illness Narrative This is a 78 year old male who presents today with: Patient presents with: Urinary Problem: Sy red color urine intermittently for one week. Denies any dysuria, fever, vomiting, nausea. HISTORY OF PRESENT ILLNESS: Dede Chow is a 78 year old male. Patient presents with: Urinary Problem: Sy red color urine intermittently for one week. Denies any dysuria, fever, vomiting, nausea. Rust colored urine intermittently for the past week. First attributed to eating dark cherries. Happens more at night when he gets up to void. No dysuria. History of cystoscopy in 2018 for gross hematuria. No foul odor. Started drinking a lot of water. No fever or chills. No flank pain. PAST MEDICAL HISTORY: PAST MEDICAL HISTORY Diagnosis Date CLL (chronic lymphocytic leukemia) (HCC) 05/26/2018 Degeneration of intervertebral disc, site unspecified Environmental allergies Essential hypertension 12/15/2017 Obstructive sleep apnea Osteoarthritis hands/ back/ neck PAST SURGICAL HISTORY Procedure Laterality Date ARTHROSCOPY KNEE DIAGNOSTIC W/WO SYNOVIAL BX SPX 1991 Arthroscopy, knee ARTHRP KNE CONDYLE&PLATU MEDIAL&LAT COMPARTMENTS 04/14/2008 Knee replacement, total viv knees per dr raymundo COLONOSCOPY FLX DX W/COLLJ SPEC WHEN PFRMD 04-05-13 PAST SURGICAL HISTORY OF right thumb joint TONSILLECTOMY PRIMARY/SECONDARY <AGE 13 Tonsillectomy XCAPSL CTRC RMVL INSJ IO LENS PROSTH W/O ECP 05/2009 , 06/2009 Cataract Removal, right and left ALLERGIES Seasonal Allergies MEDICATIONS Current Outpatient Medications Medication Sig propylene glycoL (SYSTANE BALANCE) 0.6 % drop Use 1 Drop in both eyes. Up to 4x a day per eye doctor. fluticasone (FLONASE) 50 mcg/actuation nasal spray Use 2 Sprays in each nostril once daily. Rinse mouth after use. nadolol (CORGARD) 40 mg tablet Take 1 tablet by mouth once daily. montelukast (SINGULAIR) 10 mg tablet Take 1 tablet by mouth daily at bedtime. cholecalciferol (VITAMIN D3) 50 mcg (2,000 unit) tablet Take 2,000 Units by mouth once daily. THERAPEUTIC MULTIVITAMIN TAB Take one(1) tablet daily. No current facility-administered medications for this visit. FAMILY HISTORY Problem Relation Age of Onset Arthritis Sister Arthritis Brother Social History Tobacco Use Smoking status: Former Types: Pipe Smokeless tobacco: Never Tobacco comments: Quit smoking pipe in early . Vaping Use Vaping Use: Never used Substance Use Topics Alcohol use: Yes Comment: wine or beer at times Drug use: No EXAM: BP 120/70 Pulse 65 Temp (!) 35.9 C (96.7 F) (Tympanic) Wt 90.7 kg (200 lb) SpO2 96% BMI 29.62 kg/m PHYSICAL EXAM: Physical Exam Vitals reviewed. Constitutional: Appearance: Normal appearance. HENT: Head: Normocephalic. Cardiovascular: Rate and Rhythm: Normal rate and regular rhythm. Pulses: Normal pulses. Heart sounds: Normal heart sounds. Pulmonary: Effort: Pulmonary effort is normal. Breath sounds: Normal breath sounds. Abdominal: Palpations: Abdomen is soft. Musculoskeletal: Comments: Negative for CVA tenderness Skin: General: Skin is warm and dry. Comments: pale Neurological: Mental Status: He is alert. LABS: get urinalysis ASSESSMENT/PLAN: 1. Abnormal urine color - ICD9: 791.9, ICD10: R39.89 (primary diagnosis) Check urinalysis - UA DIP, URINE (POC) showed blood, nitrates and leukocytes negative - URINE CULTURE - COMPLETE BLOOD COUNT AND DIFFERENTIAL - COMPREHENSIVE METABOLIC PANEL - LACTATE DEHYDROGENASE - MAGNESIUM 2. Hypothermia following anesthesia, sequela - ICD9: 909.3, ICD10: T88.51XS Check level of thyroid, may be related to hemolyze - THYROID STIMULATING HORMONE 3. 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 Patient's questions answered appropriately. Medications and potential side effects were discussed and patient voices understanding. Return to the office as scheduled or as needed for worsening/no improvement. Aviva Cochran APRN.LELA documented in this encounter [facility] 04-09-2024 Telephone encounter Note Patient calling said for past few days has noticed his urine color is dark brown, no clots, no fresh blood. No history of kidney stone, no abdominal pain or flank pain. Patient said he is vegetarian, knows things can change his urine. Scheduled appt with Anabel Cochran NP for today at 4 pm to evaluate. [facility] 04-09-2024 Miscellaneous Notes Patient calling said for past few days has noticed his urine color is dark brown, no clots, no fresh blood. No history of kidney stone, no abdominal pain or flank pain. Patient said he is vegetarian, knows things can change his urine. Scheduled appt with J Suppan [employer]POR[employer] DEVELOPMENT INTERN for today at 4 pm to evaluate. documented in this encounter [facility] 01-29-2024 Instructions Noelle Zhu APRN.LELA - 01/29/2024 1:44 PM EDT Start on doxycycline, take with food. Stay well hydrated Continue supportive care at home May use cold and cough medications as needed. Follow up if no improvement. documented in this encounter [facility] 01-29-2024 History of Present illness Narrative This is a 78 year old male who presents today with: Patient presents with: Sinusitis: 4 days of sinus congestion, headache, drainage HISTORY OF PRESENT ILLNESS: Dede Chow is a 78 year old male. Patient presents with: Sinusitis: 4 days of sinus congestion, headache, drainage Here in the office for concerns for sinus infection. Ongoing sinus congestion, pressure, headache, post nasal drip. No fever or chills. History of chronic allergies. Taking Mucinex sinus, xyzal, flonase, and singulair. Follows with ENT, will be having nasal polyps removed in February. PAST MEDICAL HISTORY: PAST MEDICAL HISTORY Diagnosis Date CLL (chronic lymphocytic leukemia) (HCC) 05/26/2018 Degeneration of intervertebral disc, site unspecified Environmental allergies Essential hypertension 12/15/2017 Obstructive sleep apnea Osteoarthritis hands/ back/ neck PAST SURGICAL HISTORY Procedure Laterality Date ARTHROSCOPY KNEE DIAGNOSTIC W/WO SYNOVIAL BX SPX 1991 Arthroscopy, knee ARTHRP KNE CONDYLE&PLATU MEDIAL&LAT COMPARTMENTS 04/14/2008 Knee replacement, total viv knees per dr raymundo COLONOSCOPY FLX DX W/COLLJ SPEC WHEN PFRMD 04-05-13 PAST SURGICAL HISTORY OF right thumb joint TONSILLECTOMY PRIMARY/SECONDARY <AGE 13 Tonsillectomy XCAPSL CTRC RMVL INSJ IO LENS PROSTH W/O ECP 05/2009 , 06/2009 Cataract Removal, right and left ALLERGIES Seasonal Allergies MEDICATIONS Current Outpatient Medications Medication Sig fluticasone (FLONASE) 50 mcg/actuation nasal spray Use 2 Sprays in each nostril once daily. Rinse mouth after use. nadolol (CORGARD) 40 mg tablet Take 1 tablet by mouth once daily. montelukast (SINGULAIR) 10 mg tablet Take 1 tablet by mouth daily at bedtime. iron, carbonyl (PERFECT IRON) 25 mg iron tab Take 1 tablet by mouth once daily. trimethoprim-polymyxin (POLYTRIM) 10,000 unit- 1 mg/mL ophthalmic solution Use 1 Drop in both eyes four times daily. levocetirizine 5 mg tablet Take 5 mg by mouth once daily. cholecalciferol (VITAMIN D3) 50 mcg (2,000 unit) tablet Take 2,000 Units by mouth once daily. THERAPEUTIC MULTIVITAMIN TAB Take one(1) tablet daily. No current facility-administered medications for this visit. FAMILY HISTORY Problem Relation Age of Onset Arthritis Sister Arthritis Brother Social History Tobacco Use Smoking status: Former Types: Pipe Smokeless tobacco: Never Tobacco comments: Quit smoking pipe in early . Vaping Use Vaping Use: Never used Substance Use Topics Alcohol use: Yes Comment: wine or beer at times Drug use: No REVIEW OF SYSTEMS GENERAL: No weight loss, malaise or fevers/chills HEENT: + Sinus Congestion/pressure, post nasal drip NECK: Negative for lumps, goiter, pain and significant neck swelling RESPIRATORY: Negative for cough, hemoptysis, wheezing, dyspnea or shortness of breath CARDIOVASCULAR: Negative for chest pain, leg swelling, orthopnea, or palpitations GI: No nausea, vomiting, or diarrhea/constipation. No hematochezia/melena. No heartburn or reflux symptoms. : No history of dysuria, frequency or incontinence MUSCULOSKELETAL: Negative for joint pain or swelling. SKIN: Negative for lesions, rash, and itching ENDOCRINE: Negative for cold or heat intolerance, polyuria, polydipsia and goiter NEURO: No history of headaches, syncope, paralysis, seizures or tremors MOOD: Negative for depression, anxiety, or suicidal ideation. EXAM: BP 126/83 (BP Site: Right Arm) Pulse 65 Wt 91.8 kg (202 lb 6.4 oz) SpO2 98% BMI 29.98 kg/m PHYSICAL EXAM: General Appearance: Well appearing, alert, in no acute distress, well-hydrated, well nourished. Skin: Skin color, texture, turgor normal, no suspicious rashes or lesions. Head: Normocephalic, no masses, lesions, tenderness or abnormalities. Eyes: Anicteric sclera. Extraocular movements are intact. Ears: External ears normal, canals clear, Cerumen noted, TM's pearly ortiz. Nose/Sinuses: Frontal and maxillary sinus tenderness, sinus drainage noted Oropharynx: Lips, mucosa, and tongue normal, teeth and gums normal, oropharynx normal. Neck: Supple, no adenopathy; thyroid symmetric, normal size, no bruits. Lungs: Lungs clear to auscultation. No wheezing, rhonchi, rales. Heart: RRR without murmur, gallop, or rubs. No ectopy. Extremities: No deformities, edema, skin discoloration, clubbing or cyanosis. Good capillary refill. Peripheral Pulses: Normal, Capillary refill <2secs, strong peripheral pulses, Pulses palpable. Neurologic: Gait normal. Sensation grossly intact. ASSESSMENT/PLAN: 1. Bacterial sinusitis - ICD9: 473.9, 041.9, ICD10: J32.9, B96.89 - Will begin treatment with Doxycycline - Supportive care with plenty of fluids, rest, and analgesia prn. - Keep scheduled appointments with ENT - DOXYCYCLINE HYCLATE 100 MG TABLET Follow-up if no improvement. Discussed treatment plan and patient voices understanding. Patient's questions answered appropriately. Medications and potential side effects were discussed and patient voices understanding. Noelle Zhu APRN.LELA This note was partially generated using [employer] voice recognition system. Note was reviewed for accuracy. There may be minor misspellings or grammar miscues with [employer] voice recognition. documented in this encounter [facility] 01-29-2024 Telephone encounter Note Pt scheduled and notified via [employer] that this would be for an in office visit. Tricia Chaudhary MA [facility] 01-29-2024 Miscellaneous Notes Pt scheduled and notified via [employer] that this would be for an in office visit. Tricia Chaudhary MA Offered pt same day appt with AT at 1:40 pm, spot held. Lena Thomas MA documented in this encounter [facility] 01-29-2024 Telephone encounter Note Offered pt same day appt with AT at 1:40 pm, spot held. Lena Thomas MA [facility] 11-20-2023 History of Present illness Narrative Chief Complaint Patient presents with: Chronic sinusitis HPI Dede Chow is a 77 year old male who presents here today for sinus concerns. Pt here today with his . Pt states he has been having sinusitis sx for the last 3 weeks. Pt has chronic sinus infections, recurrent. Has been seen 6 x in the past year for sinusitis issues. Has been treated with Doxycycline 100 mg 1 tab po bid for 10 day after being seen virtually on 10/28/23. Pt wrote into the office on 11/19/23 stating that he completed abx on 11/11/23 and has felt good on some days but continues to have sinus drainage off and on. He reported yesterday having a full blown sinus headache, with thick sinus drainage and typical past bacterial sinus infection symptoms. He does get some relief with using Sudafed nasal decongestant or Maxi Strength or Mucinex Sinus Max and Ibuprofen, but feels he may need another round of abx. Uses sinus rinse twice daily when congested. Pt denies any cough, fever or any other symptoms. Feels like he's getting another infection. Reports his sinus headaches change in intensity but is constant. Reports that symptoms are worse at night. Some days his symptoms are tolerable and he can function, other days he can't. Has difficulty sleeping at night in his bed and will have to go lay in a recliner with his head evaluated. Pt has seen [facility], Dr. Tovar. Has had polyps removed, balloon dilation and drainage done and has received allergy injections. Is asking for another referral to be placed. He was last seen in August and they discussed other treatment options. Has received RSV, Flu and Covid vaccine through Pharmacy. Does have Adv Dir/Living Will. Depression screening tool completed and reviewed. Based on score and interview, patient is not at risk for depression. Screening tool discussed with patient, and I recommended no further intervention at this time Past medical history, appointments, medications, allergies reviewed. Previous Medical History PAST MEDICAL HISTORY Diagnosis Date CLL (chronic lymphocytic leukemia) (HCC) 05/26/2018 Degeneration of intervertebral disc, site unspecified Environmental allergies Essential hypertension 12/15/2017 Obstructive sleep apnea Osteoarthritis hands/ back/ neck Previous Surgical History PAST SURGICAL HISTORY Procedure Laterality Date ARTHROSCOPY KNEE DIAGNOSTIC W/WO SYNOVIAL BX SPX 1991 Arthroscopy, knee ARTHRP KNE CONDYLE&PLATU MEDIAL&LAT COMPARTMENTS 04/14/2008 Knee replacement, total viv knees per dr raymundo COLONOSCOPY FLX DX W/COLLJ SPEC WHEN PFRMD 04-05-13 PAST SURGICAL HISTORY OF right thumb joint TONSILLECTOMY PRIMARY/SECONDARY <AGE 13 Tonsillectomy XCAPSL CTRC RMVL INSJ IO LENS PROSTH W/O ECP 05/2009 , 06/2009 Cataract Removal, right and left Family History FAMILY HISTORY Problem Relation Age of Onset Arthritis Sister Arthritis Brother Patient Allergies ALLERGIES Allergen Reactions Seasonal Allergies Current Medications Current Outpatient Medications on File Prior to Visit Medication Sig nadolol (CORGARD) 40 mg tablet Take 1 tablet by mouth once daily. montelukast (SINGULAIR) 10 mg tablet Take 1 tablet by mouth daily at bedtime. fluticasone (FLONASE) 50 mcg/actuation nasal spray Use 2 Sprays in each nostril once daily. Rinse mouth after use. iron, carbonyl (PERFECT IRON) 25 mg iron tab Take 1 tablet by mouth once daily. trimethoprim-polymyxin (POLYTRIM) 10,000 unit- 1 mg/mL ophthalmic solution Use 1 Drop in both eyes four times daily. levocetirizine 5 mg tablet Take 5 mg by mouth once daily. cholecalciferol (VITAMIN D3) 50 mcg (2,000 unit) tablet Take 2,000 Units by mouth once daily. THERAPEUTIC MULTIVITAMIN TAB Take one(1) tablet daily. No current facility-administered medications on file prior to visit. Social History Social History Tobacco Use Smoking status: Former Types: Pipe Smokeless tobacco: Never Tobacco comments: Quit smoking pipe in early . Vaping Use Vaping Use: Never used Substance Use Topics Alcohol use: Yes Comment: wine or beer at times Drug use: No EXAM: BP 116/78 (BP Site: Left Arm, BP Position: Sitting, BP Cuff Size: Regular Adult) Pulse 68 Resp 18 Wt 91.1 kg (200 lb 12.8 oz) BMI 29.74 kg/m General Appearance: Well appearing, alert, in no acute distress, well-hydrated, well nourished.. Head: Normocephalic, no masses, lesions, tenderness or abnormalities. Ears: External ears normal, canals clear. Oropharynx: Lips, mucosa, and tongue normal, teeth and gums normal, oropharynx normal. Neck: Supple, no adenopathy; thyroid symmetric, normal size, no bruits. Lungs: Lungs clear to auscultation. No wheezing, rhonchi, rales.. Heart: RRR without murmur, gallop, or rubs. No ectopy. Health Maintenance List Covid-19 Vaccine(2022- season) due on 09/05/2023 Advance Directive Discussion due on 09/15/2023 Depression Assessment due on 09/15/2023 BP Controlled (<130/80) due on 06/26/2024 Annual PCP Team Chronic Disease Visit due on 10/28/2024 Diabetes Screening due on 06/19/2026 DTaP,Tdap,Td Vaccine(2 - Td or Tdap) due on 03/24/2027 Influenza Vaccine Completed RSV Vaccine Completed Hepatitis C Screening Completed Shingrix Vaccine Completed Pneumococcal Vaccine: 65+ Completed HPV Vaccine Aged Out Colorectal Cancer Screening Discontinued Data reviewed Epic ASSESSMENT/PLAN: 1. Bacterial sinusitis - ICD9: 473.9, 041.9, ICD10: J32.9, B96.89 (primary diagnosis) - Recurrent. - Consult, [facility] - Will begin treatment with Doxycycline 100 mg 1 tab po bid for 3 weeks. 2. Recurrent sinus infections - ICD9: 473.9, ICD10: J32.9 - As noted above 3. Sinus headache - ICD9: 784.0, ICD10: R51.9 - Cont using Ibuprofen and OTC regimens. Follow up as needed. I agree with the Chief Complaint, ROS, and Past Histories independently gathered by the clinical client support manager and the remaining scribed note accurately describes my personal service to the patient. Medical Decision Making: Problems: Low: Acute, uncomplicated illness or injury Risk: Moderate: Drug management Medical Decision Making Level: 3 - Low Dede Desai MD The documentation for this note was completed by Lena Thomas Ma acting as scribe for Dede Desai MD. November 20, 2023 10:30 AM. Lena Thomas Ma documented in this encounter [facility] 11-19-2023 Miscellaneous Notes TC to patient. Scheduled patient with PCP 11/20/23 @ 10:20 AM. Shannon Hartman MA documented in this encounter [facility] 10-28-2023 History of Present illness Narrative Chief Complaint Sinus infection HPI:This Team Access Model visit is a virtual encounter. It required patient-provider interaction for the medical decision making as documented below. Patient was offered a virtual/telemedicine appointment in lieu of an office visit due to recommendations to reduce patient exposure to COVID-19. Patient is aware of limitations of performing the visit without a face to face visit in the office setting and agrees. I have communicated my name and active licensure. The patient's identity and physical location were verified at the time of this visit. Either the patient or their legal signs sales representative has been informed of the risks and benefits of -- and alternatives to -- treatment through a remote evaluation and consents to proceed with the evaluation remotely. Pt completing a virtual visit today for sinus infection x 1 week. Pt c/o of sinus headache x 1 week. Using a generic nasal decongestant that is the same strength of Sudafed Maximum Strength and Ibuprofen. Headaches are not improved and getting worse. Having a lot of sinus drainage that is thick and yellow, with a sore throat. History of recurrent sinus infections. Last one 2-3 months ago. Past medical history, appointments, medications, allergies reviewed. Previous Medical History PAST MEDICAL HISTORY Diagnosis Date CLL (chronic lymphocytic leukemia) (HCC) 05/26/2018 Degeneration of intervertebral disc, site unspecified Environmental allergies Essential hypertension 12/15/2017 Obstructive sleep apnea Osteoarthritis hands/ back/ neck Previous Surgical History PAST SURGICAL HISTORY Procedure Laterality Date ARTHROSCOPY KNEE DIAGNOSTIC W/WO SYNOVIAL BX SPX 1991 Arthroscopy, knee ARTHRP KNE CONDYLE&PLATU MEDIAL&LAT COMPARTMENTS 04/14/2008 Knee replacement, total viv knees per dr raymundo COLONOSCOPY FLX DX W/COLLJ SPEC WHEN PFRMD 04-05-13 PAST SURGICAL HISTORY OF right thumb joint TONSILLECTOMY PRIMARY/SECONDARY <AGE 13 Tonsillectomy XCAPSL CTRC RMVL INSJ IO LENS PROSTH W/O ECP 05/2009 , 06/2009 Cataract Removal, right and left Family History FAMILY HISTORY Problem Relation Age of Onset Arthritis Sister Arthritis Brother Patient Allergies ALLERGIES Allergen Reactions Seasonal Allergies Current Medications Current Outpatient Medications on File Prior to Visit Medication Sig nadolol (CORGARD) 40 mg tablet Take 1 tablet by mouth once daily. montelukast (SINGULAIR) 10 mg tablet Take 1 tablet by mouth daily at bedtime. fluticasone (FLONASE) 50 mcg/actuation nasal spray Use 2 Sprays in each nostril once daily. Rinse mouth after use. iron, carbonyl (PERFECT IRON) 25 mg iron tab Take 1 tablet by mouth once daily. trimethoprim-polymyxin (POLYTRIM) 10,000 unit- 1 mg/mL ophthalmic solution Use 1 Drop in both eyes four times daily. levocetirizine 5 mg tablet Take 5 mg by mouth once daily. cholecalciferol (VITAMIN D3) 50 mcg (2,000 unit) tablet Take 2,000 Units by mouth once daily. THERAPEUTIC MULTIVITAMIN TAB Take one(1) tablet daily. No current facility-administered medications on file prior to visit. Social History Social History Tobacco Use Smoking status: Former Types: Pipe Smokeless tobacco: Never Tobacco comments: Quit smoking pipe in early . Vaping Use Vaping Use: Never used Substance Use Topics Alcohol use: Yes Comment: wine or beer at times Drug use: No EXAM: There were no vitals taken for this visit. General Appearance: Well appearing, alert, in no acute distress, well-hydrated, well nourished.. Health Maintenance List Covid-19 Vaccine() due on 09/05/2023 Advance Directive Discussion due on 09/15/2023 Depression Assessment due on 09/15/2023 BP Controlled (<130/80) due on 06/26/2024 Annual PCP Team Chronic Disease Visit due on 08/11/2024 Diabetes Screening due on 06/19/2026 DTaP,Tdap,Td Vaccine(2 - Td or Tdap) due on 03/24/2027 Influenza Vaccine Completed RSV Vaccine Completed Hepatitis C Screening Completed Shingrix Vaccine Completed Pneumococcal Vaccine: 65+ Completed HPV Vaccine Aged Out Colorectal Cancer Screening Discontinued Data reviewed None ASSESSMENT/PLAN: 1. Bacterial sinusitis - ICD9: 473.9, 041.9, ICD10: J32.9, B96.89 - Will begin treatment with Doxycycline - Supportive care with plenty of fluids, rest, and analgesia prn. - DOXYCYCLINE HYCLATE 100 MG TABLET 2. CLL (chronic lymphocytic leukemia) (HCC) - ICD9: 204.10, ICD10: C91.10 Follow with Oncology Follow up prn Dede Desai MD documented in this encounter [facility] 08-11-2023 History of Present illness Narrative Chief Complaint Patient presents with: Sinus Problems HPI: This Team Access Model visit is a virtual/phone encounter. It required patient-provider interaction for the medical decision making as documented below. Patient was offered a virtual/telemedicine appointment in lieu of an office visit due to recommendations to reduce patient exposure to COVID-19. Patient is aware of limitations of performing the visit without a face to face visit in the office setting and agrees. I have communicated my name and active licensure. The patient's identity and physical location were verified at the time of this visit. Either the patient or their legal signs sales representative has been informed of the risks and benefits of -- and alternatives to -- treatment through a remote evaluation and consents to proceed with the evaluation remotely. Pt c/o cold sx x 1 week that he thinks has now turned into a sinus infection. Denies any fever or cough. He has yellow thick drainage, BOSS and sore throat from drainage when he sleeps at night. He has been using Mucinex Cold and Flu for the cold sx. He did test at home for Covid, results negative. History of chronic recurring sinus infections. Has been treated [facility] previously Past medical history, appointments, medications, allergies reviewed. Previous Medical History PAST MEDICAL HISTORY Diagnosis Date CLL (chronic lymphocytic leukemia) (HCC) 05/26/2018 Degeneration of intervertebral disc, site unspecified Environmental allergies Essential hypertension 12/15/2017 Obstructive sleep apnea Osteoarthritis hands/ back/ neck Previous Surgical History PAST SURGICAL HISTORY Procedure Laterality Date ARTHROSCOPY KNEE DIAGNOSTIC W/WO SYNOVIAL BX SPX 1991 Arthroscopy, knee ARTHRP KNE CONDYLE&PLATU MEDIAL&LAT COMPARTMENTS 04/14/2008 Knee replacement, total viv knees per dr raymundo COLONOSCOPY FLX DX W/COLLJ SPEC WHEN PFRMD 04-05-13 PAST SURGICAL HISTORY OF right thumb joint TONSILLECTOMY PRIMARY/SECONDARY <AGE 13 Tonsillectomy XCAPSL CTRC RMVL INSJ IO LENS PROSTH W/O ECP 05/2009 , 06/2009 Cataract Removal, right and left Family History FAMILY HISTORY Problem Relation Age of Onset Arthritis Sister Arthritis Brother Patient Allergies ALLERGIES Allergen Reactions Seasonal Allergies Current Medications Current Outpatient Medications on File Prior to Visit Medication Sig nadolol (CORGARD) 40 mg tablet Take 1 tablet by mouth once daily. montelukast (SINGULAIR) 10 mg tablet Take 1 tablet by mouth daily at bedtime. fluticasone (FLONASE) 50 mcg/actuation nasal spray Use 2 Sprays in each nostril once daily. Rinse mouth after use. iron, carbonyl (PERFECT IRON) 25 mg iron tab Take 1 tablet by mouth once daily. trimethoprim-polymyxin (POLYTRIM) 10,000 unit- 1 mg/mL ophthalmic solution Use 1 Drop in both eyes four times daily. levocetirizine 5 mg tablet Take 5 mg by mouth once daily. cholecalciferol (VITAMIN D3) 50 mcg (2,000 unit) tablet Take 2,000 Units by mouth once daily. THERAPEUTIC MULTIVITAMIN TAB Take one(1) tablet daily. No current facility-administered medications on file prior to visit. Social History Social History Tobacco Use Smoking status: Former Types: Pipe Smokeless tobacco: Never Tobacco comments: Quit smoking pipe in early . Vaping Use Vaping Use: Never used Substance Use Topics Alcohol use: Yes Comment: wine or beer at times Drug use: No EXAM: There were no vitals taken for this visit. Health Maintenance List RSV Vaccine(1 - 1-dose 60+ series) Never done Covid-19 Vaccine(2022- season) due on 09/05/2023 Annual PCP Team Chronic Disease Visit due on 06/11/2024 BP Controlled (<130/80) due on 06/26/2024 Diabetes Screening due on 06/19/2026 DTaP,Tdap,Td Vaccine(2 - Td or Tdap) due on 03/24/2027 Influenza Vaccine Completed Advance Directive Discussion Completed Depression Assessment Completed Hepatitis C Screening Completed Shingrix Vaccine Completed Pneumococcal Vaccine: 65+ Completed HPV Vaccine Aged Out Colorectal Cancer Screening Discontinued Data reviewed none ASSESSMENT/PLAN: 1. Bacterial sinusitis - ICD9: 473.9, 041.9, ICD10: J32.9, B96.89 - Will begin treatment with Doxycycline for 14 days if needed - Supportive care with plenty of fluids, rest, and analgesia prn. - DOXYCYCLINE HYCLATE 100 MG TABLET Follow up prn I agree with the Chief Complaint, ROS, and Past Histories independently gathered by the clinical client support manager and the remaining scribed note accurately describes my personal service to the patient. Dede Desai MD The documentation for this note was completed by Tricia Chaudhary Ma acting as scribe for Dede Desai MD. August 11, 2023 7:33 PM. Tricia Chaudhary Ma documented in this encounter [facility] 08-11-2023 Miscellaneous Notes Pt accepted appt, pt scheduled. Tricia Chaudhary Ma Offered VV tonight at 7:40 PM with PCP. Awaiting response. documented in this encounter [facility] 06-26-2023 History of Present illness Narrative Anne HISTORY OF PRESENT ILLNESS: Dede Chow is a 77 year old male history CLL dx in 2015. Here for follow up, doing well, c/o fatigue. Labs reviewed, we note mild anemia stable from last year. Hes been taking iron supp CLINICAL IMPRESSION: CLL slight increase in WBC Mild anemia RECOMMENDATION/PLAN: 1. Recheck cbc 6 months 2. Anemia work up Written and verbal health teaching given to patient, patient verbalizes understanding and agrees with treatment plan. PAST MEDICAL HISTORY Diagnosis Date CLL (chronic lymphocytic leukemia) (HCC) 05/26/2018 Degeneration of intervertebral disc, site unspecified Environmental allergies Essential hypertension 12/15/2017 Obstructive sleep apnea Osteoarthritis hands/ back/ neck PAST SURGICAL HISTORY Procedure Laterality Date ARTHROSCOPY KNEE DIAGNOSTIC W/WO SYNOVIAL BX SPX 1991 Arthroscopy, knee ARTHRP KNE CONDYLE&PLATU MEDIAL&LAT COMPARTMENTS 04/14/2008 Knee replacement, total viv knees per dr raymundo COLONOSCOPY FLX DX W/COLLJ SPEC WHEN PFRMD 04-05-13 PAST SURGICAL HISTORY OF right thumb joint TONSILLECTOMY PRIMARY/SECONDARY <AGE 13 Tonsillectomy XCAPSL CTRC RMVL INSJ IO LENS PROSTH W/O ECP 05/2009 , 06/2009 Cataract Removal, right and left FAMILY HISTORY Problem Relation Age of Onset Arthritis Sister Arthritis Brother Social History Tobacco Use Smoking status: Former Types: Pipe Smokeless tobacco: Never Tobacco comments: Quit smoking pipe in early . Vaping Use Vaping Use: Never used Substance Use Topics Alcohol use: Yes Comment: wine or beer at times Drug use: No ALLERGIES: ALLERGIES Allergen Reactions Seasonal Allergies CURRENT OUTPATIENT MEDICATIONS: cholecalciferol (VITAMIN D3) 50 mcg (2,000 unit) tablet Take 2,000 Units by mouth once daily. fluticasone (FLONASE) 50 mcg/actuation nasal spray Use 2 Sprays in each nostril once daily. Rinse mouth after use. iron, carbonyl (PERFECT IRON) 25 mg iron tab Take 1 tablet by mouth once daily. levocetirizine 5 mg tablet Take 5 mg by mouth once daily. montelukast (SINGULAIR) 10 mg tablet Take 1 tablet by mouth daily at bedtime. nadolol (CORGARD) 40 mg tablet Take 1 tablet by mouth once daily. THERAPEUTIC MULTIVITAMIN TAB Take one(1) tablet daily. trimethoprim-polymyxin (POLYTRIM) 10,000 unit- 1 mg/mL ophthalmic solution Use 1 Drop in both eyes four times daily. REVIEW OF SYSTEMS: GENERAL: No fever, night sweats, weight loss or malaise. All other reviewed and negative other than HPI. PHYSICAL EXAMINATION: VITAL SIGNS: BP 120/73 Pulse 63 Temp 96.7 Ht 5' 8.898 (1.75m) Wt 203 lb 8 oz (92.3kg) SpO2 95% BMI 30.14 kg/(m^2). GENERAL APPEARANCE: Well appearing, in no acute distress, alert and oriented x3, well-hydrated, well nourished. No adenopathy or splenomegaly I spent a total of 30 minutes on the date of the service which included preparing to see the patient, [id number] patient care, completing clinical documentation, obtaining and/or reviewing separately obtained history, performing a medically appropriate examination, counseling and educating the patient/family/caregiver, ordering medications, tests, or procedures, independently interpreting results (not separately reported), and communicating results to the patient/family/caregiver. Electronically Signed: Jose Jiménez MD June 26, 2023 8:50 AM documented in this encounter [facility] 01-13-2023 History of Present illness Narrative Telemedicine Visit - Distance Health Virtual Visit Note Patient seen on [employer] video visit platform. Location of patient: [place] Dede Desai MD I have communicated my name and active licensure. The patient's identity and physical location were verified at the time of this visit. Either the patient or their legal signs sales representative has been informed of the risks and benefits of -- and alternatives to -- treatment through a remote evaluation and consents to proceed with the evaluation remotely. History of Present Illness Dede Chow is a 77 year old year old male who presents for sinus symptoms. Started about 6 days ago. Thought is was allergies. But now worse with headaches, yellow discharge, morning sore throat. No sore throat. No cough. No fevers. More frontal sinus cavity. Uses otc mucinex and allergy medications. History of CLL. Has had recurrent sinus infections where we had to extend his antibiotic use past the usual length. PAST MEDICAL HISTORY Diagnosis Date CLL (chronic lymphocytic leukemia) (HCC) 05/26/2018 Degeneration of intervertebral disc, site unspecified Environmental allergies Essential hypertension 12/15/2017 Obstructive sleep apnea Osteoarthritis hands/ back/ neck PAST SURGICAL HISTORY Procedure Laterality Date ARTHROSCOPY KNEE DIAGNOSTIC W/WO SYNOVIAL BX SPX 1991 Arthroscopy, knee ARTHRP KNE CONDYLE&PLATU MEDIAL&LAT COMPARTMENTS 04/14/2008 Knee replacement, total viv knees per dr raymundo COLONOSCOPY FLX DX W/COLLJ SPEC WHEN PFRMD 04-05-13 PAST SURGICAL HISTORY OF right thumb joint TONSILLECTOMY PRIMARY/SECONDARY <AGE 13 Tonsillectomy XCAPSL CTRC RMVL INSJ IO LENS PROSTH W/O ECP 05/2009 , 06/2009 Cataract Removal, right and left FAMILY HISTORY Problem Relation Age of Onset Arthritis Sister Arthritis Brother Social History Tobacco Use Smoking status: Former Types: Pipe Smokeless tobacco: Never Tobacco comments: Quit smoking pipe in early . Vaping Use Vaping Use: Never used Substance Use Topics Alcohol use: Yes Comment: wine or beer at times Drug use: No Current Outpatient Medications Medication Sig nadolol (CORGARD) 40 mg tablet Take 1 tablet by mouth once daily. montelukast (SINGULAIR) 10 mg tablet Take 1 tablet by mouth daily at bedtime. fluticasone (FLONASE) 50 mcg/actuation nasal spray Use 2 Sprays in each nostril once daily. Rinse mouth after use. iron, carbonyl (PERFECT IRON) 25 mg iron tab Take 1 tablet by mouth once daily. trimethoprim-polymyxin (POLYTRIM) 10,000 unit- 1 mg/mL ophthalmic solution Use 1 Drop in both eyes four times daily. levocetirizine 5 mg tablet Take 5 mg by mouth once daily. cholecalciferol (VITAMIN D3) 50 mcg (2,000 unit) tablet Take 2,000 Units by mouth once daily. THERAPEUTIC MULTIVITAMIN TAB Take one(1) tablet daily. No current facility-administered medications for this visit. ALLERGIES Allergen Reactions Seasonal Allergies Video Exam (Examination performed via Video enabled technology) General appearance: Alert, oriented, pleasant, in NAD :Yes Ill appearing :No Lethargic appearing :No Respiratory distress :No Nose/sinus: Patient palpating the bilateral upper frontal sinus cavities and remarking on tenderness. ASSESSMENT/PLAN: 1. Acute recurrent sinusitis, unspecified location - ICD9: 461.9, ICD10: J01.91 - Will begin treatment with as per antibiotic as written, see orders - The patient should also be given OTC decongestants prn, warm salt water gargles, throat lozenges and/or OTC throat spray as needed, and nasal saline gtts and suction prn for the first 5-7 days of treatment. - Supportive care with plenty of fluids, rest, and analgesia prn. - DOXYCYCLINE HYCLATE 100 MG TABLET - PREDNISONE 10 MG TABLET PLAN: - Red flags discussed for need for in person care - All questions answered Mir Sommer APRN.CNP If you let us know who your primary care provider is, we will send them a notification of today's visit through our electronic medical records system. Since not all providers have access to our notifications, we strongly encourage you to share the following record of today's visit with your primary care provider at your next visit. This will help in providing you the best care. If you do not have an established Primary Care physician and would like to continue care with a [facility] Virtual Primary Care physician, please ask your provider to place a Establish Primary Care order. Use Perfect to manage your care, wherever you are, 07/04, on your mobile device or computer. Perfect connects you to [employer] so you can access all your health information in one place and also schedule and request virtual appointments with primary care providers. documented in this encounter [facility] 01-13-2023 Miscellaneous Notes Pt scheduled. Lena Thomas Ma Offered 1:00 pm VV with ROSARIO. Lena Thomas Ma Offered same day VV at 3:40 pm with PCP. Wait pt response, spot held. Lena Thomas Ma documented in this encounter [facility] 01-10-2023 Miscellaneous Notes The following approved medication requests have been transmitted electronically. Requested Prescriptions Signed Prescriptions Disp Refills nadolol (CORGARD) 40 mg tablet 90 tablet 3 Sig: Take 1 tablet by mouth once daily. montelukast (SINGULAIR) 10 mg tablet 90 tablet 3 Sig: Take 1 tablet by mouth daily at bedtime. Noelle Zhu APRN.CNP Pt only received 2 week supply. Can we resend this to [facility], update pt when complete. Lena Thomas Ma documented in this encounter [facility] 12-05-2022 Miscellaneous Notes Pt notified via [employer] of all information below. Consult was faxed to ENT [phone]. Lena Thomas Ma Consult order filed Order placed for fasting lipid profile Dede Desai MD documented in this encounter [facility] 11-04-2022 History of Present illness Narrative Chief Complaint Patient presents with: sinus congestion HPI:This Team Access Model visit is a virtual encounter. It required patient-provider interaction for the medical decision making as documented below. Patient was offered a virtual/telemedicine appointment in lieu of an office visit due to recommendations to reduce patient exposure to COVID-19. Patient is aware of limitations of performing the visit without a face to face visit in the office setting and agrees. Pt completing a virtual visit today due to illness. Pt wrote into the office today with c/o of symptoms since Friday night. Pt is reporting really bad headaches, centering in the sinus areas. Experiencing a lot of thick yellowish green drainage. Denies having a cough, sore throat, high temp or other signs of a cold, but believes he has a sinus infection and has been treated in the past with abx. Took home Covid test today and was negative. Has used Mucinex Sinus-Max which has dried up most of the drainage, but headaches are getting worse. History of recurrent sinus infections. Has been working with ENT, has had polyps removed, balloon dilatation and drainage done, getting allergy injections. Past medical history, appointments, medications, allergies reviewed. Previous Medical History PAST MEDICAL HISTORY Diagnosis Date CLL (chronic lymphocytic leukemia) (HCC) 05/26/2018 Degeneration of intervertebral disc, site unspecified Environmental allergies Essential hypertension 12/15/2017 Obstructive sleep apnea Osteoarthritis hands/ back/ neck Previous Surgical History PAST SURGICAL HISTORY Procedure Laterality Date ARTHROSCOPY KNEE DIAGNOSTIC W/WO SYNOVIAL BX SPX 1991 Arthroscopy, knee ARTHRP KNE CONDYLE&PLATU MEDIAL&LAT COMPARTMENTS 04/14/2008 Knee replacement, total viv knees per dr raymundo COLONOSCOPY FLX DX W/COLLJ SPEC WHEN PFRMD 04-05-13 PAST SURGICAL HISTORY OF right thumb joint TONSILLECTOMY PRIMARY/SECONDARY <AGE 13 Tonsillectomy XCAPSL CTRC RMVL INSJ IO LENS PROSTH W/O ECP 05/2009 , 06/2009 Cataract Removal, right and left Family History FAMILY HISTORY Problem Relation Age of Onset Arthritis Sister Arthritis Brother Patient Allergies ALLERGIES Allergen Reactions Seasonal Allergies Current Medications Current Outpatient Medications on File Prior to Visit Medication Sig fluticasone (FLONASE) 50 mcg/actuation nasal spray Use 2 Sprays in each nostril once daily. Rinse mouth after use. nadolol (CORGARD) 40 mg tablet Take 1 tablet by mouth once daily for 14 days. montelukast (SINGULAIR) 10 mg tablet Take 1 tablet by mouth daily at bedtime for 14 days. iron, carbonyl (PERFECT IRON) 25 mg iron tab Take 1 tablet by mouth once daily. trimethoprim-polymyxin (POLYTRIM) 10,000 unit- 1 mg/mL ophthalmic solution Use 1 Drop in both eyes four times daily. levocetirizine 5 mg tablet Take 5 mg by mouth once daily. cholecalciferol (VITAMIN D3) 50 mcg (2,000 unit) tablet Take 2,000 Units by mouth once daily. THERAPEUTIC MULTIVITAMIN TAB Take one(1) tablet daily. No current facility-administered medications on file prior to visit. Social History Social History Tobacco Use Smoking status: Former Types: Pipe Smokeless tobacco: Never Tobacco comments: Quit smoking pipe in early . Vaping Use Vaping Use: Never used Substance Use Topics Alcohol use: Yes Comment: wine or beer at times Drug use: No EXAM: There were no vitals taken for this visit. Video exam: NAD Health Maintenance List BP CONTROLLED (<130/80) Never done LIPID SCREEN due on 12/09/2022 COLORECTAL CANCER SCREENING due on 04/05/2023 ANNUAL PCP TEAM CHRONIC DISEASE VISIT due on 10/09/2023 DIABETES SCREEN due on 06/20/2025 DTAP,TDAP,TD(2 - Td or Tdap) due on 03/24/2027 INFLUENZA Completed ADVANCE DIRECTIVE DISCUSSION Completed DEPRESSION ASSESSMENT Completed HEPATITIS C SCREENING Completed SHINGRIX VACCINE Completed COVID-19 VACCINE Completed PNEUMOCOCCAL: 65+ Completed Data reviewed none ASSESSMENT/PLAN: 1. Bacterial sinusitis - ICD9: 473.9, 041.9, ICD10: J32.9, B96.89 - Will begin treatment with Doxycycline - Supportive care with plenty of fluids, rest, and analgesia prn. - Follow up in one week if symptoms persist or worsen. - DOXYCYCLINE HYCLATE 100 MG TABLET I agree with the Chief Complaint, ROS, and Past Histories independently gathered by the clinical client support manager and the remaining scribed note accurately describes my personal service to the patient. Dede Desai MD The documentation for this note was completed by Tricia Chaudhary Ma acting as scribe for Dede Desai MD. November 04, 2022 4:59 PM. Tricia Chaudhary Ma documented in this encounter [facility] 11-04-2022 Miscellaneous Notes Pt agreeable to VV appt at 5:00 pm. VV instructions sent to pt. Appt scheduled. Lena Thomas Ma Offered pt 5:00 pm VV with PCP to discuss and possibly treat. Spot held, wait on pt response. AT is full this afternoon. Lena Thomas Ma documented in this encounter [facility] 10-09-2022 Instructions Noelle Zhu APRN.WEATHERIZATION TECHNICIAN - 10/09/2022 4:34 PM EST Continue to take all medication as prescribed. Keep scheduled appointments with Oncology and Dermatology. Follow up in office in 1 year or sooner as needed. documented in this encounter [facility] 10-09-2022 History of Present illness Narrative This is a 76 year old male who presents today with: Patient presents with: Follow Up: for meds HISTORY OF PRESENT ILLNESS: Dede Chow is a 76 year old male. Patient presents with: Follow Up: for meds Here in the office for medication refills HTN: Taking nadolol 40 mg daily. Not currently checking blood pressure at home. Denies chest pain, palpitations, dizziness, and/or edema Recurrent sinusitis: Taking Singulair 10 mg daily and using Flonase. Symptoms well controlled. Went to [facility], getting allergy shots weekly. Skin Cancer: Following with [facility]. Has several lesions removed on face due to cancer. Squamous cell carcinoma. Next follow up in November. Oncology: Following with Dr. Chavez annually. Has labs completed. In remission. Dr. Chavez retiring, will need to schedule follow up with colleague in . PAST MEDICAL HISTORY: PAST MEDICAL HISTORY Diagnosis Date CLL (chronic lymphocytic leukemia) (HCC) 05/26/2018 Degeneration of intervertebral disc, site unspecified Environmental allergies Essential hypertension 12/15/2017 Obstructive sleep apnea Osteoarthritis hands/ back/ neck PAST SURGICAL HISTORY Procedure Laterality Date ARTHROSCOPY KNEE DIAGNOSTIC W/WO SYNOVIAL BX SPX 1991 Arthroscopy, knee ARTHRP KNE CONDYLE&PLATU MEDIAL&LAT COMPARTMENTS 04/14/2008 Knee replacement, total viv knees per dr raymundo COLONOSCOPY FLX DX W/COLLJ SPEC WHEN PFRMD 04-05-13 PAST SURGICAL HISTORY OF right thumb joint TONSILLECTOMY PRIMARY/SECONDARY <AGE 13 Tonsillectomy XCAPSL CTRC RMVL INSJ IO LENS PROSTH W/O ECP 05/2009 , 06/2009 Cataract Removal, right and left ALLERGIES Seasonal Allergies MEDICATIONS Current Outpatient Medications Medication Sig iron, carbonyl (PERFECT IRON) 25 mg iron tab Take 1 tablet by mouth once daily. fluticasone (FLONASE) 50 mcg/actuation nasal spray Use 2 Sprays in each nostril once daily. Rinse mouth after use. trimethoprim-polymyxin (POLYTRIM) 10,000 unit- 1 mg/mL ophthalmic solution Use 1 Drop in both eyes four times daily. nadolol (CORGARD) 40 mg tablet Take 1 tablet by mouth once daily. montelukast (SINGULAIR) 10 mg tablet Take 1 tablet by mouth daily at bedtime. levocetirizine 5 mg tablet Take 5 mg by mouth once daily. cholecalciferol (VITAMIN D3) 50 mcg (2,000 unit) tablet Take 2,000 Units by mouth once daily. THERAPEUTIC MULTIVITAMIN TAB Take one(1) tablet daily. No current facility-administered medications for this visit. FAMILY HISTORY Problem Relation Age of Onset Arthritis Sister Arthritis Brother Social History Tobacco Use Smoking status: Former Types: Pipe Smokeless tobacco: Never Tobacco comments: Quit smoking pipe in early . Vaping Use Vaping Use: Never used Substance Use Topics Alcohol use: Yes Comment: wine or beer at times Drug use: No REVIEW OF SYSTEMS GENERAL: No weight loss, malaise or fevers/chills HEENT: Negative for frequent or significant headaches, No changes in hearing or vision. NECK: Negative for lumps, goiter, pain and significant neck swelling RESPIRATORY: Negative for cough, hemoptysis, wheezing, dyspnea or shortness of breath CARDIOVASCULAR: Negative for chest pain, leg swelling, orthopnea, or palpitations GI: No nausea, vomiting, or diarrhea/constipation. No hematochezia/melena. No heartburn or reflux symptoms. : No history of dysuria, frequency or incontinence MUSCULOSKELETAL: Negative for joint pain or swelling. SKIN: Negative for lesions, rash, and itching ENDOCRINE: Negative for cold or heat intolerance, polyuria, polydipsia and goiter NEURO: No history of headaches, syncope, paralysis, seizures or tremors MOOD: Negative for depression, anxiety, or suicidal ideation. EXAM: BP 132/70 Pulse 64 Resp 16 Wt 93 kg (205 lb) SpO2 97% BMI 30.27 kg/m PHYSICAL EXAM: General Appearance: Well appearing, alert, in no acute distress, well-hydrated, well nourished. Skin: Skin color, texture, turgor normal, healed laceration noted upper right side of face. Head: Normocephalic, no masses, tenderness Eyes: Anicteric sclera. Extraocular movements are intact. Lungs: Lungs clear to auscultation. No wheezing, rhonchi, rales. Heart: RRR without murmur, gallop, or rubs. No ectopy. Extremities: No deformities, edema, skin discoloration, clubbing or cyanosis. Good capillary refill. Peripheral Pulses: Normal, Capillary refill <2secs, strong peripheral pulses, Pulses palpable. Neurologic: Gait normal. Sensation grossly intact. ASSESSMENT/PLAN: 1. Essential hypertension - ICD9: 401.9, ICD10: I10 (primary diagnosis) - good control - Continue current medication(s) - Recommended regular aerobic exercise. - Recommend home blood pressure monitoring, to bring results in on next visit - Goal of BP <130/80 - NADOLOL 40 MG TABLET 2. Acute recurrent sinusitis, unspecified location - ICD9: 461.9, ICD10: J01.91 - Continue with weekly allergy injections and current medications. - MONTELUKAST 10 MG TABLET 3. CLL (chronic lymphocytic leukemia) (HCC) - ICD9: 204.10, ICD10: C91.10 - Keep annual appointments with hem/Onc - Get labs completed from Hem/Onc 4. Squamous cell carcinoma, face - ICD9: 173.32, ICD10: C44.320 - Keep scheduled appointments with dermatology. Follow up in 1 year or sooner as needed. Discussed treatment plan and patient voices understanding. Patient's questions answered appropriately. Medications and potential side effects were discussed and patient voices understanding. Noelle Zhu APRN.CNP This note was partially generated using [employer] voice recognition system. Note was reviewed for accuracy. There may be minor misspellings or grammar miscues with [employer] voice recognition. documented in this encounter [facility] 08-01-2022 Instructions Noelle Zhu APRN.CNP - 08/01/2022 1:04 PM EST Start doxycyline, take with food. Stay well hydrated. Continue to take all medication as prescribed. Continue supportive care at home. Follow up as needed. documented in this encounter [facility] 08-01-2022 History of Present illness Narrative This is a 76 year old male who presents today with: Patient presents with: Acute Visit: sinus pressure/pain in hinduism area HISTORY OF PRESENT ILLNESS: Dede Chow is a 76 year old male. Patient presents with: Acute Visit: sinus pressure/pain in hinduism area Here in the office for sinus pressure. Had covid 07/20/2022. Refers on going sinus congestion/pressure. Intermittent cough and sneezing. White and yellow sinus discharge. Waking up with post nasal drip. No fever or chills. Taking Xyzal, singulair, and flonase. No difficulty breathing. PAST MEDICAL HISTORY: PAST MEDICAL HISTORY Diagnosis Date CLL (chronic lymphocytic leukemia) (HCC) 05/26/2018 Degeneration of intervertebral disc, site unspecified Environmental allergies Essential hypertension 12/15/2017 Obstructive sleep apnea Osteoarthritis hands/ back/ neck PAST SURGICAL HISTORY Procedure Laterality Date ARTHROSCOPY KNEE DIAGNOSTIC W/WO SYNOVIAL BX SPX 1991 Arthroscopy, knee ARTHRP KNE CONDYLE&PLATU MEDIAL&LAT COMPARTMENTS 04/14/2008 Knee replacement, total viv knees per dr raymundo COLONOSCOPY FLX DX W/COLLJ SPEC WHEN PFRMD 04-05-13 PAST SURGICAL HISTORY OF right thumb joint TONSILLECTOMY PRIMARY/SECONDARY <AGE 13 Tonsillectomy XCAPSL CTRC RMVL INSJ IO LENS PROSTH W/O ECP 05/2009 , 06/2009 Cataract Removal, right and left ALLERGIES Seasonal Allergies MEDICATIONS Current Outpatient Medications Medication Sig iron, carbonyl (PERFECT IRON) 25 mg iron tab Take 1 tablet by mouth once daily. fluticasone (FLONASE) 50 mcg/actuation nasal spray Use 2 Sprays in each nostril once daily. Rinse mouth after use. trimethoprim-polymyxin (POLYTRIM) 10,000 unit- 1 mg/mL ophthalmic solution Use 1 Drop in both eyes four times daily. nadolol (CORGARD) 40 mg tablet Take 1 tablet by mouth once daily. montelukast (SINGULAIR) 10 mg tablet Take 1 tablet by mouth daily at bedtime. levocetirizine 5 mg tablet Take 5 mg by mouth once daily. cholecalciferol (VITAMIN D3) 50 mcg (2,000 unit) tablet Take 2,000 Units by mouth once daily. THERAPEUTIC MULTIVITAMIN TAB Take one(1) tablet daily. No current facility-administered medications for this visit. FAMILY HISTORY Problem Relation Age of Onset Arthritis Sister Arthritis Brother Social History Tobacco Use Smoking status: Former Types: Pipe Smokeless tobacco: Never Tobacco comments: Quit smoking pipe in early . Vaping Use Vaping Use: Never used Substance Use Topics Alcohol use: Yes Comment: wine or beer at times Drug use: No REVIEW OF SYSTEMS GENERAL: No weight loss, malaise or fevers/chills HEENT: + Sinus Congestion NECK: Negative for lumps, goiter, pain and significant neck swelling RESPIRATORY: Negative for cough, hemoptysis, wheezing, dyspnea or shortness of breath CARDIOVASCULAR: Negative for chest pain, leg swelling, orthopnea, or palpitations GI: No nausea, vomiting, or diarrhea/constipation. No hematochezia/melena. No heartburn or reflux symptoms. : No history of dysuria, frequency or incontinence MUSCULOSKELETAL: Negative for joint pain or swelling. SKIN: Negative for lesions, rash, and itching ENDOCRINE: Negative for cold or heat intolerance, polyuria, polydipsia and goiter NEURO: No history of headaches, syncope, paralysis, seizures or tremors MOOD: Negative for depression, anxiety, or suicidal ideation. EXAM: BP 140/88 Pulse 64 Resp 16 Wt 91.6 kg (202 lb) SpO2 96% BMI 29.83 kg/m PHYSICAL EXAM: General Appearance: Well appearing, alert, in no acute distress, well-hydrated, well nourished. Skin: Skin color, texture, turgor normal, no suspicious rashes or lesions. Head: Normocephalic, no masses, lesions, tenderness or abnormalities. Eyes: Anicteric sclera. Extraocular movements are intact. Ears: External ears normal, canals clear. TM's dull. Nose/Sinuses: Nares normal, septum midline, mucosa normal, no drainage or sinus tenderness. Neck: Supple, no adenopathy; thyroid symmetric, normal size, no bruits. Lungs: Lungs clear to auscultation. No wheezing, rhonchi, rales. Heart: RRR without murmur, gallop, or rubs. No ectopy. Extremities: No deformities, edema, skin discoloration, clubbing or cyanosis. Good capillary refill. Peripheral Pulses: Normal, Capillary refill <2secs, strong peripheral pulses, Pulses palpable. Neurologic: Gait normal. Reflexes normal and symmetric. Sensation grossly intact. ASSESSMENT/PLAN: 1. Bacterial sinusitis - ICD9: 473.9, 041.9, ICD10: J32.9, B96.89 - Exam relatively normal but due to ongoing and length of symptoms will start treatment. - Will begin treatment with Doxycycline - Supportive care with plenty of fluids, rest, and analgesia prn. - DOXYCYCLINE HYCLATE 100 MG TABLET Follow-up as needed or sooner if symptoms get worse or do not improve. Discussed treatment plan and patient voices understanding. Patient's questions answered appropriately. Medications and potential side effects were discussed and patient voices understanding. Noelle Zhu APRN.LELA This note was partially generated using [employer] recognition system. Note was reviewed for accuracy. There may be minor misspellings or grammar miscues with [employer] voice recognition. documented in this encounter [facility] 08-01-2022 Miscellaneous Notes Patient calls today to report worsening symptoms. Patient reports that he is now having sinus pain/pressure and increased nasal drainage clear to thick yellow and green at times. Denies chest pain and SOB. Afebrile. Headache and cough from sinus drainage into the back of the throat. Denies ear pain. Patient requesting antibiotic. Appointment scheduled for evaluation. Rin Beach RN documented in this encounter [facility] 07-20-2022 History of Present illness Narrative This note was created using [employer]. Subjective Dede Chow is a 76 year old male. HPI Patient presents with a chief complaint of a positive COVID test at home today. He took 2 of them and they were positive. His symptoms started yesterday. He has a cough, runny nose. Headache. No fever. No vomiting. No chest pain or shortness of breath. He does have a history of chronic lymphocytic leukemia. He is fully vaccinated. He has not had COVID previously. He is here with his . Review of Systems Constitutional: Positive for fatigue. HENT: Positive for congestion and rhinorrhea. Respiratory: Positive for cough. Cardiovascular: Negative. Gastrointestinal: Negative. Genitourinary: Negative. Musculoskeletal: Negative. Neurological: Positive for headaches. All other systems reviewed and are negative. PAST MEDICAL HISTORY Diagnosis Date CLL (chronic lymphocytic leukemia) ([facility]) 05/26/2018 Degeneration of intervertebral disc, site unspecified Environmental allergies Essential hypertension 12/15/2017 Obstructive sleep apnea Osteoarthritis hands/ back/ neck Current Outpatient Medications Medication Sig Dispense Refill fluticasone (FLONASE) 50 mcg/actuation nasal spray Use 2 Sprays in each nostril once daily. Rinse mouth after use. 4 Each 4 trimethoprim-polymyxin (POLYTRIM) 10,000 unit- 1 mg/mL ophthalmic solution Use 1 Drop in both eyes four times daily. 10 mL 0 nadolol (CORGARD) 40 mg tablet Take 1 tablet by mouth once daily. 90 tablet 3 montelukast (SINGULAIR) 10 mg tablet Take 1 tablet by mouth daily at bedtime. 90 tablet 3 levocetirizine 5 mg tablet Take 5 mg by mouth once daily. cholecalciferol (VITAMIN D3) 50 mcg (2,000 unit) tablet Take 2,000 Units by mouth once daily. THERAPEUTIC MULTIVITAMIN TAB Take one(1) tablet daily. 0 iron, carbonyl (PERFECT IRON) 25 mg iron tab Take 1 tablet by mouth once daily. nirmatrelvir tablet 300 mg (150 mg x 2) and ritonavir tablet 100 mg in a dose pack (PAXLOVID) Administer TWO pink nirmatrelvir 150 mg tablets and ONE white ritonavir 100 mg tablet for a total of three tablets twice daily. 30 tablet 0 No current facility-administered medications for this visit. PAST SURGICAL HISTORY Procedure Laterality Date ARTHROSCOPY KNEE DIAGNOSTIC W/WO SYNOVIAL BX SPX 1991 Arthroscopy, knee ARTHRP KNE CONDYLE&PLATU MEDIAL&LAT COMPARTMENTS 04/14/2008 Knee replacement, total viv knees per dr raymundo COLONOSCOPY FLX DX W/COLLJ SPEC WHEN PFRMD 04-05-13 PAST SURGICAL HISTORY OF right thumb joint TONSILLECTOMY PRIMARY/SECONDARY <AGE 13 Tonsillectomy XCAPSL CTRC RMVL INSJ IO LENS PROSTH W/O ECP 05/2009 , 06/2009 Cataract Removal, right and left FAMILY HISTORY Problem Relation Age of Onset Arthritis Sister Arthritis Brother Social History Tobacco Use Smoking status: Former Types: Pipe Smokeless tobacco: Never Tobacco comments: Quit smoking pipe in early . Vaping Use Vaping Use: Never used Substance Use Topics Alcohol use: Yes Comment: wine or beer at times Drug use: No Objective BP 130/78 Pulse 65 Temp 36.7 C (98 F) Resp 16 Wt 92.5 kg (204 lb) SpO2 97% BMI 30.13 kg/m Physical Exam Vitals reviewed. Constitutional: Appearance: Normal appearance. HENT: Head: Normocephalic and atraumatic. Cardiovascular: Rate and Rhythm: Normal rate and regular rhythm. Heart sounds: Normal heart sounds. Pulmonary: Effort: Pulmonary effort is normal. Breath sounds: Normal breath sounds. Musculoskeletal: Cervical back: Neck supple. Skin: General: Skin is warm and dry. Findings: No rash. Neurological: General: No focal deficit present. Mental Status: He is alert and oriented to person, place, and time. Assessment and Plan ASSESSMENT/PLAN: 1. Suspected COVID-19 virus infection - ICD9: V01.79, ICD10: Z20.822 I did recommend paxlovid due to his history of being immunocompromised with CLL and age. PCR test pending. Discussed red flags for ER care. Discussed supportive care. Patient and agreeable with plan. - COVID WITH FLUA+B, ROUTINE - NIRMATRELVIR 300 MG (150 MG X2)-RITONAVIR 100 MG TABLET,DOSE PACK(EUA) Rola Craig PA-C Nirmatrelvir/Ritonavir (Paxlovid) Eligibility and Patient Discussion [facility] Formulary Restriction Criteria: Adult outpatients 18 years and older with ALL of the following: [x] Patient has positive SARS-COV-2 viral test (PCR or antigen test) during current illness [x] Patient has symptoms for 5 days or less [x] Not requiring hospitalization at any time for management of COVID-19 [x] Not requiring supplemental oxygen or a change in baseline supplemental oxygen [x] Not utilized for pre-exposure or post-exposure prophylaxis for prevention of COVID-19 [x] Patient does not have severe renal impairment (eGFR < 30 mL/min) or severe hepatic impairment (Child-[place] Class C) [x] Meeting at least one of the criteria for high risk of progression to severe COVID-19: [x] Age over 65 years [x] Cancer [] Chronic kidney disease [] Chronic liver disease [] Chronic lung diseases, including cystic fibrosis [] Dementia or other neurological conditions [] Diabetes (type 1 or type 2) [] Disabilities, including Down syndrome and neurodevelopmental disorders [] Heart conditions [] HIV infection [x] Immunocompromised state [] Mental health conditions [] Medical related technological dependence (tracheostomy, gastrostomy, or positive pressure ventilation (not related to COVID) [x] Overweight and obesity (BMI greater or equal to 25 for adults) [] Physical inactivity [] [] Sickle cell disease or thalassemia [] Smoking, current or former [] Solid organ or blood stem cell transplant [] Stroke or cerebrovascular disease [] Substance use disorders [] Tuberculosis [] People from racial and ethnic minority groups Criteria above are met: Yes Date of Positive Test:07/20/2022 Date of Symptom Onset: 07/19/22 Patient received COVID vaccine: Yes Drug-Drug interactions reviewed: No. I have discussed the use of the investigational therapeutic, nirmatrelvir/ritonavir, for the treatment of mild to moderate COVID-19 and its use under Emergency Use Authorization with the patient. The patient was informed that nirmatrelvir/ritonavir is not an FDA approved drug and that it is authorized for use under this Emergency Use Authorization. The patient was also informed of the significant known benefits and potential risks of nirmatrelvir/ritonavir, and the extent to which such potential risks and benefits are unknown. The patient was informed that there is mandatory reporting of all medication errors and serious adverse events potentially related to nirmatrelvir/ritonavir treatment within 7 calendar days from the onset of the event and that events up to 28 days after completion of therapy need to be reported. The discussion included alternatives to receiving nirmatrelvir/ritonavir, including clinical trials, and potential the risks and benefits of those alternatives. The patient was provided electronically with the Fact Sheet for Patients, Parents and Caregivers. The patient was also instructed that in addition to the treatment with nirmatrelvir/ritonavir, he/she should continue to self-isolate and use infection control measures (e.g., wear mask, isolate, social distance, avoid sharing personal items, clean and disinfect high touch surfaces, and frequent handwashing) according to CDC guidelines. The patient stated understanding and gave verbal consent to proceeding with nirmatrelvir/ritonavir treatment. Rola Craig PA-C July 20, 2022 2:53 PM documented in this encounter [facility] 07-20-2022 Instructions Rola Craig PA-C - 07/20/2022 2:31 PM EDT FACT SHEET FOR PATIENTS, PARENTS, AND CAREGIVERS EMERGENCY USE AUTHORIZATION (EUA) OF PAXLOVID FOR CORONAVIRUS DISEASE 2019 (COVID-19) You are being given this Fact Sheet because your healthcare provider believes it is necessary to provide you with PAXLOVID for the treatment of zdct-lj-tkimnrdg coronavirus disease (COVID-19) caused by the SARS-CoV-2 virus. This Fact Sheet contains information to help you understand the risks and benefits of taking the PAXLOVID you have received or may receive. The U.S. Food and Drug Administration (FDA) has issued an Emergency Use Authorization (EUA) to make PAXLOVID available during the COVID-19 pandemic (for more details about an EUA please see What is an Emergency Use Authorization? at the end of this document). PAXLOVID is not an FDA-approved medicine in the [place]. Read this Fact Sheet for information about PAXLOVID. Talk to your healthcare provider about your options or if you have any questions. It is your choice to take PAXLOVID. What is COVID-19? COVID-19 is caused by a virus called a coronavirus. You can get COVID-19 through close contact with another person who has the virus. COVID-19 illnesses have ranged from very odgp-nv-meeqzu, including illness resulting in . While information so far suggests that most COVID-19 illness is mild, serious illness can happen and may cause some of your other medical conditions to become worse. Older people and people of all ages with severe, long lasting (chronic) medical conditions like heart disease, lung disease, and diabetes, for example seem to be at higher risk of being hospitalized for COVID-19. What is PAXLOVID? PAXLOVID is an investigational medicine used to treat ygsh-hv-snqampxw COVID-19 in adults and children [12 years of age and older weighing at least 88 pounds (40 kg)] with positive results of direct SARS-CoV-2 viral testing, and who are at high risk for progression to severe COVID-19, including hospitalization or . PAXLOVID is investigational because it is still being studied. There is limited information about the safety and effectiveness of using PAXLOVID to treat people with kvzg-sa-zlimvrjk COVID-19. The FDA has authorized the emergency use of PAXLOVID for the treatment of yaev-sg-nrderghz COVID-19 in adults and children [12 years of age and older weighing at least 88 pounds (40 kg)] with a positive test for the virus that causes COVID-19, and who are at high risk for progression to severe COVID-19, including hospitalization or , under an EUA. 1 Revised: 30 November 2021 What should I tell my healthcare provider before I take PAXLOVID? Tell your healthcare provider if you: Have any allergies Have liver or kidney disease Are or plan to become Are a child Have any serious illnesses Tell your healthcare provider about all the medicines you take, including prescription and owfd-whs-pcsmeio medicines, vitamins, and herbal supplements. Some medicines may interact with PAXLOVID and may cause serious side effects. Keep a list of your medicines to show your healthcare provider and pharmacist when you get a new medicine. You can ask your healthcare provider or pharmacist for a list of medicines that interact with PAXLOVID. Do not start taking a new medicine without telling your healthcare provider. Your healthcare provider can tell you if it is safe to take PAXLOVID with other medicines. Tell your healthcare provider if you are taking combined hormonal contraceptive. PAXLOVID may affect how your control pills work. Females who are able to become should use another effective alternative form of contraception or an additional barrier method of contraception. Talk to your healthcare provider if you have any questions about contraceptive methods that might be right for you. How do I take PAXLOVID? PAXLOVID consists of 2 medicines: nirmatrelvir and ritonavir. Take 2 pink tablets of nirmatrelvir with 1 white tablet of ritonavir by mouth 2 times each day (in the morning and in the evening) for 5 days. For each dose, take all 3 tablets at the same time. If you have kidney disease, talk to your healthcare provider. You may need a different dose. Swallow the tablets whole. Do not chew, break, or crush the tablets. Take PAXLOVID with or without food. Do not stop taking PAXLOVID without talking to your healthcare provider, even if you feel better. If you miss a dose of PAXLOVID within 8 hours of the time it is usually taken, take it as soon as you remember. If you miss a dose by more than 8 hours, skip the missed dose and take the next dose at your regular time. Do not take 2 doses of PAXLOVID at the same time. If you take too much PAXLOVID, call your healthcare provider or go to the nearest hospital emergency room right away. If you are taking a ritonavir-or cobicistat-containing medicine to treat hepatitis C or Human Immunodeficiency Virus (HIV), you should continue to take your medicine as prescribed by your healthcare provider. Talk to your healthcare provider if you do not feel better or if you feel worse after 5 days. Who should generally not take PAXLOVID? Do not take PAXLOVID if: You are allergic to nirmatrelvir, ritonavir, or any of the ingredients in PAXLOVID You are taking any of the following medicines: Alfuzosin Pethidine, propoxyphene Ranolazine Amiodarone, dronedarone, flecainide, propafenone, quinidine Colchicine Lurasidone, pimozide, clozapine Dihydroergotamine, ergotamine, methylergonovine Lovastatin, simvastatin Sildenafil (Revatio ) for pulmonary arterial hypertension (PAH) Triazolam, oral midazolam Apalutamide Carbamazepine, phenobarbital, phenytoin Rifampin Sutter s Wort (hypericum perforatum) Taking PAXLOVID with these medicines may cause serious or life-threatening side effects or affect how PAXLOVID works. These are not the only medicines that may cause serious side effects if taken with PAXLOVID. PAXLOVID may increase or decrease the levels of multiple other medicines. It is very important to tell your healthcare provider about all of the medicines you are taking because additional laboratory tests or changes in the dose of your other medicines may be necessary while you are taking PAXLOVID. Your healthcare provider may also tell you about specific symptoms to watch out for that may indicate that you need to stop or decrease the dose of some of your other medicines. What are the important possible side effects of PAXLOVID? Possible side effects of PAXLOVID are: Allergic Reactions. Allergic reactions can happen in people taking PAXLOVID, even after only 1 dose. Stop taking PAXLOVID and call your healthcare provider right away if you get any of the following symptoms of an allergic reaction: hives trouble swallowing or breathing swelling of the mouth, lips, or face throat tightness hoarseness skin rash Liver Problems. Tell your healthcare provider right away if you have any of these signs and symptoms of liver problems: loss of appetite, yellowing of your skin and the whites of eyes (jaundice), dark-colored urine, pale colored stools and itchy skin, stomach area (abdominal) pain. Resistance to HIV Medicines. If you have untreated HIV infection, PAXLOVID may lead to some HIV medicines not working as well in the future. Other possible side effects include: altered sense of taste diarrhea high blood pressure muscle aches These are not all the possible side effects of PAXLOVID. Not many people have taken PAXLOVID. Serious and unexpected side effects may happen. PAXLOVID is still being studied, so it is possible that all of the risks are not known at this time. What other treatment choices are there? Veklury (remdesivir) is FDA-approved for the treatment of usxa-yj-qyxbklft COVID-19 in certain adults and children. Talk with your doctor to see if Veklury is appropriate for you. Like PAXLOVID, FDA may also allow for the emergency use of other medicines to treat people with COVID-19. Go to https://www.fda.gov/emergency-pre paredness-andresponse/mcm-legal-r cmrzscpay-cka-kmgcxb-framework/em mepckbe-ikj-hapwuphasgnbo for information on the emergency use of other medicines that are authorized by FDA to treat people with COVID-19. Your healthcare provider may talk with you about clinical trials for which you may be eligible. It is your choice to be treated or not to be treated with PAXLOVID. Should you decide not to receive it or for your child not to receive it, it will not change your standard medical care. What if I am or ? There is business technology analyst treating women or mothers with PAXLOVID. For a mother and unborn baby, the benefit of taking PAXLOVID may be greater than the risk from the treatment. If you are , discuss your options and specific situation with your healthcare provider. It is recommended that you use effective barrier contraception or do not have sexual activity while taking PAXLOVID. If you are , discuss your options and specific situation with your healthcare provider. How do I report side effects with PAXLOVID? Contact your healthcare provider if you have any side effects that bother you or do not go away. Report side effects to [employer] at www.Prov[employer].gov/medMobifusiontch or call 1-312-QLR6866 or you can report side effects to [employer] at the contact information provided below. Website Fax number Telephone number [employer] How should I store PAXLOVID? Store PAXLOVID tablets at room temperature, between 68?F to 77?F (20?C to 25?C). How can I learn more about COVID-19? Ask your healthcare provider. Visit https://www.cdc.gov/COVID19. Contact your local or state public health department. What is an Emergency Use Authorization (EUA)? The [place] FDA has made PAXLOVID available under an emergency access mechanism called an Emergency Use Authorization (EUA). The EUA is supported by a Manager Continuous Improvement of Health and Human Service (HHS) declaration that circumstances exist to justify the emergency use of drugs and biological products during the COVID-19 pandemic. PAXLOVID for the treatment of koid-ek-wcyoqjib COVID-19 in adults and children [12 years of age and older weighing at least 88 pounds (40 kg)] with positive results of direct SARS-CoV-2 viral testing, and who are at high risk for progression to severe COVID-19, including hospitalization or , has not undergone the same type of review as an FDA-approved product. In issuing an EUA under the COVID-19 public health emergency, the FDA has determined, among other things, that based on the total amount of scientific evidence available including data from adequate and well-controlled clinical trials, if available, it is reasonable to believe that the product may be effective for diagnosing, treating, or preventing COVID-19, or a serious or life-threatening disease or condition caused by COVID-19; that the known and potential benefits of the product, when used to diagnose, treat, or prevent such disease or condition, outweigh the known and potential risks of such product; and that there are no adequate, approved, and available alternatives. All of these criteria must be met to allow for the product to be used in the treatment of patients during the COVID-19 pandemic. The EUA for PAXLOVID is in effect for the duration of the COVID-19 declaration justifying emergency use of this product, unless terminated or revoked (after which the products may no longer be used under the EUA). Additional Information For general questions, visit the website or call the telephone number provided below. Website Telephone number [employer] (0-385-K79-PACK) You can also go to www.[employer]Globe or call for more information. Pfizer Distributed by [employer] [place] [address] [id number] Revised: 30 November 2021 documented in this encounter [facility] 04-12-2022 History of Present illness Narrative View External Lab - Miscellaneous Lab [ID [id number]] View External Lab - Hematology [ID [id number]] Lena Thomas Ma documented in this encounter [facility] 02-05-2022 Instructions Bonnie Gibbs APRN.WEATHERIZATION TECHNICIAN - 02/05/2022 9:36 AM EDT 1. Start the prednisone taper. 2. Use the bromfed 4 times daily as needed. 3. Start the doxycycline -- one tablet twice daily. 4. Hold the benadryl for now. 5. Push fluids. 6. Watch for rash. documented in this encounter [facility] 02-05-2022 History of Present illness Narrative This is a 76 year old male who presents today with: Patient presents with: Recheck: follow up- facial pain/numbness; sinus infection; started 2nd round of omnicef HISTORY OF PRESENT ILLNESS: Dede Chow is a 76 year old male. Patient presents with: Recheck: follow up- facial pain/numbness; sinus infection; started 2nd round of omnicef Pt presents today for recheck. He has been dealing with a sinus infection. He was treated w/ omnicef and finished it Friday of last week. He started having symptoms again this weekend. Headache, yellow nasal discharge. He was restarted on omnicef yesterday. Benadryl -- allergy and congestion; robitussin at night. Cough is non-productive. Then around 8:00 last night, he developed facial pain. Feels like a toothache behind his eyes. really bad pain. Feels tension in the left face. Left side of the face feels fuzzy. further describes as the lips feel swollen. Feels like a toothache in his jaw. Has tried ibuprofen for the pain, and it didn't help at all. Nothing seems to be helping. Gets some left eye burning. Vision in the left eye is okay -- he will awake with a film over eye, but that goes away. PAST MEDICAL HISTORY: PAST MEDICAL HISTORY Diagnosis Date CLL (chronic lymphocytic leukemia) (HCC) 05/26/2018 Degeneration of intervertebral disc, site unspecified Environmental allergies Essential hypertension 12/15/2017 Obstructive sleep apnea Osteoarthritis hands/ back/ neck PAST SURGICAL HISTORY Procedure Laterality Date ARTHROSCOPY KNEE DIAGNOSTIC W/WO SYNOVIAL BX SPX 1991 Arthroscopy, knee ARTHRP KNE CONDYLE&PLATU MEDIAL&LAT COMPARTMENTS 04/14/2008 Knee replacement, total viv knees per dr raymundo COLONOSCOPY FLX DX W/COLLJ SPEC WHEN PFRMD 04-05-13 PAST SURGICAL HISTORY OF right thumb joint TONSILLECTOMY PRIMARY/SECONDARY <AGE 13 Tonsillectomy XCAPSL CTRC RMVL INSJ IO LENS PROSTH W/O ECP 05/2009 , 06/2009 Cataract Removal, right and left ALLERGIES Seasonal Allergies MEDICATIONS Current Outpatient Medications Medication Sig cefdinir (OMNICEF) 300 mg capsule Take 1 capsule by mouth twice daily for 14 days. nadolol (CORGARD) 40 mg tablet Take 1 tablet by mouth once daily. fluticasone (FLONASE) 50 mcg/actuation nasal spray Use 2 Sprays in each nostril once daily. Rinse mouth after use. montelukast (SINGULAIR) 10 mg tablet Take 1 tablet by mouth daily at bedtime. Levocetirizine (XYZAL) 5 mg tablet Take 5 mg by mouth once daily. cholecalciferol (VITAMIN D-3) 2,000 unit tablet Take 2,000 Units by mouth once daily. THERAPEUTIC MULTIVITAMIN TAB Take one(1) tablet daily. trimethoprim-polymyxin (POLYTRIM) 10,000 unit- 1 mg/mL ophthalmic solution Use 1 Drop in both eyes four times daily. No current facility-administered medications for this visit. FAMILY HISTORY Problem Relation Age of Onset Arthritis Sister Arthritis Brother Social History Tobacco Use Smoking status: Former Smoker Years: 10.00 Types: Pipe Smokeless tobacco: Never Used Tobacco comment: Quit smoking pipe in early s. Vaping Use Vaping Use: Never used Substance Use Topics Alcohol use: Yes Comment: wine or beer at times Drug use: No EXAM: BP 152/84 Pulse 80 Resp 18 SpO2 94% PHYSICAL EXAM: General Appearance: Well appearing, alert, in no acute distress, well-hydrated, well nourished. Skin: Skin color, texture, turgor normal, no suspicious rashes or lesions. Head: Normocephalic, no masses, lesions, tenderness or abnormalities. Eyes: Anicteric sclera. Pupils are equally round and reactive to light. Extraocular movements are intact. Ears: External ears normal, canals clear. No rash or ear lesions. Normal TMs bilaterally. Nose/Sinuses: + left maxillary tenderness. Oropharynx: Lips, mucosa, and tongue normal, teeth and gums normal, oropharynx normal. No lesions noted in mouth. Neck: Supple, no adenopathy Lungs: Lungs clear to auscultation. No wheezing, rhonchi, rales.. Heart: RRR without murmur, gallop, or rubs. No ectopy. Neurologic: Gait normal. ASSESSMENT/PLAN: 1. Acute recurrent sinusitis, unspecified location - ICD9: 461.9, ICD10: J01.91 - Will begin treatment with Doxycycline - The patient should also be given decongestants prn for the first 5-7 days of treatment. - Supportive care with plenty of fluids, rest, and analgesia prn. Hold Benadryl for now. Upon chart review, patient has been on antibiotics for sinus infection 5 times in the last 5 months. Previously treated with Augmentin, Omnicef, and Levaquin, which he developed side effects and didn't finish the course. - DOXYCYCLINE HYCLATE 100 MG TABLET - PREDNISONE 10 MG TABLET - [id number] M 2 MG-30 MG-10 MG/5 ML ORAL SYRUP - FLUTICASONE PROPIONATE 50 MCG/ACTUATION NASAL SPRAY,SUSPENSION He previously was ordered an ENT referral yesterday by his primary care provider. Discussed treatment plan and patient voices understanding. Patient's questions answered appropriately. Medications and potential side effects were discussed and patient voices understanding. Return to the office as scheduled or as needed for worsening/no improvement. Bonnie Gibbs APRN.WEATHERIZATION TECHNICIAN The patient indicates understanding of these issues and agrees with the plan. This note was partially generated using [employer] voice recognition system. Note was reviewed for accuracy. There may be minor misspellings or grammar miscues with [employer] voice recognition. documented in this encounter [facility] 02-05-2022 History of Present illness Narrative Virtualist Progress Note Triage Call Triage source: Nurse Cash Accountant Mode of contact (phone call, [employer], [facility], [employer], Skype, other): phone History/Physical Exam: For past few days developed BOSS and yellow nasal discharge. He contacted his PCP yesterday AM and Omnicef prescribed. About 8 PM last night, he developed left eye and left ear pain like a toothache and fuzzy sensation of the left side of his mouth. Has had sinus infections in the past. However, his current symptoms feel completely different. With his sinus infections, he would have BOSS, but they would respond to ibuprofen and an antibiotic, and he would not experiencing the left eye,ear and facial pain. He had blurry vision this morning. Denied coughing, fever, LOC or hemiparesis. Nurse Triage Disposition (If call is from [facility], [facility] nurse triage, or an Express Care, the disposition is Go to ED Now): Go to ED Now Downgrade: Yes Virtualist Recommended Disposition: See Provider Today Remove COVID19 association SIGNATURE: Noah Powell MD PATIENT NAME: Dede Chow DATE: February 05, 2022 documented in this encounter [facility] 02-05-2022 Miscellaneous Notes Reason for call:left eye/ear sharp pain and left face numbness (symptoms started at 8pm yesterday). Patient started taking omnicef yesterday for sinus infection. Also complains of headache -04/24. Outcome:Recommendation to go to ED now. Patient spoke with virtualist Dr Yancy Powell, he recommends same day appointment. Patient acknowledged understanding. Conferenced to appointment center. Reason for Disposition Headache (and neurologic deficit) Protocols used: NEUROLOGIC [id number] documented in this encounter [facility] 01-16-2022 Miscellaneous Notes See [employer] message. Tricia Chaudhary Ma documented in this encounter [facility] 01-11-2022 Miscellaneous Notes Kelsea from [employer] Prior Authorization Dept calling to state patient's fluticasone 50mcg quantity has been approved for 4 bottles, as ordered. Case #: [id number], for date of 11/28/21 - 01/11/23. Isi Ellison RN documented in this encounter [facility] 05-26-2015 History of Past i llness Narrative Problem Noted Date Resolved Date HLD (hyperlipidemia) 05/26/2015 12/15/2017 Migraine equivalent syndrome 02/14/201510/2017 Arthralgia 12/21/2014 12/15/2017 Sprain of ankle, unspecified site 01/01/2012 12/15/2017 Synovial cyst of popliteal space 01/15/2008 12/15/2017 knee osteoarthritis 04/17/2005 12/15/2017 left knee osteoarthritis 01/23/2005 005 Tear of medial cartilage or meniscus of knee, cu rrent 09/12/2004 12/15/2017 gracilis and semitendonisis strain 09/12/2004 12/15/2017 Osteoarthrosis, unspecified whether generalized or localized 05/04/2003 01/23/2005 Degeneration of intervertebral disc, site unspec ified 12/15/2017 documented as of this encounter (statuses as of 01/11/2022) [facility] History of Past illness Narrative* Problem Noted Date Resolved Date HLD (hyperlipidemia) 05/26/2015 12/15/2017 Migraine equivalent syndrome 02/14/201510/2017 Arthralgia 12/21/2014 12/15/2017 Sprain of ankle, unspecified site 01/01/2012 12/15/2017 Synovial cyst of popliteal space 01/15/2008 12/15/2017 knee osteoarthritis 04/17/2005 12/15/2017 left knee osteoarthritis 01/23/2005 005 Tear of medial cartilage or meniscus of knee, cu rrent 09/12/2004 12/15/2017 gracilis and semitendonisis strain 09/12/2004 12/15/2017 Osteoarthrosis, unspecified whether generalized or localized 05/04/2003 01/23/2005 Degeneration of intervertebral disc, site unspec ified 12/15/2017 documented as of this encounter (statuses as of 01/16/2022) [facility] History of Past illness Narrative* Problem Noted Date Resolved Date HLD (hyperlipidemia) 05/26/2015 12/15/2017 Migraine equivalent syndrome 02/14/201510/2017 Arthralgia 12/21/2014 12/15/2017 Sprain of ankle, unspecified site 01/01/2012 12/15/2017 Synovial cyst of popliteal space 01/15/2008 12/15/2017 knee osteoarthritis 04/17/2005 12/15/2017 left knee osteoarthritis 01/23/2005 005 Tear of medial cartilage or meniscus of knee, cu rrent 09/12/2004 12/15/2017 gracilis and semitendonisis strain 09/12/2004 12/15/2017 Osteoarthrosis, unspecified whether generalized or localized 05/04/2003 01/23/2005 Degeneration of intervertebral disc, site unspec ified 12/15/2017 documented as of this encounter (statuses as of 02/05/2022) [facility] History of Past illness Narrative* Problem Noted Date Resolved Date HLD (hyperlipidemia) 05/26/2015 12/15/2017 Migraine equivalent syndrome 02/14/201510/2017 Arthralgia 12/21/2014 12/15/2017 Sprain of ankle, unspecified site 01/01/2012 12/15/2017 Synovial cyst of popliteal space 01/15/2008 12/15/2017 knee osteoarthritis 04/17/2005 12/15/2017 left knee osteoarthritis 01/23/2005 005 Tear of medial cartilage or meniscus of knee, cu rrent 09/12/2004 12/15/2017 gracilis and semitendonisis strain 09/12/2004 12/15/2017 Osteoarthrosis, unspecified whether generalized or localized 05/04/2003 01/23/2005 Degeneration of intervertebral disc, site unspec ified 12/15/2017 documented as of this encounter (statuses as of 02/05/2022) [facility] History of Past illness Narrative* Problem Noted Date Resolved Date HLD (hyperlipidemia) 05/26/2015 12/15/2017 Migraine equivalent syndrome 02/14/201510/2017 Arthralgia 12/21/2014 12/15/2017 Sprain of ankle, unspecified site 01/01/2012 12/15/2017 Synovial cyst of popliteal space 01/15/2008 12/15/2017 knee osteoarthritis 04/17/2005 12/15/2017 left knee osteoarthritis 01/23/2005 005 Tear of medial cartilage or meniscus of knee, cu rrent 09/12/2004 12/15/2017 gracilis and semitendonisis strain 09/12/2004 12/15/2017 Osteoarthrosis, unspecified whether generalized or localized 05/04/2003 01/23/2005 Degeneration of intervertebral disc, site unspec ified 12/15/2017 documented as of this encounter (statuses as of 04/19/2022) [facility] History of Past illness Narrative* Problem Noted Date Resolved Date HLD (hyperlipidemia) 05/26/2015 12/15/2017 Migraine equivalent syndrome 02/14/201510/2017 Arthralgia 12/21/2014 12/15/2017 Sprain of ankle, unspecified site 01/01/2012 12/15/2017 Synovial cyst of popliteal space 01/15/2008 12/15/2017 knee osteoarthritis 04/17/2005 12/15/2017 left knee osteoarthritis 01/23/2005 005 Tear of medial cartilage or meniscus of knee, cu rrent 09/12/2004 12/15/2017 gracilis and semitendonisis strain 09/12/2004 12/15/2017 Osteoarthrosis, unspecified whether generalized or localized 05/04/2003 01/23/2005 Degeneration of intervertebral disc, site unspec ified 12/15/2017 documented as of this encounter (statuses as of 07/20/2022) [facility] History of Past illness Narrative* Problem Noted Date Resolved Date HLD (hyperlipidemia) 05/26/2015 12/15/2017 Migraine equivalent syndrome 02/14/201510/2017 Arthralgia 12/21/2014 12/15/2017 Sprain of ankle, unspecified site 01/01/2012 12/15/2017 Synovial cyst of popliteal space 01/15/2008 12/15/2017 knee osteoarthritis 04/17/2005 12/15/2017 left knee osteoarthritis 01/23/2005 005 Tear of medial cartilage or meniscus of knee, cu rrent 09/12/2004 12/15/2017 gracilis and semitendonisis strain 09/12/2004 12/15/2017 Osteoarthrosis, unspecified whether generalized or localized 05/04/2003 01/23/2005 Degeneration of intervertebral disc, site unspec ified 12/15/2017 documented as of this encounter (statuses as of 08/01/2022) [facility] History of Past illness Narrative* Problem Noted Date Resolved Date HLD (hyperlipidemia) 05/26/2015 12/15/2017 Migraine equivalent syndrome 02/14/201510/2017 Arthralgia 12/21/2014 12/15/2017 Sprain of ankle, unspecified site 01/01/2012 12/15/2017 Synovial cyst of popliteal space 01/15/2008 12/15/2017 knee osteoarthritis 04/17/2005 12/15/2017 left knee osteoarthritis 01/23/2005 005 Tear of medial cartilage or meniscus of knee, cu rrent 09/12/2004 12/15/2017 gracilis and semitendonisis strain 09/12/2004 12/15/2017 Osteoarthrosis, unspecified whether generalized or localized 05/04/2003 01/23/2005 Degeneration of intervertebral disc, site unspec ified 12/15/2017 documented as of this encounter (statuses as of 08/01/2022) [facility] History of Past illness Narrative* Problem Noted Date Resolved Date HLD (hyperlipidemia) 05/26/2015 12/15/2017 Migraine equivalent syndrome 02/14/201510/2017 Arthralgia 12/21/2014 12/15/2017 Sprain of ankle, unspecified site 01/01/2012 12/15/2017 Synovial cyst of popliteal space 01/15/2008 12/15/2017 knee osteoarthritis 04/17/2005 12/15/2017 left knee osteoarthritis 01/23/2005 005 Tear of medial cartilage or meniscus of knee, cu rrent 09/12/2004 12/15/2017 gracilis and semitendonisis strain 09/12/2004 12/15/2017 Osteoarthrosis, unspecified whether generalized or localized 05/04/2003 01/23/2005 Degeneration of intervertebral disc, site unspec ified 12/15/2017 documented as of this encounter (statuses as of 10/08/2022) [facility] History of Past illness Narrative* Problem Noted Date Resolved Date HLD (hyperlipidemia) 05/26/2015 12/15/2017 Migraine equivalent syndrome 02/14/201510/2017 Arthralgia 12/21/2014 12/15/2017 Sprain of ankle, unspecified site 01/01/2012 12/15/2017 Synovial cyst of popliteal space 01/15/2008 12/15/2017 knee osteoarthritis 04/17/2005 12/15/2017 left knee osteoarthritis 01/23/2005 005 Tear of medial cartilage or meniscus of knee, cu rrent 09/12/2004 12/15/2017 gracilis and semitendonisis strain 09/12/2004 12/15/2017 Osteoarthrosis, unspecified whether generalized or localized 05/04/2003 01/23/2005 Degeneration of intervertebral disc, site unspec ified 12/15/2017 documented as of this encounter (statuses as of 10/09/2022) [facility] History of Past illness Narrative* Problem Noted Date Resolved Date HLD (hyperlipidemia) 05/26/2015 12/15/2017 Migraine equivalent syndrome 02/14/201510/2017 Arthralgia 12/21/2014 12/15/2017 Sprain of ankle, unspecified site 01/01/2012 12/15/2017 Synovial cyst of popliteal space 01/15/2008 12/15/2017 knee osteoarthritis 04/17/2005 12/15/2017 left knee osteoarthritis 01/23/2005 005 Tear of medial cartilage or meniscus of knee, cu rrent 09/12/2004 12/15/2017 gracilis and semitendonisis strain 09/12/2004 12/15/2017 Osteoarthrosis, unspecified whether generalized or localized 05/04/2003 01/23/2005 Degeneration of intervertebral disc, site unspec ified 12/15/2017 documented as of this encounter (statuses as of 10/09/2022) [facility] History of Past illness Narrative* Problem Noted Date Resolved Date HLD (hyperlipidemia) 05/26/2015 12/15/2017 Migraine equivalent syndrome 02/14/201510/2017 Arthralgia 12/21/2014 12/15/2017 Sprain of ankle, unspecified site 01/01/2012 12/15/2017 Synovial cyst of popliteal space 01/15/2008 12/15/2017 knee osteoarthritis 04/17/2005 12/15/2017 left knee osteoarthritis 01/23/2005 005 Tear of medial cartilage or meniscus of knee, cu rrent 09/12/2004 12/15/2017 gracilis and semitendonisis strain 09/12/2004 12/15/2017 Osteoarthrosis, unspecified whether generalized or localized 05/04/2003 01/23/2005 Degeneration of intervertebral disc, site unspec ified 12/15/2017 documented as of this encounter (statuses as of 11/04/2022) [facility] History of Past illness Narrative* Problem Noted Date Resolved Date HLD (hyperlipidemia) 05/26/2015 12/15/2017 Migraine equivalent syndrome 02/14/201510/2017 Arthralgia 12/21/2014 12/15/2017 Sprain of ankle, unspecified site 01/01/2012 12/15/2017 Synovial cyst of popliteal space 01/15/2008 12/15/2017 knee osteoarthritis 04/17/2005 12/15/2017 left knee osteoarthritis 01/23/2005 005 Tear of medial cartilage or meniscus of knee, cu rrent 09/12/2004 12/15/2017 gracilis and semitendonisis strain 09/12/2004 12/15/2017 Osteoarthrosis, unspecified whether generalized or localized 05/04/2003 01/23/2005 Degeneration of intervertebral disc, site unspec ified 12/15/2017 documented as of this encounter (statuses as of 11/05/2022) [facility] History of Past illness Narrative* Problem Noted Date Resolved Date HLD (hyperlipidemia) 05/26/2015 12/15/2017 Migraine equivalent syndrome 02/14/201510/2017 Arthralgia 12/21/2014 12/15/2017 Sprain of ankle, unspecified site 01/01/2012 12/15/2017 Synovial cyst of popliteal space 01/15/2008 12/15/2017 knee osteoarthritis 04/17/2005 12/15/2017 left knee osteoarthritis 01/23/2005 005 Tear of medial cartilage or meniscus of knee, cu rrent 09/12/2004 12/15/2017 gracilis and semitendonisis strain 09/12/2004 12/15/2017 Osteoarthrosis, unspecified whether generalized or localized 05/04/2003 01/23/2005 Degeneration of intervertebral disc, site unspec ified 12/15/2017 documented as of this encounter (statuses as of 12/05/2022) [place] [address]-11-2015 History of Past illness Narrative* Problem Noted Date Resolved Date HLD (hyperlipidemia) 05/26/2015 12/15/2017 Migraine equivalent syndrome 02/14/201510/2017 Arthralgia 12/21/2014 12/15/2017 Sprain of ankle, unspecified site 01/01/2012 12/15/2017 Synovial cyst of popliteal space 01/15/2008 12/15/2017 knee osteoarthritis 04/17/2005 12/15/2017 left knee osteoarthritis 01/23/2005 005 Tear of medial cartilage or meniscus of knee, cu rrent 09/12/2004 12/15/2017 gracilis and semitendonisis strain 09/12/2004 12/15/2017 Osteoarthrosis, unspecified whether generalized or localized 05/04/2003 01/23/2005 Degeneration of intervertebral disc, site unspec ified 12/15/2017 documented as of this encounter (statuses as of 01/10/2023) [facility] of Past illness Narrative* Problem Noted Date Resolved Date HLD (hyperlipidemia) 05/26/2015 12/15/2017 Migraine equivalent syndrome 02/14/201510/2017 Arthralgia 12/21/2014 12/15/2017 Sprain of ankle, unspecified site 01/01/2012 12/15/2017 Synovial cyst of popliteal space 01/15/2008 12/15/2017 knee osteoarthritis 04/17/2005 12/15/2017 left knee osteoarthritis 01/23/2005 005 Tear of medial cartilage or meniscus of knee, cu rrent 09/12/2004 12/15/2017 gracilis and semitendonisis strain 09/12/2004 12/15/2017 Osteoarthrosis, unspecified whether generalized or localized 05/04/2003 01/23/2005 Degeneration of intervertebral disc, site unspec ified 12/15/2017 documented as of this encounter (statuses as of 01/13/2023) [facility] History of Past illness Narrative* Problem Noted Date Resolved Date HLD (hyperlipidemia) 05/26/2015 12/15/2017 Migraine equivalent syndrome 02/14/201510/2017 Arthralgia 12/21/2014 12/15/2017 Sprain of ankle, unspecified site 01/01/2012 12/15/2017 Synovial cyst of popliteal space 01/15/2008 12/15/2017 knee osteoarthritis 04/17/2005 12/15/2017 left knee osteoarthritis 01/23/2005 005 Tear of medial cartilage or meniscus of knee, cu rrent 09/12/2004 12/15/2017 gracilis and semitendonisis strain 09/12/2004 12/15/2017 Osteoarthrosis, unspecified whether generalized or localized 05/04/2003 01/23/2005 Degeneration of intervertebral disc, site unspec ified 12/15/2017 documented as of this encounter (statuses as of 01/13/2023) [facility] History of Past illness Narrative* Problem Noted Date Diagnosed Date Resolved Date HLD (hyperlipidemia) 05/26/2015 018 Migraine equivalent syndrome 02/14/2015 12/15/2017 Arthralgia 12/21/2014 12/15/2017 Sprain of ankle, unspecified site 01/01/2012 12/15/2017 Synovial cyst of popliteal space 01/15/2008 12/15/2017 knee osteoarthritis 04/17/2005 12/16/19 18 left knee osteoarthritis 01/23/2005 Tear of medial cartilage or meniscus of knee, current 09/12/2004 12/15/2017 gracilis and semitendonisis strain 09/12/2004 12/15/2017 Osteoarthrosis, unspecified whether generalized or localized 05/04/2003 01/23/2005 Degeneration of intervertebr al disc, site unspecified 12/15/2017 documented as of this encounter (statuses as of 06/26/2023) [facility] History of Past illness Narrative* Problem Noted Date Diagnosed Date Resolved Date HLD (hyperlipidemia) 05/26/2015 018 Migraine equivalent syndrome 02/14/2015 12/15/2017 Arthralgia 12/21/2014 12/15/2017 Sprain of ankle, unspecified site 01/01/2012 12/15/2017 Synovial cyst of popliteal space 01/15/2008 12/15/2017 knee osteoarthritis 04/17/2005 12/16/19 18 left knee osteoarthritis 01/23/2005 Tear of medial cartilage or meniscus of knee, current 09/12/2004 12/15/2017 gracilis and semitendonisis strain 09/12/2004 12/15/2017 Osteoarthrosis, unspecified whether generalized or localized 05/04/2003 01/23/2005 Degeneration of intervertebr al disc, site unspecified 12/15/2017 documented as of this encounter (statuses as of 08/11/2023) [facility] History of Past illness Narrative* Problem Noted Date Diagnosed Date Resolved Date HLD (hyperlipidemia) 05/26/2015 018 Migraine equivalent syndrome 02/14/2015 12/15/2017 Arthralgia 12/21/2014 12/15/2017 Sprain of ankle, unspecified site 01/01/2012 12/15/2017 Synovial cyst of popliteal space 01/15/2008 12/15/2017 knee osteoarthritis 04/17/2005 12/16/19 18 left knee osteoarthritis 01/23/2005 Tear of medial cartilage or meniscus of knee, current 09/12/2004 12/15/2017 gracilis and semitendonisis strain 09/12/2004 12/15/2017 Osteoarthrosis, unspecified whether generalized or localized 05/04/2003 01/23/2005 Degeneration of intervertebr al disc, site unspecified 12/15/2017 documented as of this encounter (statuses as of 08/12/2023) [facility] History of Past illness Narrative* Problem Noted Date Diagnosed Date Resolved Date HLD (hyperlipidemia) 05/26/2015 018 Migraine equivalent syndrome 02/14/2015 12/15/2017 Arthralgia 12/21/2014 12/15/2017 Sprain of ankle, unspecified site 01/01/2012 12/15/2017 Synovial cyst of popliteal space 01/15/2008 12/15/2017 knee osteoarthritis 04/17/2005 12/16/19 18 left knee osteoarthritis 01/23/2005 Tear of medial cartilage or meniscus of knee, current 09/12/2004 12/15/2017 gracilis and semitendonisis strain 09/12/2004 12/15/2017 Osteoarthrosis, unspecified whether generalized or localized 05/04/2003 01/23/2005 Degeneration of intervertebr al disc, site unspecified 12/15/2017 documented as of this encounter (statuses as of 10/28/2023) [facility] History of Past illness Narrative* Problem Noted Date Diagnosed Date Resolved Date HLD (hyperlipidemia) 05/26/2015 018 Migraine equivalent syndrome 02/14/2015 12/15/2017 Arthralgia 12/21/2014 12/15/2017 Sprain of ankle, unspecified site 01/01/2012 12/15/2017 Synovial cyst of popliteal space 01/15/2008 12/15/2017 knee osteoarthritis 04/17/2005 12/16/19 18 left knee osteoarthritis 01/23/2005 Tear of medial cartilage or meniscus of knee, current 09/12/2004 12/15/2017 gracilis and semitendonisis strain 09/12/2004 12/15/2017 Osteoarthrosis, unspecified whether generalized or localized 05/04/2003 01/23/2005 Degeneration of intervertebr al disc, site unspecified 12/15/2017 documented as of this encounter (statuses as of 11/20/2023) [facility] History of Past illness Narrative* Problem Noted Date Diagnosed Date Resolved Date HLD (hyperlipidemia) 05/26/2015 018 Migraine equivalent syndrome 02/14/2015 12/15/2017 Arthralgia 12/21/2014 12/15/2017 Sprain of ankle, unspecified site 01/01/2012 12/15/2017 Synovial cyst of popliteal space 01/15/2008 12/15/2017 knee osteoarthritis 04/17/2005 12/16/19 18 left knee osteoarthritis 01/23/2005 Tear of medial cartilage or meniscus of knee, current 09/12/2004 12/15/2017 gracilis and semitendonisis strain 09/12/2004 12/15/2017 Osteoarthrosis, unspecified whether generalized or localized 05/04/2003 01/23/2005 Degeneration of intervertebr al disc, site unspecified 12/15/2017 documented as of this encounter (statuses as of 11/20/2023) [facility] Acute recurrent sinusitis, unspecified location [facility] noteNo assessment information availableWMer[facility] Work Phone: Evaluation note* Diagnosis Suspected COVID-19 virus infection- Primary [facility]* Diagnosis Bacterial sinusitis- Primary Unspecified sinusitis (chronic) [facility]* Diagnosis Acute recurrent sinusitis, unspecified location Essential hypertension Unspecified essential hypertension [facility]* Diagnosis Essential hypertension- Primary Unspecified essential hypertension Acute recurrent sinusitis, unspecified location CLL (chronic lymphocytic leukemia) (HCC) Chronic lymphoid leukemia, without mention of having achieved remission Squamous cell carcinoma, face Squamous cell carcinoma of skin of other and unspecified parts of face [facility]* Diagnosis Bacterial sinusitis- Primary Unspecified sinusitis (chronic) [facility]* Diagnosis Chronic sinusitis, unspecified location- Primary Nasal polyps Unspecified nasal polyp Essential hypertension Unspecified essential hypertension [facility]* Diagnosis Essential hypertension Unspecified essential hypertension Acute recurrent sinusitis, unspecified location [facility] Diagnosis Acute recurrent sinusitis, unspecified location Acute deep vein thrombosis (DVT) of proximal vein of both lower extremities (HCC) Platelets decreased (HCC) Thrombocytopenia, unspecified [facility]* Diagnosis Anemia, unspecified type- Primary [facility]* Diagnosis Bacterial sinusitis- Primary Unspecified sinusitis (chronic) [facility]* Diagnosis Bacterial sinusitis Unspecified sinusitis (chronic) CLL (chronic lymphocytic leukemia) (HCC) Chronic lymphoid leukemia, without mention of having achieved remission [facility]* Diagnosis Bacterial sinusitis- Primary Unspecified sinusitis (chronic) Recurrent sinus infections Unspecified sinusitis (chronic) Sinus headache Headache [facility]* Diagnosis Bacterial sinusitis- Primary Unspecified sinusitis (chronic) [facility]* Diagnosis Abnormal urine color- Primary Other nonspecific finding on examination of urine Hypothermia following anesthesia, sequela 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 [facility]* Diagnosis Microscopic hematuria- Primary [facility]* Diagnosis Gross hematuria- Primary Screening for genitourinary condition Screening for other and unspecified genitourinary condition 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 documented in this encounter [facility] note* Diagnosis Gross hematuria [facility]* Diagnosis Bacterial sinusitis- Primary Unspecified sinusitis (chronic) documented in this encounter [facility] note* Diagnosis Gross hematuria- Primary 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 Disorder of prostate Unspecified disorder of prostate documented in this encounter [facility] note* Diagnosis OPENED IN ERROR- Primary To allow closing an encounter opened in error (used in SmartSet) documented in this encounter [facility] note* Diagnosis Essential hypertension- Primary Unspecified essential hypertension Screening for depression Encounter for screening examination for other mental health and behavioral disorders RAJESH (obstructive sleep apnea) Obstructive sleep apnea (adult) (pediatric) Monoclonal B-cell lymphocytosis Lymphocytosis (symptomatic) CLL (chronic lymphocytic leukemia) (HCC) Chronic lymphoid leukemia, without mention of having achieved remission Anemia, unspecified type Need for influenza vaccination Need for prophylactic vaccination and inoculation against influenza Need for vaccination Need for prophylactic vaccination and inoculation against unspecified single disease documented in this encounter [facility] note* Diagnosis CLL (chronic lymphocytic leukemia) (HCC)- Primary Chronic lymphoid leukemia, without mention of having achieved remission Anemia, unspecified type [facility]* Diagnosis Suspected COVID-19 virus infection- Primary Bacterial sinusitis Unspecified sinusitis (chronic) Sars-associated coronavirus as the cause of diseases classified elsewhere COVID-19 virus infection documented in this encounter [facility] note* Diagnosis 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- Primary Screening for genitourinary condition Screening for other and unspecified genitourinary condition documented in this encounter [facility] note* Diagnosis Bacterial sinusitis- Primary Unspecified sinusitis (chronic) Foot pain, right Pain in limb documented in this encounter [facility] note* Diagnosis Foot pain, right Pain in limb [facility]* Diagnosis Foot pain, bilateral- Primary Pain in limb documented in this encounter [facility] note* Diagnosis Acute recurrent sinusitis, unspecified location Essential hypertension Unspecified essential hypertension documented in this encounter [facility] for visit Narrative* Diagnostic Procedure Only (Routine) - Closed Specialty Diagnoses / Procedures Referred By Contac t Referred To Contact XR IMAGING Diagnoses Foot pain, right Procedures XR FOOT GENERAL 3V AP/LAT/OBL RIGHT RADEX FOOT COMPLETE MINIMUM 3 VIEWS Noelle Zhu, ROBEL.WEATHERIZATION TECHNICIAN [address] [place] [address] Phone: tel: fax: [place] [id number] Referral ID Status Reason Start Date Expiration Date V isits Requested Visits Authorized [id number] Closed Auto-Generate d Referral 11/04/2024 12/04/2025 1 1 [facility] Summary Purpose Family History No Family History Records FoundNo Family History Records FoundNo Family History Records FoundNo Family History Records FoundNo Family History Records Found Advance Directives No Advanced Directives Records Found Advance Directive Response Recorded Date/ Time Living Will Yes August 17 6:18pm Power of Home Health Lvn Yes August 17, 2020 6:18pm Documents on File Type Date Recorded Patient Spinner Box Expl anation Advance Directive(s) 02/17/2025 1:53 PM Advance Directive(s) 02/17/2025 1:52 PM Chief Complaint and Reason for Visit Chief Complaint LEFT NASAL MASS Chief Complaint LEFT NASAL MASS SINUSITUS SINISITIS, NASAL POLYP Chief Complaint LEFT NASAL MASS SINUSITUS SINISITIS, NASAL POLYP PRE OP Chief Complaint LEFT NASAL MASS SINUSITUS SINISITIS, NASAL POLYP PRE OP FUNCTIONAL ENDOSCOPIC SINUS SURGERY Chief Complaint SINUSITIS Chief Complaint SINUSITIS, NASAL NUSRAT YP Health Concerns Infection Onset Date Last Indicated Resolved Time COVID-19 Rule-Out 07/20/2022 07/20/2022 Infection Onset Date Last Indicated Resolved Time COVID-19 Confirmed 07/20/2022 07/20/2022 8:51 PM EST Reason for Referral Specialty Diagnoses / Procedures Referred By Chanda bosch Referred To Contact Ent - Otolaryngology Diagnoses Chronic sinusitis, unspecified location Nasal polyps Procedures CONSULT TO ENT OFFICE/OUTPATIENT [facility] 60-74 MINUTES Dede Desai MD [address] [place] [address] Referral ID Status Reason Start Date Expiration Date Visits Requested Visits Authorized [id number] Authorized PCP Requested Referral 12/05/2022 12/04/2023 1 1 Specialty Diagnoses / Procedures Referred By Chanda bosch Referred To Contact Ent - Otolaryngology Diagnoses Bacterial sinusitis Recurrent sinus infections Procedures CONSULT TO ENT Dede Desai MD [address] [place] [address] Referral ID Status Reason Start Date Expiration Date Visits Requested Visits Authorized [id number] Ref Not Required PCP Requested Referral 11/20/2023 11/19/2024 1 1 Specialty Diagnoses / Procedures Referred By Contac t Referred To Contact Urology Diagnoses Microscopic hematuria Procedures CONSULT TO UROLOGY OFFICE/OUTPATIENT NEW HIGH MDM 60 MINUTES Dede Desai MD [address] [place] [address] Referral ID Status Reason Start Date Expiration Date Visits Requested Visits Authorized [id number] Authorized PCP Requested Referral 04/15/2024 04/15/2025 1 1 Specialty Diagnoses / Procedures Referred By Contac t Referred To Contact CT IMAGING Diagnoses Gross hematuria Procedures CT UROGRAM WO/W IVCON CT ABD & PELVIS W/WO CONTRST 1+ BODY Grupo Atkinson PA-C [address] [place] [address] [facility] [place] [address] Referral ID Status Reason Start Date Expiration Date Visits Requested Visits Authorized [id number] Authorized Auto-Generat ed Referral 05/11/2024 06/10/2025 1 1 Additional Source Comments (unrecognized sect ion and content) No Status Records FoundNo Status Records FoundNo Status Records FoundNo Status Records FoundNo Status Records Found INFORMATION SOURCE (unrecogn ized section and content) DATE CREATED AUTHOR 08/24/2018 [facility] DATE CREATED AUTHOR AUTHOR'S ORGANIZ ATION 09/22/2020 [facility] DATE CREATED AUTHOR AUTHOR'S ORGANIZ ATION 06/15/2024 [facility] DATE CREATED AUTHOR AUTHOR'S ORGANIZ ATION 07/27/[address] [facility] DATE CREATED AUTHOR AUTHOR'S ORGANIZ ATION 07/28/[address] [facility] Source Comments (unrecognize d section and content) In the event this informatio n is protected by the Federal Confidentiality of Alcohol and Drug Abuse Patient Records regulations: The Federal rules restrict any use of the information to criminally investigate or prosecute any alcohol or drug abuse patient.[facility] the event this information is protected by the Federal Confidentiality of Alcohol and Drug Abuse Patient Records regulations: The Federal rules restrict any use of the information to criminally investigate or prosecute any alcohol or drug abuse patient.[facility] HospitalIn the event this information is protected by the Federal Confidentiality of Alcohol and Drug Abuse Patient Records regulations: The Federal rules restrict any use of the information to criminally investigate or prosecute any alcohol or drug abuse patient.[facility] HospitalIn the event this information is protected by the Federal Confidentiality of Alcohol and Drug Abuse Patient Records regulations: The Federal rules restrict any use of the information to criminally investigate or prosecute any alcohol or drug abuse patient.[facility] HospitalIn the event this information is protected by the Federal Confidentiality of Alcohol and Drug Abuse Patient Records regulations: The Federal rules restrict any use of the information to criminally investigate or prosecute any alcohol or drug abuse patient.[facility] HospitalIn the event this information is protected by the Federal Confidentiality of Alcohol and Drug Abuse Patient Records regulations: The Federal rules restrict any use of the information to criminally investigate or prosecute any alcohol or drug abuse patient.[facility] HospitalIn the event this information is protected by the Federal Confidentiality of Alcohol and Drug Abuse Patient Records regulations: The Federal rules restrict any use of the information to criminally investigate or prosecute any alcohol or drug abuse patient.[facility] HospitalIn the event this information is protected by the Federal Confidentiality of Alcohol and Drug Abuse Patient Records regulations: The Federal rules restrict any use of the information to criminally investigate or prosecute any alcohol or drug abuse patient.[facility] HospitalIn the event this information is protected by the Federal Confidentiality of Alcohol and Drug Abuse Patient Records regulations: The Federal rules restrict any use of the information to criminally investigate or prosecute any alcohol or drug abuse patient.[facility] HospitalIn the event this information is protected by the Federal Confidentiality of Alcohol and Drug Abuse Patient Records regulations: The Federal rules restrict any use of the information to criminally investigate or prosecute any alcohol or drug abuse patient.[facility] HospitalIn the event this information is protected by the Federal Confidentiality of Alcohol and Drug Abuse Patient Records regulations: The Federal rules restrict any use of the information to criminally investigate or prosecute any alcohol or drug abuse patient.[facility] HospitalIn the event this information is protected by the Federal Confidentiality of Alcohol and Drug Abuse Patient Records regulations: The Federal rules restrict any use of the information to criminally investigate or prosecute any alcohol or drug abuse patient.[facility] HospitalIn the event this information is protected by the Federal Confidentiality of Alcohol and Drug Abuse Patient Records regulations: The Federal rules restrict any use of the information to criminally investigate or prosecute any alcohol or drug abuse patient.[facility] HospitalIn the event this information is protected by the Federal Confidentiality of Alcohol and Drug Abuse Patient Records regulations: The Federal rules restrict any use of the information to criminally investigate or prosecute any alcohol or drug abuse patient.[facility] HospitalIn the event this information is protected by the Federal Confidentiality of Alcohol and Drug Abuse Patient Records regulations: The Federal rules restrict any use of the information to criminally investigate or prosecute any alcohol or drug abuse patient.[facility] HospitalIn the event this information is protected by the Federal Confidentiality of Alcohol and Drug Abuse Patient Records regulations: The Federal rules restrict any use of the information to criminally investigate or prosecute any alcohol or drug abuse patient.[facility] HospitalIn the event this information is protected by the Federal Confidentiality of Alcohol and Drug Abuse Patient Records regulations: The Federal rules restrict any use of the information to criminally investigate or prosecute any alcohol or drug abuse patient.[facility] HospitalIn the event this information is protected by the Federal Confidentiality of Alcohol and Drug Abuse Patient Records regulations: The Federal rules restrict any use of the information to criminally investigate or prosecute any alcohol or drug abuse patient.[facility] HospitalIn the event this information is protected by the Federal Confidentiality of Alcohol and Drug Abuse Patient Records regulations: The Federal rules restrict any use of the information to criminally investigate or prosecute any alcohol or drug abuse patient.[facility] HospitalIn the event this information is protected by the Federal Confidentiality of Alcohol and Drug Abuse Patient Records regulations: The Federal rules restrict any use of the information to criminally investigate or prosecute any alcohol or drug abuse patient.[facility] HospitalIn the event this information is protected by the Federal Confidentiality of Alcohol and Drug Abuse Patient Records regulations: The Federal rules restrict any use of the information to criminally investigate or prosecute any alcohol or drug abuse patient.[facility] HospitalIn the event this information is protected by the Federal Confidentiality of Alcohol and Drug Abuse Patient Records regulations: The Federal rules restrict any use of the information to criminally investigate or prosecute any alcohol or drug abuse patient.[facility] HospitalIn the event this information is protected by the Federal Confidentiality of Alcohol and Drug Abuse Patient Records regulations: The Federal rules restrict any use of the information to criminally investigate or prosecute any alcohol or drug abuse patient.[facility] HospitalIn the event this information is protected by the Federal Confidentiality of Alcohol and Drug Abuse Patient Records regulations: The Federal rules restrict any use of the information to criminally investigate or prosecute any alcohol or drug abuse patient.[facility] HospitalIn the event this information is protected by the Federal Confidentiality of Alcohol and Drug Abuse Patient Records regulations: The Federal rules restrict any use of the information to criminally investigate or prosecute any alcohol or drug abuse patient.[facility] HospitalIn the event this information is protected by the Federal Confidentiality of Alcohol and Drug Abuse Patient Records regulations: The Federal rules restrict any use of the information to criminally investigate or prosecute any alcohol or drug abuse patient.[facility] HospitalIn the event this information is protected by the Federal Confidentiality of Alcohol and Drug Abuse Patient Records regulations: The Federal rules restrict any use of the information to criminally investigate or prosecute any alcohol or drug abuse patient.[facility] HospitalIn the event this information is protected by the Federal Confidentiality of Alcohol and Drug Abuse Patient Records regulations: The Federal rules restrict any use of the information to criminally investigate or prosecute any alcohol or drug abuse patient.[facility] HospitalIn the event this information is protected by the Federal Confidentiality of Alcohol and Drug Abuse Patient Records regulations: The Federal rules restrict any use of the information to criminally investigate or prosecute any alcohol or drug abuse patient.[facility] HospitalIn the event this information is protected by the Federal Confidentiality of Alcohol and Drug Abuse Patient Records regulations: The Federal rules restrict any use of the information to criminally investigate or prosecute any alcohol or drug abuse patient.[facility] HospitalIn the event this information is protected by the Federal Confidentiality of Alcohol and Drug Abuse Patient Records regulations: The Federal rules restrict any use of the information to criminally investigate or prosecute any alcohol or drug abuse patient.[facility] HospitalIn the event this information is protected by the Federal Confidentiality of Alcohol and Drug Abuse Patient Records regulations: The Federal rules restrict any use of the information to criminally investigate or prosecute any alcohol or drug abuse patient.[facility] HospitalIn the event this information is protected by the Federal Confidentiality of Alcohol and Drug Abuse Patient Records regulations: The Federal rules restrict any use of the information to criminally investigate or prosecute any alcohol or drug abuse patient.[facility] HospitalIn the event this information is protected by the Federal Confidentiality of Alcohol and Drug Abuse Patient Records regulations: The Federal rules restrict any use of the information to criminally investigate or prosecute any alcohol or drug abuse patient.[facility] HospitalIn the event this information is protected by the Federal Confidentiality of Alcohol and Drug Abuse Patient Records regulations: The Federal rules restrict any use of the information to criminally investigate or prosecute any alcohol or drug abuse patient.[facility] HospitalIn the event this information is protected by the Federal Confidentiality of Alcohol and Drug Abuse Patient Records regulations: The Federal rules restrict any use of the information to criminally investigate or prosecute any alcohol or drug abuse patient.[facility] HospitalIn the event this information is protected by the Federal Confidentiality of Alcohol and Drug Abuse Patient Records regulations: The Federal rules restrict any use of the information to criminally investigate or prosecute any alcohol or drug abuse patient.[facility] HospitalIn the event this information is protected by the Federal Confidentiality of Alcohol and Drug Abuse Patient Records regulations: The Federal rules restrict any use of the information to criminally investigate or prosecute any alcohol or drug abuse patient.[facility] HospitalIn the event this information is protected by the Federal Confidentiality of Alcohol and Drug Abuse Patient Records regulations: The Federal rules restrict any use of the information to criminally investigate or prosecute any alcohol or drug abuse patient.[facility] HospitalIn the event this information is protected by the Federal Confidentiality of Alcohol and Drug Abuse Patient Records regulations: The Federal rules restrict any use of the information to criminally investigate or prosecute any alcohol or drug abuse patient.[facility] HospitalIn the event this information is protected by the Federal Confidentiality of Alcohol and Drug Abuse Patient Records regulations: The Federal rules restrict any use of the information to criminally investigate or prosecute any alcohol or drug abuse patient.[facility] HospitalIn the event this information is protected by the Federal Confidentiality of Alcohol and Drug Abuse Patient Records regulations: The Federal rules restrict any use of the information to criminally investigate or prosecute any alcohol or drug abuse patient.[facility] HospitalIn the event this information is protected by the Federal Confidentiality of Alcohol and Drug Abuse Patient Records regulations: The Federal rules restrict any use of the information to criminally investigate or prosecute any alcohol or drug abuse patient.[facility] HospitalIn the event this information is protected by the Federal Confidentiality of Alcohol and Drug Abuse Patient Records regulations: The Federal rules restrict any use of the information to criminally investigate or prosecute any alcohol or drug abuse patient.[facility] HospitalIn the event this information is protected by the Federal Confidentiality of Alcohol and Drug Abuse Patient Records regulations: The Federal rules restrict any use of the information to criminally investigate or prosecute any alcohol or drug abuse patient.[facility] HospitalIn the event this information is protected by the Federal Confidentiality of Alcohol and Drug Abuse Patient Records regulations: The Federal rules restrict any use of the information to criminally investigate or prosecute any alcohol or drug abuse patient.[facility] HospitalIn the event this information is protected by the Federal Confidentiality of Alcohol and Drug Abuse Patient Records regulations: The Federal rules restrict any use of the information to criminally investigate or prosecute any alcohol or drug abuse patient.[facility] HospitalIn the event this information is protected by the Federal Confidentiality of Alcohol and Drug Abuse Patient Records regulations: The Federal rules restrict any use of the information to criminally investigate or prosecute any alcohol or drug abuse patient.[facility] HospitalIn the event this information is protected by the Federal Confidentiality of Alcohol and Drug Abuse Patient Records regulations: The Federal rules restrict any use of the information to criminally investigate or prosecute any alcohol or drug abuse patient.[facility] HospitalIn the event this information is protected by the Federal Confidentiality of Alcohol and Drug Abuse Patient Records regulations: The Federal rules restrict any use of the information to criminally investigate or prosecute any alcohol or drug abuse patient.[facility] HospitalIn the event this information is protected by the Federal Confidentiality of Alcohol and Drug Abuse Patient Records regulations: The Federal rules restrict any use of the information to criminally investigate or prosecute any alcohol or drug abuse patient.[facility] HospitalIn the event this information is protected by the Federal Confidentiality of Alcohol and Drug Abuse Patient Records regulations: The Federal rules restrict any use of the information to criminally investigate or prosecute any alcohol or drug abuse patient.[facility] Reason for Visit (unrecogniz ed section and content) Reason Comments Prior Authorization approval for flutica sone Reason Onset 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 Reason Comments Acute Visit sinus pressure/pain in hinduism area Reason Comments Refill Request Reason Comments Follow Up for meds Reason Comments sinus congestion Reason Comments Sinusitis Reason Comments Established Patient Reason Comments Sinus Problems Reason Comments Chronic sinusitis Reason Comments Sinusitis 4 days of sinus brandon estion, headache, drainage Reason Comments Urinary Problem Sy red color urin e intermittently for one week. Denies any dysuria, fever, vomiting, nausea. Reason Comments Patient Update Reason Comments Blood In Urine Specialty Diagnoses / Procedures Referred By Contac t Referred To Contact Urology Diagnoses Microscopic hematuria Procedures CONSULT TO UROLOGY OFFICE/OUTPATIENT [facility] 60 MINUTES Dede Desai MD [address] [place] [address] Referral ID Status Reason Start Date Expiration Date V isits Requested Visits Authorized [id number] Closed PCP Requested Referral 04/15/2024 04/15/2025 1 1 Reason Comments Appointment Reason Comments Radiology CT Specialty Diagnoses / Procedures Referred By Chanda bosch Referred To Contact CT IMAGING Diagnoses Gross hematuria Procedures CT UROGRAM WO/W IVCON CT ABD & PELVIS W/WO CONTRST 1+ BODY Grupo Atkinson PA-C [address] [place] [address] Ct Imaging [facility] Referral ID Status Reason Start Date Expiration Date V isits Requested Visits Authorized [id number] Closed Auto-Generate d Referral 05/11/2024 06/10/2025 1 1 Reason Comments Acute Visit Sinusitis Reason Comments Cystoscopy-1 Patient currently on doxycycline. Tomorrow is his last dose. Unable to urinate to complete uroflow. Trus Procedure Reason Comments Social Work Services Reason Onset Date Comments 6 Month Exam Immunizations 07/23/2024 Flu vaccination Reason Comments Sinus Infection Reason Comments Results Reason Comments Follow Up Reason Comments Acute Visit Rt foot pain Reason Onset Date Comments Results 11/11/2024 Care Teams (unrecognized sec tion and content) Feature Writer Relationship Specialty Start Date End Date Dede Desai MD [address] [place] [address] PCP - General Family Practice 09/09/17 Feature Writer Relationship Specialty Start Date End Date Dede Desai MD [address] [place] [address] PCP - General Family Practice 09/09/17 Feature Writer Relationship Specialty Start Date End Date Dede Desai MD [address] [place] [address] PCP - General Family Practice 09/09/17 Feature Writer Relationship Specialty Start Date End Date Dede Desai MD [address] [place] [address] PCP - General Family Practice 09/09/17 Feature Writer Relationship Specialty Start Date End Date Dede Desai MD [address] [place] [address] PCP - General Family Practice 09/09/17 Feature Writer Relationship Specialty Start Date End Date Dede Desai MD [address] [place] [address] PCP - General Family Medicine 09/09/17 Feature Writer Relationship Specialty Start Date End Date Dede Desai MD [address] [place] [address] PCP - General Family Medicine 09/09/17 Feature Writer Relationship Specialty Start Date End Date Dede Desai MD [address] [place] [address] PCP - General Family Medicine 09/09/17 Feature Writer Relationship Specialty Start Date End Date Dede Desai MD [facility] [place] [address] PCP - General Family Medicine 09/09/17 Feature Writer Relationship Specialty Start Date End Date Dede Desai MD [address] [place] [address] PCP - General Family Medicine 09/09/17 Feature Writer Relationship Specialty Start Date End Date Dede Desai MD [address] [place] [address] PCP - General Family Medicine 09/09/17 Feature Writer Relationship Specialty Start Date End Date Dede Desai MD [address] [place] [address] PCP - General Family Medicine 09/09/17 Feature Writer Relationship Specialty Start Date End Date Dede Desai MD [address] [place] [address] PCP - General Family Medicine 09/09/17 Feature Writer Relationship Specialty Start Date End Date Dede Desai MD [address] [place] [address] PCP - General Family Medicine 09/09/17 Team Status: Active Member Role Status Dates Dr. Dede Desai MD Family Provider Active Dr. Dede Desai MD Primary Care Provider Active Team Status: Inactive Member Role Status Dates Dr. Dede Desai MD Primary Care Provider Active Dr. Laron Tovar MD Attending Provider, Refe ing Provider Active Feature Writer Relationship Specialty Start Date End Date Dede Desai MD [address] [place] [address] PCP - General Family Medicine 09/09/17 Feature Writer Relationship Specialty Start Date End Date Dede Desai MD [address] [place] [address] PCP - General Family Medicine 09/09/17 Feature Writer Relationship Specialty Start Date End Date Dede Desai MD [address] [place] [address] PCP - General Family Medicine 09/09/17 Jose Jiménez MD [address] [place] [address] Hematology/Oncology 07/17/23 Feature Writer Relationship Specialty Start Date End Date Dede Desai MD [address] [place] [address] PCP - General Family Medicine 09/09/17 Jose Jiménez MD [address] [place] [place] [address] Hematology/Oncology 07/17/23 Feature Writer Relationship Specialty Start Date End Date Dede Desai MD [address] [place] [address] PCP - General Family Medicine 09/09/17 Jose Jiménez MD [address] [place] [address] Hematology/Oncology 07/17/23 Feature Writer Relationship Specialty Start Date End Date Dede Desai MD [address] [place] [address] PCP - General Family Medicine 09/09/17 Jose Jiménez MD [address] [place] [address] Hematology/Oncology 07/17/23 Feature Writer Relationship Specialty Start Date End Date Dede Desai MD [address] [place] [address] PCP - General Family Medicine 09/09/17 Jose Jiménez MD [address] [place] [address] Hematology/Oncology 07/17/23 Feature Writer Relationship Specialty Start Date End Date Dede Desai MD [address] [place] [address] PCP - General Family Medicine 09/09/17 Jose Jiménez MD [address] [place] [address] Hematology/Oncology 07/17/23 Feature Writer Relationship Specialty Start Date End Date Dede Desai MD [address] [place] [address] PCP - General Family Medicine 09/09/17 Jose Jiménez MD [address] [place] [address] Hematology/Oncology 07/17/23 Feature Writer Relationship Specialty Start Date End Date Dede Desai MD [address] [place] [address] PCP - General Family Medicine 09/09/17 Jose Jiménez MD [address] [place] [address] Hematology/Oncology 07/17/23 Feature Writer Relationship Specialty Start Date End Date Dede Desai MD [address] [place] [address] PCP - General Family Medicine 09/09/17 Jose Jiménez MD [address] [place] [address] Hematology/Oncology 07/17/23 Feature Writer Relationship Specialty Start Date End Date Dede Desai MD [address] [place] [address] PCP - General Family Medicine 09/09/17 Jose Jiménez MD [address] [place] [address] Hematology/Oncology 07/17/23 Feature Writer Relationship Specialty Start Date End Date Dede Desai MD [address] [place] [address] PCP - General Family Medicine 09/09/17 Jose Jiménez MD [address] [place] [address] Hematology/Oncology 07/17/23 Feature Writer Relationship Specialty Start Date End Date Dede Desai MD [address] [place] [address] PCP - General Family Medicine 09/09/17 Jose Jiménez MD [address] [place] [address] Hematology/Oncology 07/17/23 Feature Writer Relationship Specialty Start Date End Date Dede Desai MD [address] [place] [address] PCP - General Family Medicine 09/09/17 Jose Jiménez MD [address] [place] [address] Hematology/Oncology 07/17/23 Feature Writer Relationship Specialty Start Date End Date Dede Desai MD [address] [place] [address] PCP - General Family Medicine 09/09/17 Jose Jiménez MD [address] [place] [address] Hematology/Oncology 07/17/23 Feature Writer Relationship Specialty Start Date End Date Dede Desai MD [address] [place] [address] PCP - General Family Medicine 09/09/17 Jose Jiménez MD [address] [place] [address] Hematology/Oncology 07/17/23 Feature Writer Relationship Specialty Start Date End Date Dede Desai MD [address] [place] [address] PCP - General Family Medicine 09/09/17 Jose Jiménez MD [address] [place] [address] Hematology/Oncology 07/17/23 Feature Writer Relationship Specialty Start Date End Date Dede Desai MD [address] [place] [address] PCP - General Family Medicine 09/09/17 Jose Jiménez MD [address] [place] [address] Hematology/Oncology 07/17/23 Feature Writer Relationship Specialty Start Date End Date Dede Desai MD [address] [place] [address] PCP - General Family Medicine 09/09/17 Jose Jiménez MD [address] [place] [address] Hematology/Oncology 07/17/23 Feature Writer Relationship Specialty Start Date End Date Dede Desai MD [address] [place] [address] PCP - General Family Medicine 09/09/17 Jose Jiménez MD [address] [place] [address] Hematology/Oncology 07/17/23 Noelle Zhu APRN.WEATHERIZATION TECHNICIAN [address] [place] [address] Cardiovascular Sonographer Family Medicine 08/22/24 Mir Sommer APRN.WEATHERIZATION TECHNICIAN [address] [place] [address] Cardiovascular Sonographer Family Medicine 08/31/24 Feature Writer Relationship Specialty Start Date End Date Dede Desai MD [address] [place] [address] PCP - General Family Medicine 09/09/17 Jose Jiménez MD [address] [place] [address] Hematology/Oncology 07/17/23 Noelle Zhu APRN.WEATHERIZATION TECHNICIAN [address] [place] [address] Cardiovascular Sonographer Family Medicine 08/22/24 Mir Sommer APRN.WEATHERIZATION TECHNICIAN [address] [place] [address] Cardiovascular Sonographer Family Medicine 08/31/24 Feature Writer Relationship Specialty Start Date End Date Dede Desai MD [address] [place] [address] PCP - General Family Medicine 09/09/17 Jose Jiménez MD [address] [place] [address] Hematology/Oncology 07/17/23 Noelle Zhu APRN.WEATHERIZATION TECHNICIAN [address] [place] [address] Cardiovascular Sonographer Family [facility] 08/22/24 Mir Sommer APRN.WEATHERIZATION TECHNICIAN [address] [place] [address] [facility] Feature Writer Relationship Specialty Start Date End Date Dede Desai MD [address] [place] [address] PCP - General Family Medicine 09/09/17 Jose Jiménez MD [address] [place] [address] Hematology/Oncology 07/17/23 Noelle Zhu BUY BOAT OPERATOR.WEATHERIZATION TECHNICIAN [address] [place] [address] [facility] 08/22/24 Mir Sommer APRN.WEATHERIZATION TECHNICIAN [address] [place] [address] [facility] 08/31/24 Feature Writer Relationship Specialty Start Date End Date Dede Desai MD [address] [place] [address] PCP - General Family Medicine 09/09/17 Jose Jiménez MD [address] [place] [address] Hematology/Oncology 07/17/23 Noelle Zhu APRN.WEATHERIZATION TECHNICIAN [address] [place] [address] [facility] 08/22/24 Mir Sommer APRN.WEATHERIZATION TECHNICIAN [address] [place] [address] [facility] 08/31/24 Feature Writer Relationship Specialty Start Date End Date Dede Desai MD [address] [place] [address] PCP - General Family Medicine 09/09/17 Jose Jiménez MD [address] [place] [address] Hematology/Oncology 07/17/23 Noelle Zhu APRN.WEATHERIZATION TECHNICIAN [address] [place] [address] [facility] 08/22/24 Mir Sommer APRN.WEATHERIZATION TECHNICIAN [address] [place] [address] [facility] 08/31/24 Feature Writer Relationship Specialty Start Date End Date Dede Desai MD [address] [place] [address] PCP - General Family Medicine 09/09/17 Jose Jiménez MD [address] [place] [address] Hematology/Oncology 07/17/23 Noelle Zhu APRN.WEATHERIZATION TECHNICIAN [address] [place] [address] [facility] 08/22/24 Mir Sommer APRN.WEATHERIZATION TECHNICIAN [address] [place], [place] [address] [facility] 08/31/24 Feature Writer Relationship Specialty Start Date End Date Dede Desai MD [address] [place], [place] [address] PCP - General Family Medicine 09/09/17 Jose Jiménez MD [address] [place], [place] [id number] Hematology/Oncology 07/17/23 Mir Sommer APRN.WEATHERIZATION TECHNICIAN [address] [place], [place] [id number] [facility] 08/31/24 Goals (unrecognized section and content) Goals may be documented in a n alternate sectionGoals may be documented in an alternate sectionGoals may be documented in an alternate sectionGoals may be documented in an alternate sectionGoals may be documented in an alternate sectionGoals may be documented in an alternate sectionGoals may be documented in an alternate section FOR RECORDS PERTAINING TO PATIENTS WHO ARE OR HAVE BEEN ENROLLED IN A CHEMICAL DEPENDENCY/SUBSTANCEABUSE PROGRAM, SOME INFORMATION MAY BE OMITTED. This clinical summary was aggregated from multiple sources. Caution should be exercised in using it in the provision of clinical care. This summary normalizes information from multiple sources, and as a consequence, information in this document may materially change the coding, format and clinical context of patient data. In addition, data may be omitted in some cases. CLINICAL DECISIONS SHOULD BE BASED ON THE PRIMARY CLINICAL RECORDS. [employer] provides no warranty or guarantee of the accuracy or completeness of information in this document.
== END | disposition home or self-care (01) ==
LOC: LABSPEC 15:17
PROVIDERS: PCP Family Medicine; Referring Provider Otolaryngology; Visit Provider Otolaryngology
DX: J33.9 Nasal polyp, unspecified (principal); J32.9 Chronic sinusitis, unspecified

== ENCOUNTER → 2025-08-02 | Outpatient (CLI) | payer MEDICARE, OTHER, SELFPAY ==
--- NOTE | 2025-08-02 09:30 | ETH_PTH ---
PATIENT: DEDE CHAN LOC: [facility] U#:[id number] AGE/SX: 79/M ROOM: RE08/02/[address]: Dr. Laron Tovar MD : 1945 BED: DIS: 08/02/2025 SPEC #: [id number] RECD: 08/02/25 14:45 STATUS: JONATHON REJuan #: [id number] CURTIS: 08/02/25 09:[address]: Laron Tovar DEPT: SURGICAL PATHOLOGY RECD BY: Salinas Solis ENTERED: 08/02/25 15:23 SP TYPE: ETH TISS OTHR DR: Dr. Spike Silva MD Tissues: A - Ethmoid sinus, NOS B - Ethmoid sinus, NOS Procedures: Surgery Specimen Level IV HEADER OPERATION: Functional endoscopic sinus surgery with polypectomy PRE-OP DIAGNOSIS: Nasal polyp, unspecified, other chronic sinusitis TISSUE SUBMITTED: A- Left sinus contents, B- Right sinus contents MICROSCOPIC DIAGNOSIS A. Left sinus contents, functional endoscopic sinus surgery with polypectomy: * Benign respiratory type mucosa with chronic inflammation and features of polyp formation B. Right sinus contents, functional endoscopic sinus surgery with polypectomy: * Benign respiratory type mucosa with chronic inflammation and features of polyp formation MICROSCOPIC DESCRIPTION Slides are reviewed. GROSS DESCRIPTION Received in 2 formalin containers labeled with the patient's name and date of . Designated as: A. Left sinus contents is a 1.4 x 0.7 x 0.1 cm aggregate of pink-valenzuela tissue fragments and clotted blood. Entirely submitted in 1 cassette. B. Right sinus contents 2.0 x 1.1 x 0.2 cm aggregate of valenzuela-pink tissue fragments and yellow-green, apparent necrotic material. Entirely submitted in 1 cassette. AL 08/02/2025 CPT:71208k0
== END | disposition home or self-care (01) ==
PROVIDERS: PCP Family Medicine; Referring Provider Otolaryngology; Visit Provider Otolaryngology
DX: J33.9 Nasal polyp, unspecified (principal); J32.9 Chronic sinusitis, unspecified
CPT/HCPCS: 88305